=== PATIENT | female | born 1975 | race Caucasian/White ===

== ENCOUNTER 2022-08-24 09:18 | Outpatient (OUT) | payer OTHER, SELFPAY ==
--- NOTE | 2022-08-24 09:29 | US_ITS ---
Patient: BETZAIDA ARMENDARIZ Exam Date: 08/24/2022 : 1975 Gender:F Ordering : DR Amilcar Gagnon . Admission #: [id number] Family : Order #: [id number] CLICK HERE TO VIEW EXAM RADIOLOGY REPORT PROCEDURE: MM TOMOSYNTHESIS DIAGNOSTIC BI, 08/24/2022, 09:14 US BREAST LT LIMITED, 08/24/2022, 10:12 COMPARISON: MG MAMM LT DIAG FU, 03/10/2022. MG MAMM LT DIAG FU, 11/05/2021. MG MAMM SCREEN 3D SAVI CAD, 10/10/2021. INDICATIONS: Follow Up Abnormal Mammogram Calculator Name NCI Breast Cancer Risk Assessment Tool 5 Year Breast Cancer Risk 0.60% Lifetime Breast Cancer Risk 6.30% Personal Breast Cancer No Personal Ovarian Cancer No Treatments None Family Cancers Grandmother-paternal with breast cancer at age ~60; Sister with leukemia cancer at age 2. LOCATION: [facility] BREAST COMPOSITION: Heterogeneously dense,which may obscure small masses. FINDINGS: DIAGNOSTIC CATEGORY 2--BENIGN FINDING: RIGHT BREAST: No significant suspicious finding. No significant change has occurred. LEFT BREAST: Stable asymmetries on today's mammogram. Ultrasound evaluation demonstrates small benign appearing cysts and stable hypoechoic structure suspected to represent a benign lymph node. Annual screening mammography is recommended. RECOMMENDATIONS: ROUTINE MAMMOGRAM AND CLINICAL EVALUATION IN 12 MONTHS. PLEASE NOTE: A NORMAL MAMMOGRAM DOES NOT EXCLUDE THE POSSIBILITY OF BREAST CANCER. A CLINICALLY SUSPICIOUS PALPABLE LUMP SHOULD BE BIOPSIED. Dictated by: Marco Antonio Jamison M.D. on 08/24/2022 at 10:41 Approved by: Marco Antonio Jamison M.D. on 08/24/2022 at 11:19
--- NOTE | 2022-08-24 09:52 | MM_ITS ---
Patient: BETZAIDA ARMENDARIZ Exam Date: 08/24/2022 : 1975 Gender:F Ordering : DR Amilcar Gagnon . Admission #: [id number] Family : Order #: [id number] CLICK HERE TO VIEW EXAM RADIOLOGY REPORT PROCEDURE: MM TOMOSYNTHESIS DIAGNOSTIC BI, 08/24/2022, 09:14 US BREAST LT LIMITED, 08/24/2022, 10:12 COMPARISON: MG MAMM LT DIAG FU, 03/10/2022. MG MAMM LT DIAG FU, 11/05/2021. MG MAMM SCREEN 3D SAVI CAD, 10/10/2021. INDICATIONS: Follow Up Abnormal Mammogram Calculator Name NCI Breast Cancer Risk Assessment Tool 5 Year Breast Cancer Risk 0.60% Lifetime Breast Cancer Risk 6.30% Personal Breast Cancer No Personal Ovarian Cancer No Treatments None Family Cancers Grandmother-paternal with breast cancer at age ~60; Sister with leukemia cancer at age 2. LOCATION: [facility] BREAST COMPOSITION: Heterogeneously dense,which may obscure small masses. FINDINGS: DIAGNOSTIC CATEGORY 2--BENIGN FINDING: RIGHT BREAST: No significant suspicious finding. No significant change has occurred. LEFT BREAST: Stable asymmetries on today's mammogram. Ultrasound evaluation demonstrates small benign appearing cysts and stable hypoechoic structure suspected to represent a benign lymph node. Annual screening mammography is recommended. RECOMMENDATIONS: ROUTINE MAMMOGRAM AND CLINICAL EVALUATION IN 12 MONTHS. PLEASE NOTE: A NORMAL MAMMOGRAM DOES NOT EXCLUDE THE POSSIBILITY OF BREAST CANCER. A CLINICALLY SUSPICIOUS PALPABLE LUMP SHOULD BE BIOPSIED. Dictated by: Marco Antonio Jamison M.D. on 08/24/2022 at 10:41 Approved by: Marco Antonio Jamison M.D. on 08/24/2022 at 11:19
== END 2022-08-24 09:19 | disposition home or self-care (01) ==
LOC: MAMMO 09:18
PROVIDERS: Visit Provider Obstetrics & Gynecology
DX: R92.8 Other abnormal and inconclusive findings on diagnostic imaging of breast (principal); Z80.3 Family history of malignant neoplasm of breast; Z80.6 Family history of leukemia; N60.02 Solitary cyst of left breast
CPT/HCPCS: 76642; 77066; G0279

== ENCOUNTER 2022-12-21 21:27 | Outpatient (REF) | payer OTHER, SELFPAY ==
[2022-12-25 13:09] LABS: Age Gdln ACOG Testing Note (.); HPV Aptima Negative (Negative); IGP, Aptima HPV, rfx 16/18,45 Note (.)
== END 2022-12-21 21:28 | disposition home or self-care (01) ==
LOC: LAB 21:27
PROVIDERS: Visit Provider Obstetrics & Gynecology
DX: Z01.419 Encounter for gynecological examination (general) (routine) without abnormal findings (principal)
CPT/HCPCS: 87624; G0145

== ENCOUNTER 2023-08-11 09:20 | Outpatient (OUT) | payer OTHER, SELFPAY ==
--- OUTSIDE RECORDS SUMMARY | 2023-08-11 09:35 | XMS_ITS | CCD ---
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 iBWho0N6BLYgsQI9OOAscRuhAsAo mC36Czk+HDEhrPxwd0UcDjqvm9vk f1ojuQt0CqLnMRSbghKe pXmwLDK5f1JvUb24C63iIVczHJEa UQDoMWDoJBTtfBoppj0fqB0eMw6+ OKIluKO1cQK0wZ7cWvAl UiH7IOdaM784OnIqxKZiWuiny1mo w4fwwHw5VkRbOKNsbyYfqZfwJJU5 p0ZyWf64N1JjgTnur9Py Mut8wz85uGXhu9K8zSH7S9PrZKNo nvxzqKEakIzkKH0kMGEygqilWTGb fA7zTHHoO9y9MxQpNnE8 QArnZ4DsvnK2HZOadNIdSTStdVSN pW3zoaytw5fznivsBaHtSDKqZHq1 EGe9BHDtcOtlPyNuIAG0 ZdI8UEX8rFAcmQ8qhYujombhsD2s Oyc+SYz8x6eqmZHkOE7mpSP1JB27 SR63uNBvc5E2qBP0O5Ih VXTczkksfhixmDE5OYSuZARodQ53 Cj7suHeiRh3yREZxJGF2NPFtmUGq V1CeeW4vTwCbRSVwEGIq C8QduXXzNPiuI987WWqpEuC5BUPa kkXrQ2UsIGTuyMwsFeH4t9U5Zt4J GN74GL61RK48tDUnq3B7 sVN5Z1GlBEAwjdetorrmmJO5INNt JOYdbM19Tl5egRecQk6hWIQqSSG7 YAHlaDByY2WdiH1pHlDm KZZmLVEsM5XdeMCyBQwzX738OXxu VzO3ZLXqrxLvV8EdABOdhUzcAbF9 n5T7Nr4ZOc13VR96IE83 gVYuh7F2fEL0B3HtXYGolbbnpkpw nNB6OVGgEABbrJ15Xq4brRldWy8m MOEiIKX4QTIuoGQcT6Yz rE1qKwRsBHRoQQBoT1FksSNgQNkz Y650XRfuPnD6IDXyhrYgH9LhNMUz oDbxYiE6g9T7Fc6KZIjc kwx7O0CvYntzeXI+EK68LYFqLN52 sDCpeEKov2monPr1SiRpLUAmJOO2 qKnzTKdbz7WzXMGiF09b bGFw (more content not included)... [facility] XR Knee Complete 4+ Views Aneta monzon 08-04-2021 XR Knee Complete 4+ Views Right Exam Date/Time: 08/01/2021 12:43 EDT Reason for Exam: M25.561 pain in right knee Report IMPRESSION: NO ACUTE RADIOGRAPHIC FINDINGS IN THE RIGHT KNEE. EXAM: X-ray right kneeXR Knee Complete 4+ Views Right DATE: 08/01/2021 12:30 PM COMPARISON: None available. REASON FOR EXAM: Acute right anterior knee pain. M25.561 pain in right knee FINDINGS: Bones: No acute fracture or subluxation. Joints: Joints are symmetric and well-maintained. Articular surfaces are smooth. Effusion: None FINAL REPORT Dictated: 08/04/2021 3:03 pm Tigre Gomez MD Signed (Electronic Signature): 08/04/2021 3:03 pm Signed by: Tigre Gomez MD Transcribed by: JAKOB Technologist: NAOMY [facility] T3 Freeon 08-02-2021 Free T3 [Mass/Vol] 3.3 pg/mL Invalid Interpretation Code 2.0-4.4 [facility] Comment on above: Result Comment: Perf ormed at: [facility] [id number] [place], [place] [id number] PhD Rissa Cloud Performed By: #### 2 [id number], [id number] #### [facility] [address] [place] [address] Thyroid Perox.tpo Abon 08-02 TPO Ab Qn [IU]/mL Invalid Interpretation Code 0-34 [facility] Comment on above: Result Comment: Perf ormed at: [id number] [place], [place] [id number] PhD Rissa Cloud Performed By: #### 2 [id number], [id number] #### [facility] [address] [place] [address] Consent for Treatmenton 07-23 Consent for Treatment [id number]#[id number]:127 Normal [facility] Free T4on 08-01-2021 Free T4 [Mass/Vol] 0.73 ng/dL Normal 0.58-1.64 [facility] Comment on above: Performed By: #### 2 [id number], [id number], [id number] #### [facility] [address] [place] [address] Physician Orderon 08-01-2021 Physician Order [id number]#[id number]:127 Normal [facility] TSHon 08-01-2021 TSH Qn 2.64 m[IU]/L Normal 0.34-5.60 [facility] Comment on above: Performed By: #### 2 [id number], [id number], [id number], [id number] #### [facility] [address] [place] [address] SABRINA + BEATRICE PANELon 03-11-2020 SABRINA WITH REFLEX TO BEATRICE Negative Normal NEGATIVE [facility] Comment on above: Performed By: #### A NAP2 #### [facility] [address] [place] [address] ALPHA-FETOPROTEINon 03-09-19 21 ALPHA-FETOPROTEIN <4 Normal 0 - 9 [facility] Comment on above: Result Comment: AFP testing is performed by chemiluminescent immunoassay using the Expandly. Values obtained with different analyte methods cannot be used interchangeably. This test can be used as an adjunct in the diagnosis and monitoring of AFP-producing tumors, including non-seminomatous germ cell tumors and hepatocellular carcinomas. Performed By: #### A FP #### [facility] [address] [place] [address] SABRINA + BEATRICE PANELon 03-09-2020 ANTI-CENTROMERE <0.2 Normal [facility] Comment on above: Result Comment: REF VALUES < 1.0 = NEGATIVE >=1.0 = POSITIVE Performed By: #### A NAP2 #### [facility] [address] [place] [address] ANTI-CHROMATIN 0.2 AI Normal [facility] Comment on above: Result Comment: REF VALUES < 1.0 = NEGATIVE >=1.0 = POSITIVE Performed By: #### A NAP2 #### [facility] [address] [place] [address] ANTI-DNA [DS] <1.0 Normal [facility] Comment on above: Result Comment: REF VALUES NEGATIVE: <= 4 IU/ML EQUIVOCAL: 5- 9 IU/ML POSITIVE: >=10 IU/ML Performed By: #### A NAP2 #### [facility] [address] [place] [address] ANTI-STARR-1 <0.2 Normal [facility] Comment on above: Result Comment: REF VALUES < 1.0 = NEGATIVE >=1.0 = POSITIVE Performed By: #### A NAP2 #### [facility] [address] [place] [address] ANTI-RIBOSOMAL P <0.2 Normal [facility] Comment on above: Result Comment: REF VALUES < 1.0 = NEGATIVE >=1.0 = POSITIVE Performed By: #### A NAP2 #### [facility] [address] [place] [address] ANTI-PHYSICIAN LOCUMS URGENT CARE <0.2 Normal [facility] Comment on above: Result Comment: REF VALUES < 1.0 = NEGATIVE >=1.0 = POSITIVE Performed By: #### A NAP2 #### [facility] [address] [place] [address] ANTI-SCL-70 <0.2 Normal [facility] Comment on above: Result Comment: REF VALUES < 1.0 = NEGATIVE >=1.0 = POSITIVE Performed By: #### A NAP2 #### [facility] [address] [place] [address] ANTI-SM <0.2 Normal [facility] Comment on above: Result Comment: REF VALUES < 1.0 = NEGATIVE >=1.0 = POSITIVE Performed By: #### A NAP2 #### [facility] [address] [place] [address] ANTI-SM/PHYSICIAN LOCUMS URGENT CARE <0.2 Normal [facility] Comment on above: Result Comment: REF VALUES < 1.0 = NEGATIVE >=1.0 = POSITIVE Performed By: #### A NAP2 #### [facility] [address] [place] [address] ANTI-SSA <0.2 Normal [facility] Comment on above: Result Comment: REF VALUES < 1.0 = NEGATIVE >=1.0 = POSITIVE Performed By: #### A NAP2 #### [facility] [address] [place] [address] ANTI-SSB <0.2 Normal [facility] Comment on above: Result Comment: REF VALUES < 1.0 = NEGATIVE >=1.0 = POSITIVE Performed By: #### A NAP2 #### [facility] [address] [place] [address] HEPATITIS A AB-TOTALon 03-09 HEPATITIS A AB-TOTAL NONREACTIVE Normal NONREACTIVE [facility] Comment on above: Result Comment: Biot in interference may cause falsely elevated results. Patients taking a Biotin dose of up to 5 mg/day should refrain from taking Biotin for 24 hours before sample collection. Providers may contact their local laboratory for further information. Performed By: #### H AVTO #### [facility] [address] [place] [address] HEPATITIS B CORE AB-TOTALon 03-09-2020 HEP. B CORE AB-TOTAL NONREACTIVE Normal NONREACTIVE [facility] Comment on above: Result Comment: Resu lts from patients taking biotin supplements or receiving high-dose biotin therapy should be interpreted with caution due to possible interference with this test. Providers may contact their local laboratory for further information. Performed By: #### H BCRT #### [facility] [address] [place] [address] HEPATITIS B SURF ABon 2020 HEP B SURF AB <3.1 Normal <10 [facility] Comment on above: Result Comment: INTE RPRETIVE CRITERIA: <10 mIU/mL....NONREACTIVE >=10 mIU/mL...REACTIVE . Biotin interference may cause falsely decreased results. Patients taking a Biotin dose of up to 5 mg/day should refrain from taking Biotin for 24 hours before sample collection. Providers may contact their local laboratory for further information. Performed By: #### H BAB3 #### [facility] [address] [place] [address] Alpha Fetoprotein, Serumon 0 03-08-2020 AFP [Mass/Vol] ng/mL 0 - 9 [facility] Work Phone: Comment on above: SOURCE: AFP testing is performed by chemiluminescent immunoassay using the Expandly. Values obtained with different analyte methods cannot be used interchangeably. This test can be used as an adjunct in the diagnosis and monitoring of AFP-producing tumors, including non-seminomatous germ cell tumors and hepatocellular carcinomas. HEPATITIS B CORE AB-TOTALon 03-08-2020 Lab Specimen Source Normal [facility] Comment on above: Performed By: #### H BCRT #### [facility] [address] [place] [address] Performed By: #### A FP #### [facility] [address] [place] [address] Performed By: #### H BAB3 #### [facility] [address] [place] [address] Performed By: #### H AVTO #### [facility] [address] [place] [address] Hepatitis A Antibody, Totalo n 03-08-2020 HAV Ab IA Ql (S) NONREACTIVE See Below [facility] [address] Work Phone: Comment on above: SOURCE: Reference Ra nge: NONREACTIVE Biotin interference may cause falsely elevated results. Patients taking a Biotin dose of up to 5 mg/day should refrain from taking Biotin for 24 hours before sample collection. Providers may contact their local laboratory for further information. Hepatitis B Core Antibody, T otalon 03-08-2020 Hepatitis B Core Antibody, Total NONREACTIVE See Below [facility] [address] Work Phone: Comment on above: SOURCE: Reference Ra nge: NONREACTIVE Results from patients taking biotin supplements or receiving high-dose biotin therapy should be interpreted with caution due to possible interference with this test. Providers may contact their local laboratory for further information. Hepatitis B Surface Antibody on 03-08-2020 HBV surface Ag IA Ql <3.1 <10 [facility] [address] Work Phone: Comment on above: SOURCE: INTERPRETIVE CRITERIA:<10 mIU/mL....NONREACTIVE >=10 mIU/mL...REACTIVE . Biotin interference may cause falsely decreased results. Patients taking a Biotin dose of up to 5 mg/day should refrain from taking Biotin for 24 hours before sample collection. Providers may contact their local laboratory for further information. Imm/Pathon 03-08-2020 DNA double strand Ab Qn (S) [IU]/mL [facility] [address] Work Phone: Comment on above: REF VALUESNEGATIVE: <= 4 IU/MLEQUIVOCAL: 5- 9 IU/MLPOSITIVE: >=10 IU/ML Otheron 03-08-2020 Centromere protein B Ab Qn (S) <0.2 [facility] [address] Work Phone: Comment on above: REF VALUES < 1.0 = N EGATIVE >=1.0 = POSITIVE Chromatin Ab Qn 0.2 {AI} [facility] Work Phone: Comment on above: REF VALUES < 1.0 = N EGATIVE >=1.0 = POSITIVE Starr-1 extractable nuclear Ab IA Ql (S) <0.2 [facility] [address] Work Phone: Comment on above: REF VALUES < 1.0 = N EGATIVE >=1.0 = POSITIVE Nuclear Ab Hep2 substrate Ql (S) Negative NEGATIVE [facility] [address] Work Phone: Ribonucleoprotein extractable nuclear Ab IA Qn (S) <0.2 [facility] [address] Work Phone: Comment on above: REF VALUES < 1.0 = N EGATIVE >=1.0 = POSITIVE Ribosomal P Ab Qn (S) <0.2 [facility] [address] Work Phone: Comment on above: REF VALUES < 1.0 = N EGATIVE >=1.0 = POSITIVE SCL-70 extractable nuclear Ab IA Ql (S) <0.2 [facility] [address] Work Phone: Comment on above: REF VALUES < 1.0 = N EGATIVE >=1.0 = POSITIVE Sjogrens syndrome-A extractable nuclear Ab IA Qn (S) <0.2 [facility] [address] Work Phone: Comment on above: REF VALUES < 1.0 = N EGATIVE >=1.0 = POSITIVE Sjogrens syndrome-B extractable nuclear Ab IA Qn (S) <0.2 [facility] [address] Work Phone: Comment on above: REF VALUES < 1.0 = N EGATIVE >=1.0 = POSITIVE Jones extractable nuclear Ab IA Qn (S) <0.2 [facility] Work Phone: Comment on above: REF VALUES < 1.0 = N EGATIVE >=1.0 = POSITIVE Jones extractable nuclear Ab+Ribonucleoprotei n extractable nuclear Ab IA Ql (S) <0.2 [employer] [address] Work Phone: Comment on above: REF VALUES < 1.0 = N EGATIVE >=1.0 = POSITIVE Initial Visit (Gastroenterol ogy)on 03-05-2020 Initial Visit (Gastroenterology) Diagnoses/Problems Assessed Fatty infiltration of liver (571.8) (K76.0) Orders Elevated liver enzymes, Fatty infiltration of liver Alpha Fetoprotein, Serum; Status:Active; Requested for:05Mar2020; Perform:Lab Services - Lab To Draw (Blood Test); Due:03Jun2020;Ordered; For:Elevated liver enzymes, Fatty infiltration of liver; Ordered By:Reinaldo Banks; Hepatology Follow-Up Outpatient TEST RESULTS Status: Hold For - Scheduling Requested for: 05Mar2020 Ordered;For: Elevated liver enzymes, Fatty infiltration of liver; Ordered By: Reinaldo Banks Performed: Due: 03Jun2020 Anti Nuclear Antibody Panel (with automatic BEATRICE Panel); Status:Active; Requested for:05Mar2020; Perform:Lab Services - Lab To Draw (Blood Test); Due:03Jun2020;Ordered; For:Elevated liver enzymes, Fatty infiltration of liver; Ordered By:Reinaldo Banks; Hepatitis A Antibody, Total; Status:Active; Requested for:05Mar2020; Perform:Lab Services - Lab To Draw (Blood Test); Due:03Jun2020;Ordered; For:Elevated liver enzymes, Fatty infiltration of liver; Ordered By:Reinaldo Banks; Hepatitis B Core Antibody, Total; Status:Active; Requested for:05Mar2020; Perform:Lab Services - Lab To Draw (Blood Test); Due:03Jun2020;Ordered; For:Elevated liver enzymes, Fatty infiltration of liver; Ordered By:Reinaldo Banks; Hepatitis B Surface Antibody; Status:Active; Requested for:05Mar2020; Perform:Lab Services - Lab To Draw (Blood Test); Due:03Jun2020;Ordered; For:Elevated liver enzymes, Fatty infiltration of liver; Ordered By:Reinaldo Banks; IO Liver Ultrasound; Status:Hold For - Scheduling; Requested for:05Mar2020; Perform:In Office; Order Comments:FIBROSCAN; Due:03Jun2020;Ordered; For:Elevated liver enzymes, Fatty infiltration of liver; Ordered By:Reinaldo Banks; Radiologist to Determine Optimal Study : Y What are the patient's signs and symptoms? : Fatty liver Patient Discussion/Summary diet and exercise are recommended have fibroscan done to monitor for the amount of fat and scarring in the liver have liver testing blood work done return to the office in 6 weeks Avoid foods which contain complex sugars like wheat, rice, potatoes and corn Avoid eating foods that are rich in sugar in excess such as hgih sugar fruits (pineapple, alison...) and desserts, cakes and pies Eat more good foods that are rich in good fat such as cold water fish (salmon, swordfish...) as well as avocados and peanut butter in moderation Snack on nuts that are high in protein and good oils such as walnuts, almonds. Eat a mediteranean diet which is rich in grilled lean meats, high protein beans and legumes and olive oil Exercise for 30 minutes or more at least 3 times a week focus on exercises that build muscle mass like working with weights and lifting. Try swimming or water aerobics if you have access to a pool Aim to lose 7-10% of your total body weight over 6-12 months Provider Impressions This patient most likely has Non Alcoholic Fatty Liver. We discussed natural history and the distinction between PALMER and NAFLD as well as long-term implications of a diagnosis of PALMER and the increased risk of cardiovascular events associated with fatty liver We encouraged diet and exercise We will complete a work up for causes of chronic liver disease we will order FIBROSCAN to assess for steatosis and fibrosis we will see this patient in 6 weeks 45 minutes spent discussing condition, explaining results of tests and formulating plan of care Chief Complaint An interactive audio and video telecommunication system which permits real time communications between the patient (at the originating site) and provider (at the distant site) was utilized to provide this telehealth service. Verbal consent was requested and obtained from BETZAIDA ARMENDARIZ on this date, 03/05/2020 08:20 AM , for a telehealth visit. New patient here for evaluation of elevated liver enzymes Adult Risk ScreeningAdult Risk Screening_UH: There are no spiritual/cultural practices/values/needs that are important to know Initial Fall Risk Screening: BETZAIDA has not fallen in the last 6 months. History of Present Illness She has a history of ALT elevation in the setting of obesity. there is no complaint of cognitive impairment or fluid overload Upper Gastrointestinal: no abdominal pain, no eructation, no difficulty swallowing, no early satiety, no heartburn, no jaundiced, no nausea, no pain while swallowing, no regurgitation, no vomiting. Lower Gastrointestinal: no abdominal swelling, no bloating, no constipation, no diarrhea, no fecal incontinence, no bowel urgency, no steatorrhea. Liver Disease no ankle swelling, no cognitive impairment, no confusion, no icterus. Symptom History: Modifying Factors: Associated Symptoms: Skin: there are no skin symptoms. Eyes: there are no eye symptoms. Ears: there are no ear symptoms. Nose: there are no nasal symptoms. Mouth/Throat/Teeth: there are no oral symptoms. Neck: there are no neck symptoms. Cardiovascular: there are no cardiovascular symptoms. Respiratory: there are no respiratory symptoms. Review of Systems Constitutional: no fever and no chills. ENT: no lymphadenopathy and no nosebleeds. Cardiovascular: the heart rate was not slow and the heart rate was not fast. Respiratory: no cough and no wheezing. Genitourinary: no dysuria and no incontinence. Musculoskeletal: no arthralgias. Integumentary: no itching and no skin wound. Neurological: no headache and no confusion. Constitutional: no fever, no chills, not feeling tired and no recent weight loss. Eyes: no yellow sclera/jaundice. ENT: no lymphadenopathy. Cardiovascular: no shortness of breath and no chest pain. Respiratory: no cough. Gastrointestinal: as noted in HPI. Musculoskeletal: no joint swelling. Integumentary: no rashes, no skin lesions and was no jaundiced. Neurological: no headache. Psychiatric: anxiety and depression. Hematologic/Lymphatic: no tendency for easy bleeding and no tendency for easy bruising. All other systems have been reviewed and are negative for complaint. Active Problems Problems Anxiety (300.00) (F41.9) ASCUS with positive high risk HPV cervical (795.01,795.05) (R87.610,R87.810) BENJA I (cervical intraepithelial neoplasia I) (622.11) (N87.0) BENJA II (cervical intraepithelial neoplasia II) (622.12) (N87.1) Depression, major, single episode, mild (296.21) (F32.0) Elevated liver enzymes (790.5) (R74.8) Encounter for preventive health examination (V70.0) (Z00.00) Fatigue (780.79) (R53.83) Irregular menses (626.4) (N92.6) Migraines (346.90) (G43.909) Obesity (BMI 30-39.9) (278.00) (E66.9) Other screening mammogram (V76.12) (Z12.31) Restless leg syndrome (333.94) (G25.81) Screening mammogram, encounter for (V76.12) (Z12.31) Skin lesion (709.9) (L98.9) Stress (V62.89) (F43.9) Uterine fibroid (218.9) (D25.9) Varicose veins (454.9) (I83.90) Past Medical History Problems Fatty infiltration of liver (571.8) (K76.0) History of abnormal Pap smear (V13.29) (Z87.898) Surgical History Problems History of Cervical Loop Electrosurgical Excision (LEEP) History of Section History of Colposcopy Cervix With Biopsy(S) History of Dilation And Curettage History of Hysterectomy has ovaries Family History Mother Family history of Biliary sclerosis Father Family history of Diabetes mellitus due to underlying condition with microalbuminuria, with long-term current use of insulin Family history of malignant neoplasm of prostate (V16.42) (Z80.42) Sister Family history of leukemia (V16.6) (Z80.6) Social History Problems Caffeine use (V49.89) (Z78.9) Former smoker (V15.82) (Z87.891) Has 2 children No illicit drug use Social alcohol use (Z78.9) Allergies Medication Penicillins Recorded By: Veronica Crockett; 06/01/2017 9:38:23 AM Surgical TAPE Recorded By: Veronica Crockett; 06/01/2017 9:38:23 AM Current Meds Medication NameInstruction buPROPion HCl ER (XL) 150 MG Oral Tablet Extended Release 24 HourTAKE 1 TABLET BY MOUTH DAILY Esomeprazole Magnesium 20 MG Oral Capsule Delayed Release Multivitamins TABS rOPINIRole HCl - 0.25 MG Oral TabletTAKE 1 TABLET Bedtime Vitamin D3 75 MCG (3000 UT) Oral Tablet Results/Data Ultrasound [id number] 02:13PMGiovanna Brooks [Feb 14, 2020 10:53AM Giovanna Brooks] Reason: Unspecified for Ultrasound Liver Test NameResultFlagReference Ultrasound Liver(Report) Interpreted by: DESTINEE WEST 02/18/20 07:50 Patient Name: BETZAIDA ARMENDARIZ STUDY: US LIVER; 02/17/2020 2:13 pm INDICATION: elevated liver function tests. COMPARISON: None. ACCESSION NUMBER(S): [id number] ORDERING CLINICIAN: GIOVANNA BROOKS TECHNIQUE: Multiple images of the right upper quadrant were obtained. FINDINGS: LIVER: The liver is enlarged and diffusely echogenic in appearance, consistant with diffuse fatty infiltration. The liver measures 20.1 cm in length. There is a small probable area of focal fatty sparing adjacent to the gallbladder. No other focal lesions are identified. GALLBLADDER: The gallbladder is nondistended demonstrates no evidence of gallstones, wall thickening or surrounding fluid. Sonographic Sow's sign is negative. BILIARY TREE: 4 PANCREAS: The visualized pancreas is unremarkable in appearance. RIGHT KIDNEY: The right kidney is normal in size, measuring 10.5 cm in craniocaudal dimension. The renal cortical echogenicity and thickness are within normal limits. No hydronephrosis or renal calculi are seen. IMPRESSION: Enlarged liver with diffuse fatty infiltration. Probable small area of focal fatty sparing adjacent to the gallbladder. Otherwise, grossly unremarkable right upper quadrant ultrasound. Electronically signed by: DESTINEE WEST 02/18/20 07:50 Iron + TIBC, [id number] 12:39PMRevolGiovanna javier Test NameResultFlagReference Iron, Serum83 ug/dL35 - 150 Total Iron Binding Ljhxkizb620 ug/dL240 - 445 % Unhrdodtqg01 %L25 - 45 Transferrin, [id number] 12:39PMRevolinsGiovanna longoria Test NameResultFlagReference Transferrin, Kdnfu249 mg/dL200 - 360 Ceruloplasmin, Bhgvb34Spg2000 12:39PMRemountain point medical centerGiovanna javier Test NameResultFlagReference Ceruloplasmin, Serum38 mg/dL20 - 60 HIV 1/2 ANTIGEN/ANTIBODY SCREEN WITH REFLEX TO [id number] 12:39PMRevolinskyGiovanna Test NameResultFlagReference HIV 1/2 AG/AB SCREENNONREACTIVESee Below SOURCE: Reference Range: NONREACTIVE HIV Ag/Ab screen is performed using the Siemens LinqiallEverConnect HIV Ag/Ab Combo assay which detects the presence of HIV p24 antigen as well as antibodies to HIV-1 (Group M and O) and HIV-2. Hepatitis B Surface [id number] 12:39PMReatlantic rehabilitation instituteGiovanna longoria Test NameResultFlagReference Hep.B Surface AgNONREACTIVESee Below SOURCE: Reference Range: NONREACTIVE Biotin interference may cause falsely decreased results. Patients taking a Biotin dose of up to 5 mg/day should refrain from taking Biotin for 24 hours before sample collection. Providers may contact their local laboratory for further information. Hepatitis C Antibody [id number] 12:39PMRevolandalusia healthkyGiovanna Test NameResultFlagReference Hepatitis C-AntibodyNONREACTIVESee Below SOURCE: Reference Range: NONREACTIVE Results from patients taking biotin supplements or receiving high-dose biotin therapy should be interpreted with caution due to possible interference with this test. Providers may contact their local laboratory for further information. Hepatitis B Core IgM Zzlbsddr29Thq8039 12:39PMRevolinsky, Giovanna Test NameResultFlagReference Hepatitis B Core Ab, IgMNONREACTIVESee Below SOURCE: Reference Range: NONREACTIVE Results from patients taking biotin supplements or receiving high-dose biotin therapy should be interpreted with caution due to possible interference with this test. Providers may contact their local laboratory for further information. EBV Akfid49Slz3619 12:39PMReGiovanna allred Test NameResultFlagReference Baljit-Greenberg Virus Capsid Antigen IgGPOSITIVEANEGATIVE Baljit-Greenberg Virus Ab to Early AntigenNEGATIVENEGATIVE Baljit-Greenberg Virus Nuclear Antigen IgGPOSITIVEANEGATIVE VCA IgM AntibodyNEGATIVENEGATIVE EBV InterpretationSEE BELOW . EBV INTERPRETATION CHART . VCA-IGG VCA-IGM NA-IGG EA-IGG . ---- PRIMARY ACUTE +/- +/- - +/- LATE ACUTE + +/- +/- +/- RECOVERING + - - + PREVIOUS INFECTION + - +/- - Antimitochondrial [id number] 12:39PMReGiovanna allred Test NameResultFlagReference Mitochondrial Antibody ScreeningNEGATIVENEGATIVE Smooth Muscle Antibody Qsoiha95Nua2856 12:39PMReGiovanna allred Test NameResultKareennce Smooth Muscle AntibodyPOSITIVENEGATIVE Antismooth Muscle Titer1:20 Vqsdg-4-Ggfoonzmixm Phenotype, Gvcoo21Kwt8478 12:39PMReGiovanna allred Test NameResultReference Txtee-9-Wtogjgmsiuu Airjtfdtb432 mg/uM52-386 To convert to umol/L, multiply mg/dL by 0.185 Otusz-7-Noyhypieohy Phenotype AzdwoZ2S4 The patient appears to have a normal phenotype. All M alleles (including subtypes M1, M2, and M3) produce normal serum concentrations of tjwtd-1-qqxhdklu inhibitor and are not associated with clinical disease. Caution in interpretation is advised if the patient has been transfused within the previous 21 days. Performed By: saambaa [address] [place] [id number] Senior Underwriter: Nakia Washburn MD Complete Blood Xppqa87Mkw0541 03:43PMReGiovanna allred Test NameResultFlagReference White Blood Cell Count7.8 x10E9/L4.4 - 11.3 Red Blood Cell Count4.87 x10E12/LSee Below Reference Range: 4.00 - 5.20 Edtmtyfokp25.7 g/dLSee Below Reference Range: 12.0 - 16.0 HCT45.5 %See Below Reference Range: 36.0 - 46.0 MCV93 fL80 - 100 MCHC32.3 g/dLSee Below Reference Range: 32.0 - 36.0 Platelet Tatxr574 x10E9/L150 - 450 RDW-CV12.1 %See Below Reference Range: 11.5 - 14.5 Comprehensive Metabolic Tyhrl68Hbd5916 03:43PMGiovanna Brooks Test NameResultFlagReference Glucose, Serum90 mg/dL74 - 99 Sodium, Tbebk190 mmol/L136 - 145 POTASSIUM4.0 mmol/L3.5 - 5.3 Chloride, Vivef492 mmol/L98 - 107 Bicarbonate, Serum25 mmol/L21 - 32 Anion Gap, Serum17 mmol/L10 - 20 Blood Urea Nitrogen, Serum8 mg/dL6 - 23 CREATININE0.75 mg/dLSee Below Reference Range: 0.50 - 1.05 Calcium, Serum9.6 mg/dL8.6 - 10.3 Albumin, Serum4.5 g/dL3.4 - 5.0 ALKALINE AMQRSLIDSEF54 U/L33 - 110 Protein, Total Serum7.9 g/dL6.4 - 8.2 Bilirubin, Serum Total0.6 mg/dL0.0 - 1.2 ALT (SGPT), Serum87 U/LH7 - 45 Patients treated with Sulfasalazine may generate falsely decreased results for ALT. GFR Non >60 mL/min/1.73m2>60 GFR >60 mL/min/1.73m2>60 CALCULATIONS OF ESTIMATED GFR ARE PERFORMED USING THE MDRD STUDY EQUATION FOR THE IDMS-TRACEABLE CREATININE METHODS. CLIN CHEM 2007;53:766-72 AST74 U/LH9 - 39 Signatures Electronically signed by : Reinaldo Banks MD; Mar 05 2020 11:11AM EST (Author) Normal [facility] ALPHA-1 ANTITRYPSIN PHENOTYP [place] 02-18-2020 A-1 ANTITRYP.PHENOTYPE M1M2 Normal [facility] Comment on above: Result Comment: The patient appears to have a normal phenotype. All M alleles (including subtypes M1, M2, and M3) produce normal serum concentrations of oymgv-8-rbqoosia inhibitor and are not associated with clinical disease. Caution in interpretation is advised if the patient has been transfused within the previous 21 days. Performed By: [facility] [address] [place] [address] Senior Underwriter: Nakia Washburn MD Performed By: #### H BCRM #### [facility] [address] [place] [address] QZYMR-0-JRXXNYFEISM 140 mg/dL Normal 90-200 [facility] Comment on above: Result Comment: To c onvert to umol/L, multiply mg/dL by 0.185 Performed By: #### H BCRM #### [facility] [address] [place] [address] Otheron 02-17-2020 US Liver Interpreted by: DESTINEE WEST02/18/20 07:50MRN: [id number] Name: BETZAIDA ARMENDARIZ STUDY:US LIVER; 02/17/2020 2:13 pm INDICATION:elevated liver function tests. COMPARISON:None. ORDERING CLINICIAN:GIOVANNA BROOKS TECHNIQUE:Multiple images of the right upper quadrant were obtained. FINDINGS:LIVER:The liver is enlarged and diffusely echogenic in appearance,consistant with diffuse fatty infiltration. The liver measures 20.1cm in length. There is a small probable area of focal fatty sparingadjacent to the gallbladder. No other focal lesions are identified. GALLBLADDER:The gallbladder is nondistended demonstrates no evidence ofgallstones, wall thickening or surrounding fluid. SonographicMurphy's sign is negative. BILIARY TREE:4 PANCREAS:The visualized pancreas is unremarkable in appearance. RIGHT KIDNEY:The right kidney is normal in size, measuring 10.5 cm in craniocaudaldimension. The renal cortical echogenicity and thickness are withinnormal limits. No hydronephrosis or renal calculi are seen. IMPRESSION:Enlarged liver with diffuse fatty infiltration. Probable small areaof focal fatty sparing adjacent to the gallbladder. Otherwise, grossly unremarkable right upper quadrant ultrasound.Electronically signed by: DESTINEE WEST 02/18/20 07:50 Normal [facility] Work Phone: US LIVERon 02-17-2020 US LIVER Patient Name: BETZAIDA ARMENDARIZ STUDY: US LIVER; 02/17/2020 2:13 pm INDICATION: elevated liver function tests. COMPARISON: None. ACCESSION NUMBER(S): [id number] ORDERING CLINICIAN: GIOVANNA BROOKS TECHNIQUE: Multiple images of the right upper quadrant were obtained. FINDINGS: LIVER: The liver is enlarged and diffusely echogenic in appearance, consistant with diffuse fatty infiltration. The liver measures 20.1 cm in length. There is a small probable area of focal fatty sparing adjacent to the gallbladder. No other focal lesions are identified. GALLBLADDER: The gallbladder is nondistended demonstrates no evidence of gallstones, wall thickening or surrounding fluid. Sonographic Sow's sign is negative. BILIARY TREE: 4 PANCREAS: The visualized pancreas is unremarkable in appearance. RIGHT KIDNEY: The right kidney is normal in size, measuring 10.5 cm in craniocaudal dimension. The renal cortical echogenicity and thickness are within normal limits. No hydronephrosis or renal calculi are seen. IMPRESSION: Enlarged liver with diffuse fatty infiltration. Probable small area of focal fatty sparing adjacent to the gallbladder. Otherwise, grossly unremarkable right upper quadrant ultrasound. Electronically signed by: DESTINEE WEST MD Normal [facility] ANTIMITOCHONDRIAL ABon 02-14 ANTIMITOCHONDRIAL AB Negative Normal NEGATIVE [facility] Comment on above: Performed By: #### M ITAB #### [facility] [address] [place] [address] ANTISMOOTH MUSCLE ABon 02-14 ANTISMOOTH MUSCLE AB Positive Normal NEGATIVE [facility] Comment on above: Performed By: #### A SMAB #### [facility] [address] [place] [address] ANTISMOOTH MUSCLE TITER 1:20 Normal [facility] Comment on above: Performed By: #### A SMAB #### [facility] [address] [place] [address] CERULOPLASMINon 02-14-2020 CERULOPLASMIN 38 mg/dL Normal 20 - 60 [facility] Comment on above: Performed By: #### C ERUL #### [facility] [address] [place] [address] Ceruloplasmin, Serumon 02-13 Ceruloplasmin [Mass/Vol] 38 mg/dL 20 - 60 -[facility] Work Phone: EBV PANELon 02-14-2020 VCA IGM ANTIBODY Negative Normal NEGATIVE [facility] Comment on above: Performed By: #### E BVP1 #### [facility] [address] [place] [address] EBV EA-D IGG ANTIBODY Negative Normal NEGATIVE [facility] Comment on above: Performed By: #### E BVP1 #### [facility] [address] [place], [place] EBV INTERPRETATION SEE BELOW Normal [facility] Comment on above: Result Comment: . EB V INTERPRETATION CHART . VCA-IGG VCA-IGM NA-IGG EA-IGG . PRIMARY ACUTE +/- +/- - +/- LATE ACUTE + +/- +/- +/- RECOVERING + - - + PREVIOUS INFECTION + - +/- - Performed By: #### E BVP1 #### [facility] [address] [place] [address] EBV NA-1 IGG ANTIBODY Positive Abnormal NEGATIVE [facility] Comment on above: Performed By: #### E BVP1 #### [facility] [address] [place] [address] VCA IGG ANTIBODY Positive Abnormal NEGATIVE [facility] Comment on above: Performed By: #### E BVP1 #### [facility] [address] [place] [address] HEPATITIS B CORE AB;IGMon HEPATITIS B CORE AB,IGM NONREACTIVE Normal NONREACTIVE [facility] Comment on above: Result Comment: Resu lts from patients taking biotin supplements or receiving high-dose biotin therapy should be interpreted with caution due to possible interference with this test. Providers may contact their local laboratory for further information. Performed By: #### H [employer] [facility] [employer] [facility] #### [facility] [address] [place], [place] Lab Specimen Source Normal [facility] Comment on above: Performed By: #### H BCRM #### [facility] [address] [place], [place] Performed By: #### H CVAB #### [facility] [address] [place], [place] Performed By: #### H IV #### [facility] [address] [place] [address] HEPATITIS B SURFACE AGon HEP.B SURFACE AG NONREACTIVE Normal NONREACTIVE [facility] Comment on above: Result Comment: Biot in interference may cause falsely decreased results. Patients taking a Biotin dose of up to 5 mg/day should refrain from taking Biotin for 24 hours before sample collection. Providers may contact their local laboratory for further information. Performed By: #### H BCRM #### [facility] [address] [place] [address] HEPATITIS C ABon 02-14-2020 HEPATITIS C AB NONREACTIVE Normal NONREACTIVE [facility] Comment on above: Result Comment: Resu lts from patients taking biotin supplements or receiving high-dose biotin therapy should be interpreted with caution due to possible interference with this test. Providers may contact their local laboratory for further information. Performed By: #### H CVAB #### [facility] [address] [place], [place] HIV 1/2 ANTIGEN/ANTIBODY SCR EEN WITH REFLEX TO CONFIRMATIONon 02-14-2020 HIV 1/2 AG/AB SCREEN NONREACTIVE Normal NONREACTIVE [facility] Comment on above: Result Comment: HIV Ag/Ab screen is performed using the Siemens AtellEverConnect HIV Ag/Ab Combo assay which detects the presence of HIV p24 antigen as well as antibodies to HIV-1 (Group M and O) and HIV-2. Performed By: #### H IV #### [facility] [address] [place], [place] HIV 1+2 Ab+HIV1 p24 Ag IA Ql NONREACTIVE See Below -[facility] Work Phone: Comment on above: SOURCE: Reference Ra nge: NONREACTIVE HIV Ag/Ab screen is performed using the Siemens LinqiallEverConnect HIV Ag/Ab Combo assay which detects the presence of HIV p24 antigen as well as antibodies to HIV-1 (Group M and O) and HIV-2. Hepatitis B Surface Antigeno n 02-14-2020 Hepatitis B Surface Antigen NONREACTIVE See Below [facility] Work Phone: Comment on above: SOURCE: Reference Ra nge: NONREACTIVE Biotin interference may cause falsely decreased results. Patients taking a Biotin dose of up to 5 mg/day should refrain from taking Biotin for 24 hours before sample collection. Providers may contact their local laboratory for further information. SOURCE: Reference Ra nge: NONREACTIVE Results from patients taking biotin supplements or receiving high-dose biotin therapy should be interpreted with caution due to possible interference with this test. Providers may contact their local laboratory for further information. IRON + TIBCon 02-14-2020 % SATURATION 22 % Low 25 - 45 [facility] Comment on above: Performed By: #### I RONT #### [address] [address] Iron [Mass/Vol] 83 ug/dL Normal 35 - 150 [facility] Comment on above: Performed By: #### I RONT #### [address] [address] TIBC 374 ug/dL Normal 240 - 445 [facility] Comment on above: Performed By: #### I RONT #### [address] [address] Imm/Pathon 02-14-2020 EBV early IgM IA Qn (S) Negative NEGATIVE [facility] Work Phone: Metabolic Panelon 02-14-2020 Iron [Mass/Vol] 83 ug/dL 35 - 150 [facility] [address] Work Phone: Otheron 02-14-2020 Alpha 1 antitrypsin [Mass/Vol] 140 mg/dL 90-200 [facility] Work Phone: Comment on above: To convert to umol/L , multiply mg/dL by 0.185 Alpha 1 antitrypsin phenotyping [Interp] M1M2 [facility] Work Phone: Comment on above: The patient appears to have a normal phenotype. All M alleles (including subtypes M1, M2, and M3) produce normal serum concentrations of vaqov-1-yqzxpiey inhibitor and are not associated with clinical disease. Caution in interpretation is advised if the patient has been transfused within the previous 21 days.Performed By: [address] [place] [id number] Director: Nakia Washburn MD EBV capsid IgG IA Qn (S) Positive Abnormal NEGATIVE [facility] Work Phone: EBV capsid IgM IA Qn (S) Negative NEGATIVE [facility] Work Phone: EBV nuclear IgG IA Qn (S) Positive Abnormal NEGATIVE [facility] Work Phone: Iron binding capacity [Mass/Vol] 374 ug/dL 240 - 445 [facility] Work Phone: SEE BELOW [facility] Work Phone: Comment on above: . EBV INTERPRETATION CHART. VCA-IGG VCA-IGM NA-IGG EA-IGG. PRIMARY ACUTE +/- +/- - +/-LATE ACUTE + +/- +/- +/-RECOVERING + - - +PREVIOUS INFECTION + - +/- - Negative NEGATIVE [facility] Work Phone: Positive NEGATIVE [facility] Work Phone: 1:20 [facility] Work Phone: 22 % below low threshold 25 - 45 [facility] Work Phone: TRANSFERRINon 02-14-2020 Transferrin [Mass/Vol] 283 mg/dL Normal 200 - 360 [facility] Comment on above: Performed By: #### T DOMINIQUE #### [facility] [address] [place] [address] Transferrin, Serumon 020 Transferrin [Mass/Vol] 283 mg/dL 200 - 360 -[facility] Work Phone: CBCon 02-13-2020 Erythrocyte distribution width (RBC) [Ratio] 12.1 % Normal 11.5 - 14.5 [facility] Comment on above: Performed By: #### C BC #### [address] [id number] Hematocrit (Bld) [Volume fraction] 45.5 % Normal 36.0 - 46.0 [facility] Comment on above: Performed By: #### C BC #### [address] [id number] Hemoglobin (Bld) [Mass/Vol] 14.7 g/dL Normal 12.0 - 16.0 [facility] Comment on above: Performed By: #### C BC #### [address] [id number] MCHC (RBC) [Mass/Vol] 32.3 g/dL Normal 32.0 - 36.0 [facility] Comment on above: Performed By: #### C BC #### [address] [id number] MCV (RBC) [Entitic vol] 93 fL Normal 80 - 100 [facility] Comment on above: Performed By: #### C BC #### [address] [id number] Platelets (Bld) [#/Vol] 421 10*3/uL Normal 150 - 450 [facility] Comment on above: Performed By: #### C BC #### [address] [id number] RBC (Bld) [#/Vol] 4.87 x10E12/L Normal 4.00 - 5.20 [facility] Comment on above: Performed By: #### C BC #### [address] [id number] WBC (Bld) [#/Vol] 7.8 10*3/uL Normal 4.4 - 11.3 [facility] Comment on above: Performed By: #### C BC #### [address] [id number] COMPREHENSIVE PANELon 2019 Albumin [Mass/Vol] 4.5 g/dL Normal 3.4 - 5.0 [facility] Comment on above: Performed By: #### C MP #### [address] [id number] ALP [Catalytic activity/Vol] 91 U/L Normal 33 - 110 [facility] Comment on above: Performed By: #### C MP #### [address] [id number] ALT [Catalytic activity/Vol] 87 U/L High 7 - 45 [facility] Comment on above: Result Comment: Yamini ents treated with Sulfasalazine may generate falsely decreased results for ALT. Performed By: #### C MP #### [address] [id number] Anion gap [Moles/Vol] 17 mmol/L Normal 10 - 20 [facility] Comment on above: Performed By: #### C MP #### [address] [id number] AST [Catalytic activity/Vol] 74 U/L High 9 - 39 [facility] Comment on above: Performed By: #### C MP #### [address] [id number] Bilirubin [Mass/Vol] 0.6 mg/dL Normal 0.0 - 1.2 [facility] Comment on above: Performed By: #### C MP #### [address] [id number] Calcium [Mass/Vol] 9.6 mg/dL Normal 8.6 - 10.3 [facility] Comment on above: Performed By: #### C MP #### [address] [id number] Chloride [Moles/Vol] 102 mmol/L Normal 98 - 107 [facility] Comment on above: Performed By: #### C MP #### [address] [id number] Creatinine [Mass/Vol] 0.75 mg/dL Normal 0.50 - 1.05 [facility] Comment on above: Performed By: #### C MP #### [address] [id number] GFR- AM. >60 Normal >60 [facility] Comment on above: Result Comment: CALC ULATIONS OF ESTIMATED GFR ARE PERFORMED USING THE MDRD STUDY EQUATION FOR THE IDMS-TRACEABLE CREATININE METHODS. CLIN CHEM 2007;53:766-72 Performed By: #### C MP #### [address] [id number] GFR-NON AM. >60 Normal >60 [facility] Comment on above: Performed By: #### C MP #### [address] [id number] Glucose [Mass/Vol] 90 mg/dL Normal 74 - 99 [facility] Comment on above: Performed By: #### C MP #### [address] [id number] HCO3 (Bld) [Moles/Vol] 25 mmol/L Normal 21 - 32 [facility] Comment on above: Performed By: #### C MP #### [address] [id number] Potassium [Moles/Vol] 4.0 mmol/L Normal 3.5 - 5.3 [facility] Comment on above: Performed By: #### C MP #### [address] [id number] Protein [Mass/Vol] 7.9 g/dL Normal 6.4 - 8.2 [facility] Comment on above: Performed By: #### C MP #### [address] [id number] Sodium [Moles/Vol] 140 mmol/L Normal 136 - 145 [facility] Comment on above: Performed By: #### C MP #### [address] [id number] Urea nitrogen [Mass/Vol] 8 mg/dL Normal 6 - 23 [facility] Comment on above: Performed By: #### C MP #### [address] [id number] 19-49 Yearson 02-13-2020 19-49 Years Diagnoses/Problems Health Maintenance/Risks Encounter for preventive health examination (V70.0) (Z00.00) Assessed Screening mammogram, encounter for (V76.12) (Z12.31) Restless leg syndrome (333.94) (G25.81) Depression, major, single episode, mild (296.21) (F32.0) Fatigue (780.79) (R53.83) Orders Depression, major, single episode, mild Start: buPROPion HCl ER (XL) 150 MG Oral Tablet Extended Release 24 Hour; TAKE 1 TABLET BY MOUTH DAILY Rx By: Giovanna Brooks; Dispense: 30 Days ; #:30 Tablet; Refill: 1;For: Depression, major, single episode, mild; DALIA = N; Verified Transmission to [id number]; Last Updated By: SystemSapheon; 02/13/2020 3:19:17 PM Fatigue Complete Blood Count; Status:Active; Requested for:[id number]; Perform:Lab Services - Lab To Draw (Blood Test); Due:13May2020;Ordered; For:Fatigue; Ordered By:Giovanna Brooks; Comprehensive Metabolic Panel; Status:Active; Requested for:[id number]; Perform:Lab Services - Lab To Draw (Blood Test); Due:13May2020;Ordered; For:Fatigue; Ordered By:Giovanna Brooks; TSH - Thyroid Stimulating Hormone, Serum; Status:Active; Requested for:[id number]; Perform:Lab Services - Lab To Draw (Blood Test); Due:13May2020;Ordered; For:Fatigue; Ordered By:Giovanna Brooks; Vitamin B12, Serum; Status:Active; Requested for:[id number]; Perform:Lab Services - Lab To Draw (Blood Test); Due:13May2020;Ordered; For:Fatigue; Ordered By:Giovanna Brooks; Health Maintenance Lipid Panel; Status:Active; Requested for:[id number]; Perform:Lab Services - Lab To Draw (Blood Test); Due:13May2020;Ordered; For:Health Maintenance; Ordered By:Giovanna Brooks; Restless leg syndrome Start: rOPINIRole HCl - 0.25 MG Oral Tablet; TAKE 1 TABLET Bedtime Rx By: Giovanna Brooks; Dispense: 30 Days ; #:30 Tablet; Refill: 2;For: Restless leg syndrome; DALIA = N; Verified Transmission to [facility]; Last Updated By: TapZen; 02/13/2020 3:16:55 PM Screening mammogram, encounter for Mamm - Screening Mammogram w/ Tomosynthesis; Status:Hold For - Scheduling; Requested for:13Feb2020; Perform:[facility]; Due:13May2020;Ordered; For:Screening mammogram, encounter for; Ordered By:Giovanna Brooks; Radiologist to Determine Optimal Study : Y What are the patient's signs and symptoms ? : Annual Screening Mammogram Patient Discussion/Summary Make an appointment in 1 month Chief Complaint Chief Complaints Well Adult Visit Patient here to estab a new PCP. A co worker's is a patient of ours. History of Present IllnessConcerns raised today include: Patient will discuss. The patient's health since the last visit is described as good. There are no interval changes in the patient's PMH, PSH, and current medications. There are no interval changes in the patient's social and family history. She has regular dental visits. She denies vision problems. She denies hearing loss. Lifestyle: She consumes a diverse and healthy diet. She has weight concerns. She does not exercise regularly. She does not use tobacco. She consumes alcohol. She reports occasional alcohol use. Reproductive health: the patient is postmenopausal. she reports normal menses. she uses no contraception. Cervical cancer screening:. patient has no history of an abnormal pap smear. Metabolic screening: lipid profile performed within the past five years. going to therapist about life changes. kids out of house, mom sad sometimes, not enjoying things, don't care any more, anhedonia, wants to sleep all the time, no suicidal thoughts, tired Review of Systems Constitutional: feeling tired, but no chills, no fever and no night sweats. Eyes: no blurred vision and no eyesight problems. ENT: no hearing loss, no nasal congestion, no nasal discharge, no hoarseness and no sore throat. Cardiovascular: no chest pain, no intermittent leg claudication, no lower extremity edema, no palpitations and no syncope. Respiratory: no cough, no shortness of breath during exertion, no shortness of breath at rest and no wheezing. Gastrointestinal: no abdominal pain, no blood in stools, no constipation, no diarrhea, no melena, no nausea, no rectal pain and no vomiting. Genitourinary: no dysuria, no change in urinary frequency, no urinary hesitancy, no feelings of urinary urgency and no vaginal discharge. Musculoskeletal: no arthralgias, no back pain and no myalgias. Integumentary: no new skin lesions and no rashes. Neurological: no difficulty walking, no headache, no limb weakness, no numbness and no tingling. Psychiatric: no anxiety, no depression, no anhedonia and no substance use disorders. Endocrine: recent weight gain, but no recent weight loss. Hematologic/Lymphatic: no tendency for easy bruising and no swollen glands. All other systems have been reviewed and are negative for complaint. Active Problems Problems Anxiety (300.00) (F41.9) ASCUS with positive high risk HPV cervical (795.01,795.05) (R87.610,R87.810) BENJA I (cervical intraepithelial neoplasia I) (622.11) (N87.0) BENJA II (cervical intraepithelial neoplasia II) (622.12) (N87.1) Encounter for preventive health examination (V70.0) (Z00.00) Irregular menses (626.4) (N92.6) Migraines (346.90) (G43.909) Obesity (BMI 30-39.9) (278.00) (E66.9) Other screening mammogram (V76.12) (Z12.31) Skin lesion (709.9) (L98.9) Stress (V62.89) (F43.9) Uterine fibroid (218.9) (D25.9) Varicose veins (454.9) (I83.90) Past Medical History Problems History of abnormal Pap smear (V13.29) (Z87.898) Surgical History Problems History of Cervical Loop Electrosurgical Excision (LEEP) History of Section History of Colposcopy Cervix With Biopsy(S) History of Dilation And Curettage History of Hysterectomy Family History Mother Family history of Biliary sclerosis Father Family history of Diabetes mellitus due to underlying condition with microalbuminuria, with long-term current use of insulin Family history of malignant neoplasm of prostate (V16.42) (Z80.42) Sister Family history of leukemia (V16.6) (Z80.6) Social History Problems Caffeine use (V49.89) (Z78.9) Former smoker (V15.82) (Z87.891) Social alcohol use (Z78.9) Allergies Medication Penicillins Recorded By: Veronica Crockett; 06/01/2017 9:38:23 AM Surgical TAPE Recorded By: Veronica Crockett; 06/01/2017 9:38:23 AM Current Meds Medication NameInstruction Esomeprazole Magnesium 20 MG Oral Capsule Delayed Release Multivitamins TABS Vitals Vital Signs Recorded: [id number] 02:50PM Tcojrnlmrcr16.7 F, Temporal Heart Rate76 Pulse QualityIrregular Zghxsrmesvk25 Respiration QualityNormal Uugxzqsw346, LLE, Sitting Lirdoqaoz51, LLE, Sitting Blood Pressure Cuff SizeLarge Height5 ft 6 in Lfinyk186 lb 6 oz BMI Fewxjpcfzz40.25 BSA Calculated2.08 Tobacco Useb) No Fall Screeninga) No falls within the last year Physical Exam Constitutional: Alert and in no acute distress. Well developed, well nourished. Eyes: Normal external exam. Pupils were equal in size, round, reactive to light (PERRL) with normal accommodation and extraocular movements intact (EOMI). Ears, Nose, Mouth, and Throat: Otoscopic examination: Normal. Neck: No neck mass was observed. Supple. Thyroid not enlarged and there were no palpable thyroid nodules. Cardiovascular: Heart rate and rhythm were normal, normal S1 and S2, no gallops, no murmurs and no pericardial rub. Pedal pulses: Normal. No peripheral edema. Pulmonary: No respiratory distress. Clear bilateral breath sounds. Chest: Breasts: Normal appearance, no nipple discharge. Palpation of breasts and axillae: No palpable mass and no axillary lymphadenopathy. Abdomen: Soft nontender; no abdominal mass palpated. No organomegaly. Musculoskeletal: No joint swelling seen, normal movements of all extremities. Range of motion: Normal. Muscle strength/tone: Normal. Skin: Normal skin color and pigmentation, normal skin turgor, and no rash. Psychiatric: Judgment and insight: Intact. Mood and affect: Normal. Lymphatic: No cervical lymphadenopathy. Constitutional - Well developed, well nourished, well hydrated and no acute distress. Vital signs reviewed. Head and Face - Normocephalic, atraumatic. Eyes - No redness, edema or visible abnormality of conjunctiva or lids. Neck - Full range of motion. No significant adenopathy. Pulmonary - normal respiratory effort. Lungs are clear without rales, rhonchi, or wheezing. Cardiovascular - Regular rate and rhythm. No significant murmur. Skin - No significant rash or lesions. Psychiatric - Mood and affect: Normal. 'Scores and Scales' Signatures Electronically signed by : Giovanna Brooks MD; Feb 13 2020 3:39PM EST (Author) Normal [facility] [employer] Hematologyon 02-13-2020 Hematocrit (Bld) [Volume fraction] 45.5 % See Below [employer] Work Phone: Comment on above: Reference Range: 36. 0 - 46.0 Hemoglobin (Bld) [Mass/Vol] 14.7 g/dL See Below [facility] Work Phone: Comment on above: Reference Range: 12. 0 - 16.0 MCV (RBC) [Entitic vol] 93 fL 80 - 100 -[facility] Work Phone: Platelets (Bld) [#/Vol] 421 {x10E9/L} 150 - 450 [employer] Work Phone: RBC (Bld) [#/Vol] 4.87 {x10E12/L} See Below MP -[facility] Work Phone: Comment on above: Reference Range: 4.0 0 - 5.20 WBC (Bld) [#/Vol] 7.8 {x10E9/L} 4.4 - 11.3 MP-[facility] Work Phone: LIPID PANEL (CORONARY RISK 2 )on 02-13-2020 Cholesterol [Mass/Vol] 231 mg/dL High 0 - 199 [facility] Comment on above: Result Comment: . AGE DESIRABLE BORDERLINE HIGH HIGH 0-19 Y 0 - 169 170 - 199 >/= 200 20-24 Y 0 - 189 190 - 224 >/= 225 >24 Y 0 - 199 200 - 239 >/= 240 All ranges are based on fasting samples. Specific therapeutic targets will vary based on patient-specific cardiac risk. . Pediatric guidelines reference:Pediatrics 2011, 128(S5). Adult guidelines reference: NCEP ATPIII Guidelines, RAMSEY 2001, 258:2486-97 . Venipuncture immediately after or during the administration of Metamizole may lead to falsely low results. Testing should be performed immediately prior to Metamizole dosing. Performed By: #### L IPID #### [address] [id number] Cholesterol in HDL [Mass/Vol] 41.0 mg/dL Normal [facility] Comment on above: Result Comment: . AGE VERY LOW LOW NORMAL HIGH 0-19 Y < 35 < 40 40-45 ---- 20-24 Y ---- < 40 >45 ---- >24 Y ---- < 40 40-60 >60 . Performed By: #### L IPID #### [address] [id number] Cholesterol in LDL [Mass/Vol] 155 mg/dL High 0 - 99 [facility] Comment on above: Result Comment: . NEAR BORD AGE DESIRABLE OPTIMAL HIGH HIGH VERY HIGH 0-19 Y 0 - 109 --- 110-129 >/= 130 ---- 20-24 Y 0 - 119 --- 120-159 >/= 160 ---- >24 Y 0 - 99 100-129 130-159 160-189 >/=190 . Performed By: #### L IPID #### [address] [id number] Cholesterol in VLDL [Mass/Vol] 35 mg/dL Normal 0 - 40 [facility] Comment on above: Performed By: #### L IPID #### [address] [id number] Cholesterol.total/C holesterol in HDL [Mass ratio] 5.6 {ratio} Abnormal [facility] Comment on above: Result Comment: REF VALUES DESIRABLE < 3.4 HIGH RISK > 5.0 Performed By: #### L IPID #### [address] [id number] Triglyceride [Mass/Vol] 175 mg/dL High 0 - 149 [facility] Comment on above: Result Comment: . AGE DESIRABLE BORDERLINE HIGH HIGH VERY HIGH 0 D-90 D 19 - 174 ---- ---- ---- 91 D- 9 Y 0 - 74 75 - 99 >/= 100 ---- 10-19 Y 0 - 89 90 - 129 >/= 130 ---- 20-24 Y 0 - 114 115 - 149 >/= 150 ---- >24 Y 0 - 149 150 - 199 200- 499 >/= 500 . Venipuncture immediately after or during the administration of Metamizole may lead to falsely low results. Testing should be performed immediately prior to Metamizole dosing. Performed By: #### L IPID #### [address] [id number] Lipid Panelon 02-13-2020 Cholesterol [Mass/Vol] 231 mg/dL above high threshold 0 - 199 -[facility] Work Phone: Comment on above: . AGE DESIRABLE BORD АЛЕКСАНДР HIGH HIGH 0-19 Y 0 - 169 170 - 199 >/= 200 20-24 Y 0 - 189 190 - 224 >/= 225 >24 Y 0 - 199 200 - 239 >/= 240 All ranges are based on fasting samples. Specific therapeutic targets will vary based on patient-specific cardiac risk.. Pediatric guidelines reference:Pediatrics 2011, 128(S5). Adult guidelines reference: NCEP ATPIII Guidelines, RAMSEY 2001, 258:2486-97. Venipuncture immediately after or during the administration of Metamizole may lead to falsely low results. Testing should be performed immediately prior to Metamizole dosing. Cholesterol in HDL [Mass/Vol] 41.0 mg/dL [employer] 201 Work Phone: Comment on above: . AGE VERY LOW LOW N ORMAL HIGH 0-19 Y < 35 < 40 40-45 ---- 20- 24 Y ---- < 40 >45 ---- >24 Y ---- < 40 40-60 >60. Cholesterol in LDL [Mass/Vol] 155 mg/dL above high threshold 0 - 99 [employer] 201 Work Phone: Comment on above: . NEAR BORD AGE JUSTIN RABLE OPTIMAL HIGH HIGH VERY HIGH 0-19 Y 0 - 109 --- 110-129 >/= 130 ---- 20-24 Y 0 - 119 --- 120-159 >/= 160 ---- >24 Y 0 - 99 100-129 130-159 160-189 >/=190. Cholesterol.total/C holesterol in HDL [Mass ratio] 5.6 {ratio} Abnormal [employer] 201 Work Phone: Comment on above: REF VALUESDESIRABLE < 3.4HIGH RISK > 5.0 Triglyceride [Mass/Vol] 175 mg/dL above high threshold 0 - 149 [employer] 201 Work Phone: Comment on above: . AGE DESIRABLE BORD АЛЕКСАНДР HIGH HIGH VERY HIGH 0 D-90 D 19 - 174 ---- ---- ----91 D- 9 Y 0 - 74 75 - 99 >/= 100 ---- 10-19 Y 0 - 89 90 - 129 >/= 130 ---- 20-24 Y 0 - 114 115 - 149 >/= 150 ---- >24 Y 0 - 149 150 - 199 200- 499 >/= 500. Venipuncture immediately after or during the administration of Metamizole may lead to falsely low results. Testing should be performed immediately prior to Metamizole dosing. Lipid Panel 35 mg/dL 0 - 40 [facility] [address] Work Phone: Metabolic Panelon 02-13-2020 ALP [Catalytic activity/Vol] 91 U/L 33 - 110 [facility] Work Phone: Anion gap [Moles/Vol] 17 mmol/L 10 - 20 [facility] Work Phone: Bilirubin [Mass/Vol] 0.6 mg/dL 0.0 - 1.2 [facility] Work Phone: Calcium [Mass/Vol] 9.6 mg/dL 8.6 - 10.3 [facility] Work Phone: Chloride [Moles/Vol] 102 mmol/L 98 - 107 [facility] Work Phone: CO2 [Moles/Vol] 25 mmol/L 21 - 32 [facility] Work Phone: Creatinine [Mass/Vol] 0.75 mg/dL See Below [facility] Work Phone: Comment on above: Reference Range: 0.5 0 - 1.05 Glucose [Mass/Vol] 90 mg/dL 74 - 99 [facility] [address] Work Phone: Potassium [Moles/Vol] 4.0 mmol/L 3.5 - 5.3 [facility] Work Phone: Protein [Mass/Vol] 7.9 g/dL 6.4 - 8.2 [facility] Work Phone: Sodium [Moles/Vol] 140 mmol/L 136 - 145 [facility] Work Phone: Urea nitrogen [Mass/Vol] 8 mg/dL 6 - 23 [facility] [address] Work Phone: Otheron 02-13-2020 Albumin BCP dye [Mass/Vol] 4.5 g/dL 3.4 - 5.0 [facility] [address] Work Phone: ALT With P-5'-P [Catalytic activity/Vol] 87 U/L above high threshold 7 - 45 [facility] [address] Work Phone: Comment on above: Patients treated wit h Sulfasalazine may generate falsely decreased results for ALT. AST With P-5'-P [Catalytic activity/Vol] 74 U/L above high threshold 9 - 39 [facility] Work Phone: Erythrocyte distribution width (RBC) [Ratio] 12.1 % See Below [facility] [address] Work Phone: Comment on above: Reference Range: 11. 5 - 14.5 MCHC (RBC) [Mass/Vol] 32.3 g/dL See Below [facility] [address] Work Phone: Comment on above: Reference Range: 32. 0 - 36.0 >60 >60 [facility] [address] Work Phone: Comment on above: CALCULATIONS OF GERDA MATED GFR ARE PERFORMED USING THE MDRD STUDY EQUATION FOR THE IDMS-TRACEABLE CREATININE METHODS. CLIN CHEM 2007;53:766-72 TSHon 02-13-2020 TSH Qn 2.89 m[IU]/L Normal 0.44 - 3.98 [facility] Comment on above: Result Comment: TSH testing is performed using different testing methodology at [facility] than at other [facility] hospitals. Direct result comparisons should only be made within the same method. Performed By: #### T [facility] #### [address] [id number] TSH - Thyroid Stimulating Ho rmone, Serumon 02-13-2020 TSH Qn 2.89 {mIU/L} See Below -[facility] Work Phone: Comment on above: Reference Range: 0.4 4 - 3.98 TSH testing is performed using different testing methodology at [facility] than at other [facility]. Direct result comparisons should only be made within the same method. Vitamin B12, Serumon 020 Cobalamin (Vitamin B12) [Mass/Vol] 413 pg/mL Normal 211 - 911 [facility] Work Phone: Comment on above: Performed By: #### V TB12 #### [address], [place] [id number] Culture, Urine Bacterialon 0 07-26-2017 Culture, Urine Bacterial BILL#: [id number] : 77 AGE: SEX:FDOUGLASSOURCE: URINE COLLECTED: 07/26/17 08:50ANTIBIOTICS AT MICHELLE.: RECEIVED : 07/27/17 18:22SITE: UnspecifiedR E S U L T SURINE CULTURE,BACTERIAL FINAL 07/28/17 11:10NO GROWTH Normal [facility] Comment on above: Performed By: #### C XBUR ####[facility] [address] [place] [address] Basic Metabolic Panelon 06-22 Anion gap 15 mmol/L Normal 10-20 [facility] Comment on above: Performed By: #### 1 [id number] ####[facility] [address] [place] [address] Bicarbonate (HCO3) 21 mmol/L Normal 21-32 [facility] Comment on above: Performed By: #### 1 [id number] ####[facility] [address] [place] [address] BUN/Creatinine Ratio 16 mg/mg Normal 5-25 [facility] Comment on above: Performed By: #### 1 [id number] ####[facility] [address] [place] [address] Calcium 9.5 mg/dL Normal 8.6-10.3 [facility] Comment on above: Performed By: #### 1 [id number] ####[facility] [address] [place] [address] Chloride 106 mmol/L Normal 98-107 [facility] Comment on above: Performed By: #### 1 [id number] ####[facility] [address] [place] [address] Creatinine 0.77 mg/dL Normal 0.50-1.05 [facility] Comment on above: Performed By: #### 1 [id number] ####[facility] [address] [place] [address] eGFR (MDRD) mL/min/{1.73_m2} Normal [facility] Comment on above: Result Comment: Inte rpretation for Chronic Kidney Disease:Stages 1&2 >60 Healthy or potential kidney damage.Mild decrease of GFR.Stage 3 30-59 Moderate decrease of GFR.Stage 4 15-29 Severe decrease of GFR.Stage 5 <15 Kidney failure or on dialysis. Performed By: #### 1 [id number] ####[facility] [address] [place] [address] Glucose mass conc 101 mg/dL High 70-100 [facility] Comment on above: Performed By: #### 1 [id number] ####[facility] [address] [place] [address] Potassium molar conc 4.3 mmol/L Normal 3.5-5.1 [facility] Comment on above: Performed By: #### 1 [id number] ####[facility] [address] [place] [address] Sodium 138 mmol/L Normal 136-145 [facility] Comment on above: Performed By: #### 1 [id number] ####[facility] [address] [place] [address] Urea nitrogen 12 mg/dL Normal 6-23 [facility] Comment on above: Performed By: #### 1 [id number] ####[facility] [address] [place] [address] CBCon 07-09-2017 Erythrocyte distribution width Auto Ratio (RBC) 12.3 % Normal 12.0-15.4 [facility] Comment on above: Performed By: #### 2 [id number] ####[facility] [address] [place] [address] Erythrocytes (RBC) 4.63 10*6/uL Normal 3.85-5.10 [facility] Comment on above: Performed By: #### 2 [id number] ####[facility] [address] [place] [address] Hematocrit (HCT) 41.9 % Normal 36.5-46.6 [facility] Comment on above: Performed By: #### 2 [id number] ####[facility] [address] [place] [address] Hemoglobin mass conc (Bld) 14.1 g/dL Normal 11.8-15.3 [facility] Comment on above: Performed By: #### 2 [id number] ####[facility] [address] [place] [address] MCH 30.5 pg Normal 27.5-33.0 [facility] Comment on above: Performed By: #### 2 034124 ####[facility] [address] [place] [address] MCHC mass conc (RBC) 33.7 g/dL Normal 30.1-35.0 [facility] Comment on above: Performed By: #### 2 [id number] ####[facility] [address] [place] [address] MCV 90.5 fL Normal 85.4-100.0 [facility] Comment on above: Performed By: #### 2 [id number] ####[facility] [address] [place] [address] NRBC Absolute 0.00 10*3/uL Normal [facility] Comment on above: Performed By: #### 2 [id number] ####[facility] [address] [place] [address] NRBC Automated 0.0 /100{WBCs} Normal [facility] Comment on above: Performed By: #### 2 [id number] ####[facility] [address] [place] [address] Platelet mean volume (PMV) 10.0 fL Normal 9.9-12.1 [facility] Comment on above: Performed By: #### 2 [id number] ####[facility] [address] [place] [address] Platelets 287 10*3/uL Normal 155-404 [facility] Comment on above: Performed By: #### 2 [id number] ####[address] [place] [address] RDW SD 40.3 fL Normal 39.3-48.6 [facility] Comment on above: Performed By: #### 2 [id number] ####[facility] [address] [place] [address] WBC (Leukocytes) 6.7 10*3/uL Normal 4.4-9.9 [facility] Comment on above: Performed By: #### 2 [id number] ####[address] [place] [address] Pathology ([facility])on 07-09-2017 Pathology ([facility]) FINAL SURGICAL PATHO LOGY [id number] FINAL DIAGNOSISUTERUS, CERVIX AND BILATERAL FALLOPIAN TUBES-UTERUS, 113 GRAMS.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.ADENOMYOSIS, SUPERFICIAL AND DEEP, EXTENSIVE.EARLY SECRETORY ENDOMETRIUM.MYOMETRIAL HYPERTROPHY.CHRONIC CERVICITIS WITH SQUAMOUS METAPLASIA.BILATERAL FALLOPIAN TUBES WITH FOCAL PARATUBAL CYST.Comment: No previous Pap smear or biopsy results available at [facility] for correlation purposes.CLINICAL HISTORY:CERVICAL DYSPLASIA, AUBOPERATION:TOTAL LAPAROSCOPIC HYSTERECTOMY, BILATERAL SALPINGECTOMY, CYSTOSCOPYSPECIMEN(S):(A) UTERUS, WITH CERVIX AND BILATERAL FALLOPIAN TUBESPerformed at [facility], [address] [place] [id number] DESCRIPTION: Received in [facility] fixative, labeled Mariela Armendariz and designated uteruswith cervix and bilateral fallopian tubes. The specimen consists of a uteruswith attached cervix and bilateral fallopian tubes. The uterus with cervixweighs 113 g and measures 9.5 cm in length by 6.0 cm in width by 3.9 cm in APdimension. The serosal surface of the uterus is germain-pink and smooth. Theattached cervix measures 3.0 cm in length by 3.4 cm in diameter. Theexocervical mucosa is germain and smooth. A small amount of clotted blood isprotruding from the cervical os. The exocervical margin is inked black andthe cervix is from the uterus. The cervix is opened to reveal apatent endocervical canal. Grossly no endocervical lesion is identified. Themucosa in the transformation zone area shows some focal germain-brown areas,maximally 0.2 cm. The uterus is opened to reveal a triangular endometrialcavity measuring 3.5 x 3.6 cm. The endometrial surface is beige and smoothwith some areas of reddish congestion. Sectioning through the endomyometriumdemonstrates some areas of possible endometrial thickening in the posteriorendometrium (maximal 0.5 cm). The myometrium is germain-pink and uniform. A 0.2cm possibly hemorrhagic nodule is present within the anterior myometrium atthe endometrial junction. The right fallopian tube measures 4.5 cm in lengthby 0.5 cm in diameter. The serosal surface is brownish pink and smooth. Afimbriated end is present. Cross sectioning demonstrates a pinpoint lumen.The left fallopian tube measures 5.0 cm in length by 0 point centimeters indiameter. The serosal surface is brownish pink and smooth. A 1.0 cm clearfluid-filled paratubal cyst is present. A fimbriated and is noted. Crosssectioning through the fallopian tube demonstrates a pinpoint lumen. Sectionsrepresentative A1 through A12 cervix, submitted entirely, in order from 1:00to 12:00, A13 through A14 anterior endomyometrium, A15 through A16 posteriorendomyometrium, A17 right fallopian tube, A18 left fallopian tube.CAESigned Out by:CHRISTI VIGILeported: 07/12/2017 Normal [facility] Comment on above: Performed By: #### S UR ####[facility] [address] [place] [address] Test (Serum)on Test, Serum Negative Normal [facility] Comment on above: Performed By: #### 3 [id number] ####[facility] [address] [place] [address] Type and Screenon 07-09-2017 Antibody Screen Negative Normal [facility] Comment on above: Performed By: #### T S3 ####[facility] [address] [place] [address] Group and Rh Positive Normal [facility] Comment on above: Result Comment: @ 09:38 by RSIM:No previous history found to confirm this result.If transfusion of RBC's or FFP is requested, a secondsample must be collected at a separate phlebotomyto confirm the ABORH. Performed By: #### T S3 ####[facility] [address] [place] [address] Mammo Screening Bilat CAD To kelly 06-08-2017 Mammo Screening Bilat CAD Jimbo [facility] Patient: BETZAIDA ARMENDARIZ [address] MR#: [id number] [place], [place] [address] : [address] Marco Antonio Paniagua MD Dept: Diagnostic Imaging Loc: [facility]PC DI REPORT Service Dt:06/07/17 Report#: [id number] Adm Dt: 06/07/17 Dis Dt: Comments: STUDY: MG Mammo Screening Bilat CAD Jimbo; 06/07/2017 5:45 pm ACCESSION NUMBER(S): [id number] ORDERING CLINICIAN: Marco Antonio Paniagua INDICATION: Screening. 42-year-old female with a baseline screening study. Family history of breast cancer in paternal grandmother in her 70s. COMPARISON: None. FINDINGS: 2D and tomosynthesis images were reviewed at 1 mm slice thickness. The breast tissue is heterogeneously dense, which may obscure small masses. There is no dominant mass, focal asymmetry, evidence of architectural distortion, or suspicious microcalcifications to suggest malignancy. This study was interpreted with CAD. IMPRESSION: No mammographic evidence of malignancy. Recommend routine screening follow up. BI-RADS CATEGORY: Category: 1 - Negative. Recommendation: 1 Year Screening. Dictated by: Jayda Dallas Electronically Signed by: Jayda Dallas 06/08/2017 12:26 PM Normal [facility] Pelvis Complete Transvaginal on 06-08-2017 Pelvis Complete Transvaginal [facility] Patient: BETZAIDA ARMENDARIZ [address] MR#: [id number] [place], [place] [address] : 1975 [address] : Marco Antonio Paniagua MD Dept: Diagnostic Imaging Loc: [facility]PC DI REPORT Service Dt:06/07/17 Report#: [id number] Adm Dt: 06/07/17 Dis Dt: Comments: STUDY: US Pelvis Complete Transvaginal; 06/07/2017 5:30 pm INDICATION: IRREGULAR MENSES. COMPARISON: None. ACCESSION NUMBER(S): [id number] ORDERING CLINICIAN: Marco Antonio Paniagua TECHNIQUE: Multiple multiplanar static lion scale, color and spectral waveform sonographic images of the pelvis were obtained. Transabdominal and endovaginal ultrasound was performed. FINDINGS: UTERUS: Anteverted and mildly enlarged. The uterus measures 10.7 x 4 x 7 cm. There is a 4 x 3 x 3.5 cm fibroid in the anterior aspect of the uterine body. ENDOMETRIUM: Unremarkable and measures 3 mm in thickness. RIGHT ADNEXA: Right ovary is not sonographically visible. LEFT ADNEXA: Left ovary is not sonographically visible. CUL DE SAC: No free fluid. No adnexal masses. IMPRESSION: 1. Approximately 4 cm uterine fibroid. 2. Normal endometrial thickness. 3. Ovaries are not sonographically visible but no adnexal masses are seen. Dictated by: Steve Church Electronically Signed by: Steve Church 06/08/2017 8:19 AM Normal [facility] Complete Blood Count w/diff $$on 06-01-2017 Basophils Auto #/vol (Bld) 0.0 10 /uL Low 0.04-0.9 [facility] Comment on above: Performed By: #### C BC, FT4, TSH, FSH, LH, PROL ####[facility] [place] [address] Basophils/100 WBC Auto (Bld) 1 % Normal 0-1 [facility] Comment on above: Performed By: #### C BC, FT4, TSH, FSH, LH, PROL ####[facility] [place] [address] Eosinophils 0.0 10 3/uL Low 0.03-0.6 [facility] Comment on above: Performed By: #### C BC, FT4, TSH, FSH, LH, PROL ####[address] [address] Eosinophils/100 leukocytes 0 % Normal 0-3 [facility] Comment on above: Performed By: #### C BC, FT4, TSH, FSH, LH, PROL ####[address] [address] Erythrocyte distribution width Auto Ratio (RBC) 12.6 % Normal 11.5-14.5 [facility] Comment on above: Performed By: #### C BC, FT4, TSH, FSH, LH, PROL ####[address] [address] Erythrocytes (RBC) 4.64 10 6/uL Normal 4.2-5.4 [facility] Comment on above: Performed By: #### C BC, FT4, TSH, FSH, LH, PROL ####[address] [address] Hematocrit (HCT) 43.5 % Normal 35-47 [facility] Comment on above: Performed By: #### C BC, FT4, TSH, FSH, LH, PROL ####[address] [address] Hemoglobin mass conc (Bld) 13.7 g/dL Normal 12.0-16.0 [facility] Comment on above: Performed By: #### C BC, FT4, TSH, FSH, LH, PROL ####[address] [address] Immature Gran# (Auto) 0.0 10 3/uL Normal [facility] Comment on above: Performed By: #### C BC, FT4, TSH, FSH, LH, PROL ####[address] [address] Immature granulocytes #/vol (Bld) 0.4 % Normal 0.0-0.9 [facility] Comment on above: Performed By: #### C BC, FT4, TSH, FSH, LH, PROL ####[address] [address] Lymphocytes 2.0 10 3/uL Normal 1-3.5 [facility] Comment on above: Performed By: #### C BC, FT4, TSH, FSH, LH, PROL ####[address] [address] Lymphocytes/100 leukocytes 30 % Normal 24-44 [facility] Comment on above: Performed By: #### C BC, FT4, TSH, FSH, LH, PROL ####[address] [address] MCH 29.5 pg Normal 27-34 [facility] Comment on above: Performed By: #### C BC, FT4, TSH, FSH, LH, PROL ####[address] [address] MCH 31.5 g/dL Low 33-37 [facility] Comment on above: Performed By: #### C BC, FT4, TSH, FSH, LH, PROL ####[address] [address] MCV 93.8 fL Normal 80-100 [facility] Comment on above: Performed By: #### C BC, FT4, TSH, FSH, LH, PROL ####[address] [address] Monocytes 0.3 10 3/uL Normal 0.04-0.9 [facility] Comment on above: Performed By: #### C BC, FT4, TSH, FSH, LH, PROL ####[facility] [place] [address] Monocytes/100 leukocytes 4 % Normal 1-8 [facility] Comment on above: Performed By: #### C BC, FT4, TSH, FSH, LH, PROL ####[facility] [place] [address] Neutrophils 4.3 10 3/uL Normal 1.8-7.0 [facility] Comment on above: Performed By: #### C BC, FT4, TSH, FSH, LH, PROL ####[address] [address] Neutrophils/100 leukocytes 65 % Normal 42-76 [facility] Comment on above: Performed By: #### C BC, FT4, TSH, FSH, LH, PROL ####[address] [address] Nucleated erythrocytes 0.0 % Normal 0.0-0.0 [facility] Comment on above: Performed By: #### C BC, FT4, TSH, FSH, LH, PROL ####[address] [address] Platelet mean volume (PMV) 9.7 fL Normal 7.4-10.4 [facility] Comment on above: Performed By: #### C BC, FT4, TSH, FSH, LH, PROL ####[address] [address] Platelets 340 10 3/uL Normal 150-400 [facility] Comment on above: Performed By: #### C BC, FT4, TSH, FSH, LH, PROL ####[address] [address] WBC (Leukocytes) 6.7 10 3/uL Normal 4.0-11.0 [facility] Comment on above: Performed By: #### C BC, FT4, TSH, FSH, LH, PROL ####[address] [address] Follicle Stimulating Hormone on 06-01-2017 Follicle Stimulating Hormone 4.2 IU/L Normal [facility] Comment on above: Result Comment: REF VALUESFOLLICULAR 8-08MVK-MIXHQ 12-25LUTEAL PHASE 2-12MENOPAUSE 30-150PREPUBERTY 50% ADULTADULT MALE 2-10INFANTS 0-1Performing Site: [facility] - [address] [place] [address] Performed By: #### C BC, FT4, TSH, FSH, LH, PROL ####[address] [id number] Free T4on 06-01-2017 Thyroxine (T4) free 1.0 ng/dL Normal 0.8-1.5 [facility] Comment on above: Performed By: #### C BC, FT4, TSH, FSH, LH, PROL ####[address] [address] Luteinizing Hormoneon 2017 Luteinizing Hormone 2.7 IU/L Normal [facility] Comment on above: Result Comment: REF VALUESFOLLICULARPHASE 1.5-10.0MID-CYCLE 13.0-72.0LUTEAL PHASE 0.5-13.0MENOPAUSE 15.0-65.0PREPUBERTY 0- 3.0CHILDREN 0- 6.0ADULT MALE 1.0- 9.0Performing Site: [facility] - [address] [place] [address] Performed By: #### C BC, FT4, TSH, FSH, LH, PROL ####[address] [address] Prolactinon 06-01-2017 Prolactin 5.1 ug/L Low 6.0-20.0 [facility] Comment on above: Result Comment: Perf orming Site: [facility] - [address] [place] [id number] Performed By: #### C BC, FT4, TSH, FSH, LH, PROL ####[address] [address] Thyroid Stimulating Hormoneo n 06-01-2017 Thyroid stimulating hormone (TSH) 2.36 m[IU]/L Normal 0.358-3.74 [facility] Comment on above: Performed By: #### C BC, FT4, TSH, FSH, LH, PROL ####[facility] [place] [address] Vital Signs Date Time Vital Sign Value Performing Clinician Facility 08-19-2021 14:30-0400 Body height 167.64 cm [employer] Other [facility] Other 08-19-2021 14:30-0400 Body mass index (BMI) [Ratio] 35.51 kg/m2 [employer] Other [facility] Other 08-19-2021 14:30-0400 Body temperature 98.4 [degF] Dalia Unidym Other [facility] Other 08-19-2021 14:30-0400 Body weight 99.79 kg [employer] Other [facility] Other 08-19-2021 14:30-0400 Diastolic blood pressure 90 mm[Hg] Dalia Unidym Other [facility] Other 08-19-2021 14:30-0400 Respiratory rate 20 /min [employer] Other [facility] Other 08-19-2021 14:30-0400 SaO2% (BldA) [Mass fraction] 98 % [employer] Other [facility] Other 08-19-2021 14:30-0400 Systolic blood pressure 128 mm[Hg] Dalia Unidym Other [facility] Other 08-01-2021 12:00-0400 Body height 167.64 cm Daliasonia Zamoraerwood Other [facility] Other 08-01-2021 12:00-0400 Body mass index (BMI) [Ratio] 35.99 kg/m2 Dalia Easterwood Other [facility] Other 08-01-2021 12:00-0400 Body temperature 97.6 [degF] Dalia Easterwood Other [facility] Other 08-01-2021 12:00-0400 Body weight 101.15 kg Dalia Noaherwood Other [facility] Other 08-01-2021 12:00-0400 Diastolic blood pressure 82 mm[Hg] Dalia Easterwood Other [facility] Other 08-01-2021 12:00-0400 Respiratory rate 20 /min Dalia Easterwood Other [facility] Other 08-01-2021 12:00-0400 SaO2% (BldA) [Mass fraction] 98 % Dalia Easterwood Other [facility] Other 08-01-2021 12:00-0400 Systolic blood pressure 124 mm[Hg] Dalia Easterwood Other [facility] Other 03-08-2020 17:33-0500 BMI (Body Mass Index) 34.94 kg/m2 Giovanna Brooks [facility] Work Phone: 03-08-2020 17:33-0500 Body Temperature 97.3 [degF] Giovanna SHIPLEYWSPC-[facility] 201 Work Phone: Comment on above: Method: Temporal 03-08-2020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
[2023-08-11 09:56] LABS: Basophils Percent Auto 0.6 % (0.2-2.0); Hematocrit 38.3 % (36.0-48.0); Hemoglobin 12.5 g/dL (12.0-16.0); Immature Granulocytes Abs Auto 0.01 10^3/uL (0.00-0.03); Immature Granulocytes Pct Auto 0.1 % (0.0-0.5); Lymphocytes Absolute Auto 1.9 10^3/uL (1.2-3.8); Mean Corpuscular HGB Conc 32.6 g/dL (29.9-35.2); Mean Corpuscular Hemoglobin 29.8 pg (26.7-34.0); Mean Corpuscular Volume 91.4 fL (81.0-99.0); Mean Platelet Volume 9.3 fL (9.5-13.5); Monocytes Absolute Auto 0.4 10^3/uL (0.3-0.8); Monocytes Percent Auto 5.9 % (1.7-12.0); Neutrophils Absolute Auto 4.4 10^3/uL (1.4-6.5); Neutrophils Percent Auto 65.4 % (43.0-75.0); Platelet Count 295 10^3/uL (150-450); Red Blood Count 4.19 10^6/uL (4.20-5.40); Red Cell Distribution Width 12.7 % (11.0-15.0); White Blood Count 6.8 10^3/uL (4.0-11.0)
[2023-08-11 10:57] LABS: Alanine Aminotransferase 22 U/L (14-59); Albumin Globulin Ratio 0.8; Albumin Level 3.2 g/dL (3.4-5.0); Alkaline Phosphatase 84 U/L (46-116); Anion Gap 12.2; Aspartate Amino Transferase 10 U/L (15-37); BUN Creatinine Ratio 17.4; Bilirubin Total 0.5 mg/dL (0.2-1.0); Calcium 8.9 mg/dL (8.5-10.1); Chloride 106 mmol/L (98-107); Cholesterol 198 mg/dL (<=200); Estimated GFR (African America >60 (>=60); Estimated GFR (Non-African Ame >60 (>=60); Globulin 3.8 g/dL; Glucose 102 mg/dL (74-106); HDL Cholesterol 50 mg/dL (40-60); Potassium 4.2 mmol/L (3.5-5.1); Sodium 140 mmol/L (136-145); Thyroid Stimulating Hormone 1.676 uIU/mL (0.358-3.740); Triglycerides 168 mg/dL (<=150); VLDL CHOLESTEROL 33.6 mg/dL
[2023-08-11 11:24] LABS: Estimated Average Glucose 105 mg/dL; Glycohemoglobin A1C 5.3 % (4.5-6.2)
== END 2023-08-11 09:21 | disposition home or self-care (01) ==
LOC: LAB 09:22
PROVIDERS: Visit Provider Obstetrics & Gynecology
DX: Z00.00 Encounter for general adult medical examination without abnormal findings (principal); R63.5 Abnormal weight gain
CPT/HCPCS: 36415; 80053; 80061; 83036; 84443; 85025

== ENCOUNTER 2023-12-09 10:31 | Outpatient (OUT) | payer OTHER, SELFPAY ==
--- OUTSIDE RECORDS SUMMARY | 2023-12-09 10:36 | XMS_ITS | CCD ---
Author Organization [facility] Care Team Providers Care Coding Team Lead Name Role Phone GALUN, MARCO ANTONIO Unavailable Unavailable GALUN, MARCO ANTONIO [...] Primary Care Provider COURTNEY Jj Attending Provider [phone] TAPAN ., DR ANN Consulting Unavailable TAPAN ., DR ANN Admitting Unavailable TAPAN ., DR ANN Attending Unavailable Marco Antonio Jamison Consulting Unavailable TAPAN ., DR ANN Attending Unavailable TAPAN ., DR ANN Admitting Unavailable TAPAN ., DR ANN Consulting Unavailable TAPAN ., DR ANN Admitting Unavailable TAPAN ., DR ANN Attending Unavailable Marco Antonio Jamison Consulting Unavailable CHRISTINE, DR CHARLIE Ferguson Consulting Unavailable TAPAN ., DR ANN Admitting Unavailable TAPAN ., DR ANN Attending Unavailable TAPAN ., DR ANN Consulting Unavailable TAPAN ., DR ANN Consulting Unavailable TAPAN ., DR ANN Admitting Unavailable TAPAN ., DR ANN Attending Unavailable [place], DALIA Admitting Unavailable [place], DALIA Attending Unavailable FELIX MAINOR Attending Unavailable FELIX MAINOR Attending Unavailable FELIX MAINOR Attending Unavailable FELIX, MAINOR Attending Unavailable JAZMIN RODAS Attending Unavailable JAZMIN RODAS Referring Unavailable MAINOR [place] Attending Unavailable MARISSA PHELAN Attending Unavailable Allergies Allergy Classification Reported Allergen(s) Allergy Type Date of Onset Reaction(s) Facility (2 sources) Penicillins; Translations: [PENICILLINS] Drug allergy (disorder) 07-25-2016 [facility] Repository (2 sources) Penicillins; Translations: [Penicillins] Allergy to drug (finding) [employer] [facility] Work Phone: (2 sources) Surgical adhesive tape Allergy to drug (finding) [employer] [facility] Work Phone: (3 sources) Penicillin V Drug Allergy [facility] [employer] Other Medications Current Medications Medication Drug Class(es) [...] [Pain in right knee] Onset: 08-01-2021 Resolved: 06-28-2022 Episodic Other nutritional; endocrine; and metabolic disorders [...] : DR MARISSA PHELAN . Admission #: [id number] Family : Order #: [id number] CLICK HERE TO VIEW EXAM RADIOLOGY REPORT [...] Treatments None Family Cancers None LOCATION: [facility] BREAST COMPOSITION: Heterogeneously dense,which may obscure [...] MD on 03/10/2022 at 15:12 Normal [facility] US BREAST LEFT LIMITEDon US BREAST LEFT LIMITED Patient: BETZAIDA ARMENDARIZ Exam Date: 03/10/2022 : 1975 Gender:F Ordering : DR MARISSA PHELAN . Admission #: [id number] Family : Order #: [id number] CLICK HERE TO VIEW EXAM RADIOLOGY REPORT [...] Treatments None Family Cancers None LOCATION: [facility] BREAST COMPOSITION: Heterogeneously dense,which may obscure [...] MD on 03/10/2022 at 15:12 Normal [facility] MG MAMM LT DIAG FUon 022 MG MAMM LT DIAG FU Patient: RAMIRO ARMENDARIZ Exam Date: 11/05/2021 : 1975 Gender:F Ordering : DR MARISSA PHELAN . Admission #: [id number] Family : Order #: [id number] CLICK HERE TO VIEW EXAM RADIOLOGY REPORT [...] Treatments None Family Cancers None LOCATION: [facility] BREAST COMPOSITION: Heterogeneously dense,which may obscure [...] M.D. on 11/05/2021 at 08:46 Normal [facility] US BREAST LEFT LIMITEDon US BREAST LEFT LIMITED Patient: BETZAIDA ARMENDARIZ. Exam Date: 11/05/2021 : 1975 Gender:F Ordering : DR MARISSA PHELAN . Admission #: [id number] Family : Order #: [id number] CLICK HERE TO VIEW EXAM RADIOLOGY REPORT [...] Treatments None Family Cancers None LOCATION: [facility] BREAST COMPOSITION: Heterogeneously dense,which may obscure [...] M.D. on 11/05/2021 at 08:46 Normal [facility] MG MAMM SCREEN 3D SAVI CADon 10-10-2021 MG MAMM SCREEN 3D SAVI CAD Patient: BETZAIDA ARMENDARIZ Exam Date: 10/10/2021 : 1975 Gender:F Ordering : DR MARISSA PHELAN . Admission #: [id number] Family : Order #: [id number] CLICK HERE TO VIEW EXAM RADIOLOGY REPORT PROCEDURE: MAMMOGRAM SCREENING 3D BILATERAL CAD COMPARISON: None. INDICATIONS: Screening mammography Calculator Name NCI Breast Cancer Risk Assessment Tool 5 Year Breast Cancer Risk Not Reported. Lifetime Breast Cancer Risk Not Reported. Personal Breast Cancer No Personal Ovarian Cancer No Treatments None Family Cancers None LOCATION: [facility] BREAST COMPOSITION: Heterogeneously dense,which may obscure small [...] Jamison M.D. on 10/17/2021 at 12:34 Normal [facility] PAP ACOG PANEL 2: 30 to 65on 09-26-2021 . . Normal [facility] Comment on above: Result Comment: Perf ormed at: WB Performed By: #### 4 [id number] #### [facility] [address] [address] [address] Howie Yee Age Gdln ACOG Testing 30-65 Normal [facility] Comment on above: Performed By: #### 4 [id number] #### [facility] [address] [address] [address] Howie Yee DIAGNOSIS: Comment Normal [facility] Comment on above: Result Comment: NEGA TIVE FOR INTRAEPITHELIAL LESION OR MALIGNANCY. Performed at: WB Performed By: #### 4 [id number] #### [facility] [address] [address] [address] Howie Yee HPV Aptima Negative Normal Negative [facility] Comment on above: Result Comment: This nucleic acid amplification test detects fourteen high-risk HPV types (16,18,31,33,35,39,45,51,52,56,58,59,66,68) without differentiation. Performed at: =G Performed By: #### 4 [id number] #### [facility] [address] [place] [address] Dr. Howie Yee Methodology: Comment Normal [facility] Comment on above: Result Comment: This liquid based ThinPrep(R) pap test was screened with the use of an image guided system. Performed at: WB Performed By: #### 4 [id number] #### [facility] [address] [place] [address] Dr. Howie Yee Note: Comment Normal [facility] Comment on above: Result Comment: The Pap smear is a screening test designed to aid in the detection of premalignant and malignant conditions of the uterine cervix. It is not a diagnostic procedure and should not be used as the sole means of detecting cervical cancer. Both false-positive and false-negative reports do occur. . Performed at: WB Performed By: #### 4 [id number] #### [facility] [address] [place] [address] Dr. Howie Yee Performed by: Comment Normal [facility] Comment on above: Result Comment: Ada Cline Fudger (ASCP) Performed at: WB Performed By: #### 4 [id number] #### [facility] [address] [place] [address] Dr. Howie Yee Specimen adequacy: Comment Normal [facility] Comment on above: Result Comment: Sati sfactory for evaluation. No endocervical component is identified. Performed at: WB Performed By: #### 4 [id number] #### [facility] [address] [place] [address] Dr. Howie Yee Coding Summary.on 08-08-2021 Coding Summary. CD:[id number] Gh0bWw+P GhlYWQ+VL3JRGFxV68wfOYkiK7OS 2eZHE4JIHMCWZKGNL3COR1ydNQ1R XsjA6DxtoKy PzqanNYnYP82NTs2LBA9gXtqTVvv bI2wsXQvF7a0LsTbLI06gV81TLpx TFWzDzB3IrOlpihwsJNn H6bvJiTkkVVvUgq+PHRhYmxlIHdp EQQzUQtzJIPyLhNavQjuNZ6eYx7c ZGVyLWNvbGxhcHNlOiBj k4ktUJOwFSrmFW0txYyyP7LtnBX2 ZLAhi5e5Gl03nMN+LFAuGKV2vLhj CCuzt269PfWpm9caKXT4 sHGjLTpnDGG1E80pd9Q2FHDtKQTz AJF3cLD6lP4snTvcfwsiT5QzkTBj GhO7VVD7yQZeqJ2diTlm wkxpbL6wKsk+L96ECB3PLJHPPK7U Vfa7Z4YlYrsgwXO+AH76OAYmSW93 mSRfaWZzc6kgyFv6YpFm AHDgKRB0lZdpJNtqb5KdLGGnH19f vQTzk6Z2UQFkrKiaoGZnWxVxhVQ6 gA8yQEdzzjopo3xflbef Hwtrw7rjao51fS92W83vHXgwVNSi JEP2ZAStPHLzvNeapi3zrM7nJi0+ JRvve7jse6otuHs0AiVm TNEkmoLwzDqqHSY6x0UmZv53Z4Iz mWunw6XvWhx5lp64gAIkx2G7qZG9 ANivXBNhzR6wWIkjJvT9 BOEqFqHssV40jWRsHJstFz8rpFts eHcdKF3sNRQlyuuzXVFjdL3jQLGm iQJzhGooNQ7mGNTlvhsl v092ZoQdIQJ4GYDdpFUeV7EzyA0f BnKiVMUsNNPzQ0PtuLNrHHqyQ095 LVkqJsF3FYZqevHgT9Ck SIYzbPgwQfT5e6J2Mo1Jf2Iqtffp WFR6XVyaQIV0KrM3CrOeScI7A0Uq Vcm6YNKdtOvqNM5gR7Vi SDLgdbpopzkwhAG1RJTpTDVocK40 vCHbPZahGi0vo7D5j722PXSnMFDb wX37Ke6dpGfhPEWqyCXZ rU2wvkanl6lpfryuGaJhNPMzWRy8 KTl6JFFkvInlYmSeRKC7EfZ3KEU5 qGNvsH7hoTjbmtkfjC8g Oyc+G23vrB1cTFW0CSZ3knjeFMZq snYwGA55HK24F2OdJoaepIMyzZD+ UXNwszGwgGfcKV3sNrEh x1ufg5ErIDyvD5VxYTTmXAogBrr0 UZOqOKO2eRH0rN3hGLDyWBjca8E7 nTU2B1VinkVtno9gg0ve ETFtLAvyD56gtBPhq7D2OWAvvYT1 OOKpiGerCxEbaU48Xcj+PGNvbGdy g5TaEuumj5ina0nevZk5 XqHaZXYmrwKoiWmkHHK4u9DfZg30 T39aDLqsCIYcKKVgCEBqUDSrvRlu uf0oxD9zVb1+PGNvbCB3 gVE3zT0uZGKeUfL2LWomI019HiCo hJMiSvvbx1ury7nstXe1ChPyWLSe imRleUihKNY6h2MeWi58 B89aJZroAWQdYYUtLMIgUFRkgFfk rm6yxV1sVt1+NT0bl5wstf89xL39 dHI+VFPzTUT7gYelRLup FWAnfL3mWSubRoK3FDZwWkGejP50 qPFoJVrpJm3gaRfxlXeiIS2gLBSm avycs353GrPea9erWUFy yAVnWVrpCVW6D92cx9V3QSBpESGw CGO8yQS7xP2akVblsfofhLLnhPoe zdNzhWoaOHkqNJejT114 IHRvcDsnPlBhdGllbnQgTmFtZTo8 L4OwVng1LCFxxOwuRB5nuPRcWZkh Jh2aqFxzuTeuET7sZALo kygqg499PgGsj2wrQLDkqHWgHCai DNE2W16sz7O8MVIhIQSnMBR7tHG8 mQ1hsZotdebiaLSqgFyb aeIraBqeVPkoXGviZ600PPMytDek HvZhxbKrJGQgmXH2LZ23HF80eVTl a2N3wML5X4QuUQYaeocx mgkwuWR9PHYsWULebW06Za7vlZhl Bw2wTHScPYW9BHUvzSHvH3VsxP6m MrKxLDOvLXJtI8MahGFg SIssU960HAnyMqE6ESZyvkIeJ8Bv QCOtdOqgLtV8k1O4Dk8PR6P1UC18 FO86eTHjk0I0bBG4C5Qo XXLctzgnpgxikZE8YTBzDDIzbM91 Hw2gzPfvJa4aSEQgNZW3YFSrqBMf B8FtuF7cCuEzOBMjGDIm L9FhuEFzLHrjR518OZdoWkC0DBYk opQaU3RyLSIatDxoLrA4b2I4Ou9R GKy5RB11FJ93mHLci0I5 jNH6E6IpULKsgjltylaaqDH7UAIi KCEknT27Wx0eqRcvEg8xODJfCZE0 OKBqcCPwJ8GeoB9yNzGq GFNlOXSlP6IffVVyFAmeO706LNen KnN6XSKidyMuB8EhSWRinPvpSyY3 j1E7Wz1GBCZlNY62AQT5 uMQ8IJ89GU49F8DcSzixqRFfhLG+ PHRhYmxlIHdpZHRoPScxMDAlJyBz tXdpZI5dGh6wVRUuIANf yQtdaFUkCgRpx9oiCNZoMDtsOS8d eXesV7PioFN8AJYev4t9Yn36O21l A1CjdQL+ZIVamFY4zKF0 mF0cPmGmSkR5IDxyU624WjHdlZBo Qjkzy7mvc9mdyPu2HeU1LMLufoHz mGjiOSC5a3VlZp65E85f IPcbRHYkVREzNCWvTXGyuVjomy6y oH9xIb9+OFIuwGX3rAI1eA1xTnSv KpE7GPhuH639SyOavSZl Zmpri1osx8hsoRm2ZqJlOQZaxwLe aPirRRA0t5DxZo93I0DizVnhy4Mx Cul2cr60gMZuq2Q9jDP1 G0KrULHhyzalsPEtpMgmOB6hVVCx ttgeDFYxlC7tZPDiT6r2QzPaRwP2 LShhC7ZsnwC9RGAjbYUp FZzcLMZ0N51ko9A1AMUvYIAbWAZ1 cCH1wC2pyLfqcfjynTBtcAiwjmCt mJsbEAmpFOnhA926UWBk oIuhTGQshN3sXPAulJGawMsdHB8y MUZppnhkIfXAG5EKSWhmMKUPISOW RJUBCL01LK46fOFgm7Q8 wAE5I4MqFCCosanuiwqttAO2RLVr QNOlaD65uMQtNUzwIm5pu5H2b162 ZWHkZFRgkM15Yq9utIya WOEleYWTuM3sjabne6vuoqgdYpCk EURnGVu8PCg6WLUgaEstQlOdMAZ1 XqA3LVO1oWRtoJ2yoFts fkiiyT1xVzj+WDMjYswdCWi2Ddzf dGQ+VAAiKWB5wXiqQSrrKSGvqX5o HYKbQ9w5NjMgBzE8UEvn Y0XpWXQdtjlrEm47wJ6xYjYoPnK2 IAoqP2MvlwM9NBZatAGhKWlcMOR7 R97mu8H1KJJfIGItASK2 zHH4iG7rsQlkanoehFYtiMeeqkUj rRmzTFscDMqyX639HSFlmPktPrW6 NEuiFQLuWA84YX30wKOd j0Q7nIG9C2MiBXWlyhykyubarWI5 IKZtPUFepS41uHHlGIspTu0oe1F5 d612HWZfQQUhrG86Ua9a yCtzWAVbzWYXeY2pzinfc3wdzqls JfDlRKJlQBi9NBw8QAQtuGlpYoLy LIU0SmY2FBF8dUDbrN4c iNoxfjnjbK9gPbg+FmReOYrdDV61 MY25oDWtc4T2kLS6A4YuSYZzpulw bdmapJC0SURrUQIqwJ44 gEQeHXgmRq7he8G5v154JHImPXBf rM99Di6jiUksBFTbjUVPsP9ygwdv v2xzflurVjHxFPWjRJx4 AMh2AXDiwWjoUkGuFVY8JfZ9YYE2 kXPzdU6arNxbiwhldL2rLst+T3V0 jWA8uMNkmDeulGV+PC90 fn12O0CeGfqxHjp6JHLwNRQ2rHX2 eL4eLNVlRBkpj9U5hTH7M5KoyuOk ut7zt1gdZLRvYQtiK35v rQUuw9H0LGJyhCD3NBXutGkdKuZe hN43Trb+AXZcrAexa6FsExgup8xr u7dusAj2ZpOnNGHqwfIx kSthPME8d5JiMe83R94hPLhsNRTl KEFiFJZvCOQkcDqnhu9fbK5dEz5+ YBPbvPX5dOP1kJ2jZaHp WlA2CIlsQ625LuKhoUQzMmqhe6ay a1iqrEz8YkHaOTTpvzAmyEjeNRN7 z2IrTy52E9ZzpTkvj3Gp Voa4pj39sKMmw0Q2lQV5Z0UyOELc tnjrlJImtCbvXK2nSPMdxmaoBOLr mY8sXOSzW2s3JhCpKnJ7 MFkgS1EmqsC9DSUfrHIqBOTxzTNZ fV5prtdpo1ytdqboHeLxCNSaLKv3 CGl1ZWElkQlrSjVfTJG4 AbW2EWM7hWDfdO4qaEdqantymM9i Oyc+HKe6f3xqzTNcGG0iyDK3CK98 IY90mNCvx2Q2kYO5O1Ln QIRwoxlkmdgfyZM7UCCfLXKbgM26 Lc3lsXkoWx4eICZaILX0AXKxbKAh C1LslY5hAlKdPXQcJECc L3NtgIUwIXzuF182EPudWuU5VJDg osMvY7FxEFBrbFadLzI8d5O3Am9Q JA96KO19LY90dJDcq0S1 uFK1O5TtTDHxghzuwbcyzPT5VQIh RTNamD03Vp9kjHgqIx1sDYQlZEM7 TRGyzCLnQ6QdoA6dLjQr HQExFJOpC4FqrSNaRVczP697DWdl MdS9YKBlwyCmF3QkNLGebNsjXjN7 b3I3Uo8THd26NS99RM81 xFYah3K1fTI1G4YoGVHpmsllknka kUT3BQLhPYFwbJ57Qm9ixUseHl1w GFJeZHO5FGRzdRPbF7Al hM8yEfOcNHWqDRLlX4CrhKXdBRdv G982DGgwPbT3AZOxybShM2NzHLOr rSvbKgK7q9P2Hu9EOCgb elu8K6EkQseixRY+LK10FEWkJG23 iYWvkRTgi2ikpYz0PuEcDZRyMWZ3 lBhaRGszn5AgRCNyD46f bGFw (more content not included)... Normal [facility] XR Knee Complete 4+ Views Aneta monzon [...] MD Transcribed by: JAKOB Technologist: NAOMY Normal [facility] T3 Freeon 08-02-2021 Free T3 [Mass/Vol] 3.3 pg/mL Invalid Interpretation Code 2.0-4.4 [facility] Comment on above: Result Comment: Perf ormed at: [employer] [id number] [place], [place] [id number] PhD Rissa Cloud Performed By: #### 2 [id number], [id number], [id number] #### [facility] [address] [place] [address] Thyroid Perox.tpo Abon 08-02 TPO Ab Qn [IU]/mL Invalid Interpretation Code 0-34 [facility] Comment on above: Result Comment: Perf ormed at: [id number] [place], [place] [id number] PhD Rissa Cloud Performed By: #### 2 [id number], [id number], [id number] #### [facility] [address] [place] [address] Consent for Treatmenton 07-23 Consent for Treatment [id number]#[id number]:127 Normal [facility] Free T4on 08-01-2021 Free T4 [Mass/Vol] 0.73 ng/dL Normal 0.58-1.64 [facility] Comment on above: Performed By: #### 2 [id number], [id number], [id number], [id number] #### [facility] [address] [place] [address] Physician Orderon 08-01-2021 Physician Order [id number]#1.00CD:127 Normal [facility] TSHon 08-01-2021 TSH Qn 2.64 m[IU]/L Normal 0.34-5.60 [facility] Comment on above: Performed By: #### 2 [id number], [id number], [id number], [id number] #### [facility] [address] [place] [address] SABRINA + BEATRICE PANELon 03-11-2020 SABRINA WITH REFLEX TO BEATRICE Negative Normal NEGATIVE [facility] Comment on above: Performed By: #### A NAP2 #### [facility] [address] [facility] [place] [address] ALPHA-FETOPROTEINon 03-09-19 21 ALPHA-FETOPROTEIN <4 Normal 0 - 9 [facility] Comment on above: Result Comment: AFP testing is performed by chemiluminescent immunoassay using the Health Benefits Direct. Values obtained with different analyte methods cannot be used interchangeably. This test can be used as an adjunct in the diagnosis and monitoring of AFP-producing tumors, including non-seminomatous germ cell tumors and hepatocellular carcinomas. Performed By: #### A FP #### [facility] [address] [place] [address] SABRINA + BEATRICE PANELon 03-09-2020 ANTI-CENTROMERE <0.2 Normal [facility] Comment on above: Result Comment: REF VALUES < 1.0 = NEGATIVE >=1.0 = POSITIVE Performed By: #### A NAP2 #### [facility] [address] [place] [address] ANTI-CHROMATIN 0.2 AI Normal [facility] Comment on above: Result Comment: REF VALUES < 1.0 = NEGATIVE >=1.0 = POSITIVE Performed By: #### A NAP2 #### [facility] [address] [place] [address] ANTI-DNA [DS] <1.0 Normal [facility] Comment on above: Result Comment: REF VALUES NEGATIVE: <= 4 IU/ML EQUIVOCAL: 5- 9 IU/ML POSITIVE: >=10 IU/ML Performed By: #### A NAP2 #### [facility] [address] [place] [address] ANTI-STARR-1 <0.2 Normal [facility] Comment on above: Result Comment: REF VALUES < 1.0 = NEGATIVE >=1.0 = POSITIVE Performed By: #### A NAP2 #### [facility] [address] [place] [address] ANTI-RIBOSOMAL P <0.2 Normal [facility] Comment on above: Result Comment: REF VALUES < 1.0 = NEGATIVE >=1.0 = POSITIVE Performed By: #### A NAP2 #### [facility] [address] [place] [address] ANTI-MARSHMALLOW MACHINE OPERATOR <0.2 Normal [facility] Comment on above: Result Comment: REF VALUES < 1.0 = NEGATIVE >=1.0 = POSITIVE Performed By: #### A NAP2 #### [facility] [address] [place] [address] ANTI-SCL-70 <0.2 Normal [facility] Comment on above: Result Comment: REF VALUES < 1.0 = NEGATIVE >=1.0 = POSITIVE Performed By: #### A NAP2 #### [facility] [address] [place] [address] ANTI-SM <0.2 Normal [facility] Comment on above: Result Comment: REF VALUES < 1.0 = NEGATIVE >=1.0 = POSITIVE Performed By: #### A NAP2 #### [facility] [address] [place] [address] ANTI-SM/MARSHMALLOW MACHINE OPERATOR <0.2 Normal [facility] Comment on above: Result Comment: REF VALUES < 1.0 = NEGATIVE >=1.0 = POSITIVE Performed By: #### A NAP2 #### [facility] [address] [place] [address] ANTI-SSA <0.2 Normal [facility] Comment on above: Result Comment: REF VALUES < 1.0 = NEGATIVE >=1.0 = POSITIVE Performed By: #### A NAP2 #### [facility] [address] [place] [address] ANTI-SSB <0.2 Normal [facility] Comment on above: Result Comment: REF VALUES < 1.0 = NEGATIVE >=1.0 = POSITIVE Performed By: #### A NAP2 #### [facility] [address] [place] [address] HEPATITIS A AB-TOTALon 03-09 HEPATITIS A AB-TOTAL NONREACTIVE Normal NONREACTIVE [facility] Comment on above: Result Comment: Biot in interference may cause falsely elevated results. Patients taking a Biotin dose of up to 5 mg/day should refrain from taking Biotin for 24 hours before sample collection. Providers may contact their local laboratory for further information. Performed By: #### H AVTO #### [facility] [address] [place] [address] HEPATITIS B CORE AB-TOTALon 03-09-2020 HEP. B CORE AB-TOTAL NONREACTIVE Normal NONREACTIVE [facility] Comment on above: Result Comment: Resu lts from patients taking biotin supplements or receiving high-dose biotin therapy should be interpreted with caution due to possible interference with this test. Providers may contact their local laboratory for further information. Performed By: #### H BCRT #### [facility] [address] [place] [address] HEPATITIS B SURF ABon 2020 HEP B SURF AB <3.1 Normal <10 [facility] Comment on above: Result Comment: INTE RPRETIVE CRITERIA: <10 mIU/mL....NONREACTIVE >=10 mIU/mL...REACTIVE . Biotin interference may cause falsely decreased results. Patients taking a Biotin dose of up to 5 mg/day should refrain from taking Biotin for 24 hours before sample collection. Providers may contact their local laboratory for further information. Performed By: #### H BAB3 #### [facility] [address] [place] [address] Alpha Fetoprotein, Serumon 0 03-08-2020 AFP [Mass/Vol] ng/mL 0 - 9 [facility] Work Phone: Comment on above: SOURCE: AFP testing is performed by chemiluminescent immunoassay using the Health Benefits Direct. Values obtained with different analyte methods cannot be used interchangeably. This test can be used as an adjunct in the diagnosis and monitoring of AFP-producing tumors, including non-seminomatous germ cell tumors and hepatocellular carcinomas. HEPATITIS B CORE AB-TOTALon 03-08-2020 Lab Specimen Source Normal [facility] Comment on above: Performed By: #### H BCRT #### [facility] [address] [place] [address] Performed By: #### A FP #### [facility] [address] [place] [address] Performed By: #### H BAB3 #### [facility] [address] [place] [address] Performed By: #### H AVTO #### [facility] [address] [place] [address] Hepatitis A Antibody, Totalo n 03-08-2020 HAV [...] extractable nuclear Ab IA Qn (S) <0.2 [employer] [facility] Work Phone: Comment on above: REF VALUES < 1.0 = N EGATIVE >=1.0 = POSITIVE Sjogrens syndrome-B extractable nuclear Ab IA Qn (S) <0.2 [employer] [facility] Work Phone: Comment on above: REF VALUES < 1.0 = N EGATIVE >=1.0 = POSITIVE Jones extractable nuclear Ab IA Qn (S) <0.2 [employer] [facility] Work Phone: Comment on above: REF VALUES < 1.0 = N EGATIVE >=1.0 = POSITIVE Jones extractable nuclear Ab+Ribonucleoprotei n extractable nuclear Ab IA Ql (S) <0.2 [employer] 201 Work Phone: Comment on above: REF [...] between PALMER and NAFLD as well as 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 COMPARISON: None. ACCESSION NUMBER(S): [id number] ORDERING CLINICIAN: GIOVANNA BROOKS TECHNIQUE: Multiple images [...] DESTINEE WEST 02/18/20 07:50 Iron + TIBC, [id number] 12:39PMRelayton hospitalGiovanna javier Test NameResultFlagReference Iron, Serum83 ug/dL35 - 150 Total Iron Binding Diphdktd222 ug/dL240 - 445 % Pitmulygqi45 %L25 - 45 Transferrin, Ihfip27Knf4700 12:39PMRevolGiovanna javier Test NameResultFlagReference Transferrin, Lbwqi358 mg/dL200 - 360 Ceruloplasmin, [id number] 12:39PMRelayton hospitalGiovanna javier Test NameResultFlagReference Ceruloplasmin, Serum38 mg/dL20 - 60 HIV 1/2 ANTIGEN/ANTIBODY SCREEN WITH REFLEX TO [id number] 12:39PMRelayton hospitalGiovanna javier Test NameResultFlagReference HIV 1/2 AG/AB SCREENNONREACTIVESee Below SOURCE: Reference Range: NONREACTIVE HIV Ag/Ab screen is performed using the Siemens InProntollMowdo HIV Ag/Ab Combo assay which detects the presence of HIV p24 antigen as well as antibodies to HIV-1 (Group M and O) and HIV-2. Hepatitis B Surface Sadoyxx94Rjw6751 12:39PMRepenn medicine princ[facility] medical centerGiovanna longoria Test NameResultFlagReference Hep.B Surface AgNONREACTIVESee Below SOURCE: Reference Range: NONREACTIVE Biotin interference may cause falsely decreased results. Patients taking a Biotin dose of up to 5 mg/day should refrain from taking Biotin for 24 hours before sample collection. Providers may contact their local laboratory for further information. Hepatitis C Antibody [id number] 12:39PMRepenn medicine princ[facility] medical centerGiovanna longoria Test NameResultFlagReference Hepatitis C-AntibodyNONREACTIVESee Below SOURCE: Reference Range: NONREACTIVE Results from patients taking biotin supplements or receiving high-dose biotin therapy should be interpreted with caution due to possible interference with this test. Providers may contact their local laboratory for further information. Hepatitis B Core IgM Sakgodjx76Kle2211 12:39PMRevolinsky, Giovanna Test NameResultFlagReference Hepatitis B Core Ab, IgMNONREACTIVESee Below SOURCE: Reference Range: NONREACTIVE Results from patients taking biotin supplements or receiving high-dose biotin therapy should be interpreted with caution due to possible interference with this test. Providers may contact their local laboratory for further information. EBV [id number] 12:39PMReGiovanna allred Test NameResultFlagReference Baljit-Greenberg Virus Capsid Antigen IgGPOSITIVEANEGATIVE Baljit-Greenberg Virus Ab to Early AntigenNEGATIVENEGATIVE Baljit-Greenberg Virus Nuclear Antigen IgGPOSITIVEANEGATIVE VCA IgM AntibodyNEGATIVENEGATIVE EBV InterpretationSEE BELOW . EBV INTERPRETATION CHART . VCA-IGG VCA-IGM NA-IGG EA-IGG . ---- PRIMARY ACUTE +/- +/- - +/- LATE ACUTE + +/- +/- +/- RECOVERING + - - + PREVIOUS INFECTION + - +/- - Antimitochondrial [id number] 12:39PMReGiovanna allred Test NameResultReference Mitochondrial Antibody ScreeningNEGATIVENEGATIVE Smooth Muscle Antibody [id number] 12:39PMReGiovanna allred Test NameResultKareennce Smooth Muscle AntibodyPOSITIVENEGATIVE Antismooth Muscle Titer1:20 Flyri-6-Fnaqmelmpoh Phenotype, [id number] 12:39PMGiovanna Brooks Test NameResultReference Kamoi-9-Azqsvvfrabs Dvyjkifez777 mg/aA43-370 To convert to umol/L, multiply mg/dL by 0.185 [employer]-7-Lvdvdkwdvax Phenotype DezhxG4H8 The patient appears to have a normal phenotype. All M alleles (including subtypes M1, M2, and M3) produce normal serum concentrations of lviaj-3-bugpagua inhibitor and are not associated with clinical disease. Caution in interpretation is advised if the patient has been transfused within the previous 21 days. Performed By: [facility] [address] [place] [address] Drug Safety Specialist: Nakia Washburn MD Complete Blood Nudme16Mww8297 03:43PMReGiovanna allred Test NameResultFlagReference White Blood Cell Count7.8 x10E9/L4.4 - 11.3 Red Blood Cell Count4.87 x10E12/LSee Below Reference Range: 4.00 - 5.20 Zzutxmevaq72.7 g/dLSee Below Reference Range: 12.0 - 16.0 HCT45.5 %See Below Reference Range: 36.0 - 46.0 MCV93 fL80 - 100 MCHC32.3 g/dLSee Below Reference Range: 32.0 - 36.0 Platelet Vqwzm202 x10E9/L150 - 450 RDW-CV12.1 %See Below Reference Range: 11.5 - 14.5 Comprehensive Metabolic Zduro38Gkd6463 03:43PMGiovanna Brooks Test NameResultFlagReference Glucose, Serum90 mg/dL74 - 99 Sodium, Xefxe501 mmol/L136 - 145 POTASSIUM4.0 mmol/L3.5 - 5.3 Chloride, Nmicd804 mmol/L98 - 107 Bicarbonate, Serum25 mmol/L21 - 32 Anion Gap, Serum17 mmol/L10 - 20 Blood Urea Nitrogen, Serum8 mg/dL6 - 23 CREATININE0.75 mg/dLSee Below Reference Range: 0.50 - 1.05 Calcium, Serum9.6 mg/dL8.6 - 10.3 Albumin, Serum4.5 g/dL3.4 - 5.0 ALKALINE NNGVXCFZFLV03 U/L33 - 110 Protein, Total Serum7.9 g/dL6.4 [...] PHENOTYP [place] 02-18-2020 A-1 ANTITRYP.PHENOTYPE M1M2 Normal [facility] Comment on above: Result Comment: The patient appears to have a normal phenotype. All M alleles (including subtypes M1, M2, and M3) produce normal serum concentrations of hdwgz-4-hoiybwsp inhibitor and are not associated with clinical disease. Caution in interpretation is advised if the patient has been transfused within the previous 21 days. Performed By: [facility] [address] [place] [address] Drug Safety Specialist: Nakia Washburn MD Performed By: #### H BCRM #### [facility] [address] [place] [address] CSXHS-5-RTLXCMSPUBT 140 mg/dL Normal 90-200 [facility] Comment on above: Result Comment: To c onvert to umol/L, multiply mg/dL by 0.185 Performed By: #### H BCRM #### [facility] [address] [place] [address] Otheron 02-17-2020 US Liver Interpreted by: DESTINEE WEST02/18/20 07:50MRN: [id number] Name: BETZAIDA ARMENDARIZ STUDY:US LIVER; 02/17/2020 2:13 [...] signed by: DESTINEE WEST 02/18/20 07:50 Normal [facility]-[address] Work Phone: US LIVERon 02-17-2020 US LIVER Patient Name: BETZAIDA ARMENDARIZ STUDY: US LIVER; 02/17/2020 2:13 pm INDICATION: elevated liver function tests. COMPARISON: None. ACCESSION NUMBER(S): [id number] ORDERING CLINICIAN: GIOVANNA BROOKS TECHNIQUE: Multiple images [...] Electronically signed by: DESTINEE WEST MD Normal [facility] ANTIMITOCHONDRIAL ABon 02-14 ANTIMITOCHONDRIAL AB Negative Normal NEGATIVE [facility] Comment on above: Performed By: #### M ITAB #### [facility] [address] [place] [address] ANTISMOOTH MUSCLE ABon 02-14 ANTISMOOTH MUSCLE AB Positive Normal NEGATIVE [facility] Comment on above: Performed By: #### A SMAB #### [facility] [address] [place] [address] ANTISMOOTH MUSCLE TITER 1:20 Normal [facility] Comment on above: Performed By: #### A SMAB #### [facility] [address] [place] [address] CERULOPLASMINon 02-14-2020 CERULOPLASMIN 38 mg/dL Normal 20 - 60 [facility] Comment on above: Performed By: #### C ERUL #### [facility] [address] [place] [address] Ceruloplasmin, Serumon 02-13 Ceruloplasmin [Mass/Vol] 38 mg/dL 20 - 60 -[facility]-[address] Work Phone: EBV PANELon 02-14-2020 VCA IGM ANTIBODY Negative Normal NEGATIVE [facility] Comment on above: Performed By: #### E BVP1 #### [facility] [address] [place] [address] EBV EA-D IGG ANTIBODY Negative Normal NEGATIVE [facility] Comment on above: Performed By: #### E BVP1 #### [facility] [address] [place], [place] EBV INTERPRETATION SEE BELOW Normal [facility] Comment on above: Result Comment: . EB V INTERPRETATION CHART . VCA-IGG VCA-IGM NA-IGG EA-IGG . PRIMARY ACUTE +/- +/- - +/- LATE ACUTE + +/- +/- +/- RECOVERING + - - + PREVIOUS INFECTION + - +/- - Performed By: #### E BVP1 #### [facility] [address] [place] [address] EBV NA-1 IGG ANTIBODY Positive Abnormal NEGATIVE [facility] Comment on above: Performed By: #### E BVP1 #### [facility] [address] [place] [address] VCA IGG ANTIBODY Positive Abnormal NEGATIVE [facility] Comment on above: Performed By: #### E BVP1 #### [facility] [address] [place] [address] HEPATITIS B CORE AB;IGMon HEPATITIS B CORE AB,IGM NONREACTIVE Normal NONREACTIVE [facility] Comment on above: Result Comment: Resu lts from patients taking biotin supplements or receiving high-dose biotin therapy should be interpreted with caution due to possible interference with this test. Providers may contact their local laboratory for further information. Performed By: #### H BCR #### [facility] [address] [place], [place] Lab Specimen Source Normal [facility] Comment on above: Performed By: #### H BCRM #### [facility] [address] [place], [place] Performed By: #### H CVAB #### [facility] [address] [place], [place] Performed By: #### H IV #### [facility] [address] [place] [address] HEPATITIS B SURFACE AGon HEP.B SURFACE AG NONREACTIVE Normal NONREACTIVE [facility] Comment on above: Result Comment: Biot in interference may cause falsely decreased results. Patients taking a Biotin dose of up to 5 mg/day should refrain from taking Biotin for 24 hours before sample collection. Providers may contact their local laboratory for further information. Performed By: #### H BCRM #### [facility] [address] [place] [address] HEPATITIS C ABon 02-14-2020 HEPATITIS C AB NONREACTIVE Normal NONREACTIVE [facility] Comment on above: Result Comment: Resu lts from patients taking biotin supplements or receiving high-dose biotin therapy should be interpreted with caution due to possible interference with this test. Providers may contact their local laboratory for further information. Performed By: #### H CVAB #### [facility] [address] [place], [place] HIV 1/2 ANTIGEN/ANTIBODY SCR EEN WITH REFLEX TO CONFIRMATIONon 02-14-2020 HIV 1/2 AG/AB SCREEN NONREACTIVE Normal NONREACTIVE [facility] Comment on above: Result Comment: HIV Ag/Ab screen is performed using the Siemens AtellMowdo HIV Ag/Ab Combo assay which detects the presence of HIV p24 antigen as well as antibodies to HIV-1 (Group M and O) and HIV-2. Performed By: #### H IV #### [facility] [address] [place], [place] HIV 1+2 Ab+HIV1 p24 Ag IA Ql NONREACTIVE See Below [facility] Work Phone: Comment on above: SOURCE: Reference Ra nge: NONREACTIVE HIV Ag/Ab screen is performed using the Siemens InProntollMowdo HIV Ag/Ab Combo assay which detects the [...] SATURATION 22 % Low 25 - 45 [facility] Comment on above: Performed By: #### I RONT #### [address] [address] Iron [Mass/Vol] 83 ug/dL Normal 35 - 150 [facility] Comment on above: Performed By: #### I RONT #### [address] [address] TIBC 374 ug/dL Normal 240 - 445 [facility] Comment on above: Performed By: #### I RONT #### [address] [address] Imm/Pathon 02-14-2020 EBV early IgM IA Qn [...] and M3) produce normal serum concentrations of anjxv-8-tdrppnqt inhibitor and are not associated with clinical disease. Caution in interpretation is advised if the patient has been transfused within the previous 21 days.Performed By: [facility] [id number] Director: Nakia Washburn MD EBV capsid IgG [...] [Mass/Vol] 283 mg/dL Normal 200 - 360 [facility] Comment on above: Performed By: #### T DOMINIQUE #### [facility] [address] [place] [address] Transferrin, Serumon 020 Transferrin [Mass/Vol] 283 mg/dL 200 - 360 -[facility]-[address] Work Phone: CBCon 02-13-2020 Erythrocyte distribution width (RBC) [Ratio] 12.1 % Normal 11.5 - 14.5 [facility] Comment on above: Performed By: #### C BC #### [address] [id number] Hematocrit (Bld) [Volume fraction] 45.5 % Normal 36.0 - 46.0 [facility] Comment on above: Performed By: #### C BC #### [address] [id number] Hemoglobin (Bld) [Mass/Vol] 14.7 g/dL Normal 12.0 - 16.0 [facility] Comment on above: Performed By: #### C BC #### [address] [id number] MCHC (RBC) [Mass/Vol] 32.3 g/dL Normal 32.0 - 36.0 [facility] Comment on above: Performed By: #### C BC #### [address] [id number] MCV (RBC) [Entitic vol] 93 fL Normal 80 - 100 [facility] Comment on above: Performed By: #### C BC #### [address] [id number] Platelets (Bld) [#/Vol] 421 10*3/uL Normal 150 - 450 [facility] Comment on above: Performed By: #### C BC #### [address] [id number] RBC (Bld) [#/Vol] 4.87 x10E12/L Normal 4.00 - 5.20 [facility] Comment on above: Performed By: #### C BC #### [address] [id number] WBC (Bld) [#/Vol] 7.8 10*3/uL Normal 4.4 - 11.3 [facility] Comment on above: Performed By: #### C BC #### [address] [id number] COMPREHENSIVE PANELon 2019 Albumin [Mass/Vol] 4.5 g/dL Normal 3.4 - 5.0 [facility] Comment on above: Performed By: #### C MP #### [address] [id number] ALP [Catalytic activity/Vol] 91 U/L Normal 33 - 110 [facility] Comment on above: Performed By: #### C MP #### [address] [id number] ALT [Catalytic activity/Vol] 87 U/L High 7 - 45 [facility] Comment on above: Result Comment: Yamini ents treated with Sulfasalazine may generate falsely decreased results for ALT. Performed By: #### C MP #### [address] [id number] Anion gap [Moles/Vol] 17 mmol/L Normal 10 - 20 [facility] Comment on above: Performed By: #### C MP #### [address] [id number] AST [Catalytic activity/Vol] 74 U/L High 9 - 39 [facility] Comment on above: Performed By: #### C MP #### [address] [id number] Bilirubin [Mass/Vol] 0.6 mg/dL Normal 0.0 - 1.2 [facility] Comment on above: Performed By: #### C MP #### [address] [id number] Calcium [Mass/Vol] 9.6 mg/dL Normal 8.6 - 10.3 [facility] Comment on above: Performed By: #### C MP #### [address] [id number] Chloride [Moles/Vol] 102 mmol/L Normal 98 - 107 [facility] Comment on above: Performed By: #### C MP #### [address] [id number] Creatinine [Mass/Vol] 0.75 mg/dL Normal 0.50 - 1.05 [facility] Comment on above: Performed By: #### C MP #### [address] [id number] GFR- AM. >60 Normal >60 [facility] Comment on above: Result Comment: CALC ULATIONS OF ESTIMATED GFR ARE PERFORMED USING THE MDRD STUDY EQUATION FOR THE IDMS-TRACEABLE CREATININE METHODS. CLIN CHEM 2007;53:766-72 Performed By: #### C MP #### [address] [id number] GFR-NON AM. >60 Normal >60 [facility] Comment on above: Performed By: #### C MP #### [address] [id number] Glucose [Mass/Vol] 90 mg/dL Normal 74 - 99 [facility] Comment on above: Performed By: #### C MP #### [address] [id number] HCO3 (Bld) [Moles/Vol] 25 mmol/L Normal 21 - 32 [facility] Comment on above: Performed By: #### C MP #### [address] [id number] Potassium [Moles/Vol] 4.0 mmol/L Normal 3.5 - 5.3 [facility] Comment on above: Performed By: #### C MP #### [address] [id number] Protein [Mass/Vol] 7.9 g/dL Normal 6.4 - 8.2 [facility] Comment on above: Performed By: #### C MP #### [address] [id number] Sodium [Moles/Vol] 140 mmol/L Normal 136 - 145 [facility] Comment on above: Performed By: #### C MP #### [address] [id number] Urea nitrogen [Mass/Vol] 8 mg/dL Normal 6 - 23 [facility] Comment on above: Performed By: #### C MP #### [address] [id number] 19-49 Yearson 02-13-2020 19-49 Years Diagnoses/Problems Health [...] mild; DALIA = N; Verified Transmission to [facility]; Last Updated By: [employer]; 02/13/2020 3:19:17 PM Fatigue Complete Blood Count; Status:Active; Requested for:[id number]; Perform:Lab Services - Lab To Draw (Blood Test); Due:13May2020;Ordered; For:Fatigue; Ordered By:Giovanna Brooks; Comprehensive Metabolic Panel; Status:Active; Requested for:[id number]; Perform:Lab Services - Lab To Draw (Blood Test); Due:13May2020;Ordered; For:Fatigue; Ordered By:Giovanna Brooks; TSH - Thyroid Stimulating Hormone, Serum; Status:Active; Requested for:[id number]; Perform:Lab Services - Lab To Draw (Blood Test); Due:13May2020;Ordered; For:Fatigue; Ordered By:Giovanna Brooks; Vitamin B12, Serum; Status:Active; Requested for:98Aed9785; Perform:Lab Services - Lab To Draw (Blood Test); Due:13May2020;Ordered; For:Fatigue; Ordered By:Giovanna Brooks; Health Maintenance Lipid Panel; Status:Active; Requested for:87Caq3126; Perform:Lab Services - Lab To Draw (Blood Test); Due:13May2020;Ordered; For:Health Maintenance; Ordered By:Giovanna Brooks; Restless leg syndrome Start: rOPINIRole HCl - 0.25 MG Oral Tablet; TAKE 1 TABLET Bedtime Rx By: Giovanna Brooks; Dispense: 30 Days ; #:30 Tablet; Refill: 2;For: Restless leg syndrome; DALIA = N; Verified Transmission to [facility]; Last Updated By: [employer]; 02/13/2020 3:16:55 PM Screening mammogram, encounter for Mamm - Screening Mammogram w/ Tomosynthesis; Status:Hold For - Scheduling; Requested for:13Feb2020; Perform:[facility]; Due:13May2020;Ordered; For:Screening mammogram, [...] Release Multivitamins TABS Vitals Vital Signs Recorded: 60Oej9944 02:50PM Cwbsspgfurd75.7 F, Temporal Heart Rate76 Pulse QualityIrregular Vxjiveyndai07 Respiration QualityNormal Pblsfjms709, LLE, Sitting Nllusgjkg39, LLE, Sitting Blood Pressure Cuff SizeLarge Height5 ft 6 in Eulkrn104 lb 6 oz BMI Pyubvhzqxa35.25 BSA Calculated2.08 Tobacco Useb) No Fall Screeninga) [...] Feb 13 2020 3:39PM EST (Author) Normal [facility] [place] H[facility]ologyon 02-13-2020 Hematocrit (Bld) [Volume fraction] 45.5 % See Below [employer] Work Phone: Comment on above: Reference Range: 36. 0 - 46.0 Hemoglobin (Bld) [Mass/Vol] 14.7 g/dL See Below [employer] Work Phone: Comment on above: Reference Range: 12. 0 - 16.0 MCV (RBC) [Entitic vol] 93 fL 80 - 100 -[facility] Work Phone: Platelets (Bld) [#/Vol] 421 {x10E9/L} 150 - 450 [employer] Work Phone: RBC (Bld) [#/Vol] 4.87 {x10E12/L} See Below MP -[facility] Work Phone: Comment on above: Reference Range: 4.0 0 - 5.20 WBC (Bld) [#/Vol] 7.8 {x10E9/L} 4.4 - 11.3 MP-[facility]-[address] Work Phone: LIPID PANEL (CORONARY RISK 2 )on 02-13-2020 Cholesterol [Mass/Vol] 231 mg/dL High 0 - 199 [facility] Comment on above: Result Comment: [...] dosing. Performed By: #### L IPID #### [address] [id number] Cholesterol in HDL [Mass/Vol] 41.0 mg/dL Normal [facility] Comment on above: Result Comment: . AGE VERY LOW LOW NORMAL HIGH 0-19 Y < 35 < 40 40-45 ---- 20-24 Y ---- < 40 >45 ---- >24 Y ---- < 40 40-60 >60 . Performed By: #### L IPID #### [address] [id number] Cholesterol in LDL [Mass/Vol] 155 mg/dL High 0 - 99 [facility] Comment on above: Result Comment: . NEAR BORD AGE DESIRABLE OPTIMAL HIGH HIGH VERY HIGH 0-19 Y 0 - 109 --- 110-129 >/= 130 ---- 20-24 Y 0 - 119 --- 120-159 >/= 160 ---- >24 Y 0 - 99 100-129 130-159 160-189 >/=190 . Performed By: #### L IPID #### [address] [id number] Cholesterol in VLDL [Mass/Vol] 35 mg/dL Normal 0 - 40 [facility] Comment on above: Performed By: #### L IPID #### [address] [id number] Cholesterol.total/C holesterol in HDL [Mass ratio] 5.6 {ratio} Abnormal [facility] Comment on above: Result Comment: REF VALUES DESIRABLE < 3.4 HIGH RISK > 5.0 Performed By: #### L IPID #### [address] [id number] Triglyceride [Mass/Vol] 175 mg/dL High 0 - 149 [facility] Comment on above: Result Comment: [...] dosing. Performed By: #### L IPID #### [address] [id number] Lipid Panelon 02-13-2020 Cholesterol [Mass/Vol] 231 mg/dL above high threshold 0 - 199 -[facility]-[address] Work Phone: Comment on above: [...] dosing. Cholesterol in HDL [Mass/Vol] 41.0 mg/dL [employer] 201 Work Phone: Comment on above: . AGE VERY LOW LOW N ORMAL HIGH 0-19 Y < 35 < 40 40-45 ---- 20- 24 Y ---- < 40 >45 ---- >24 Y ---- < 40 40-60 >60. Cholesterol in LDL [Mass/Vol] 155 mg/dL above high threshold 0 - 99 [employer] [address] Work Phone: Comment on above: . NEAR BORD AGE JUSTIN RABLE OPTIMAL HIGH HIGH VERY HIGH 0-19 Y 0 - 109 --- 110-129 >/= 130 ---- 20-24 Y 0 - 119 --- 120-159 >/= 160 ---- >24 Y 0 - 99 100-129 130-159 160-189 >/=190. Cholesterol.total/C holesterol in HDL [Mass ratio] 5.6 {ratio} Abnormal [facility] 201 Work Phone: Comment on above: REF VALUESDESIRABLE < 3.4HIGH RISK > 5.0 Triglyceride [Mass/Vol] 175 mg/dL above high threshold 0 - 149 [employer] [address] Work Phone: Comment on above: . [...] 102 mmol/L 98 - 107 [facility] [address] Work Phone: CO2 [Moles/Vol] 25 mmol/L 21 [...] Qn 2.89 m[IU]/L Normal 0.44 - 3.98 [facility] Comment on above: Result Comment: TSH testing is performed using different testing methodology at [facility] than at other [facility]. Direct result comparisons should only be made within the same method. Performed By: #### T [facility] #### [address] [id number] TSH - Thyroid Stimulating Ho rmone, Serumon 02-13-2020 TSH Qn 2.89 {mIU/L} See Below [facility] Work Phone: Comment on above: Reference Range: 0.4 4 - 3.98 TSH testing is performed using different testing methodology at [facility] than at other [facility]. Direct result comparisons should only be made within the same method. Vitamin B12, Serumon 020 Cobalamin (Vitamin B12) [Mass/Vol] 413 pg/mL Normal 211 - 911 [facility] Work Phone: Comment on above: Performed By: #### V TB12 #### [address], [place] [id number] Culture, Urine Bacterialon 0 07-26-2017 Culture, Urine Bacterial BILL#: [id number] : 77 AGE: SEX:FDOUGLASSOURCE: URINE COLLECTED: 07/26/17 08:50ANTIBIOTICS AT MICHELLE.: RECEIVED : 07/27/17 18:22SITE: UnspecifiedR E S U L T SURINE CULTURE,BACTERIAL FINAL 07/28/17 11:10NO GROWTH Normal [facility] Comment on above: Performed By: #### C FLAVIO ####[facility] [address] [place] [address] Basic Metabolic Panelon 06-22 Anion gap 15 mmol/L Normal 10-20 [facility] Comment on above: Performed By: #### 1 [id number] ####[facility] [address] [place] [address] Bicarbonate (HCO3) 21 mmol/L Normal 21-32 [facility] Comment on above: Performed By: #### 1 [id number] ####[facility] [address] [facility] [place] [address] BUN/Creatinine Ratio 16 mg/mg Normal 5-25 [facility] Comment on above: Performed By: #### 1 [id number] ####[facility] [address] [place] [address] Calcium 9.5 mg/dL Normal 8.6-10.3 [facility] Comment on above: Performed By: #### 1 462477 ####[facility] [address] [place] [address] Chloride 106 mmol/L Normal 98-107 [facility] Comment on above: Performed By: #### 1 [id number] ####[facility] [address] [place] [address] Creatinine 0.77 mg/dL Normal 0.50-1.05 [facility] Comment on above: Performed By: #### 1 [id number] ####[facility] [address] [place] [address] eGFR (MDRD) mL/min/{1.73_m2} Normal [facility] Comment on above: Result Comment: Inte rpretation for Chronic Kidney Disease:Stages 1&2 >60 Healthy or potential kidney damage.Mild decrease of GFR.Stage 3 30-59 Moderate decrease of GFR.Stage 4 15-29 Severe decrease of GFR.Stage 5 <15 Kidney failure or on dialysis. Performed By: #### 1 [id number] ####[facility] [address] [place] [address] Glucose mass conc 101 mg/dL High 70-100 [facility] Comment on above: Performed By: #### 1 427487 ####[facility] [address] [place] [address] Potassium molar conc 4.3 mmol/L Normal 3.5-5.1 [facility] Comment on above: Performed By: #### 1 727195 ####[facility] [address] [place] [address] Sodium 138 mmol/L Normal 136-145 [facility] Comment on above: Performed By: #### 1 478446 ####[facility] [address] [place] [address] Urea nitrogen 12 mg/dL Normal 6-23 [facility] Comment on above: Performed By: #### 1 215862 ####[facility] [address] [place] [address] CBCon 07-09-2017 Erythrocyte distribution width Auto Ratio (RBC) 12.3 % Normal 12.0-15.4 [facility] Comment on above: Performed By: #### 2 [id number] ####[facility] [address] [place] [address] Erythrocytes (RBC) 4.63 10*6/uL Normal 3.85-5.10 [facility] Healthcare Comment on above: Performed By: #### 2 495834 ####[facility] [address] [place] [address] Hematocrit (HCT) 41.9 % Normal 36.5-46.6 [facility] Comment on above: Performed By: #### 2 490501 ####[facility] [address] [place] [address] Hemoglobin mass conc (Bld) 14.1 g/dL Normal 11.8-15.3 [facility] Comment on above: Performed By: #### 2 752050 ####[facility] [address] [place] [address] MCH 30.5 pg Normal 27.5-33.0 [facility] Healthcare Comment on above: Performed By: #### 2 053605 ####[facility] [address] [place] [address] MCHC mass conc (RBC) 33.7 g/dL Normal 30.1-35.0 [facility] Healthcare Comment on above: Performed By: #### 2 057379 ####[facility] [address] [place] [address] MCV 90.5 fL Normal 85.4-100.0 [facility] Healthcare Comment on above: Performed By: #### 2 058962 ####[facility] [address] [place] [address] NRBC Absolute 0.00 10*3/uL Normal [facility] Comment on above: Performed By: #### 2 135798 ####[facility] [address] [place] [address] NRBC Automated 0.0 /100{WBCs} Normal [facility] Comment on above: Performed By: #### 2 042133 ####[facility] [address] [place] [address] Platelet mean volume (PMV) 10.0 fL Normal 9.9-12.1 [facility] Healthcare Comment on above: Performed By: #### 2 476043 ####[facility] [address] [place] [address] Platelets 287 10*3/uL Normal 155-404 [facility] Healthcare Comment on above: Performed By: #### 2 911412 ####[address] [place] [address] RDW SD 40.3 fL Normal 39.3-48.6 [facility] Healthcare Comment on above: Performed By: #### 2 334584 ####[address] [place] [address] WBC (Leukocytes) 6.7 10*3/uL Normal 4.4-9.9 [facility] Comment on above: Performed By: #### 2 658154 ####[address] [place] [address] Pathology ([facility])on 07-09-2017 Pathology ([facility]) FINAL SURGICAL PATHO LOGY [id number] FINAL DIAGNOSISUTERUS, CERVIX AND BILATERAL FALLOPIAN TUBES-UTERUS, 113 GRAMS.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 [place] [facility] fixative, labeled Mariela Armendariz and designated uteruswith [...] fallopian tube.CAESigned Out by:CHRISTI VIGILeported: 07/12/2017 Normal [facility] Healthcare Comment on above: Performed By: #### S UR ####[facility] [id number] [place] [address] Test (Serum)on Test, Serum Negative Normal [facility] Healthcare Comment on above: Performed By: #### 3 [id number] ####[facility] [id number] [place] [address] Type and Screenon 07-09-2017 Antibody Screen Negative Normal [facility] Comment on above: Performed By: #### T S3 ####[facility] [id number] [place] [address] Group and Rh Positive Normal [facility] Healthcare Comment on above: Result Comment: @ 09:38 by RSIM:No previous history found to confirm this result.If transfusion of RBC's or FFP is requested, a secondsample must be collected at a separate phlebotomyto confirm the ABORH. Performed By: #### T S3 ####[facility] [id number] [place] [address] Mammo Screening Bilat CAD To kelly 06-08-2017 Mammo Screening Bilat CAD Jimbo [facility] Patient: BETZAIDA ARMENDARIZ [address] MR#: [id number] [place], [place] [address] : [address] Marco Antonio Paniagua MD Dept: Diagnostic Imaging Loc: OPC DI REPORT Service Dt:06/07/17 Report#: [id number] Adm Dt: 06/07/17 Dis Dt: Comments: STUDY: MG Mammo Screening Bilat CAD Jimbo; 06/07/2017 5:45 pm ACCESSION NUMBER(S): [id number] ORDERING CLINICIAN: Marco Antonio Paniagua INDICATION: Screening. [...] by: Jayda Dallas 06/08/2017 12:26 PM Normal [facility] Pelvis Complete Transvaginal on 06-08-2017 Pelvis Complete Transvaginal [facility] Patient: BETZAIDA ARMENDARIZ [address] MR#: [id number] [place], [place] [address] : 1975 Ord. : Marco Antonio Paniagua MD Dept: Diagnostic Imaging Loc: OPC DI REPORT Service Dt:06/07/17 Report#: [id number] Adm Dt: 06/07/17 Dis Dt: Comments: STUDY: US Pelvis Complete Transvaginal; 06/07/2017 5:30 pm INDICATION: IRREGULAR MENSES. COMPARISON: None. ACCESSION NUMBER(S): [id number] ORDERING CLINICIAN: Marco Antonio Paniagua TECHNIQUE: Multiple [...] by: Steve Church 06/08/2017 8:19 AM Normal [facility] Complete Blood Count w/diff $$on 06-01-2017 Basophils Auto #/vol (Bld) 0.0 10 /uL Low 0.04-0.9 [facility] Comment on above: Performed By: #### C BC, FT4, TSH, FSH, LH, PROL ####[facility] [place] [address] Basophils/100 WBC Auto (Bld) 1 % Normal 0-1 [facility] Comment on above: Performed By: #### C BC, FT4, TSH, FSH, LH, PROL ####[facility] [place] [address] Eosinophils 0.0 10 3/uL Low 0.03-0.6 [facility] Comment on above: Performed By: #### C BC, FT4, TSH, FSH, LH, PROL ####[address] [address] Eosinophils/100 leukocytes 0 % Normal 0-3 [facility] Comment on above: Performed By: #### C BC, FT4, TSH, FSH, LH, PROL ####[address] [address] Erythrocyte distribution width Auto Ratio (RBC) 12.6 % Normal 11.5-14.5 [facility] Comment on above: Performed By: #### C BC, FT4, TSH, FSH, LH, PROL ####[address] [address] Erythrocytes (RBC) 4.64 10 6/uL Normal 4.2-5.4 [facility] Comment on above: Performed By: #### C BC, FT4, TSH, FSH, LH, PROL ####[address] [address] Hematocrit (HCT) 43.5 % Normal 35-47 [facility] Comment on above: Performed By: #### C BC, FT4, TSH, FSH, LH, PROL ####[address] [address] Hemoglobin mass conc (Bld) 13.7 g/dL Normal 12.0-16.0 [facility] Comment on above: Performed By: #### C BC, FT4, TSH, FSH, LH, PROL ####[address] [address] Immature Gran# (Auto) 0.0 10 3/uL Normal [facility] Comment on above: Performed By: #### C BC, FT4, TSH, FSH, LH, PROL ####[address] [address] Immature granulocytes #/vol (Bld) 0.4 % Normal 0.0-0.9 [facility] Comment on above: Performed By: #### C BC, FT4, TSH, FSH, LH, PROL ####[address] [address] Lymphocytes 2.0 10 3/uL Normal 1-3.5 [facility] Comment on above: Performed By: #### C BC, FT4, TSH, FSH, LH, PROL ####[address] [address] Lymphocytes/100 leukocytes 30 % Normal 24-44 [facility] Comment on above: Performed By: #### C BC, FT4, TSH, FSH, LH, PROL ####[address] [address] MCH 29.5 pg Normal 27-34 [facility] Comment on above: Performed By: #### C BC, FT4, TSH, FSH, LH, PROL ####[address] [address] MCH 31.5 g/dL Low 33-37 [facility] Comment on above: Performed By: #### C BC, FT4, TSH, FSH, LH, PROL ####[address] [address] MCV 93.8 fL Normal 80-100 [facility] Comment on above: Performed By: #### C BC, FT4, TSH, FSH, LH, PROL ####[address] [address] Monocytes 0.3 10 3/uL Normal 0.04-0.9 [facility] Comment on above: Performed By: #### C BC, FT4, TSH, FSH, LH, PROL ####[address] [address] Monocytes/100 leukocytes 4 % Normal 1-8 [facility] Comment on above: Performed By: #### C BC, FT4, TSH, FSH, LH, PROL ####[address] [address] Neutrophils 4.3 10 3/uL Normal 1.8-7.0 [facility] Comment on above: Performed By: #### C BC, FT4, TSH, FSH, LH, PROL ####[address] [address] Neutrophils/100 leukocytes 65 % Normal 42-76 [facility] Comment on above: Performed By: #### C BC, FT4, TSH, FSH, LH, PROL ####[address] [address] Nucleated erythrocytes 0.0 % Normal 0.0-0.0 [facility] Comment on above: Performed By: #### C BC, FT4, TSH, FSH, LH, PROL ####[address] [address] Platelet mean volume (PMV) 9.7 fL Normal 7.4-10.4 [facility] Comment on above: Performed By: #### C BC, FT4, TSH, FSH, LH, PROL ####[address] [address] Platelets 340 10 3/uL Normal 150-400 [facility] Comment on above: Performed By: #### C BC, FT4, TSH, FSH, LH, PROL ####[address] [address] WBC (Leukocytes) 6.7 10 3/uL Normal 4.0-11.0 [facility] Comment on above: Performed By: #### C BC, FT4, TSH, FSH, LH, PROL ####[address] [address] Follicle Stimulating Hormone on 06-01-2017 Follicle Stimulating Hormone 4.2 IU/L Normal [facility] Comment on above: Result Comment: REF VALUESFOLLICULAR 8-67DDP-VAJIS 12-25LUTEAL PHASE 2-12MENOPAUSE 30-150PREPUBERTY 50% ADULTADULT MALE 2-10INFANTS 0-1Performing Site: [facility] - [id number] [place] [address] Performed By: #### C BC, FT4, TSH, FSH, LH, PROL ####[address] [id number] Free T4on 06-01-2017 Thyroxine (T4) free 1.0 ng/dL Normal 0.8-1.5 [facility] Comment on above: Performed By: #### C BC, FT4, TSH, FSH, LH, PROL ####[address] [address] Luteinizing Hormoneon 2017 Luteinizing Hormone 2.7 IU/L Normal [facility] Comment on above: Result Comment: REF VALUESFOLLICULARPHASE 1.5-10.0MID-CYCLE 13.0-72.0LUTEAL PHASE 0.5-13.0MENOPAUSE 15.0-65.0PREPUBERTY 0- 3.0CHILDREN 0- 6.0ADULT MALE 1.0- 9.0Performing Site: [facility] - [address] [place] [address] Performed By: #### C BC, FT4, TSH, FSH, LH, PROL ####[address] [id number] Prolactinon 06-01-2017 Prolactin 5.1 ug/L Low 6.0-20.0 [facility] Comment on above: Result Comment: Perf orming Site: [facility] - [address] [place] [id number] Performed By: #### C BC, FT4, TSH, FSH, LH, PROL ####[address] [address] Thyroid Stimulating Hormoneo n 06-01-2017 Thyroid stimulating hormone (TSH) 2.36 m[IU]/L Normal 0.358-3.74 [facility] Comment on above: Performed By: #### C BC, FT4, TSH, FSH, LH, PROL ####[facility] [place] [address] Vital Signs Date Time Vital Sign Value Performing Clinician Facility 08-19-2021 14:30-0400 Body height 167.64 cm [employer] Other [facility] Other 08-19-2021 14:30-0400 Body mass index (BMI) [Ratio] 35.51 kg/m2 Dalia Flasma Other [facility] Other 08-19-2021 14:30-0400 Body temperature 98.4 [degF] Dalia Flasma Other [facility] Other 08-19-2021 14:30-0400 Body weight 99.79 kg Dalia Flasma Other [facility] Other 08-19-2021 14:30-0400 Diastolic blood pressure 90 mm[Hg] Dalia Flasma Other [facility] Other 08-19-2021 14:30-0400 Respiratory rate 20 /min [employer] Other [facility] Other 08-19-2021 14:30-0400 SaO2% (BldA) [Mass fraction] 98 % Dalia Flasma Other [facility] Other 08-19-2021 14:30-0400 Systolic blood pressure 128 mm[Hg] Dalia Flasma Other [facility] Other 08-01-2021 12:00-0400 Body height 167.64 cm Daliasonia Zamoraerwood Other [facility] Other 08-01-2021 12:00-0400 Body mass index (BMI) [Ratio] 35.99 kg/m2 Dalia Easterwood Other [facility] Other 08-01-2021 12:00-0400 Body temperature 97.6 [degF] Dalia Noaherwood Other [facility] Other 08-01-2021 12:00-0400 Body weight 101.15 kg Dalia Noaherbelle Other [facility] Other 08-01-2021 12:00-0400 Diastolic blood pressure 82 mm[Hg] Dalia Easterwood Other [facility] Other 08-01-2021 12:00-0400 Respiratory rate 20 /min Dalia Noaherwood Other [facility] Other 08-01-2021 12:00-0400 SaO2% (BldA) [Mass fraction] 98 % Dalia Easterwood Other [facility] Other 08-01-2021 12:00-0400 Systolic blood pressure 124 mm[Hg] Dalia Easterwood Other [facility] Other 03-08-2020 17:33-0500 BMI (Body Mass Index) 34.94 kg/m2 Giovanna Brooks MP-[facility]-[place] 201 Work Phone: 03-08-2020 17:33-0500 Body Temperature 97.3 [degF] Giovanna SHIPLEYWSPC-[place] [facility] 201 Work Phone: Comment on above: Method: Temporal 03-08-2020 17:33-0500 Body weight 98.2 kg Giovanna Revolinsky KT-KILK-Wcncztxl 201 Work Phone: 03-08-2020 17:33-0500 BP Diastolic 78 mm[Hg] Giovanna Revolinsky MJ-FALG-Jauqmshy 201 Work Phone: Comment on above: Location: LUE; Position: Sitting 03-08-2020 17:33-0500 BP Systolic 126 mm[Hg] Giovanna Revolinsky XO-SAQO-Txbjaszf 201 Work Phone: Comment on above: Location: LUE; Position: Sitting 03-08-2020 17:33-0500 BSA (Body Surface Area) 2.07 m2 Giovanna Revolinsky YS-BXNF-Pztuhmsy 201 Work Phone: 03-08-2020 17:33-0500 Height 167.64 cm Giovanna Revolinsky MQ-OTAM-Onrgwdnj 201 Work Phone: 03-08-2020 17:33-0500 Pulse (Heart Rate) 74 /min Giovanna Revolinsky US-LPDA-Zqogo nuno 201 Work Phone: Comment on above: Quality: Normal 03-08-2020 17:33-0500 Respiratory Rate 16 /min Giovanna Revolinsky WL-OOHX-Mkzttnn e 201 Work Phone: Comment on above: Quality: Normal 02-13-2020 16:50-0500 BMI (Body Mass Index) 35.25 kg/m2 Giovanna Revolinsky YX-UQGZ-Hsmdkylv 201 Work Phone: 02-13-2020 16:50-0500 Body Temperature 97.7 [degF] Giovanna Revolinsky PH-OYIF-Hfmwzhg e 201 Work Phone: Comment on above: Method: Temporal 02-13-2020 16:50-0500 Body weight 99.05 kg Giovanna Revolinsky LD-TMZD-Fknbgezw 201 Work Phone: 02-13-2020 16:50-0500 BP Diastolic 74 mm[Hg] Giovanna Brooks SP-UULG-Mphkzqlx 201 Work Phone: Comment on above: Location: LLE; Position: Sitting 02-13-2020 16:50-0500 BP Systolic 130 mm[Hg] Giovanna Revdrewsky XH-MOUS-Eaapmopt 201 Work Phone: Comment on above: Location: LLE; Position: Sitting 02-13-2020 16:50-0500 BSA (Body Surface Area) 2.08 m2 Giovanna Contrerassksasha KJ-DSPM-Rzaofkml 201 Work Phone: 02-13-2020 16:50-0500 Height 167.64 cm Giovanna Revolinsky OQ-PLEY-Egkvwvyf 201 Work Phone: 02-13-2020 16:50-0500 Pulse (Heart Rate) 76 /min Giovanna Brooks RS-XCXL-Sbanz nuno 201 Work Phone: Comment on above: Quality: Irregular 02-13-2020 16:50-0500 Respiratory Rate 16 /min Giovanna Brooks JJ-KAEY-Vdiamwt e 201 Work Phone: Comment on above: Quality: Normal Encounters Encounter Date Encounter Type Care Provider Facility Start: 09-08-2023 End: 09-08-2023 ambulatory MAINOR FELIX Not Available Start: 08-10-2023 End: 08-10-2023 ambulatory MARISSA TAPAN Not Available Start: 07-22-2023 End: 07-22-2023 ambulatory JAZMIN ELIT Not Available Start: 05-10-2023 End: 05-10-2023 ambulatory [...] Facility:[facility] Start: 09-29-2021 End: 09-29-2021 ambulatory Dalia Jj Other [facility] Other Start: 09-29-2021 Telephone encounter Dalia Jj [facility] Start: 09-22-2021 End: 09-22-[address] MARISSA PHELAN . Facility:[facility] Start: 08-19-2021 End: 08-19-2021 ambulatory Dalia Jj Other [facility] Other Start: 08-19-2021 Office outpatient visit 25 minutes Dalia Jj [facility] Start: 08-14-2021 End: 08-14-2021 Discharged Recurring [employer] Dalia Jj Work Phone: [facility] [place] Start: 08-01-2021 End: 08-02-2021 [facility] [employer] [facility] Start: 08-01-2021 Office outpatient ne w 45 minutes Dalia Jj [facility] Start: 03-08-2020 Patient encounter procedure Giovanna Garaydrewjamie ZS-TSVR-Tmuuuola 201 Work Phone: Start: 03-05-2020 Patient encounter procedure Giovanna Garaydrewjamie KT-PGSH-Rnwyaqjq 201 Work Phone: Start: 02-13-2020 Patient encounter procedure Giovanna Garaydrewjamie WD-WMYD-Ziifqzbv 201 Work Phone: Start: 12-29-2018 Patient encounter procedure Giovanna Brooks CU-LVUV-Qaxwxsjc 201 Work Phone: Start: 04-25-2018 End: 04-25-2018 Patient encounter procedure UNKNOWN PROVIDER Facility:[facility] Start: 07-26-2017 Patient encounter LORETO Britton acility:[facility] [employer] Start: 07-09-2017 End: 07-09-2017 Patient encounter LORETO GONZALEZ Facility:[facility] Start: 07-07-2017 Patient encounter LORETO Britton acility:[facility] Start: 06-07-2017 Ambulatory MARCO ANTONIO PANIAGUA Facility:[facility] Start: 06-01-2017 Ambulatory MARCO ANTONIO GALUN Facility:[facility] Procedures Date Procedure Procedure Detail Performing Clinician Start: 2020 Follow-up visit Start: 03-08-2020 Follow-up visit Start: 03-05-2020 IO Liver Ultrasound Jo Ann Brooks Start: 02-14-2020 Kmcpt-9-Qquxranuerq Phenotype, Serum Giovanna Brooks Start: 02-14-2020 Antibody hiv-1 Giovanna sorenson Start: 02-14-2020 Antimitochondrial Ab Ma paul Brooks Start: 02-14-2020 Assay of [id number] Giovanna Brooks Start: 02-14-2020 Ceruloplasmin Giovanna mock [...] Giovanna Brooks Start: 02-14-2020 Ultrasound Liver Giovanna Zamora paoyaya Start: 02-13-2020 MG Breast screening Mar y Todd section Giovanna lockwood History of Cervical Loop Electrosurgical Excision (LEEP) Giovanna Brooks History of Colposcop y Cervix With Biopsy(S) Giovanna Brooks History of Dilation And Curettage Giovanna Brooks Hysterectomy Giovanna Revolinsky Immunizations Immunization Date Immunization Notes Care Provider Fa cility influenza, injectabl e, quadrivalent, contains preservative Giovanna Erinsasha CJ-HUBD-Ahmnfoah 201 Work Phone: Comment on above: declines 12/29/18 Payers Date Payer Category Payer Private Health Insurance [id number] 1975 Unknown [id number] 2.16. [id number] 1975 Unknown [id number] 2.16.84 0.1.201803.3.579.2.593 1975 Unknown [id number] 2.16.84 0.1.226661.3.579.2.593 1975 Unknown [id number] 2.16.84 0.1.714909.3.579.2.593 1975 Unknown [id number] 2.16.84 0.1.986624.3.579.2.593 1975 Unknown [id number] 2.16.84 0.1.725311.3.579.2.593 1975 Unknown [id number] 2.16.8 40.1.734435.3.579.2.727 1975 Unknown [id number] 2.16.84 0.1.385701.3.579.2.1259 1975 Unknown [id number] 2.16.84 0.1.605110.3.579.2.1259 1975 Unknown [id number] 2.16.84 0.1.076918.3.579.2.1259 1975 Unknown [id number] 2.16.84 0.1.587034.3.579.2.1259 1975 Unknown [id number] 2.16.84 0.1.776070.3.579.2.1259 1975 Unknown [id number] 2.16.84 0.1.051265.3.579.2.1259 1975 Unknown [id number] 2.16.84 0.1.623960.3.579.2.1259 1975 Unknown [id number] 2.16.840 .1.933351.3.579.2.1259 1975 Unknown [id number] 2.16.840 .1.336102.3.579.2.1259 1958 Unknown [id number] Self-pay Self Pay [id number] Social History Date Type Detail Facility Sex Assigned At Sex Assigned At [facility] Other Start: 1975 Sex Assigned At Female [facility] NEGATED: Highlighted row - - JR-ATIM-Ycqsphxl 201 Work Phone: Functional Status Date Assessment Result Facility NEGATED: Highlighted row Functional performance Functional status health issues are not documented Disease YY-TJDN-Qqmfjmhe 201 Work Phone: Mental Status Date Assessment Result Facility NEGATED: Highlighted row Cognitive function [Interpretation] Cognitive status health issues are not documented Disease QV-TYZW-Dbcgwdwn 201 Work Phone: Evaluation note 08-19-2021 Note [...] Thyroid labs negative. Will await work-up from [facility] in September. She is not concerned with [...] that were not corrected during review process. [facility] Other Evaluation note 08-01-2021 Note Date & Type Note Facility 08-01-2021 Evaluation note Encounter Date Diagnosis Assessment Notes Jul, Weight gain (ICD-10 - R63.5) Discussed concerns and causes related to weight gain. Could be mental health however could also be thyroid issue. We also discussed the possibility of hormonal changes from an [facility] standpoint. I did make recommendations for local [facility]'s and possible menopause testing. Deferring her to [facility] for this work-up. No formal referral is [...] that were not corrected during review process. [facility] Other Evaluation note Note Date & Type Note Facility Evaluation note No Information [facility] Other Evaluation note Note Date & Type Note Facility Evaluation note No assessment information [facility] Work Phone: History general Narrative - Reported Note Date & Type Note Facility History general Narrative - Reported Type Surgical History x 2 Surgical History Hysterectomy 2018 Hospitalization History See surgical hx [facility] Other History general Narrative - Reported Note Date & Type Note Facility History general Narrative - Reported Type Medical History weight gain Medical History chronic right knee pain Medical History depression/anxiety Surgical History x 2 Surgical History Hysterectomy 2018 Hospitalization History See surgical hx [facility] Other Summary Purpose Family History No Family [...] section and content) DATE CREATED AUTHOR 08/11/2017 [facility] DATE CREATED AUTHOR AUTHOR'S ORGANIZ ATION 09/10/2017 [facility] DATE CREATED AUTHOR AUTHOR'S ORGANIZ ATION 04/27/2018 [facility] DATE CREATED AUTHOR AUTHOR'S ORGANIZ ATION 02/20/2020 [facility] DATE CREATED AUTHOR AUTHOR'S ORGANIZ ATION 2020 [facility] DATE CREATED AUTHOR AUTHOR'S ORGANIZ ATION 03/23/2020 [facility] DATE CREATED AUTHOR AUTHOR'S ORGANIZ ATION 04/15/2022 [facility] DATE CREATED AUTHOR AUTHOR'S ORGANIZ ATION 05/24/2022 [facility] DATE CREATED AUTHOR AUTHOR'S ORGANIZ ATION 09/12/2023 [facility] Specialists EPIC REASON FOR VISIT (unrecogniz ed section and content) Establish Care, New patient, No previous PCP - Just moved to [place] from [place] in the last 2 years, Mental health - patient states she is fatigued all the time, does not feel like herself, does not enjoy the things she used to, Patient goes to [facility] in [place], Right knee pain x6 month - patient [...] BE BASED ON THE PRIMARY CLINICAL RECORDS. [employer] provides no warranty or guarantee of the accuracy or completeness of information in this document.
[2023-12-09 10:57] LABS: Basophils Percent Auto 0.6 % (0.2-2.0); Eosinophils Absolute Auto 0.2 10^3/uL (0.0-0.7); Eosinophils Percent Auto 2.2 % (0.9-7.0); Hematocrit 42.1 % (36.0-48.0); Hemoglobin 13.9 g/dL (12.0-16.0); Immature Granulocytes Abs Auto 0.01 10^3/uL (0.00-0.03); Immature Granulocytes Pct Auto 0.1 % (0.0-0.5); Lymphocytes Absolute Auto 2.5 10^3/uL (1.2-3.8); Lymphocytes Percent Auto 36.7 % (20.5-60.0); Mean Corpuscular Hemoglobin 29.9 pg (26.7-34.0); Mean Corpuscular Volume 90.5 fL (81.0-99.0); Mean Platelet Volume 8.9 fL (9.5-13.5); Monocytes Absolute Auto 0.4 10^3/uL (0.3-0.8); Monocytes Percent Auto 6.2 % (1.7-12.0); Neutrophils Absolute Auto 3.7 10^3/uL (1.4-6.5); Neutrophils Percent Auto 54.2 % (43.0-75.0); Platelet Count 339 10^3/uL (150-450); Red Blood Count 4.65 10^6/uL (4.20-5.40); Red Cell Distribution Width 12.3 % (11.0-15.0); White Blood Count 6.8 10^3/uL (4.0-11.0)
[2023-12-09 12:13] LABS: Alanine Aminotransferase 20 U/L (14-59); Albumin Level 3.9 g/dL (3.4-5.0); Alkaline Phosphatase 89 U/L (46-116); Anion Gap 15.4; Aspartate Amino Transferase 12 U/L (15-37); BUN Creatinine Ratio 14.1; Bilirubin Total 0.5 mg/dL (0.2-1.0); Calcium 9.7 mg/dL (8.5-10.1); Chloride 105 mmol/L (98-107); Estimated GFR (African America >60 (>=60 mL/min/1.73m^2); Estimated GFR (Non-African Ame >60 (>=60 mL/min/1.73m^2); Globulin 3.9 g/dL; Glucose 93 mg/dL (74-106); Potassium 4.4 mmol/L (3.5-5.1); Sodium 142 mmol/L (136-145); Total Protein 7.8 g/dL (6.4-8.2)
== END 2023-12-09 10:32 | disposition home or self-care (01) ==
LOC: LAB 10:32
PROVIDERS: Visit Provider Obstetrics & Gynecology
DX: Z79.899 Other long term (current) drug therapy (principal)
CPT/HCPCS: 36415; 80053; 85025

== ENCOUNTER 2023-12-09 19:25 | Outpatient (REF) | payer OTHER, SELFPAY ==
--- OUTSIDE RECORDS SUMMARY | 2023-12-09 19:29 | XMS_ITS | CCD ---
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 Manager Name Role Phone GALUN, MARCO ANTONIO Unavailable [...] Primary Care Provider COURTNEY Jj Attending Provider [phone] TAPAN ., DR ANN Consulting Unavailable TAPAN ., DR ANN Admitting Unavailable TAPAN ., DR ANN Attending Unavailable Marco Antonio Jamison Consulting Unavailable TAPAN ., DR ANN Attending Unavailable TAPAN ., DR ANN Admitting Unavailable TAPAN ., DR ANN Consulting Unavailable TAPAN ., DR ANN Admitting Unavailable TAPAN ., DR ANN Attending Unavailable Marco Antonio Jamison Consulting Unavailable [place], DR CHARLIE Ferguson Consulting Unavailable TAPAN ., [...] Penicillins; Translations: [PENICILLINS] Drug allergy (disorder) 07-25-2016 [facility] Repository (2 sources) Penicillins; Translations: [Penicillins] Allergy to drug (finding) [address] [address] Work Phone: (2 sources) Surgical adhesive tape Allergy to drug (finding) [address] Work Phone: (3 sources) Penicillin V Drug Allergy [facility] Other Medications Current Medications Medication Drug Class(es) [...] : DR MARISSA PHELAN . Admission #: [id number] Family : Order #: [id number] CLICK HERE TO VIEW EXAM RADIOLOGY REPORT [...] Treatments None Family Cancers None LOCATION: [facility] BREAST COMPOSITION: Heterogeneously dense,which may obscure [...] MD on 03/10/2022 at 15:12 Normal [facility] US BREAST LEFT LIMITEDon US BREAST LEFT LIMITED Patient: BETZAIDA ARMENDARIZ Exam Date: 03/10/2022 : 1975 Gender:F Ordering : DR MARISSA PHELAN . Admission #: [id number] Family : Order #: [id number] CLICK HERE TO VIEW EXAM RADIOLOGY REPORT [...] Treatments None Family Cancers None LOCATION: [facility] BREAST COMPOSITION: Heterogeneously dense,which may obscure [...] MD on 03/10/2022 at 15:12 Normal [facility] MG MAMM LT DIAG FUon 022 MG MAMM LT DIAG FU Patient: RAMIRO ARMENDARIZ Exam Date: 11/05/2021 : 1975 Gender:F Ordering : DR MARISSA PHELAN . Admission #: [id number] Family : Order #: [id number] CLICK HERE TO VIEW EXAM RADIOLOGY REPORT [...] Treatments None Family Cancers None LOCATION: [facility] BREAST COMPOSITION: Heterogeneously dense,which may obscure [...] M.D. on 11/05/2021 at 08:46 Normal [facility] US BREAST LEFT LIMITEDon US BREAST LEFT LIMITED Patient: BETZAIDA ARMENDARIZ. Exam Date: 11/05/2021 : 1975 Gender:F Ordering : DR MARISSA PHELAN . Admission #: [id number] Family : Order #: [id number] CLICK HERE TO VIEW EXAM RADIOLOGY REPORT [...] Treatments None Family Cancers None LOCATION: [facility] BREAST COMPOSITION: Heterogeneously dense,which may obscure [...] M.D. on 11/05/2021 at 08:46 Normal [facility] MG MAMM SCREEN 3D SAVI CADon 10-10-2021 MG MAMM SCREEN 3D SAVI CAD Patient: BETZAIDA ARMENDARIZ Exam Date: 10/10/2021 : 1975 Gender:F Ordering : DR MARISSA PHELAN . Admission #: [id number] Family : Order #: [id number] CLICK HERE TO VIEW EXAM RADIOLOGY REPORT PROCEDURE: MAMMOGRAM SCREENING 3D BILATERAL CAD COMPARISON: None. INDICATIONS: Screening mammography Calculator Name NCI Breast Cancer Risk Assessment Tool 5 Year Breast Cancer Risk Not Reported. Lifetime Breast Cancer Risk Not Reported. Personal Breast Cancer No Personal Ovarian Cancer No Treatments None Family Cancers None LOCATION: [facility] BREAST COMPOSITION: Heterogeneously dense,which may obscure small [...] Jamison M.D. on 10/17/2021 at 12:34 Normal [facility] PAP ACOG PANEL 2: 30 to 65on 09-26-2021 . . Normal [facility] Comment on above: Result Comment: Perf ormed at: WB Performed By: #### 4 [id number] #### [facility] [address] [address] [address] Howie Yee Age Gdln ACOG Testing 30-65 Normal [facility] Comment on above: Performed By: #### 4 [id number] #### [facility] [address] [address] [address] Howie Yee DIAGNOSIS: Comment Normal [facility] Comment on above: Result Comment: NEGA TIVE FOR INTRAEPITHELIAL LESION OR MALIGNANCY. Performed at: WB Performed By: #### 4 [id number] #### [facility] [address] [address] [address] Howie Yee HPV Aptima Negative Normal Negative [facility] Comment on above: Result Comment: This nucleic acid amplification test detects fourteen high-risk HPV types (16,18,31,33,35,39,45,51,52,56,58,59,66,68) without differentiation. Performed at: =G Performed By: #### 4 [id number] #### [facility] [address] [place] [address] Dr. Howie Yee Methodology: Comment Normal [facility] Comment on above: Result Comment: This liquid based ThinPrep(R) pap test was screened with the use of an image guided system. Performed at: WB Performed By: #### 4 [id number] #### [facility] [address] [place] [address] Dr. Howie Yee Note: Comment Normal [facility] Comment on above: Result Comment: The Pap smear is a screening test designed to aid in the detection of premalignant and malignant conditions of the uterine cervix. It is not a diagnostic procedure and should not be used as the sole means of detecting cervical cancer. Both false-positive and false-negative reports do occur. . Performed at: WB Performed By: #### 4 [id number] #### [facility] [address] [place] [address] Dr. Howie Yee Performed by: Comment Normal [facility] Comment on above: Result Comment: Ada Cline Shuttle Final Inspector (ASCP) Performed at: WB Performed By: #### 4 [id number] #### [facility] [address] [place] [address] Dr. Howie Yee Specimen adequacy: Comment Normal [facility] Comment on above: Result Comment: Sati sfactory for evaluation. No endocervical component is identified. Performed at: WB Performed By: #### 4 [id number] #### [facility] [address] [place] [address] Dr. Howie Yee Coding Summary.on 08-08-2021 Coding Summary. CD:[id number] Gh0bWw+P GhlYWQ+DH2PWHPbZ43tzHRsoJ1XB 0tRAP9POWRJYLEAGV9CFU2raHY7Y EmdC5PvzrLd YlbzgAVuHO72KWq3SOV4iAwwIMbn nQ3haEVfQ2s8OvVtJI17cU44UXtr IARqWiH1NcAefdelzCBy X2hsPoUfhVLjGek+PHRhYmxlIHdp BXDoWOtrMFDiHlWugFvpOW6rXj9w ZGVyLWNvbGxhcHNlOiBj s1lqAYWrMLsyMV9yjTscS7BwrOT8 EUAsm7f1Fn98sKH+SLTtKDE8yErg JFiia265MdZrg0ygKPT2 uXVyDCcgFER0Y95qv8M3CIHiVTXz MTH3rYP0pE5cvZjxanuvZ6PvrUFm TeD8QBM0mAOwfA4ghFkg ewjiwG1gMqb+P23APW7VHKRWAK2W Mjl5A2FtMqyogUL+GW35NANxIW51 pSDxlZLiu5brkRq1XsHw HCRpJAS4qRstDNkal6XeZEQqM65q wMMro5E9WENbwQhkkOKeFwTvlIC4 lX3hLKaoobdxx8kzenhd Qccrw3fxoo77xJ72W95iDYvxAXEq EPI0GOBwZMLkaFpwmz3qwA0pRj0+ FHdty5tmr8encMl9LpJi BYFcshLuiIeyIFC7i6AwTx00B1Qz sAzoy9BsYis4mf52wDUth9Y4cNX0 LOlwHPNmkW0bERenKkB9 AGWcHeOyxT33pUVnJVhfUj9pcRje hOzyMK3lZJMwbugmHIRdgL0jUJNw cYJuhAjzDD8iZHZjbtqh j442ZcLuWTZ5KKVtaRSrR4UsrG2c HsIkKBBuVHAkO7FosATmKUfzM813 YMemZyT8AXBimiLnX8Hz ZWQsqUviViP8d9O9Mp5Bh0Wioktv WRT0HWkmYUD7ZqS4IsGzSeU9X3Xw Cyy6YTDrxAuhDB2cD4Xi ZRXhhjrkrhefcAB9GAZcCFJfhK81 vQEwKFvlUp1jk5Q3u067NJOyIUPk fB22Rp1vpQfyIROvgRZS sY2bhvcrv2vnonrbIyObMZLyMAi8 XXy1BKCdfQakJwXgHYB2PvS1VEP4 qREehL7jnYfojlleyE1f Oyc+Q49sqL6kAMO6BDL8cissPLVb zhKzUT35NK24L6GnWcixqMRxfBI+ FSHmanPmuMhzUS5mIjUk a4gvj6XdPSveE8WyQYXnMTydGzd2 BQRcCRD7tLJ9nR0xYDUuRLisu9B2 uKE6F8KagkKlwn7at8ij IKInSHxyZ06gaUDpn6T3ASWyxZG6 LWHqyBwvLaCjxD88Wnk+PGNvbGdy y5OzCxwbm5cqe7xlrCw3 AkRwCBLtguXgxMzmPXQ0s0BuCu47 T11hDQiiLVXwQKBeOWXoHWFmyGci cu6haH2jYq3+PGNvbCB3 xNZ5tC7sPSWtBmJ9MYnlI542YiPi wMUlKytcg0cox7sbaQx7LtJpRVHl uqPhqXgsQXM5d6ThWm72 A95eLFbkFVEjDQKpQDCjNMVybQlh jc4duS5aNs7+PH9qd1llut72zG14 dHI+IPOkWIC3sGdeLNbw GAEaaL8mMFkkSxD5ZXMuYkAgqJ89 cHCuQKluMv1awReylLkcNY5tBXTl ulpsx586SwFnm0ydSPWy iPOgLJajTKD5S52zd7Y3ULGpQHOb EWF1fXH4qZ2nnOxvhniyaCZlqIcg hrLbvKukMCgtKCxyX616 IHRvcDsnPlBhdGllbnQgTmFtZTo8 K6SpBpo1USCygXswOQ1drXGzUEnu In0xnFtswHrpVU7zYNVu ogsvj426FpPal6bxGUMtjPYiREfm BDC3I92jw4W0VMMdYHYhCIO1iUO2 xC1haCkflrbvvZJgpXqc xwSyyLypYXjkCMwbZ821TXEidEcs XiSppeAmWAXaaBS2QZ79GE51tMRs h3W5eXV8S2SqOIVkxpgc fpqkdCL0VFJpZXQioS66Zk3ttAqo Qr6dAYGsIBL8QGXmfFQtB7MkgJ6s PdZdHILnODDbK0PnjECx EZcfE084KIloAvO2URKeszEaB6Tw JZSziDjtNsK3e9O2Yo1UV0L9HW52 SW15qRWxc2M9iCE1Q1Im XUXewpnppwtfgCV1IHVxCSVheJ10 Ks8rxJqtKq9xFBFxLFX7XXVbzSMr Z0YvoN6vPmEnOXOoAYNg Y0NlvJVpELnzS496BBanXfH3AYKu rlSbL6PlGKZokOsuPxZ4t3H0Du2D WHn9TS27ZA44tHPdk7U4 bFI8U7HuOUDxbbvkwqiwnJG5VQAb LNPjzR17Qt2xaImvHa7mBUJnKVL6 KXBraAUpA4PcuH5mIiKd VMSbWGOkF0OitHAjCQchQ904ZCaj PxS0LKUbagWtP2SdBIOjqXkyUkJ8 q4D8Fs7FNLHqMX15DVW6 fEN0GM13LQ55N0FsOebtsURrvUI+ PHRhYmxlIHdpZHRoPScxMDAlJyBz oYqwLW9vHo4aSJYeCZIj fMvlkJGtDiWcj0wmQENhMTohGD6h qAstZ1RmpHI6KWLwk4k0Kb63X30q M9GstFF+GQDiuWS3zTQ8 xA0uUlYuEuZ6MWndG997LmUdfAVz Jqswj8zgr6rsmYt7LcG8NUKtfbGa kUywYJG3e8TbPj16C93h WGcmHZEsGNUqKJNjGLCnbUdtbo2h fT6lOm8+OWBfeRS4wOV1aL0pOzJb IrE7YJlvW936KlDisKDm Hhwbs1gnz4hknEi2BhYvKPWqqtKl uBwcJZT1e3VoUj26P8JivYbkh9If Zok4pi37qHXdp2N0mLF8 T4TfGABwpyrswTLerBljEO4xZUNz khkvQPSgrR6wWICfW1b5YeQtEcT4 HXtbG7MesrM6OLPnfRMl FAxiHSG4R19nr2B2MPUxPMTeFFU7 bTR1nG9fiGwqobjmrJLasHyrscVh oRsvKWhsZTdxR454LTTf sLmpHAOvfS4oORYpaURdpHftFV0a MGIfzehjAhWAR8JNTJbzKQAVNEOV PUEGQX77NL40zYMle8A7 nNX7H4DwHGZcrrnlovannKS7TEJu PAEfjK78uPHpYPuzAb0zj9B7a750 QDNkYDDawR41Gh2ysCrq CYOapGTVfS5tnlqne9ydbedeNzBu JRYdVLo1NFx5VDJdnZchMuLxXEY9 UgB1ZXH0wZRcbW5zsFcu tailiA1xGgo+BWGyKojqRMb3Mwer dGQ+AWXkLSM6nTxtXKcgTHYvqX3w VKPjH8x1KlVgPnF2RCip K4LlYGLdkeqhLr26fL6zHdQmMdD5 IPscG9DwogA2MZJucLGmHYznVLN1 B74wc2V1AUDgYOPxBXK0 iEK7iY2ilAmqnqnsqEXdvBowduTa yYygDQzwQFkuW032PHCtbAzvViY9 IKnsHXZcUQ79QP96wWZj o3V5xPL2E7DcPBBgmqkmfkpurUL5 FZQqEKAteJ03jDYbTWkuVh1lb6E3 a714HLGtBSZaiO62Au2y fYnqCIUnzAIInK9xkyexx1pqruol JjSaSXEkYCx4VEf0ZNTfkLxhRnJs RED8NqT8COU5rIOmsC1u xXfliwmouZ5lMkp+GaZiBJhjFX23 FN00jSYzy0B7dBY8V9HxTDBcqyjj amzliMY4VXMiHOKdbJ16 sSLlFTbmTp4lw5K7e247KGGwUYWv vA87Xj4dhKbpQONshOAZsE4xoxzz i2ruozksJnKyPVQdBRo1 PIw6KCPdmOaaDoQkWDN9XyO8QZX1 dTJduO5nbFplahbnzJ9zTpm+T3V0 uZX1aJSvsIpviQD+PC90 rj39Q1CnKgbyLni0IGFyEAF0zJC2 mG6fSZXoQGuie7D8lTA9C9VunkGm oh4wt0qtPNNvHLkpF72b vNLxg9Y6DNNufOI6GNTyeIvcQcYx xM38Emt+HLYolUdys3NxNflbj8un o1yejUg2AqSnFHTovuEa oOprAPS9r8VqPp45Q18fSNnxAPNn AWZqEAEsSRFkcCdubk1cyH4tBc6+ COIbfCU1mGE9dU3eUmCj SwU9MLvfU076MxMfbIVqMjvxc9zc j9atxKe8TxObOGEslvVckQghUEU2 q3SbEx20B4NknVsyt9Bb Qia6lb48uEFcf7R4lUS5K0TaDBXx jvbmoWAkbDjeSB8cFSRlaxdwEJGc eV5xTBYjA1d2YxKjLzV2 KWfwA1LzfhC1LCPghEDhPCBigCFY cN1tkaaay6spcdpyQbUeYQRbIFm0 RHm4LYFqtEvqHtHgXXM2 XxN1EEF9fJTfgD0dlUuqsjtphO9s Oyc+WEi1p1rbvPKbAV3kxJC4BX79 CO70dVDbi8F9eTD1F4Ud ZTCcgibpohbtsVV4NSOwXYHiiT54 Cd0nrWnvHz9oPGFsVHT5YVYhcRBq P1XxlE4uRhJjRXKwECJo R4YjyFLqJXisU333AYzvCbS9WRSv soBwK4GnBTDduPuhViX4a8R8Xu0L MZ40LO10LW55kOGzt0J3 yZC8E2MxAATiqmjjccudyAA9FHSa EGGraD67Bk5bhBntQc9eDJNvTJA0 ETFgvUGwL8TkuD3sJcQo BTXtUTKiZ6UbyNKrPUpdR920PHqt XmY3CSCwiiEkL0NcJPJgbJapMvI2 i4J2Kt2ZUp16XW09LY58 hAQlr3K6wKI2Z3OjBPWkkmijqpjg dNI9FIPkBRPhwY54Bw5wwWlmPs8z XMWmTIE6CUNszSOpY5Py pJ2qEdYwOEKqJFZjU2SiuGQiFLcy T470YKkxSpA1TIGefqWbG0ChMIBx rWpxLhM8d8K8Cz1VGEjr geb4A4JzMgybaEL+ON22QMRhHM77 cJNesMBlo2tviHb7ZsXwBRAoKYD5 sZhySCdxf6WtOEMuB64e bGFw (more content not included)... Normal [facility] XR Knee Complete 4+ Views Aneta [...] MD Transcribed by: JAKOB Technologist: NAOMY Normal [facility] T3 Freeon 08-02-2021 Free T3 [Mass/Vol] 3.3 pg/mL Invalid Interpretation Code 2.0-4.4 [facility] Comment on above: Result Comment: Perf ormed at: [id number] [place], [place] [id number] PhD Rissa Cloud Performed By: #### 2 [id number], [id number] #### [facility] [address] [place] [address] Thyroid Perox.tpo Abon 08-02 TPO Ab Qn [IU]/mL Invalid Interpretation Code 0-34 [facility] Comment on above: Result Comment: Perf ormed at: [id number] [place], [place] [id number] PhD Rissa Cloud Performed By: #### 2 [id number], [id number] #### [facility] [address] [place] [address] Consent for Treatmenton 07-23 Consent for Treatment [id number]#[id number]:127 Normal [facility] Free T4on 08-01-2021 Free T4 [Mass/Vol] 0.73 ng/dL Normal 0.58-1.64 [facility] Comment on above: Performed By: #### 2 [id number], [id number], [id number], [id number] #### [facility] [address] [place] [address] Physician Orderon 08-01-2021 Physician Order [id number]#[id number]:127 Normal [facility] TSHon 08-01-2021 TSH Qn 2.64 m[IU]/L Normal 0.34-5.60 [facility] Comment on above: Performed By: #### 2 [id number], [id number], [id number], [id number] #### [facility] [address] [place] [address] SABRINA + BEATRICE PANELon 03-11-2020 SABRINA WITH REFLEX TO BEATRICE Negative Normal NEGATIVE [facility] Comment on above: Performed By: #### A NAP2 #### [facility] [address] [facility] [place] [place] [address] ALPHA-FETOPROTEINon 03-09-19 21 ALPHA-FETOPROTEIN <4 Normal 0 - 9 [facility] Comment on above: Result Comment: AFP testing is performed by chemiluminescent immunoassay using the VetCompare. Values obtained with different analyte methods cannot be used interchangeably. This test can be used as an adjunct in the diagnosis and monitoring of AFP-producing tumors, including non-seminomatous germ cell tumors and hepatocellular carcinomas. Performed By: #### A FP #### [facility] [address] [place] [address] SABRINA + BEATRICE PANELon 03-09-2020 ANTI-CENTROMERE <0.2 Normal [facility] Comment on above: Result Comment: REF VALUES < 1.0 = NEGATIVE >=1.0 = POSITIVE Performed By: #### A NAP2 #### [facility] [address] [place] [address] ANTI-CHROMATIN 0.2 AI Normal [facility] Comment on above: Result Comment: REF VALUES < 1.0 = NEGATIVE >=1.0 = POSITIVE Performed By: #### A NAP2 #### [facility] [place] [address] ANTI-DNA [DS] <1.0 Normal [facility] Comment on above: Result Comment: REF VALUES NEGATIVE: <= 4 IU/ML EQUIVOCAL: 5- 9 IU/ML POSITIVE: >=10 IU/ML Performed By: #### A NAP2 #### [facility] [address] [place] [address] ANTI-STARR-1 <0.2 Normal [facility] Comment on above: Result Comment: REF VALUES < 1.0 = NEGATIVE >=1.0 = POSITIVE Performed By: #### A NAP2 #### [facility] [address] [place] [address] ANTI-RIBOSOMAL P <0.2 Normal [facility] Comment on above: Result Comment: REF VALUES < 1.0 = NEGATIVE >=1.0 = POSITIVE Performed By: #### A NAP2 #### [facility] [place] [address] ANTI-LOAN REVIEW ANALYST <0.2 Normal [facility] Comment on above: Result Comment: REF VALUES < 1.0 = NEGATIVE >=1.0 = POSITIVE Performed By: #### A NAP2 #### [facility] [address] [place] [address] ANTI-SCL-70 <0.2 Normal [facility] Comment on above: Result Comment: REF VALUES < 1.0 = NEGATIVE >=1.0 = POSITIVE Performed By: #### A NAP2 #### [facility] [place] [address] ANTI-SM <0.2 Normal [facility] Comment on above: Result Comment: REF VALUES < 1.0 = NEGATIVE >=1.0 = POSITIVE Performed By: #### A NAP2 #### [facility] [address] [place] [address] ANTI-SM/LOAN REVIEW ANALYST <0.2 Normal [facility] Comment on above: Result Comment: REF VALUES < 1.0 = NEGATIVE >=1.0 = POSITIVE Performed By: #### A NAP2 #### [facility] [place] [address] ANTI-SSA <0.2 Normal [facility] Comment on above: Result Comment: REF VALUES < 1.0 = NEGATIVE >=1.0 = POSITIVE Performed By: #### A NAP2 #### [facility] [place] [address] ANTI-SSB <0.2 Normal [facility] Comment on above: Result Comment: REF VALUES < 1.0 = NEGATIVE >=1.0 = POSITIVE Performed By: #### A NAP2 #### [facility] [address] [place] [address] HEPATITIS A AB-TOTALon 03-09 HEPATITIS A AB-TOTAL NONREACTIVE Normal NONREACTIVE [facility] Comment on above: Result Comment: Biot in interference may cause falsely elevated results. Patients taking a Biotin dose of up to 5 mg/day should refrain from taking Biotin for 24 hours before sample collection. Providers may contact their local laboratory for further information. Performed By: #### H AVTO #### [facility] [address] [place] [address] HEPATITIS B CORE AB-TOTALon 03-09-2020 HEP. B CORE AB-TOTAL NONREACTIVE Normal NONREACTIVE [facility] Comment on above: Result Comment: Resu lts from patients taking biotin supplements or receiving high-dose biotin therapy should be interpreted with caution due to possible interference with this test. Providers may contact their local laboratory for further information. Performed By: #### H BCRT #### [facility] [address] [place] [address] HEPATITIS B SURF ABon 2020 HEP B SURF AB <3.1 Normal <10 [facility] Comment on above: Result Comment: INTE RPRETIVE CRITERIA: <10 mIU/mL....NONREACTIVE >=10 mIU/mL...REACTIVE . Biotin interference may cause falsely decreased results. Patients taking a Biotin dose of up to 5 mg/day should refrain from taking Biotin for 24 hours before sample collection. Providers may contact their local laboratory for further information. Performed By: #### H BAB3 #### [facility] [address] [place] [address] Alpha Fetoprotein, Serumon 0 03-08-2020 AFP [Mass/Vol] ng/mL 0 - 9 [facility] Work Phone: Comment on above: SOURCE: AFP testing is performed by chemiluminescent immunoassay using the VetCompare. Values obtained with different analyte methods cannot be used interchangeably. This test can be used as an adjunct in the diagnosis and monitoring of AFP-producing tumors, including non-seminomatous germ cell tumors and hepatocellular carcinomas. HEPATITIS B CORE AB-TOTALon 03-08-2020 Lab Specimen Source Normal [facility] Comment on above: Performed By: #### H BCRT #### [facility] [address] [place] [address] Performed By: #### A FP #### [facility] [address] [place] [address] Performed By: #### H BAB3 #### [facility] [address] [place] [address] Performed By: #### H AVTO #### [facility] [address] [place] [address] Hepatitis A Antibody, Totalo n 03-08-2020 HAV [...] extractable nuclear Ab IA Qn (S) <0.2 [employer] Work Phone: Comment on above: REF VALUES < 1.0 = N EGATIVE >=1.0 = POSITIVE Sjogrens syndrome-B extractable nuclear Ab IA Qn (S) <0.2 [facility] Work Phone: Comment on above: REF VALUES < 1.0 = N EGATIVE >=1.0 = POSITIVE Jones extractable nuclear Ab IA Qn (S) <0.2 [facility] Work Phone: Comment on above: REF VALUES < 1.0 = N EGATIVE >=1.0 = POSITIVE Jones extractable nuclear Ab+Ribonucleoprotei n extractable nuclear Ab IA Ql (S) <0.2 [employer] 201 Work Phone: Comment on above: REF [...] between PALMER and NAFLD as well as 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 COMPARISON: None. ACCESSION NUMBER(S): [id number] ORDERING CLINICIAN: GIOVANNA BROOKS TECHNIQUE: Multiple images [...] DESTINEE WEST 02/18/20 07:50 Iron + TIBC, [id number] 12:39PMReblue mountain hospitalGiovanna javier Test NameResultFlagReference Iron, Serum83 ug/dL35 - 150 Total Iron Binding Quxxiqoh708 ug/dL240 - 445 % Jmaabqqwde09 %L25 - 45 Transferrin, [id number] 12:39PMRevolGiovanna javier Test NameResultFlagReference Transferrin, Wqdbr354 mg/dL200 - 360 Ceruloplasmin, [id number] 12:39PMReblue mountain hospitalGiovanna javier Test NameResultFlagReference Ceruloplasmin, Serum38 mg/dL20 - 60 HIV 1/2 ANTIGEN/ANTIBODY SCREEN WITH REFLEX TO [id number] 12:39PMReblue mountain hospitalGiovanna javier Test NameResultFlagReference HIV 1/2 AG/AB SCREENNONREACTIVESee Below SOURCE: Reference Range: NONREACTIVE HIV Ag/Ab screen is performed using the [employer] HIV Ag/Ab Combo assay which detects the presence of HIV p24 antigen as well as antibodies to HIV-1 (Group M and O) and HIV-2. Hepatitis B Surface [id number] 12:39PMRehunterdon medical centerGiovanna longoria Test NameResultFlagReference Hep.B Surface AgNONREACTIVESee Below SOURCE: Reference Range: NONREACTIVE Biotin interference may cause falsely decreased results. Patients taking a Biotin dose of up to 5 mg/day should refrain from taking Biotin for 24 hours before sample collection. Providers may contact their local laboratory for further information. Hepatitis C Antibody [id number] 12:39PMRehunterdon medical centerGiovanna longoria Test NameResultFlagReference Hepatitis C-AntibodyNONREACTIVESee Below SOURCE: Reference Range: NONREACTIVE Results from patients taking biotin supplements or receiving high-dose biotin therapy should be interpreted with caution due to possible interference with this test. Providers may contact their local laboratory for further information. Hepatitis B Core IgM [id number] 12:39PMRevolinsky, Giovanna Test NameResultFlagReference Hepatitis B Core Ab, IgMNONREACTIVESee Below SOURCE: Reference Range: NONREACTIVE Results from patients taking biotin supplements or receiving high-dose biotin therapy should be interpreted with caution due to possible interference with this test. Providers may contact their local laboratory for further information. EBV [id number] 12:39PMReGiovanna allred Test NameResultFlagReference Baljit-Greenberg Virus Capsid Antigen IgGPOSITIVEANEGATIVE Baljit-Greenberg Virus Ab to Early AntigenNEGATIVENEGATIVE Baljit-Greenberg Virus Nuclear Antigen IgGPOSITIVEANEGATIVE VCA IgM AntibodyNEGATIVENEGATIVE EBV InterpretationSEE BELOW . EBV INTERPRETATION CHART . VCA-IGG VCA-IGM NA-IGG EA-IGG . ---- PRIMARY ACUTE +/- +/- - +/- LATE ACUTE + +/- +/- +/- RECOVERING + - - + PREVIOUS INFECTION + - +/- - Antimitochondrial [id number] 12:39PMReGiovanna allred Test NameResultReference Mitochondrial Antibody ScreeningNEGATIVENEGATIVE Smooth Muscle Antibody [id number] 12:39PMReGiovanna allred Test NameResultKareennce Smooth Muscle AntibodyPOSITIVENEGATIVE Antismooth Muscle Titer1:20 Qgqkz-9-Ofrjhabxtqo Phenotype, Iqoip22Avg4231 12:39PMGiovanna Brooks Test NameResultReference Tqfiv-9-Phzuojnbqeo Yhqjkfjwq565 mg/xU72-852 To convert to umol/L, multiply mg/dL by 0.185 Dtpye-0-Vjykichkjtx Phenotype OvwlgI8G5 The patient appears to have a normal phenotype. All M alleles (including subtypes M1, M2, and M3) produce normal serum concentrations of rxkab-6-irmhynlm inhibitor and are not associated with clinical disease. Caution in interpretation is advised if the patient has been transfused within the previous 21 days. Performed By: Pongo Resume [address] [place] [id number] Hotel Houseman: Nakia Washburn MD Complete Blood Iuzcu55Xhx3144 03:43PMReGiovanna allred Test NameResultFlagReference White Blood Cell Count7.8 x10E9/L4.4 - 11.3 Red Blood Cell Count4.87 x10E12/LSee Below Reference Range: 4.00 - 5.20 Itogvuwock47.7 g/dLSee Below Reference Range: 12.0 - 16.0 HCT45.5 %See Below Reference Range: 36.0 - 46.0 MCV93 fL80 - 100 MCHC32.3 g/dLSee Below Reference Range: 32.0 - 36.0 Platelet Opmye227 x10E9/L150 - 450 RDW-CV12.1 %See Below Reference Range: 11.5 - 14.5 Comprehensive Metabolic Zupil71Hfp0458 03:43PMGiovanna Brooks Test NameResultFlagReference Glucose, Serum90 mg/dL74 - 99 Sodium, Qbwyt690 mmol/L136 - 145 POTASSIUM4.0 mmol/L3.5 - 5.3 Chloride, Mqdpf414 mmol/L98 - 107 Bicarbonate, Serum25 mmol/L21 - 32 Anion Gap, Serum17 mmol/L10 - 20 Blood Urea Nitrogen, Serum8 mg/dL6 - 23 CREATININE0.75 mg/dLSee Below Reference Range: 0.50 - 1.05 Calcium, Serum9.6 mg/dL8.6 - 10.3 Albumin, Serum4.5 g/dL3.4 - 5.0 ALKALINE FPGWPEUBVQU70 U/L33 - 110 Protein, Total Serum7.9 g/dL6.4 [...] PHENOTYP [place] 02-18-2020 A-1 ANTITRYP.PHENOTYPE M1M2 Normal [facility] Comment on above: Result Comment: The patient appears to have a normal phenotype. All M alleles (including subtypes M1, M2, and M3) produce normal serum concentrations of vwsgz-4-csmcidzx inhibitor and are not associated with clinical disease. Caution in interpretation is advised if the patient has been transfused within the previous 21 days. Performed By: Pongo Resume [address] [place] [address] Hotel Houseman: Nakia Washburn MD Performed By: #### H BCRM #### [facility] [address] [place] [address] XZCOE-0-XONMAWEHLOX 140 mg/dL Normal 90-200 [facility] Comment on above: Result Comment: To c onvert to umol/L, multiply mg/dL by 0.185 Performed By: #### H BCRM #### [facility] [address] [place] [address] Otheron 02-17-2020 US Liver Interpreted by: DESTINEE WEST02/18/20 07:50MRN: [id number] Name: BETZAIDA ARMENDARIZ STUDY:US LIVER; 02/17/2020 2:13 [...] signed by: DESTINEE WEST 02/18/20 07:50 Normal [facility]-[address] Work Phone: US LIVERon 02-17-2020 US LIVER Patient Name: BETZAIDA ARMENDARIZ STUDY: US LIVER; 02/17/2020 2:13 pm INDICATION: elevated liver function tests. COMPARISON: None. ACCESSION NUMBER(S): [id number] ORDERING CLINICIAN: GIOVANNA BROOKS TECHNIQUE: Multiple images [...] Electronically signed by: DESTINEE WEST MD Normal [facility] ANTIMITOCHONDRIAL ABon 02-14 ANTIMITOCHONDRIAL AB Negative Normal NEGATIVE [facility] Comment on above: Performed By: #### M ITAB #### [facility] [address] [place] [address] ANTISMOOTH MUSCLE ABon 02-14 ANTISMOOTH MUSCLE AB Positive Normal NEGATIVE [facility] Comment on above: Performed By: #### A SMAB #### [facility] [address] [place] [address] ANTISMOOTH MUSCLE TITER 1:[address] [facility] Comment on above: Performed By: #### A SMAB #### [facility] [address] [place] [address] CERULOPLASMINon 02-14-2020 CERULOPLASMIN 38 mg/dL Normal 20 - [address] [facility] Comment on above: Performed By: #### C ERUL #### [facility] [address] [place] [address] Ceruloplasmin, Serumon 02-13 Ceruloplasmin [Mass/Vol] 38 mg/dL 20 - 60 -[facility]-[address] Work Phone: EBV PANELon 02-14-2020 VCA IGM ANTIBODY Negative Normal NEGATIVE [facility] Comment on above: Performed By: #### E BVP1 #### [facility] [address] [place] [address] EBV EA-D IGG ANTIBODY Negative Normal NEGATIVE [facility] Comment on above: Performed By: #### E BVP1 #### [facility] [address] [place], [place] EBV INTERPRETATION SEE BELOW Normal [facility] Comment on above: Result Comment: . EB V INTERPRETATION CHART . VCA-IGG VCA-IGM NA-IGG EA-IGG . PRIMARY ACUTE +/- +/- - +/- LATE ACUTE + +/- +/- +/- RECOVERING + - - + PREVIOUS INFECTION + - +/- - Performed By: #### E BVP1 #### [facility] [address] [place] [address] EBV NA-1 IGG ANTIBODY Positive Abnormal NEGATIVE [facility] Comment on above: Performed By: #### E BVP1 #### [facility] [address] [place] [address] VCA IGG ANTIBODY Positive Abnormal NEGATIVE [facility] Comment on above: Performed By: #### E BVP1 #### [facility] [address] [place] [address] HEPATITIS B CORE AB;IGMon HEPATITIS B CORE AB,IGM NONREACTIVE Normal NONREACTIVE [facility] Comment on above: Result Comment: Resu lts from patients taking biotin supplements or receiving high-dose biotin therapy should be interpreted with caution due to possible interference with this test. Providers may contact their local laboratory for further information. Performed By: #### H BCR #### [facility] [address] [place], [place] Lab Specimen Source Normal [facility] Comment on above: Performed By: #### H BCRM #### [facility] [address] [place], [place] Performed By: #### H CVAB #### [facility] [address] [place], [place] Performed By: #### H IV #### [facility] [address] [place] [address] HEPATITIS B SURFACE AGon HEP.B SURFACE AG NONREACTIVE Normal NONREACTIVE [facility] Comment on above: Result Comment: Biot in interference may cause falsely decreased results. Patients taking a Biotin dose of up to 5 mg/day should refrain from taking Biotin for 24 hours before sample collection. Providers may contact their local laboratory for further information. Performed By: #### H BCRM #### [facility] [address] [place] [address] HEPATITIS C ABon 02-14-2020 HEPATITIS C AB NONREACTIVE Normal NONREACTIVE [facility] Comment on above: Result Comment: Resu lts from patients taking biotin supplements or receiving high-dose biotin therapy should be interpreted with caution due to possible interference with this test. Providers may contact their local laboratory for further information. Performed By: #### H CVAB #### [facility] [address] [place], [place] HIV 1/2 ANTIGEN/ANTIBODY SCR EEN WITH REFLEX TO CONFIRMATIONon 02-14-2020 HIV 1/2 AG/AB SCREEN NONREACTIVE Normal NONREACTIVE [facility] Comment on above: Result Comment: HIV Ag/Ab screen is performed using the Siemens Atell[employer]edsy HIV Ag/Ab Combo assay which detects the presence of HIV p24 antigen as well as antibodies to HIV-1 (Group M and O) and HIV-2. Performed By: #### H IV #### [facility] [address] [place], [place] HIV 1+2 Ab+HIV1 p24 Ag IA Ql NONREACTIVE See Below [facility] Work Phone: Comment on above: SOURCE: Reference Ra nge: NONREACTIVE HIV Ag/Ab screen is performed using the Siemens Consultant [employer]eds[employer] HIV Ag/Ab Combo assay which detects the [...] SATURATION 22 % Low 25 - [address] [facility] Comment on above: Performed By: #### I RONT #### [address] [address] Iron [Mass/Vol] 83 ug/dL Normal 35 - [address] [facility] Comment on above: Performed By: #### I RONT #### [address] [address] TIBC 374 ug/dL Normal 240 - [address] [facility] Comment on above: Performed By: #### I RONT #### [address] [address] Imm/Pathon 02-14-2020 EBV early IgM IA Qn [...] and M3) produce normal serum concentrations of mrifr-0-hfzuufvt inhibitor and are not associated with clinical disease. Caution in interpretation is advised if the patient has been transfused within the previous 21 days.Performed By: Pongo Resume[address] [place] [id number] Director: Nakia Washburn MD EBV capsid IgG [...] [Mass/Vol] 283 mg/dL Normal 200 - [address] [facility] Comment on above: Performed By: #### T DOMINIQUE #### [facility] [address] [place] [address] Transferrin, Serumon 020 Transferrin [Mass/Vol] 283 mg/dL 200 - 360 -[facility]-[address] Work Phone: CBCon 02-13-2020 Erythrocyte distribution width (RBC) [Ratio] 12.1 % Normal 11.5 - 14.5 [facility] Comment on above: Performed By: #### C BC #### [address] [id number] Hematocrit (Bld) [Volume fraction] 45.5 % Normal 36.0 - 46.0 [facility] Comment on above: Performed By: #### C BC #### [address] [id number] Hemoglobin (Bld) [Mass/Vol] 14.7 g/dL Normal 12.0 - 16.0 [facility] Comment on above: Performed By: #### C BC #### [address] [id number] MCHC (RBC) [Mass/Vol] 32.3 g/dL Normal 32.0 - 36.0 [facility] Comment on above: Performed By: #### C BC #### [address] [id number] MCV (RBC) [Entitic vol] 93 fL Normal 80 - 100 [facility] Comment on above: Performed By: #### C BC #### [address] [id number] Platelets (Bld) [#/Vol] 421 10*3/uL Normal 150 - 450 [facility] Comment on above: Performed By: #### C BC #### [address] [id number] RBC (Bld) [#/Vol] 4.87 x10E12/L Normal 4.00 - 5.20 [facility] Comment on above: Performed By: #### C BC #### [address] [id number] WBC (Bld) [#/Vol] 7.8 10*3/uL Normal 4.4 - 11.3 [facility] Comment on above: Performed By: #### C BC #### [address] [id number] COMPREHENSIVE PANELon 2019 Albumin [Mass/Vol] 4.5 g/dL Normal 3.4 - 5.0 [facility] Comment on above: Performed By: #### C MP #### [address] [id number] ALP [Catalytic activity/Vol] 91 U/L Normal 33 - 110 [facility] Comment on above: Performed By: #### C MP #### [address] [id number] ALT [Catalytic activity/Vol] 87 U/L High 7 - 45 [facility] Comment on above: Result Comment: Yamini ents treated with Sulfasalazine may generate falsely decreased results for ALT. Performed By: #### C MP #### [address] [id number] Anion gap [Moles/Vol] 17 mmol/L Normal 10 - 20 [facility] Comment on above: Performed By: #### C MP #### [address] [id number] AST [Catalytic activity/Vol] 74 U/L High 9 - 39 [facility] Comment on above: Performed By: #### C MP #### [address] [id number] Bilirubin [Mass/Vol] 0.6 mg/dL Normal 0.0 - 1.2 [facility] Comment on above: Performed By: #### C MP #### [address] [id number] Calcium [Mass/Vol] 9.6 mg/dL Normal 8.6 - 10.3 [facility] Comment on above: Performed By: #### C MP #### [address] [id number] Chloride [Moles/Vol] 102 mmol/L Normal 98 - 107 [facility] Comment on above: Performed By: #### C MP #### [address] [id number] Creatinine [Mass/Vol] 0.75 mg/dL Normal 0.50 - 1.05 [facility] Comment on above: Performed By: #### C MP #### [address] [id number] GFR- AM. >60 Normal >60 [facility] Comment on above: Result Comment: CALC ULATIONS OF ESTIMATED GFR ARE PERFORMED USING THE MDRD STUDY EQUATION FOR THE IDMS-TRACEABLE CREATININE METHODS. CLIN CHEM 2007;53:766-72 Performed By: #### C MP #### [address] [id number] GFR-NON AM. >60 Normal >60 [facility] Comment on above: Performed By: #### C MP #### [address] [id number] Glucose [Mass/Vol] 90 mg/dL Normal 74 - 99 [facility] Comment on above: Performed By: #### C MP #### [address] [id number] HCO3 (Bld) [Moles/Vol] 25 mmol/L Normal 21 - 32 [facility] Comment on above: Performed By: #### C MP #### [address] [id number] Potassium [Moles/Vol] 4.0 mmol/L Normal 3.5 - 5.3 [facility] Comment on above: Performed By: #### C MP #### [address] [id number] Protein [Mass/Vol] 7.9 g/dL Normal 6.4 - 8.2 [facility] Comment on above: Performed By: #### C MP #### [address] [id number] Sodium [Moles/Vol] 140 mmol/L Normal 136 - 145 [facility] Comment on above: Performed By: #### C MP #### [address] [id number] Urea nitrogen [Mass/Vol] 8 mg/dL Normal 6 - 23 [facility] Comment on above: Performed By: #### C MP #### [address] [id number] [birth year]-50 Yearson 02-13-2020 [age] Years Diagnoses/Problems Health [...] mild; DALIA = N; [id number]; Last Updated By: SystemPayfirma; 02/13/2020 3:19:17 PM Fatigue Complete Blood Count; Status:Active; Requested for:[id number]; Perform:Lab Services - Lab To Draw (Blood Test); Due:13May2020;Ordered; For:Fatigue; Ordered By:Giovanna Brooks; Comprehensive Metabolic Panel; Status:Active; Requested for:61Twe6096; Perform:Lab Services - Lab To Draw (Blood Test); Due:13May2020;Ordered; For:Fatigue; Ordered By:Giovanna Brooks; TSH - Thyroid Stimulating Hormone, Serum; Status:Active; Requested for:45Qcv7911; Perform:Lab Services - Lab To Draw (Blood Test); Due:13May2020;Ordered; For:Fatigue; Ordered By:Giovanna Brooks; Vitamin B12, Serum; Status:Active; Requested for:98Lsj2437; Perform:Lab Services - Lab To Draw (Blood Test); Due:13May2020;Ordered; For:Fatigue; Ordered By:Giovanna Brooks; Health Maintenance Lipid Panel; Status:Active; Requested for:37Hvv6024; Perform:Lab Services - Lab To Draw (Blood Test); Due:13May2020;Ordered; For:Health Maintenance; Ordered By:Giovanna Brooks; Restless leg syndrome Start: rOPINIRole HCl - 0.25 MG Oral Tablet; TAKE 1 TABLET Bedtime Rx By: Giovanna Brooks; Dispense: 30 Days ; #:30 Tablet; Refill: 2;For: Restless leg syndrome; DALIA = N; Verified Transmission [facility]; Last Updated By: [employer]; 02/13/2020 3:16:55 PM Screening mammogram, encounter for Mamm - Screening Mammogram w/ Tomosynthesis; Status:Hold For - Scheduling; Requested for:13Feb2020; Perform:[facility]; Due:13May2020;Ordered; For:Screening mammogram, [...] positive high risk HPV cervical (795.01,795.05) (R87.610,R87.810) BEJNA I (cervical intraepithelial neoplasia I) (622.11) (N87.0) [...] Release Multivitamins TABS Vitals Vital Signs Recorded: 70Wka0837 02:50PM Mhociemjzgy21.7 F, Temporal Heart Rate76 Pulse QualityIrregular Lggfipffadp51 Respiration QualityNormal Xgiilzki298, LLE, Sitting Sntjkomop28, LLE, Sitting Blood Pressure Cuff SizeLarge Height5 ft 6 in Xjxgxx691 lb 6 oz BMI Ozzpqrnlyl89.25 BSA Calculated2.08 Tobacco Useb) No Fall Screeninga) [...] Feb 13 2020 3:39PM EST (Author) Normal [facility] 02-13-2020 Hematocrit (Bld) [Volume fraction] 45.5 % See Below [employer] Work Phone: Comment on above: Reference Range: 36. 0 - 46.0 Hemoglobin (Bld) [Mass/Vol] 14.7 g/dL See Below [employer] Work Phone: Comment on above: Reference Range: 12. 0 - 16.0 MCV (RBC) [Entitic vol] 93 fL 80 - 100 -[employer] Work Phone: Platelets (Bld) [#/Vol] 421 {x10E9/L} 150 - 450 [employer] Work Phone: RBC (Bld) [#/Vol] 4.87 {x10E12/L} See Below MP -[facility] Work Phone: Comment on above: Reference Range: 4.0 0 - 5.20 WBC (Bld) [#/Vol] 7.8 {x10E9/L} 4.4 - 11.3 MP-[facility] Work Phone: LIPID PANEL (CORONARY RISK 2 )on 02-13-2020 Cholesterol [Mass/Vol] 231 mg/dL High 0 - 199 [facility] Comment on above: Result Comment: . AGE [...] dosing. Performed By: #### L IPID #### [address] [id number] Cholesterol in HDL [Mass/Vol] 41.0 mg/dL Normal [facility] Comment on above: Result Comment: . AGE VERY LOW LOW NORMAL HIGH 0-19 Y < 35 < 40 40-45 ---- 20-24 Y ---- < 40 >45 ---- >24 Y ---- < 40 40-60 >60 . Performed By: #### L IPID #### [address] [id number] Cholesterol in LDL [Mass/Vol] 155 mg/dL High 0 - 99 [facility] Comment on above: Result Comment: . NEAR BORD AGE DESIRABLE OPTIMAL HIGH HIGH VERY HIGH 0-19 Y 0 - 109 --- 110-129 >/= 130 ---- 20-24 Y 0 - 119 --- 120-159 >/= 160 ---- >24 Y 0 - 99 100-129 130-159 160-189 >/=190 . Performed By: #### L IPID #### [address] [id number] Cholesterol in VLDL [Mass/Vol] 35 mg/dL Normal 0 - 40 [facility] Comment on above: Performed By: #### L IPID #### [address] [id number] Cholesterol.total/C holesterol in HDL [Mass ratio] 5.6 {ratio} Abnormal [facility] Comment on above: Result Comment: REF VALUES DESIRABLE < 3.4 HIGH RISK > 5.0 Performed By: #### L IPID #### [address] [id number] Triglyceride [Mass/Vol] 175 mg/dL High 0 - 149 [facility] Comment on above: Result Comment: . AGE [...] dosing. Performed By: #### L IPID #### [address] [id number] Lipid Panelon 02-13-2020 Cholesterol [Mass/Vol] 231 mg/dL above high threshold 0 - 199 -[facility]-[address] Work Phone: Comment on [...] dosing. Cholesterol in HDL [Mass/Vol] 41.0 mg/dL [employer] [address] Work Phone: Comment on above: . AGE VERY LOW LOW N ORMAL HIGH 0-19 Y < 35 < 40 40-45 ---- 20- 24 Y ---- < 40 >45 ---- >24 Y ---- < 40 40-60 >60. Cholesterol in LDL [Mass/Vol] 155 mg/dL above high threshold 0 - 99 [employer] [address] Work Phone: Comment on above: . NEAR BORD AGE JUSTIN RABLE OPTIMAL HIGH HIGH VERY HIGH 0-19 Y 0 - 109 --- 110-129 >/= 130 ---- 20-24 Y 0 - 119 --- 120-159 >/= 160 ---- >24 Y 0 - 99 100-129 130-159 160-189 >/=190. Cholesterol.total/C holesterol in HDL [Mass ratio] 5.6 {ratio} Abnormal [employer] [address] Work Phone: Comment on above: REF VALUESDESIRABLE < 3.4HIGH RISK > 5.0 Triglyceride [Mass/Vol] 175 mg/dL above high threshold 0 - 149 [employer] [address] Work Phone: Comment on above: . [...] nitrogen [Mass/Vol] 8 mg/dL 6 - 23 [facility] Work Phone: Otheron 02-13-2020 Albumin [...] Qn 2.89 m[IU]/L Normal 0.44 - 3.98 [facility] Comment on above: Result Comment: TSH testing is performed using different testing methodology at [facility] than at other [facility]. Direct result comparisons should only be made within the same method. Performed By: #### T [facility] #### [address] [id number] TSH - Thyroid Stimulating Ho rmone, Serumon 02-13-2020 TSH Qn 2.89 {mIU/L} See Below [facility] Work Phone: Comment on above: Reference Range: 0.4 4 - 3.98 TSH testing is performed using different testing methodology at [facility] than at other [facility]. Direct result comparisons should only be made within the same method. Vitamin B12, Serumon 020 Cobalamin (Vitamin B12) [Mass/Vol] 413 pg/mL Normal 211 - 911 [facility] Work Phone: Comment on above: Performed By: #### V TB12 #### [address], [place] [id number] Culture, Urine Bacterialon 0 07-26-2017 Culture, Urine Bacterial BILL#: [id number] : 77 AGE: SEX:FDOUGLASSOURCE: URINE COLLECTED: 07/26/17 08:50ANTIBIOTICS AT MICHELLE.: RECEIVED : 07/27/17 18:22SITE: UnspecifiedR E S U L T SURINE CULTURE,BACTERIAL FINAL 07/28/17 11:10NO GROWTH Normal [facility] Comment on above: Performed By: #### C FLAVIO ####[facility] [address] [place] [address] Basic Metabolic Panelon 06-22 Anion gap 15 mmol/L Normal 10-20 [facility] Comment on above: Performed By: #### 1 [id number] ####[facility] [address] [place] [address] Bicarbonate (HCO3) 21 mmol/L Normal 21-32 [facility] Comment on above: Performed By: #### 1 [id number] ####[facility] [address] [place] [address] BUN/Creatinine Ratio 16 mg/mg Normal 5-25 [facility] Comment on above: Performed By: #### 1 [id number] ####[facility] [address] [place] [address] Calcium 9.5 mg/dL Normal 8.6-10.3 [facility] Comment on above: Performed By: #### 1 [id number] ####[facility] [address] [place] [address] Chloride 106 mmol/L Normal 98-107 [facility] Comment on above: Performed By: #### 1 [id number] ####[facility] [address] [place] [address] Creatinine 0.77 mg/dL Normal 0.50-1.05 [facility] Comment on above: Performed By: #### 1 [id number] ####[facility] [address] [place] [address] eGFR (MDRD) mL/min/{1.73_m2} Normal [facility] Comment on above: Result Comment: Inte rpretation for Chronic Kidney Disease:Stages 1&2 >60 Healthy or potential kidney damage.Mild decrease of GFR.Stage 3 30-59 Moderate decrease of GFR.Stage 4 15-29 Severe decrease of GFR.Stage 5 <15 Kidney failure or on dialysis. Performed By: #### 1 [id number] ####[facility] [address] [place] [address] Glucose mass conc 101 mg/dL High 70-100 [facility] Comment on above: Performed By: #### 1 [id number] ####[facility] [address] [place] [address] Potassium molar conc 4.3 mmol/L Normal 3.5-5.1 [facility] Comment on above: Performed By: #### 1 [id number] ####[facility] [address] [place] [address] Sodium 138 mmol/L Normal 136-145 [facility] Comment on above: Performed By: #### 1 [id number] ####[facility] [address] [place] [address] Urea nitrogen 12 mg/dL Normal 6-23 [facility] Comment on above: Performed By: #### 1 [id number] ####[facility] [address] [place] [address] CBCon 07-09-2017 Erythrocyte distribution width Auto Ratio (RBC) 12.3 % Normal 12.0-15.4 [facility] Comment on above: Performed By: #### 2 [id number] ####[facility] [address] [place] [address] Erythrocytes (RBC) 4.63 10*6/uL Normal 3.85-5.10 [facility] Comment on above: Performed By: #### 2 [id number] ####[facility] [address] [place] [address] Hematocrit (HCT) 41.9 % Normal 36.5-46.6 [facility] Comment on above: Performed By: #### 2 [id number] ####[facility] [address] [place] [address] Hemoglobin mass conc (Bld) 14.1 g/dL Normal 11.8-15.3 [facility] Comment on above: Performed By: #### 2 [id number] ####[facility] [address] [place] [address] MCH 30.5 pg Normal 27.5-33.0 [facility] Comment on above: Performed By: #### 2 [id number] ####[facility] [address] [place] [address] MCHC mass conc (RBC) 33.7 g/dL Normal 30.1-35.0 [facility] Comment on above: Performed By: #### 2 [id number] ####[facility] [address] [place] [address] MCV 90.5 fL Normal 85.4-100.0 [facility] Comment on above: Performed By: #### 2 [id number] ####[facility] [address] [place] [address] NRBC Absolute 0.00 10*3/uL Normal [facility] Comment on above: Performed By: #### 2 [id number] ####[facility] [address] [place] [address] NRBC Automated 0.0 /100{WBCs} Normal [facility] Comment on above: Performed By: #### 2 [id number] ####[facility] [address] [place] [address] Platelet mean volume (PMV) 10.0 fL Normal 9.9-12.1 [facility] Comment on above: Performed By: #### 2 [id number] ####[facility] [address] [place] [address] Platelets 287 10*3/uL Normal 155-404 [facility] Comment on above: Performed By: #### 2 [id number] ####[address] [place] [address] RDW SD 40.3 fL Normal 39.3-48.6 [facility] Comment on above: Performed By: #### 2 [id number] ####[address] [place] [address] WBC (Leukocytes) 6.7 10*3/uL Normal 4.4-9.9 [facility] Comment on above: Performed By: #### 2 [id number] ####[address] [place] [address] Pathology ([facility])on 07-09-2017 Pathology ([facility]) FINAL SURGICAL PATHO LOGY [id number] FINAL DIAGNOSISUTERUS, CERVIX AND BILATERAL FALLOPIAN TUBES-UTERUS, 113 GRAMS.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.ADENOMYOSIS, SUPERFICIAL AND DEEP, EXTENSIVE.EARLY SECRETORY ENDOMETRIUM.MYOMETRIAL HYPERTROPHY.CHRONIC CERVICITIS WITH SQUAMOUS METAPLASIA.BILATERAL FALLOPIAN TUBES WITH FOCAL PARATUBAL CYST.Comment: No previous Pap smear or biopsy results available at [facility] for correlation purposes.CLINICAL HISTORY:CERVICAL DYSPLASIA, AUBOPERATION:TOTAL LAPAROSCOPIC HYSTERECTOMY, BILATERAL SALPINGECTOMY, CYSTOSCOPYSPECIMEN(S):(A) UTERUS, WITH CERVIX AND BILATERAL FALLOPIAN TUBESPerformed at [facility], [address] [place] [id number] DESCRIPTION: Received in [facility] fixative, labeled Mariela Armendariz and designated [...] fallopian tube.CAESigned Out by:CHRISTI VIGILeported: 07/12/2017 Normal [facility] Comment on above: Performed By: #### S UR ####[facility] [address] [place] [address] Test (Serum)on Test, Serum Negative Normal [facility] Comment on above: Performed By: #### 3 [id number] ####[facility] [address] [place] [address] Type and Screenon 07-09-2017 Antibody Screen Negative Normal [facility] Comment on above: Performed By: #### T S3 ####[facility] [address] [place] [address] Group and Rh Positive Normal [facility] Comment on above: Result Comment: @ 09:38 by RSIM:No previous history found to confirm this result.If transfusion of RBC's or FFP is requested, a secondsample must be collected at a separate phlebotomyto confirm the ABORH. Performed By: #### T S3 ####[facility] [address] [place] [address] Mammo Screening Bilat CAD To kelly 06-08-2017 Mammo Screening Bilat CAD Jimbo [facility] Patient: BETZAIDA ARMENDARIZ [address] MR#: [id number] [place], [place] [address] : [address] Marco Antonio Paniagua MD Dept: Diagnostic Imaging Loc: OPC DI REPORT Service Dt:06/07/17 Report#: [id number] Adm Dt: 06/07/17 Dis Dt: Comments: STUDY: MG Mammo Screening Bilat CAD Jimbo; 06/07/2017 5:45 pm ACCESSION NUMBER(S): [id number] ORDERING CLINICIAN: Marco Antonio Paniagua INDICATION: Screening. [...] by: Jayda Dallas 06/08/2017 12:26 PM Normal [facility] Pelvis Complete Transvaginal on 06-08-2017 Pelvis Complete Transvaginal [facility] Patient: BETZAIDA ARMENDARIZ [address] MR#: [id number] [place], [place] [address] : 1975 Ord. : Marco Antonio Paniagua MD Dept: Diagnostic Imaging Loc: OPC DI REPORT Service Dt:06/07/17 Report#: [id number] Adm Dt: 06/07/17 Dis Dt: Comments: STUDY: US Pelvis Complete Transvaginal; 06/07/2017 5:30 pm INDICATION: IRREGULAR MENSES. COMPARISON: None. ACCESSION NUMBER(S): [id number] ORDERING CLINICIAN: Marco Antonio Paniagua TECHNIQUE: Multiple [...] by: Steve Church 06/08/2017 8:19 AM Normal [facility] Complete Blood Count w/diff $$on 06-01-2017 Basophils Auto #/vol (Bld) 0.0 10 /uL Low 0.04-0.9 [facility] Comment on above: Performed By: #### C BC, FT4, TSH, FSH, LH, PROL ####[facility] [place] [address] Basophils/100 WBC Auto (Bld) 1 % Normal 0-1 [facility] Comment on above: Performed By: #### C BC, FT4, TSH, FSH, LH, PROL ####[facility] [place] [address] Eosinophils 0.0 10 3/uL Low 0.03-0.6 [facility] Comment on above: Performed By: #### C BC, FT4, TSH, FSH, LH, PROL ####[address] [address] Eosinophils/100 leukocytes 0 % Normal 0-3 [facility] Comment on above: Performed By: #### C BC, FT4, TSH, FSH, LH, PROL ####[address] [address] Erythrocyte distribution width Auto Ratio (RBC) 12.6 % Normal 11.5-14.5 [facility] Comment on above: Performed By: #### C BC, FT4, TSH, FSH, LH, PROL ####[address] [address] Erythrocytes (RBC) 4.64 10 6/uL Normal 4.2-5.4 [facility] Comment on above: Performed By: #### C BC, FT4, TSH, FSH, LH, PROL ####[address] [address] Hematocrit (HCT) 43.5 % Normal 35-47 [facility] Comment on above: Performed By: #### C BC, FT4, TSH, FSH, LH, PROL ####[address] [address] Hemoglobin mass conc (Bld) 13.7 g/dL Normal 12.0-16.0 [facility] Comment on above: Performed By: #### C BC, FT4, TSH, FSH, LH, PROL ####[address] [address] Immature Gran# (Auto) 0.0 10 3/uL Normal [facility] Comment on above: Performed By: #### C BC, FT4, TSH, FSH, LH, PROL ####[address] [address] Immature granulocytes #/vol (Bld) 0.4 % Normal 0.0-0.9 [facility] Comment on above: Performed By: #### C BC, FT4, TSH, FSH, LH, PROL ####[address] [address] Lymphocytes 2.0 10 3/uL Normal 1-3.5 [facility] Comment on above: Performed By: #### C BC, FT4, TSH, FSH, LH, PROL ####[address] [address] Lymphocytes/100 leukocytes 30 % Normal 24-44 [facility] Comment on above: Performed By: #### C BC, FT4, TSH, FSH, LH, PROL ####[address] [address] MCH 29.5 pg Normal 27-34 [facility] Comment on above: Performed By: #### C BC, FT4, TSH, FSH, LH, PROL ####[address] [address] MCH 31.5 g/dL Low 33-37 [facility] Comment on above: Performed By: #### C BC, FT4, TSH, FSH, LH, PROL ####[address] [address] MCV 93.8 fL Normal 80-100 [facility] Comment on above: Performed By: #### C BC, FT4, TSH, FSH, LH, PROL ####[address] [address] Monocytes 0.3 10 3/uL Normal 0.04-0.9 [facility] Comment on above: Performed By: #### C BC, FT4, TSH, FSH, LH, PROL ####[address] [address] Monocytes/100 leukocytes 4 % Normal 1-8 [facility] Comment on above: Performed By: #### C BC, FT4, TSH, FSH, LH, PROL ####[address] [address] Neutrophils 4.3 10 3/uL Normal 1.8-7.0 [facility] Comment on above: Performed By: #### C BC, FT4, TSH, FSH, LH, PROL ####[address] [address] Neutrophils/100 leukocytes 65 % Normal 42-76 [facility] Comment on above: Performed By: #### C BC, FT4, TSH, FSH, LH, PROL ####[address] [address] Nucleated erythrocytes 0.0 % Normal 0.0-0.0 [facility] Comment on above: Performed By: #### C BC, FT4, TSH, FSH, LH, PROL ####[address] [address] Platelet mean volume (PMV) 9.7 fL Normal 7.4-10.4 [facility] Comment on above: Performed By: #### C BC, FT4, TSH, FSH, LH, PROL ####[address] [address] Platelets 340 10 3/uL Normal 150-400 [facility] Comment on above: Performed By: #### C BC, FT4, TSH, FSH, LH, PROL ####[address] [address] WBC (Leukocytes) 6.7 10 3/uL Normal 4.0-11.0 [facility] Comment on above: Performed By: #### C BC, FT4, TSH, FSH, LH, PROL ####[address] [address] Follicle Stimulating Hormone on 06-01-2017 Follicle Stimulating Hormone 4.2 IU/L Normal [facility] Comment on above: Result Comment: REF VALUESFOLLICULAR 9-54DHQ-EACOJ 12-25LUTEAL PHASE 2-12MENOPAUSE 30-150PREPUBERTY 50% ADULTADULT MALE 2-10INFANTS 0-1Performing Site: [facility] - [address] [place] [address] Performed By: #### C BC, FT4, TSH, FSH, LH, PROL ####[address] [id number] Free T4on 06-01-2017 Thyroxine (T4) free 1.0 ng/dL Normal 0.8-1.5 [facility] Comment on above: Performed By: #### C BC, FT4, TSH, FSH, LH, PROL ####[address] [address] Luteinizing Hormoneon 2017 Luteinizing Hormone 2.7 IU/L Normal [facility] Comment on above: Result Comment: REF VALUESFOLLICULARPHASE 1.5-10.0MID-CYCLE 13.0-72.0LUTEAL PHASE 0.5-13.0MENOPAUSE 15.0-65.0PREPUBERTY 0- 3.0CHILDREN 0- 6.0ADULT MALE 1.0- 9.0Performing Site: [facility] - [address] [place] [address] Performed By: #### C BC, FT4, TSH, FSH, LH, PROL ####[address] 2558229 Prolactinon 06-01-2017 Prolactin 5.1 ug/L Low 6.0-20.0 [facility] Comment on above: Result Comment: Perf orming Site: [facility] - [address] [place] [id number] Performed By: #### C BC, FT4, TSH, FSH, LH, PROL ####[address] [address] Thyroid Stimulating Hormoneo n 06-01-2017 Thyroid stimulating hormone (TSH) 2.36 m[IU]/L Normal 0.358-3.74 [facility] Comment on above: Performed By: #### C BC, FT4, TSH, FSH, LH, PROL ####[facility] [place] [address] Vital Signs Date Time Vital Sign Value Performing Clinician Facility 08-19-2021 14:30-0400 Body height 167.64 cm [facility] Other [facility] 08-19-2021 14:30-0400 Body mass index (BMI) [Ratio] 35.51 kg/m2 Dalia [facility] Other [facility] 08-19-2021 14:30-0400 Body temperature 98.4 [degF] Dalia [facility] Other [facility] 08-19-2021 14:30-0400 Body weight 99.79 kg Dalia [facility] Other [facility] 08-19-2021 14:30-0400 Diastolic blood pressure 90 mm[Hg] Dalia [facility] Other [facility] 08-19-2021 14:30-0400 Respiratory rate 20 /min [facility] Other [facility] 08-19-2021 14:30-0400 SaO2% (BldA) [Mass fraction] 98 % Dalia [facility] Other [facility] 08-19-2021 14:30-0400 Systolic blood pressure 128 mm[Hg] Dalia [facility] Other [facility] 08-01-2021 12:00-0400 Body height 167.64 cm Daliasonia Zamoraerwood Other [facility] 08-01-2021 12:00-0400 Body mass index (BMI) [Ratio] 35.99 kg/m2 Dalia [place] Other [facility] 08-01-2021 12:00-0400 Body temperature 97.6 [degF] Dalia Noaherwood Other [facility] 08-01-2021 12:00-0400 Body weight 101.15 kg Dalia Noaherbelle Other [facility] 08-01-2021 12:00-0400 Diastolic blood pressure 82 mm[Hg] Dalia Easterwood Other [facility] 08-01-2021 12:00-0400 Respiratory rate 20 /min Dalia Noaherwood Other [facility] 08-01-2021 12:00-0400 SaO2% (BldA) [Mass fraction] 98 % Dalia [place]wood Other [facility] 08-01-2021 12:00-0400 Systolic blood pressure 124 mm[Hg] Dalia [facility]wood Other [facility] 03-08-2020 17:33-0500 BMI (Body Mass Index) 34.94 kg/m2 Giovanna Brooks MP-[facility]SP[facility]-[place] [address] Work Phone: 03-08-2020 17:33-0500 Body Temperature 97.3 [degF] Giovanna SHIPLEYWSPC-Westl[place] e 201 Work Phone: Comment on above: Method: Temporal 03-08-2020 17:33-0500 Body weight 98.2 kg Giovanna Revolinsky FK-AYOM-Gaoeoxwv 201 Work Phone: 03-08-2020 17:33-0500 BP Diastolic 78 mm[Hg] Giovanna Revolinsky WC-FDKK-Kittgpwg 201 Work Phone: Comment on above: Location: LUE; Position: Sitting 03-08-2020 17:33-0500 BP Systolic 126 mm[Hg] Giovanna Revolinsky OB-ENMV-Uceungke 201 Work Phone: Comment on above: Location: LUE; Position: Sitting 03-08-2020 17:33-0500 BSA (Body Surface Area) 2.07 m2 Giovanna Revolinsky YG-KWBE-Gojgredp 201 Work Phone: 03-08-2020 17:33-0500 Height 167.64 cm Giovanna Revolinsky XG-STAI-Xhntgvri 201 Work Phone: 03-08-2020 17:33-0500 Pulse (Heart Rate) 74 /min Giovanna Revolinsky VC-NVBR-Oosfm nuno 201 Work Phone: Comment on above: Quality: Normal 03-08-2020 17:33-0500 Respiratory Rate 16 /min Giovanna Revolinsky AG-KGJP-Bhnnuhp e 201 Work Phone: Comment on above: Quality: Normal 02-13-2020 16:50-0500 BMI (Body Mass Index) 35.25 kg/m2 Giovanna Revolinsky KP-OSNQ-Gxxoqems 201 Work Phone: 02-13-2020 16:50-0500 Body Temperature 97.7 [degF] Giovanna Revolinsky LZ-AUYJ-Lubvbur e 201 Work Phone: Comment on above: Method: Temporal 02-13-2020 16:50-0500 Body weight 99.05 kg Giovanna Revolinsky KM-XGBT-Iyqkjkpl 201 Work Phone: 02-13-2020 16:50-0500 BP Diastolic 74 mm[Hg] Giovanna Brooks MX-QOCW-Pjijpykv 201 Work Phone: Comment on above: Location: LLE; Position: Sitting 02-13-2020 16:50-0500 BP Systolic 130 mm[Hg] Giovanna Revdrewsky BR-FQZC-Rrkxivsh 201 Work Phone: Comment on above: Location: LLE; Position: Sitting 02-13-2020 16:50-0500 BSA (Body Surface Area) 2.08 m2 Giovanna Contrerassksasha JX-XLYS-Alcfytiv 201 Work Phone: 02-13-2020 16:50-0500 Height 167.64 cm Giovanna Revolinsky OS-IUBP-Ewjecmvd 201 Work Phone: 02-13-2020 16:50-0500 Pulse (Heart Rate) 76 /min Giovanna Brooks AU-AARV-Yudjx nuno 201 Work Phone: Comment on above: Quality: Irregular 02-13-2020 16:50-0500 Respiratory Rate 16 /min Giovanna Brooks WL-INWL-Hbthhrk e 201 Work Phone: Comment on above: [...] 09-29-2021 End: 09-29-2021 ambulatory Dalia Jj [facility] Start: 09-29-2021 Telephone encounter Dalia Jj [facility] Start: 09-22-2021 End: 09-22-[address] MARISSA PHELAN . 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 Dalia Jj Work Phone: [facility] [place] Start: 08-01-2021 End: 08-02-2021 [facility] Other Start: 08-01-2021 Office outpatient ne w 45 minutes Dalia Jj [facility] Start: 03-08-2020 Patient encounter procedure Giovanna Garaydrewjamie OM-KQEN-Ytegwqdx 201 Work Phone: Start: 03-05-2020 Patient encounter procedure Giovanna Garaydrewjamie KN-ZJIB-Omxroiic 201 Work Phone: Start: 02-13-2020 Patient encounter procedure Giovanna Garaydrewjamie CH-EOEE-Fxstjwuv 201 Work Phone: Start: 12-29-2018 Patient encounter procedure Giovanna Brooks IA-FZQX-Vaiawutg 201 Work Phone: Start: 04-25-2018 End: 04-25-2018 Patient encounter procedure UNKNOWN PROVIDER Facility:[facility] Start: 07-26-2017 Patient encounter LORETO Britton acility:[facility] [employer] Start: 07-09-2017 End: 07-09-2017 Patient encounter LORETO GONZALEZ Facility:[facility] Start: 07-07-2017 Patient encounter LORETO Britton acility:[facility] Start: 06-07-2017 Ambulatory MARCO ANTONIO PANIAGUA Facility:[facility] Start: 06-01-2017 Ambulatory MARCO ANTONIO GALUN Facility:[facility] Procedures Date Procedure Procedure Detail Performing Clinician Start: 2020 Follow-up visit Start: 03-08-2020 Follow-up visit Start: 03-05-2020 IO Liver Ultrasound Jo Ann Brooks Start: 02-14-2020 Ydoip-6-Jjghxfetrlp Phenotype, Serum Giovanna Brooks Start: 02-14-2020 Antibody hiv-1 Giovanna sorenson Start: 02-14-2020 Antimitochondrial Ab Ma paul Brooks Start: 02-14-2020 Assay of [id number] Giovanna Brooks Start: 02-14-2020 Ceruloplasmin Giovanna mock [...] injectabl e, quadrivalent, contains preservative Giovanna Erinsasha WO-SALO-Fwlcevwd 201 Work Phone: Comment on above: declines 12/29/18 Payers Date Payer Category Payer Private Health Insurance [id number] 1975 Unknown [id number] 2.16. [id number] 1975 Unknown [id number] 2.16.84 0.1.814652.3.579.2.593 1975 Unknown [id number] 2.16.84 0.1.154557.3.579.2.593 1975 Unknown [id number] 2.16.84 0.1.416599.3.579.2.593 1975 Unknown [id number] 2.16.84 0.1.356497.3.579.2.593 1975 Unknown [id number] 2.16.84 0.1.129561.3.579.2.593 1975 Unknown [id number] 2.16.8 40.1.150958.3.579.2.727 1975 Unknown [id number] 2.16.84 0.1.139697.3.579.2.1259 1975 Unknown [id number] 2.16.84 0.1.863247.3.579.2.1259 1975 Unknown [id number] 2.16.84 0.1.208406.3.579.2.1259 1975 Unknown [id number] 2.16.84 0.1.991871.3.579.2.1259 1975 Unknown [id number] 2.16.84 0.1.238960.3.579.2.1259 1975 Unknown [id number] 2.16.84 0.1.526544.3.579.2.1259 1975 Unknown [id number] 2.16.84 0.1.475452.3.579.2.1259 1975 Unknown [id number] 2.16.840 .1.088323.3.579.2.1259 1975 Unknown [id number] 2.16.840 .1.239938.3.579.2.1259 1959 Unknown [id number] Self-pay Self Pay [id number] Social History Date Type Detail Facility Sex Assigned At Sex Assigned At [facility] Start: 1975 Sex Assigned At Female [facility] NEGATED: Highlighted row - - HD-LBYA-Jkhnvmnm 201 Work Phone: Functional Status Date Assessment Result Facility NEGATED: Highlighted row Functional performance Functional status health issues are not documented Disease AN-KOQM-Odrbohqu 201 Work Phone: Mental Status Date Assessment Result Facility NEGATED: Highlighted row Cognitive function [Interpretation] Cognitive status health issues are not documented Disease FE-LULK-Kzitgoei 201 Work Phone: Evaluation note 08-19-2021 Note [...] Thyroid labs negative. Will await work-up from COMMERCIAL LOAN UNDERWRITER in September. She is not concerned with [...] that were not corrected during review process. [facility] Other Evaluation note 08-01-2021 Note Date & Type Note Facility 08-01-2021 Evaluation note Encounter Date Diagnosis Assessment Notes Jul, Weight gain (ICD-10 - R63.5) Discussed concerns and causes related to weight gain. Could be mental health however could also be thyroid issue. We also discussed the possibility of hormonal changes from an COMMERCIAL LOAN UNDERWRITER standpoint. I did make recommendations for local COMMERCIAL LOAN UNDERWRITER's and possible menopause testing. Deferring her to COMMERCIAL LOAN UNDERWRITER for this work-up. No formal referral is [...] that were not corrected during review process. [facility] Other Evaluation note Note Date & Type Note Facility Evaluation note No Information [facility] Other Evaluation note Note Date & Type Note Facility Evaluation note No assessment information [facility] Work Phone: History general Narrative - Reported Note Date & Type Note Facility History general Narrative - Reported Type Surgical History x 2 Surgical History Hysterectomy 2018 Hospitalization History See surgical hx [facility] Other History general Narrative - Reported Note Date & Type Note Facility History general Narrative - Reported Type Medical History weight gain Medical History chronic right knee pain Medical History depression/anxiety Surgical History x 2 Surgical History Hysterectomy 2018 Hospitalization History See surgical hx [facility] Summary Purpose Family History No Family [...] section and content) DATE CREATED AUTHOR 08/11/2017 [facility] DATE CREATED AUTHOR AUTHOR'S ORGANIZ ATION 09/10/2017 [facility] DATE CREATED AUTHOR AUTHOR'S ORGANIZ ATION 04/27/2018 [facility] DATE CREATED AUTHOR AUTHOR'S ORGANIZ ATION 02/20/[address] [facility] DATE CREATED AUTHOR AUTHOR'S ORGANIZ ATION 2020 [facility] [place] DATE CREATED AUTHOR AUTHOR'S ORGANIZ ATION 03/23/2020 [facility] DATE CREATED AUTHOR AUTHOR'S ORGANIZ ATION 04/15/2022 [facility] DATE CREATED AUTHOR AUTHOR'S ORGANIZ ATION 05/24/2022 [facility] DATE CREATED AUTHOR AUTHOR'S ORGANIZ ATION 09/12/2023 [facility] EPIC REASON FOR VISIT (unrecogniz ed section and content) Establish Care, New patient, No previous PCP - Just moved to [place] from [place] in the last 2 years, Mental health - patient states she is fatigued all the time, does not feel like herself, does not enjoy the things she used to, Patient goes to [facility] in [place], Right knee pain x6 month - patient [...] BE BASED ON THE PRIMARY CLINICAL RECORDS. [employer] provides no warranty or guarantee of the accuracy or completeness of information in this document.
[2023-12-16 13:08] LABS: Age Gdln ACOG Testing Note (.); HPV Aptima Negative (Negative); IGP, Aptima HPV, rfx 16/18,45 Note (.)
== END 2023-12-09 19:26 | disposition home or self-care (01) ==
LOC: LAB 19:25
PROVIDERS: Visit Provider Obstetrics & Gynecology
DX: Z01.419 Encounter for gynecological examination (general) (routine) without abnormal findings (principal); Z79.899 Other long term (current) drug therapy
CPT/HCPCS: 36415; 80053; 85025; 87624; 88175

== ENCOUNTER 2024-01-03 10:00 | Outpatient (OUT) | payer OTHER, SELFPAY ==
--- NOTE | 2024-01-03 | MM_ITS ---
Patient Name: BETZAIDA ARMENDARIZ MR#: [id number] : 1975 Exam Date: 01/03/2024 Ordering Doctor: DR Amilcar Gagnon . RADIOLOGY REPORT PROCEDURE: MM TOMOSYNTHESIS SCREENING BI COMPARISON: MG MAMM LT DIAG FU, 03/10/2022. MM TOMOSYNTHESIS DIAGNOSTIC BI, 08/24/2022. INDICATIONS: SCREENING Calculator Name NCI Breast Cancer Risk Assessment Tool 5 Year Breast Cancer Risk 0.60% Lifetime Breast Cancer Risk 6.20% Personal Breast Cancer No Personal Ovarian Cancer No Treatments None Family Cancers Grandmother-paternal with breast cancer at age ~60; Sister with leukemia cancer at age 2. LOCATION: [facility] BREAST COMPOSITION: The breasts are heterogeneously dense,which may obscure small masses. FINDINGS: DIAGNOSTIC CATEGORY 2--BENIGN FINDING. NO CHANGE FROM COMPARISON. Scattered benign-appearing calcifications are present. Scattered benign-appearing lymph nodes are present. RIGHT BREAST: No significant suspicious finding. LEFT BREAST: No significant suspicious finding. RECOMMENDATIONS: ROUTINE MAMMOGRAM AND CLINICAL EVALUATION IN 12 MONTHS. PLEASE NOTE: A NORMAL MAMMOGRAM DOES NOT EXCLUDE THE POSSIBILITY OF BREAST CANCER. A CLINICALLY SUSPICIOUS PALPABLE LUMP SHOULD BE BIOPSIED. Dictated by: Ridge Phillips MD on 01/03/2024 at 11:42 Approved by: Ridge Phillips MD on 01/03/2024 at 11:43
--- OUTSIDE RECORDS SUMMARY | 2024-01-03 10:19 | XMS_ITS | CCD ---
Author Organization [facility] [place] Care Team Providers Care Client Relationship Consultant Name Role Phone GALUN, ELZBIETA Unavailable Unavailable GALUN, ELZBIETA Unavailable Unavailable SHERLOCK, LORETO Unavailable Unavailable SHERLOCK, LORETO Unavailable Unavailable NO FAMILY DOCTOR, NO FAMILY DOCTOR Unavailable Unavailable SHERLOCK, LORETO Unavailable Unavailable NO FAMILY DOCTOR, NO FAMILY DOCTOR Unavailable Unavailable SHERLOCK, LORETO Unavailable Unavailable NO FAMILY DOCTOR, NO FAMILY DOCTOR Unavailable Unavailable PROVIDER, UNKNOWN Admitting Unavailable PROVIDER, UNKNOWN Attending Unavailable Giovanna Brooks Unavailable Unavailable Giovanna Brooks Unavailable Unavailable Charlie Pearson Unavailable Unavailable Easterwood, Paul Unavailable COURTNEY Jj Primary Care Provider COURTNEY Jj Attending Provider KALIN ., DR ANN Consulting Unavailable KALIN ., DR ANN Admitting Unavailable KALIN ., DR ANN Attending Unavailable Shaheen, Elzbieta Consulting Unavailable KALIN ., DR ANN Attending Unavailable KALIN ., DR ANN Admitting Unavailable KALIN ., DR ANN Consulting Unavailable KALIN ., DR ANN Admitting Unavailable KALIN ., DR ANN Attending Unavailable Shaheen, Elzbieta Consulting Unavailable SAVANNAH, DR CHARLIE Ferguson Consulting Unavailable KALIN ., DR ANN Admitting Unavailable KALIN ., DR ANN Attending Unavailable KLAIN ., DR ANN Consulting Unavailable KALIN ., DR ANN Consulting Unavailable KALIN ., DR ANN Admitting Unavailable KALIN ., DR ANN Attending Unavailable EASTERWOOD, PAUL Admitting Unavailable EASTERWOOD, PAUL Attending Unavailable Alexandra DEAN, [place] Primary Care Provider Cyndie Zacarias Unavailable CYNDIE WASHINGTON Attending Unavailable CYNDIE WASHINGTON Attending Unavailable CYNDIE WASHINGTON Attending Unavailable CYNDIE WASHINGTON Attending Unavailable JAZMIN RODAS Attending Unavailable JAZMIN RODAS Referring Unavailable CYNDIE WASHINGTON Attending Unavailable AMILCAR PHELAN Attending Unavailable AMILCAR PHELAN Attending Unavailable Allergies Allergy Classification Reported Allergen(s) Allergy Type Date of Onset Reaction(s) Facility (2 sources) Penicillins; Translations: [PENICILLINS] Drug allergy (disorder) 07-26-19 17 HIVES [facility] Repository (2 sources) Penicillins; Translations: [Penicillins] Allergy to drug (finding) [facility] Work Phone: (2 sources) Surgical adhesive tape Allergy to drug (finding) [facility] Work Phone: (3 sources) Penicillin V Drug Allergy [facility] Other (4 sources) Penicillins Drug Intolerance 05-09-19 05 Hives, Itching, Rash [facility] Work Phone: (4 sources) Wound Dressing Adhesive Drug Intolerance 12-26-19 05 [facility] Medications Current Medications Medication Drug Class(es) Dates [...] Start: 03-08-2020 take 1 tablet by alondra once daily Escitalopram Oxalate 5 MG Oral Tablet TAKE 1 TABLET DAILY. Quantity: 30 Refills: 1 Giovanna Brooks MD Start : 08-Mar-2020 Active estradiol 0.5 mg oral tablet (6 sources) Estrogen Start: 08-10-2023 End: 12-03-2024 take 1 tablet by mouth once daily estradiol (Estrace) 0.5 MG tablet Indications: Postmenopausal state Take 1 tablet (0.5 mg) by mouth Daily Take 1 tablet by mouth for 30 days 30 tablet 11 12/09/2023 12/03/2024 Active 24 hr metFORMIN hydrochloride 500 mg extended release oral tablet (4 sources) Biguanide Start: 12-21-2022 End: 12-16-2023 take 1 tablet by mouth every twenty-four hours at mealtime metFORMIN XR (Glucophage-XR) 500 MG 24 hr tablet Indications: Encounter for weight management Take 1 tablet (500 mg) by mouth in the evening. Take with meals. 30 tablet 11 12/21/2022 12/16/2023 Active Completed/Discontinued Medications Medication Drug Class(es) Dates [...] disorder] Onset: 08-19-2021 Resolved: 08-19-2021 Chronic Other aftercare (2 sources) Long-term current use of drug therapy; Translations: [Other fdc (current) drug therapy] 12-09-2023 Episodic Other female genital disorders (2 sources) [...] conditions (not mental disorders or infectious disease) (16 sources) Breast neoplasm screening status; Translations: [Other abnormal and inconclusive findings on diagnostic imaging of breast] Onset: 09-22-2021 Episodic Other skin disorders (2 sources) Skin lesion; Translations: [Skin lesion] Episodic Residual codes; unclassified (2 sources) Postmenopausal state; Translations: [Asymptomatic menopausal state] 12-09-2023 Episodic Varicose veins of lower extremity (2 [...] Test Name Value Interpretation Reference Range Facility ALL CBC WITH AUTO DIFFon BASOPHILS ABSOLUTE AUTO 0 [facility] Basophils/100 WBC (Bld) 0.6 % 0.2 - 2.0 % [facility] Eosinophils/100 WBC (Bld) 2.2 % 0.9 - 7.0 % [facility] Erythrocyte distribution width (RBC) [Ratio] 12.3 % 11.0 - 15.0 % [facility] Hematocrit (Bld) [Volume fraction] 42.1 % 36.0 - 48.0 % [facility] Hemoglobin (Bld) [Mass/Vol] 13.9 g/dL 12.0 - 16.0 g/dL [facility] IMMATURE GRANULOCYTES ABS AUTO 0.01 [facility] Immature granulocytes/100 WBC (Bld) 0.1 % 0.0 - 0.5 % [facility] Interpretation and review of laboratory results Abnormal [facility] LYMPHOCYTES ABSOLUTE AUTO 2.5 [facility] Lymphocytes/100 WBC (Bld) 36.7 % 20.5 - 60.0 % [facility] MCH (RBC) [Entitic mass] 29.9 pg 26.7 - 34.0 pg [facility] MCHC (RBC) [Mass/Vol] 33 g/dL 29.9 - 35.2 g/dL [facility] MCV (RBC) [Entitic vol] 90.5 fL 81.0 - 99.0 fL [facility] MONOCYTES ABSOLUTE AUTO 0.4 [facility] Monocytes/100 WBC (Bld) 6.2 % 1.7 - 12.0 % [facility] NEUTROPHILS ABSOLUTE AUTO 3.7 [facility] Neutrophils/100 WBC (Bld) 54.2 % 43.0 - 75.0 % [facility] Platelet mean volume (Bld) [Entitic vol] 8.9 fL Low 9.5 - 13.5 fL [facility] TBH EO # 0.2 [facility] TB PLT 339 [facility] RBC 4.65 [facility] WBC 6.8 [facility] XR WRIST 3+ VIEWS RIGHTon XR WRIST [...] DIAG FUon 023 MG MAMM LT DIAG Patient: RAMIRO ARMENDARIZ Exam Date: 03/10/2022 : 1975 Gender:F Ordering : DR AMILCAR PHELAN . Admission #: [id number] Family : Order #: [id number] CLICK HERE TO VIEW EXAM RADIOLOGY REPORT [...] Treatments None Family Cancers None LOCATION: [facility] BREAST COMPOSITION: Heterogeneously dense,which may obscure small [...] MD on 03/10/2022 at 15:12 Normal [facility] US BREAST LEFT LIMITEDon US BREAST LEFT LIMITED Patient: BETZAIDA ARMENDARIZ Exam Date: 03/10/2022 : 1975 Gender:F Ordering : DR AMILCAR PHELAN . Admission #: [id number] Family : Order #: [id number] CLICK HERE TO VIEW EXAM RADIOLOGY REPORT [...] Treatments None Family Cancers None LOCATION: [facility] BREAST COMPOSITION: Heterogeneously dense,which may obscure small [...] MD on 03/10/2022 at 15:12 Normal [facility] MG MAMM LT DIAG FUon 022 MG MAMM LT DIAG FU Patient: RAMIRO ARMENDARIZ Exam Date: 11/05/2021 : 1975 Gender:F Ordering : DR AMILCAR PHELAN . Admission #: [id number] Family : Order #: [id number] CLICK HERE TO VIEW EXAM RADIOLOGY REPORT [...] Treatments None Family Cancers None LOCATION: [facility] BREAST COMPOSITION: Heterogeneously dense,which may obscure small [...] PALPABLE LUMP SHOULD BE BIOPSIED. Dictated by: Elzbieta Jamison M.D. on 11/05/2021 at 08:40 Approved by: Elzbieta Jamison M.D. on 11/05/2021 at 08:46 Normal [facility] US BREAST LEFT LIMITEDon US BREAST LEFT LIMITED Patient: BETZAIDA ARMENDARIZ Exam Date: 11/05/2021 : 1975 Gender:F Ordering : DR AMILCAR PHELAN . Admission #: [id number] Family : Order #: [id number] CLICK HERE TO VIEW EXAM RADIOLOGY REPORT [...] Treatments None Family Cancers None LOCATION: [facility] BREAST COMPOSITION: Heterogeneously dense,which may obscure small [...] PALPABLE LUMP SHOULD BE BIOPSIED. Dictated by: Elzbieta Jamison M.D. on 11/05/2021 at 08:40 Approved by: Elzbieta Jamison M.D. on 11/05/2021 at 08:46 Normal [facility] MAMM SCREEN 3D SAVI CADon 10-10-2021 MG MAMM SCREEN 3D SAVI CAD Patient: BETZAIDA ARMENDARIZ Exam Date: 10/10/2021 : 1975 Gender:F Ordering : DR AMILCAR PHELAN . Admission #: [id number] Family : Order #: [id number] CLICK HERE TO VIEW EXAM RADIOLOGY REPORT PROCEDURE: MAMMOGRAM SCREENING 3D BILATERAL CAD COMPARISON: None. INDICATIONS: Screening mammography Calculator Name NCI Breast Cancer Risk Assessment Tool 5 Year Breast Cancer Risk Not Reported. Lifetime Breast Cancer Risk Not Reported. Personal Breast Cancer No Personal Ovarian Cancer No Treatments None Family Cancers None LOCATION: [facility] BREAST COMPOSITION: Heterogeneously dense,which may obscure small [...] PALPABLE LUMP SHOULD BE BIOPSIED. Dictated by: Elzbieta Jamison M.D. on 10/17/2021 at 12:12 Approved by: Elzbieta Jamison M.D. on 10/17/2021 at 12:34 Normal [facility] PAP ACOG PANEL 2: 30 to 65on 08-05-2022 . . Normal [facility] Comment on above: Result Comment: Perf ormed at: WB Performed By: #### 4 [id number] #### [facility] [address] [place] [address] Dr. Howie Yee Age Gdln ACOG Testing 30-65 [facility] Comment on above: Performed By: #### 4 [id number] #### [facility] [address] [place] [address] Dr. Howie Yee DIAGNOSIS: Comment [facility] Comment on above: Result Comment: NEGA TIVE FOR INTRAEPITHELIAL LESION OR MALIGNANCY. Performed at: WB Performed By: #### 4 [id number] #### [facility] [address] [place] [address] Dr. Howie Yee HPV Aptima Negative Normal Negative [facility] Comment on above: Result Comment: This nucleic acid amplification test detects fourteen high-risk HPV types (16,18,31,33,35,39,45,51,52,56,58,59,66,68) without differentiation. Performed at: =G Performed By: #### 4 [id number] #### [facility] [address] [place] [address] Dr. Howie Yee Methodology: Comment [facility] Comment on above: Result Comment: This liquid based ThinPrep(R) pap test was screened with the use of an image guided system. Performed at: WB Performed By: #### 4 [id number] #### [facility] [address] [place] [address] Dr. Howie Yee Note: Comment [facility] Comment on above: Result Comment: The Pap smear is a screening test designed to aid in the detection of premalignant and malignant conditions of the uterine cervix. It is not a diagnostic procedure and should not be used as the sole means of detecting cervical cancer. Both false-positive and false-negative reports do occur. . Performed at: WB Performed By: #### 4 [id number] #### [facility] [address] [place] [address] Dr. Howie Yee Performed by: Comment Normal [facility] Comment on above: Result Comment: Ada Cline Reproduction Technician (ASCP) Performed at: WB Performed By: #### 4 [id number] #### [facility] [address] [place] [address] Dr. Howie Yee Specimen adequacy: Comment Normal [facility] Comment on above: Result Comment: Sati sfactory for evaluation. No endocervical component is identified. Performed at: WB Performed By: #### 4 [id number] #### [facility] [address] [place] [address] Dr. Howie Yee Coding Summary.on 08-08-2021 Coding Summary. CD:[id number] Gh0bWw+P GhlYWQ+DU3XZCHfB99mcWZrnR2YH 3dLGJ7LUUOIRSIBQK2KBF5ckKY7E XpjJ1PugcYx HifgcCLlAP71APl3BYO5wBwtDBfv rM5cbBWjO8n0LgJcJP78tA24DCnx CKTqJvG8ChWzojlmnBGh Z9pbMwJksQDzYql+PHRhYmxlIHdp RWJwKFzxPKDlKbWtcVupHU0zKl4r ZGVyLWNvbGxhcHNlOiBj x8qjVYKgNFxhAZ9cxIhnH8FhmOX9 KFVlv6g7Pg17gAI+MAZjILQ8dVhz AXfsm834BcMln3xpGZC4 uNOhXWirGWO5X58ru4J0QOPfHNSx QZR7xRH0zK1reIhokwmvQ6QbeGYz YkH6WXT7rWAttB6tdEey iwxynJ8fZdz+Z67QHP6CJYDNVS0R Hee1G3YmWyhpqFG+ZE06ZTXjNV29 ySSgcVPmh2lomJg6EfDx YMCpXCQ3gJrbKAzhs7TkAVBnZ24p eRMzx5Y1JMCgoImgeGClCbJrgQU5 hB7tXNqqhuqyh0sefsxf Sheya9asqs81eT62R36oUAzaAWNq XUD1FUUkTLXpkPzyil5hwW9hCa2+ WIlzq5hin3nlhGq8DvXm OQGsyvPjaSaxPZQ7c9XhTw63X0Uf aXcts2CbRga8te17yFOhh3G8fJB3 NHhsRKEntO9fRSnqRwQ1 FUMfCpHgnW42wCNhMTlrAi9diPup rRffZW0uQQPtnszvSCAopH0lLJLn fNZhbSxxRM5mVNNlhzmm l058AoWcISH1MYPqqNBiK3HjcF4r RhIqTSFlQAWxK4HdmUYaJLsgP601 WRpmLmL3YNJtnaReI8Gn VONkeUslVwI0z4S3Xc2Dj0Grywzg LQG4ENfkFFN7WkH7TxNdRhG0T2Mz Qlq0UPScrSemRD3tM3Jm DFTdgzquopsmgZM9JNWpRWAyeN22 sRRxWAcmBf0lg3N0x249HUJmLIZb qX83Sr1oyRvvDNMgvDMP zA0kebgln2ikfmncQyMiTJEiWYj8 VAk6BTRkcWogYaNtODA5EgZ7CPB9 uDLugR7mnPaxmwxwcJ9v Oyc+B52ogV9fZJA6XUO6akfkNQOo uuHcUG33QL06U1ZdVsaoaDUddFI+ WHPmeqNtwQcrYZ9lMvIo a1mql7GtXNuuT9NzKAIlHYacCsd5 DHLbLIF5hIT7dG8hARGbGQusf6K4 dRA0W2ZkduYvzj9cl1ik KEJuECrtI51exLOjo7O0UASelJD4 ODGcvMwhBiKsnF97Nwx+PGNvbGdy o9AbFlggk2nqt4wldNa9 HyCqNLZgmoOhuIszAPP9n2GrJg65 W78iMZcePFQiIIHsBIVqXEAtyDro it7xiG8aTf9+PGNvbCB3 iAV6bI9eESIgAqT9MPonE946RzRr kSMkGjqeg3gxi5taoOu9XaDcXWYo xoHwyZrmAZX6q2QfKz54 S14jOLdyYHOpERNrCPYiRSLtrBhf vz1rgF1tCd6+FC0xi2ceur26kQ47 dHI+WVWyQLF0gRkyDJbz TDJhvD4uENygIcP5OZLsZeIohE17 dIKlGHteEb5adKgvhHkkEU9eEJIp cjnzk988KsQge4nkGFFu wDQkHGjnHWQ1I84lg4K4VTHyAHIp UNT7jTV9pY3huFiobisbnZKydYrm slAyaVanOXzdNQfcL228 IHRvcDsnPlBhdGllbnQgTmFtZTo8 W9GhDvs9REShuWnuFM7gjNAgRBxk Ir3sgPepmHzjNY0qZTDm qfvnz684IqHkr1tdWJAvdBMmFNeg OZR5K50dw9H6JCQrJGIvPIN3oQT3 wY9umTkwfqixvLHwdCnn mkXlaJzfEQksPSmbH174LRYlxJpg SiTkqrSwAPWsoNQ7VI24IZ99tIDm z6Y4qVV0J7ClADHzilxy ogbwmQC6WSHiCQYjzB45Cy8yyZzz St8zESAfXFK1MAYonRMaC6JzvS3r XmHbMXEbDLGpO9MteTWe TEjhJ552RYjzPwJ0TCSupoWnS6Lp JDPviHxyAbG4x2Q7Wu2LV0M1VX26 LP77eDDco2M9gBX8W1Cl DCNwpkdzshsvxHR5YTKrQMZzeP17 No5wjFkaMj4dYBTkGZA3NVWtvLYe X2BolV0eVcNhUENrZKLs K2YpxWVkWQceG430UKydUzT0ZCMo hyOcZ2XaVAFcbPfpEhP2r3D5Bm4O RFz4MQ47GB05bUHvi3B8 jZZ0C2TlEHSnvgwckncmdWC7LKWg LCBqwT78Zx9dhKzeTm5bEJYpNVI5 YYJjdPDpL4JcfV0pVrOv DQHwKYKqU0FlzGLcAXcyN881JOem HuH6QYHaofRdS9GkCRTtmKwrItS0 u1U0Ot3ZDGEmWD61YSG4 cBG6KN97EQ62I9AxQxpcsQAtfZV+ PHRhYmxlIHdpZHRoPScxMDAlJyBz rFxlTT4xOv9fTZMvUKDf xOyhhHLeVrAyy1qyANDhRFmmIE2e wWxhB2EjnJK4TLLrm6b8Lt50U24y V3NutSX+OXOxvOA4fVF8 mM1nDfSpZwN3PKqqZ800UkVukHHl Mgybb0sqt5byoPe7HqQ8OCVqkbPs zNevCFP7s2GbAp64R72n DCscYJIpHKPuWDVxZVVpaMqpzx5j xY4zPm7+JQKvrNP6jLS6iS0fIwCp OlR7GKjjN468AwSxrCOm Wcxzl8vvc3kpuHn4RhLlXSJvzuAp jObzVGI8w1SsIf30G0DbjNnqo1Db Mbv4sc05kIPmo7V3vAW1 W2HcWEBgtzxdePOiiFpmPW2fHDVk fhoxHDWgcD1jCMYiZ8t5RvRlFzM3 APfnI5JqhxU4JNCqjPAk GQmzQLM7K43mn4L6YGJiLSUlIYF9 lYN1zN5dyPekammfeFTefIxlgkTe pYybUJgrDZkgM354UXNp cJtsHOFktV8fSCOqtXDpvXydTQ3l VWBahlbwOrXEJ3DIDSzuHSBCMLEB JGNJKX93OE20xXTai6M8 uRT4D4FpXYYxdzkpbgcfhKU0YBCk OAArjZ74iQNhWIcpKb8jf0H6c514 ZNYoTENzmG33Su0jbDrt EDYhiEWBbM3luhpve0urlttmYsCh CGVjXRa3XVd1KOSotMmsHtPbMHI6 QhF3ZNL0mSWdoR3jfWsd nnscaM7pYhr+RBFqMmafUHb1Spwd dGQ+SKAdJKU7xFkuDIfkIVRcwA1t EPBnE9w7ThQuYbJ8PLew Z3TqUXWbcfujPg42tW8iLfGkAxT3 WBgqG3HwriY8VGAafBFvVDfrBNR6 M21qx5M6LHRySGPqJJM0 vZI5wP6ebFtenrrrkJMhcGhiycTg fAbaMClbTQnoR039ROUuzSokUoS9 AJgeCITqAD04JW46aGFl k2C5uQV0A3ZfPTPqiywkkuuzdXM4 YGZiLHNbcV63gNCmOUhmTz1fj8E3 j268ISFaAXZpsA92Kp5i zHxuNHLvtIJNsX3ioiupe4pdvfnu AvEeGNQzFGr5HKf1TDGncLqsEeDz DAZ0VwU6JVJ9yJVojI0y gQbsllxgwX3pXqf+YnRcRKuaAX59 RF29bXCyc7W2sXI6R1HpOHIaokaj aiyxqYV2KAJdGFMtpM56 iWLfDOelNd0xh3I6i019DHIlWBSj rZ41Lg5yxUsbSKUicMUTqF4mdmoz r1pcuzkrZpSaQMIuCPb2 OGb8KMDnvCgqDeYxAXU2CmE1JBE5 pQNsuM0fkZlylvnidH9gAku+T3V0 oNW1sYAqyLxbgIB+PC90 hi19H2ZvAcbkDsw6FYCkDMJ0zBS1 xH5rKICkCUtfa2S3sEB8J1BtxdZv uu9tu7qxXILhOVolG59d zQDpn6W6HWEjlEG9BQLjhWcjEuSc fX76Ygs+OFMtgVblf1GmBncgp8yo p2sqxVy0TfVpRAXdwfRc qYbcEQP3x0XlHl55V30pEPdjFHKp LZYqVBWnDJMgzLynbn7kgR5wBw4+ EEIwiYL4wDN2kB3fQwSj LpJ1ZMdqR515OiZhyVRaNznzo2da q2iotTg8DlYwKDWdpbEnbApxNGV5 y5XeCg43D0OvtMaes1Fm Qnv1ni00hGMvo6H3mYI8S0OzHSMh iybjtSQefFvtFF9vJPBwmmmhDOGc cI2bJYHnK7x0HnVcBcD6 YYfjH4PjbsI4CNVepHHwFAHltUNC bA3cdvvdp0twhdriGjFwAJVxDCa5 HCy3FWWioYyqVvTgLAE1 GzQ7PCS0mMFzzU7ykHnakpeweQ5a Oyc+FOt3e2nqzKBxOA5zxOI7RW46 HN08tZGna6S7zFT9Z1Jk GMVlgkajxsmvtZQ8CLWjVKYeeB11 Oc4qmObvUj4gGYEhWGI8XQXfgUQq I0MtzZ3tWyTiIZLyPKCd J5QsnMApQSenY944LAqcMmH4VXPq txRnQ2JqVKNukFiuVdJ5v6Q9Pa9W VU38OO82YC19gVVrp6P1 pBY2L0YbGMAudustochwlOT7HIGx VMTbbD58Bt9zpQbnDx6jFKWqFTQ7 BNDzuKWhY9RayI7oGhVp CXWoYMZiZ1UjnDQnHLgxG329HIgc WlQ8RBUveyAsW3BxLIGohJwmHrG3 e9L6Zk7UYi50TF63VG77 lOYui5I2gSM8B7LfMOWlwxykgetp lDV5DWFaMIYrcM05Ew1plUfzKs4u KPSyTZF1CHWwaHNrV2Qu eR9nFiVeWIUnOUTsV7OnoFXuFAop U829LTtiRbX8IJZjnmMaP8FeHZQu mRqhKlM2k1M2Az4DPMnr cwb7R5VqLjkuvCZ+AH45SCXaBR89 nIDlbTEun9kghGv7YkOrXHTmDXM5 xWuiAIspp2TqZMJlN76z bGFw (more content not included)... Normal [facility] XR Knee Complete 4+ Views [facility] 08-04-2021 XR Knee Complete 4+ Views Right [...] MD Transcribed by: JAKOB Technologist: NAOMY Normal [facility] T3 Freeon 08-02-2021 Free T3 [Mass/Vol] 3.3 pg/mL Invalid Interpretation Code 2.0-4.4 [facility] Comment on above: Result Comment: Perf ormed at: [facility] [id number] PhD Rissa Cloud Performed By: #### 2 [id number], [id number], [id number] #### [facility] [address] [place] [address] Thyroid Perox.tpo Abon 08-02 TPO Ab Qn [IU]/mL Invalid Interpretation Code 0-34 [facility] Comment on above: Result Comment: Perf ormed at: [facility] [address] [id number] PhD Rissa Cloud Performed By: #### 2 [id number], [id number] #### [facility] [address] [place] [address] Consent for Treatmenton 07-23 Consent for Treatment [id number]#1.00CD:127 Normal [facility] Free T4on 08-01-2021 Free T4 [Mass/Vol] 0.73 ng/dL Normal 0.58-1.64 [facility] Comment on above: Performed By: #### 2 [id number], [id number], [id number], [id number] #### [facility] [address] [place] [address] Physician Orderon 08-01-2021 Physician Order [id number]#[id number]:127 Normal [facility] TSHon 08-01-2021 TSH Qn 2.64 m[IU]/L Normal 0.34-5.60 [facility] Comment on above: Performed By: #### 2 [id number], [id number], [id number], [id number] #### [facility] [address] [place] [address] SABRINA + BEATRICE PANELon 03-11-2020 SABRINA WITH REFLEX TO BEATRICE Negative Normal NEGATIVE [facility] Comment on above: Performed By: #### A NAP2 #### [facility] [place] [address] ALPHA-FETOPROTEINon 03-09-19 21 ALPHA-FETOPROTEIN <4 Normal 0 - 9 [facility] Comment on above: Result Comment: AFP testing is performed by chemiluminescent immunoassay using the Asthmatracker. Values obtained with different analyte methods cannot be used interchangeably. This test can be used as an adjunct in the diagnosis and monitoring of AFP-producing tumors, including non-seminomatous germ cell tumors and hepatocellular carcinomas. Performed By: #### A FP #### [facility] [address] [place] [address] SABRINA + BEATRICE PANELon 03-09-2020 ANTI-CENTROMERE <0.2 Normal [facility] Comment on above: Result Comment: REF VALUES < 1.0 = NEGATIVE >=1.0 = POSITIVE Performed By: #### A NAP2 #### [facility] [address] [place] [address] ANTI-CHROMATIN 0.2 AI Normal [facility] Comment on above: Result Comment: REF VALUES < 1.0 = NEGATIVE >=1.0 = POSITIVE Performed By: #### A NAP2 #### [facility] [address] [place] [address] ANTI-DNA [DS] <1.0 Normal [facility] Comment on above: Result Comment: REF VALUES NEGATIVE: <= 4 IU/ML EQUIVOCAL: 5- 9 IU/ML POSITIVE: >=10 IU/ML Performed By: #### A NAP2 #### [facility] [address] [place] [address] ANTI-STARR-1 <0.2 Normal [facility] Comment on above: Result Comment: REF VALUES < 1.0 = NEGATIVE >=1.0 = POSITIVE Performed By: #### A NAP2 #### [facility] [address] [place] [address] ANTI-RIBOSOMAL P <0.2 Normal [facility] Comment on above: Result Comment: REF VALUES < 1.0 = NEGATIVE >=1.0 = POSITIVE Performed By: #### A NAP2 #### [facility] [address] [place] [address] ANTI-PRINCIPAL TECHNICAL WRITER <0.2 Normal [facility] Comment on above: Result Comment: REF VALUES < 1.0 = NEGATIVE >=1.0 = POSITIVE Performed By: #### A NAP2 #### [facility] [address] [place] [address] ANTI-SCL-70 <0.2 Normal [facility] Comment on above: Result Comment: REF VALUES < 1.0 = NEGATIVE >=1.0 = POSITIVE Performed By: #### A NAP2 #### [facility] [address] [place] [address] ANTI-SM <0.2 Normal [facility] Comment on above: Result Comment: REF VALUES < 1.0 = NEGATIVE >=1.0 = POSITIVE Performed By: #### A NAP2 #### [facility] [address] [place] [address] ANTI-SM/PRINCIPAL TECHNICAL WRITER <0.2 Normal [facility] Comment on above: Result Comment: REF VALUES < 1.0 = NEGATIVE >=1.0 = POSITIVE Performed By: #### A NAP2 #### [facility] [address] [place] [address] ANTI-SSA <0.2 Normal [facility] Comment on above: Result Comment: REF VALUES < 1.0 = NEGATIVE >=1.0 = POSITIVE Performed By: #### A NAP2 #### [facility] [address] [place] [address] ANTI-SSB <0.2 Normal [facility] Comment on above: Result Comment: REF VALUES < 1.0 = NEGATIVE >=1.0 = POSITIVE Performed By: #### A NAP2 #### [facility] [address] [place] [address] HEPATITIS A AB-TOTALon 03-09 HEPATITIS A AB-TOTAL NONREACTIVE Normal NONREACTIVE [facility] Comment on above: Result Comment: Biot in interference may cause falsely elevated results. Patients taking a Biotin dose of up to 5 mg/day should refrain from taking Biotin for 24 hours before sample collection. Providers may contact their local laboratory for further information. Performed By: #### H AVTO #### [facility] [address] [place] [address] HEPATITIS B CORE AB-TOTALon 03-09-2020 HEP. B CORE AB-TOTAL NONREACTIVE Normal NONREACTIVE [facility] Comment on above: Result Comment: Resu lts from patients taking biotin supplements or receiving high-dose biotin therapy should be interpreted with caution due to possible interference with this test. Providers may contact their local laboratory for further information. Performed By: #### H BCRT #### [facility] [address] [place], [place] HEPATITIS B SURF ABon 2020 HEP B SURF AB <3.1 Normal <10 [facility] Comment on above: Result Comment: INTE RPRETIVE CRITERIA: <10 mIU/mL....NONREACTIVE >=10 mIU/mL...REACTIVE . Biotin interference may cause falsely decreased results. Patients taking a Biotin dose of up to 5 mg/day should refrain from taking Biotin for 24 hours before sample collection. Providers may contact their local laboratory for further information. Performed By: #### H BAB3 #### [facility] [address] [place], [place] Alpha Fetoprotein, Serumon 0 03-08-2020 AFP [Mass/Vol] ng/mL 0 - 9 -[facility]- [address] Work Phone: Comment on above: SOURCE: AFP testing is performed by chemiluminescent immunoassay using the Asthmatracker. Values obtained with different analyte methods cannot be used interchangeably. This test can be used as an adjunct in the diagnosis and monitoring of AFP-producing tumors, including non-seminomatous germ cell tumors and hepatocellular carcinomas. HEPATITIS B CORE AB-TOTALon 03-08-2020 Lab Specimen Source Normal [facility] Comment on above: Performed By: #### H BCRT #### [facility] [address] [place], [place] Performed By: #### A FP #### [facility] [address] [place], [place] Performed By: #### H BAB3 #### [facility] [address] [place], [place] Performed By: #### H AVTO #### [facility] [address] [place], [place] Hepatitis A Antibody, Totalo n 03-08-2020 HAV Ab IA Ql (S) NONREACTIVE See Below -[facility] [facility] Work Phone: Comment on above: SOURCE: Reference Ra nge: NONREACTIVE Biotin interference may cause falsely elevated results. Patients taking a Biotin dose of up to 5 mg/day should refrain from taking Biotin for 24 hours before sample collection. Providers may contact their local laboratory for further information. Hepatitis B Core Antibody, T monaelon 03-08-2020 Hepatitis B Core Antibody, Total NONREACTIVE See Below [facility] Work Phone: Comment on above: SOURCE: Reference Ra nge: NONREACTIVE Results from patients taking biotin supplements or receiving high-dose biotin therapy should be interpreted with caution due to possible interference with this test. Providers may contact their local laboratory for further information. Hepatitis B Surface Antibody on 03-08-2020 HBV surface Ag IA Ql <3.1 <10 [facility] Work Phone: Comment on above: SOURCE: INTERPRETIVE CRITERIA:<10 mIU/mL....NONREACTIVE >=10 mIU/mL...REACTIVE . Biotin interference may cause falsely decreased results. Patients taking a Biotin dose of up to 5 mg/day should refrain from taking Biotin for 24 hours before sample collection. Providers may contact their local laboratory for further information. Imm/Pathon 03-08-2020 DNA double strand Ab Qn (S) [IU]/mL [facility] Work Phone: Comment on above: REF VALUESNEGATIVE: <= 4 IU/MLEQUIVOCAL: 5- 9 IU/MLPOSITIVE: >=10 IU/ML Otheron 03-08-2020 Centromere protein B Ab Qn (S) <0.2 [facility] Work Phone: Comment on above: REF VALUES < 1.0 = N EGATIVE >=1.0 = POSITIVE Chromatin Ab Qn 0.2 {AI} [facility] Pattern[facility] Work Phone: Comment on above: REF VALUES [...] extractable nuclear Ab IA Ql (S) <0.2 [facility] Work Phone: Comment on above: REF VALUES < 1.0 = N EGATIVE >=1.0 = POSITIVE Sjogrens syndrome-A extractable nuclear Ab IA Qn (S) <0.2 [facility] [address] Work Phone: Comment on above: REF VALUES < 1.0 = N EGATIVE >=1.0 = POSITIVE Sjogrens syndrome-B extractable nuclear Ab IA Qn (S) <0.2 [facility] Work Phone: Comment on above: [...] 03Jun2020 Anti Nuclear Antibody Panel (with automatic BEATIRCE Panel); Status:Active; Requested for:05Mar2020; Perform:Lab Services - [...] between PALMER and NAFLD as well as net finisher implications of a diagnosis of PALMER and [...] consent was requested and obtained from BETZAIDA MEJIASANJUANA on this date, 03/05/2020 08:20 AM , for a telehealth visit. New patient here for evaluation of elevated liver enzymes Adult Risk ScreeningAdult Risk Screening_: There are no spiritual/cultural practices/values/needs that are [...] MCG (3000 UT) Oral Tablet Results/Data Ultrasound [id number] 02:13PMGiovanna Brooks [Feb 14, 2020 10:53AM Todd Giovanna] Reason: Unspecified for Ultrasound Liver Test NameResultFlagReference Ultrasound Liver(Report) Interpreted by: DESTINEE GUERRASON 02/18/20 07:50 Patient Name: BETZAIDA ARMENDARIZ STUDY: US LIVER; 02/17/2020 2:13 pm INDICATION: elevated liver function tests. COMPARISON: None. ACCESSION NUMBER(S): [id number] ORDERING CLINICIAN: GIOVANNA BROOKS TECHNIQUE: Multiple images [...] DESTINEE WEST 02/18/20 07:50 Iron + TIBC, Fdngt28Gph4789 12:39PMDaysiGiovanna allred Test NameResultFlagReference Iron, Serum83 ug/dL35 - 150 Total Iron Binding Tduqikrj350 ug/dL240 - 445 % Hnzxhafllp54 %L25 - 45 Transferrin, Sweox69Qib5929 12:39PMReGiovanna allred Test NameResultFlagReference Transferrin, Vxbll561 mg/dL200 - 360 Ceruloplasmin, Mqide62Irt3955 12:39PMReGiovanna allred Test NameResultFlagReference Ceruloplasmin, Serum38 mg/dL20 - 60 HIV 1/2 ANTIGEN/ANTIBODY SCREEN WITH REFLEX TO UMQALSBVBBWM86Wfu7973 12:39PMDaysiGiovanna allred Test NameResultFlagReference HIV 1/2 AG/AB SCREENNONREACTIVESee Below SOURCE: Reference Range: NONREACTIVE HIV Ag/Ab screen is performed using the Siemens Saluspot HIV Ag/Ab Combo assay which detects the presence of HIV p24 antigen as well as antibodies to HIV-1 (Group M and O) and HIV-2. Hepatitis B Surface Nwbseeg54Mjf9039 12:39PMRehuntsman mental health instituteGiovanna javier Test NameResultFlagReference Hep.B Surface AgNONREACTIVESee Below SOURCE: Reference Range: NONREACTIVE Biotin interference may cause falsely decreased results. Patients taking a Biotin dose of up to 5 mg/day should refrain from taking Biotin for 24 hours before sample collection. Providers may contact their local laboratory for further information. Hepatitis C Antibody Anzi27Vhb6012 12:39PMRehuntsman mental health instituteGiovanna javier Test NameResultFlagReference Hepatitis C-AntibodyNONREACTIVESee Below SOURCE: Reference Range: NONREACTIVE Results from patients taking biotin supplements or receiving high-dose biotin therapy should be interpreted with caution due to possible interference with this test. Providers may contact their local laboratory for further information. Hepatitis B Core IgM Aurlzgeu30Zzx6571 12:39PMReGiovanna allred Test NameResultFlagReference Hepatitis B Core Ab, IgMNONREACTIVESee Below SOURCE: Reference Range: NONREACTIVE Results from patients taking biotin supplements or receiving high-dose biotin therapy should be interpreted with caution due to possible interference with this test. Providers may contact their local laboratory for further information. EBV Jmjqf76Okb4690 12:39PMGiovanna Brooks Test NameResultFlagReference Baljit-Greenberg Virus Capsid Antigen IgGPOSITIVEANEGATIVE Baljit-Greenberg Virus Ab to Early AntigenNEGATIVENEGATIVE Baljit-Greenberg Virus Nuclear Antigen IgGPOSITIVEANEGATIVE VCA IgM AntibodyNEGATIVENEGATIVE EBV InterpretationSEE BELOW . EBV INTERPRETATION CHART . VCA-IGG VCA-IGM NA-IGG EA-IGG . ---- PRIMARY ACUTE +/- +/- - +/- LATE ACUTE + +/- +/- +/- RECOVERING + - - + PREVIOUS INFECTION + - +/- - Antimitochondrial Su98Vro3556 12:39PMReGiovanna allred Test NameResultFlagReference Mitochondrial Antibody ScreeningNEGATIVENEGATIVE Smooth Muscle Antibody Kevxdm12Rov2016 12:39PMReGiovanna allred Test NameKarenultOraliae Smooth Muscle AntibodyPOSITIVENEGATIVE Antismooth Muscle Titer1:20 Copwr-8-Rsjdwusxzkg Phenotype, Yeznx29Ghh4760 12:39PMGiovanna Brooks Test NameHuince Fbtbe-2-Quvwzpkdjdv Reztpkvbb234 mg/rI44-102 To convert to umol/L, multiply mg/dL by 0.185 Wsazz-8-Uufikdulzcm Phenotype HtqpsC6G9 The patient appears to have a normal phenotype. All M alleles (including subtypes M1, M2, and M3) produce normal serum concentrations of xlycs-6-flfusygz inhibitor and are not associated with clinical disease. Caution in interpretation is advised if the patient has been transfused within the previous 21 days. Performed By: [facility] [address] [place] [id number] Frame Repairer: Nakia Washburn MD Complete Blood Uyywy88Jef0831 03:43PMReGiovanna allred Test NameResultFlagReference White Blood Cell Count7.8 x10E9/L4.4 - 11.3 Red Blood Cell Count4.87 x10E12/LSee Below Reference Range: 4.00 - 5.20 Daleulsckj09.7 g/dLSee Below Reference Range: 12.0 - 16.0 HCT45.5 %See Below Reference Range: 36.0 - 46.0 MCV93 fL80 - 100 MCHC32.3 g/dLSee Below Reference Range: 32.0 - 36.0 Platelet Daczg071 x10E9/L150 - 450 RDW-CV12.1 %See Below Reference Range: 11.5 - 14.5 Comprehensive Metabolic Eqlmx21Het8071 03:43PMReGiovanna allred Test NameResultFlagReference Glucose, Serum90 mg/dL74 - 99 Sodium, Wqodw888 mmol/L136 - 145 POTASSIUM4.0 mmol/L3.5 - 5.3 Chloride, Sxwel962 mmol/L98 - 107 Bicarbonate, Serum25 mmol/L21 - 32 Anion Gap, Serum17 mmol/L10 - 20 Blood Urea Nitrogen, Serum8 mg/dL6 - 23 CREATININE0.75 mg/dLSee Below Reference Range: 0.50 - 1.05 Calcium, Serum9.6 mg/dL8.6 - 10.3 Albumin, Serum4.5 g/dL3.4 - 5.0 ALKALINE GFIKZBJUHRI98 U/L33 - 110 Protein, Total Serum7.9 g/dL6.4 [...] Mar 05 2020 11:11AM EST (Author) [facility]-1 ANTITRYPSIN PHENOTYP [place] 02-18-2020 A-1 ANTITRYP.PHENOTYPE M1M2 Normal [facility] Comment on above: Result Comment: The patient appears to have a normal phenotype. All M alleles (including subtypes M1, M2, and M3) produce normal serum concentrations of losop-4-tqtivtgg inhibitor and are not associated with clinical disease. Caution in interpretation is advised if the patient has been transfused within the previous 21 days. Performed By: [facility] [address] [place] [id number] Frame Repairer: Nakia Washburn MD Performed By: #### H BCRM #### [facility] [address] [place] [address] DXYDK-3-MHJHMVGWFRV 140 mg/dL Normal 90-200 [facility] Comment on above: Result Comment: To c onvert to umol/L, multiply mg/dL by 0.185 Performed By: #### H BCRM #### [facility] [address] [place] [address] Otheron 02-17-2020 US Liver Interpreted by: DESTINEE WEST02/18/20 07:50MRN: [id number] Name: BETZAIDA ARMENDARIZ STUDY:US LIVER; 02/17/2020 2:13 [...] signed by: DESTINEE WEST 02/18/20 07:50 Normal -[facility] [address] Work Phone: LIVERon 02-17-2020 US LIVER Patient Name: BETZAIDA ARMENDARIZ STUDY: US LIVER; 02/17/2020 2:13 pm INDICATION: elevated liver function tests. COMPARISON: None. ACCESSION NUMBER(S): [id number] ORDERING CLINICIAN: GIOVANNA BROOKS TECHNIQUE: Multiple images [...] by: DESTINEE WEST MD Normal [facility] ANTIMITOCHONDRIAL ABon 02-14 ANTIMITOCHONDRIAL AB Negative Normal NEGATIVE [facility] Comment on above: Performed By: #### M ITAB #### [facility] [address] [place], [place] ANTISMOOTH MUSCLE ABon 02-14 ANTISMOOTH MUSCLE AB Positive Normal NEGATIVE [facility] Comment on above: Performed By: #### A SMAB #### [facility] [address] [place], [place] ANTISMOOTH MUSCLE TITER 1:20 Normal [facility] Comment on above: Performed By: #### A SMAB #### [facility] [address] [place] [address] CERULOPLASMINon 02-14-2020 CERULOPLASMIN 38 mg/dL Normal 20 - 60 [facility] Comment on above: Performed By: #### C ERUL #### [facility] [address] [place], [place] Ceruloplasmin, Serumon 02-13 Ceruloplasmin [Mass/Vol] 38 mg/dL 20 - 60 [facility] [address] Work Phone: EBV PANELon 02-14-2020 VCA IGM ANTIBODY Negative Normal NEGATIVE [facility] Comment on above: Performed By: #### E BVP1 #### [facility] [address] [place] [address] EBV EA-D IGG ANTIBODY Negative Normal NEGATIVE [facility] Comment on above: Performed By: #### E BVP1 #### [facility] [address] [place] [address] EBV INTERPRETATION SEE BELOW Normal [facility] Comment on above: Result Comment: . EB V INTERPRETATION CHART . VCA-IGG VCA-IGM NA-IGG EA-IGG . PRIMARY ACUTE +/- +/- - +/- LATE ACUTE + +/- +/- +/- RECOVERING + - - + PREVIOUS INFECTION + - +/- - Performed By: #### E BVP1 #### [facility] [address] [place] [address] EBV NA-1 IGG ANTIBODY Positive Abnormal NEGATIVE [facility] Comment on above: Performed By: #### E BVP1 #### [facility] [address] [place] [address] VCA IGG ANTIBODY Positive Abnormal NEGATIVE [facility] Comment on above: Performed By: #### E BVP1 #### [facility] [address] [place] [address] HEPATITIS B CORE AB;IGMon HEPATITIS B CORE AB,IGM NONREACTIVE Normal NONREACTIVE [facility] Comment on above: Result Comment: Resu lts from patients taking biotin supplements or receiving high-dose biotin therapy should be interpreted with caution due to possible interference with this test. Providers may contact their local laboratory for further information. Performed By: #### H BCRM #### [facility] [address] [place] [address] Lab Specimen Source Normal [facility] Comment on above: Performed By: #### H BCRM #### [facility] [address] [place] [address] Performed By: #### H CVAB #### [facility] [address] [place] [address] Performed By: #### H IV #### [facility] [address] [place] [id number] HEPATITIS B SURFACE AGon HEP.B SURFACE AG NONREACTIVE Normal NONREACTIVE [facility] Comment on above: Result Comment: Biot in interference may cause falsely decreased results. Patients taking a Biotin dose of up to 5 mg/day should refrain from taking Biotin for 24 hours before sample collection. Providers may contact their local laboratory for further information. Performed By: #### H BCRM #### [facility] [address] [place] [id number] HEPATITIS C ABon 02-14-2020 HEPATITIS C AB NONREACTIVE Normal NONREACTIVE [facility] Comment on above: Result Comment: Resu lts from patients taking biotin supplements or receiving high-dose biotin therapy should be interpreted with caution due to possible interference with this test. Providers may contact their local laboratory for further information. Performed By: #### H CVAB #### [facility] [address] [place] [address] HIV 1/2 ANTIGEN/ANTIBODY SCR EEN WITH REFLEX TO CONFIRMATIONon 02-14-2020 HIV 1/2 AG/AB SCREEN NONREACTIVE Normal NONREACTIVE [facility] Comment on above: Result Comment: HIV Ag/Ab screen is performed using the Siemens Saltside TechnologiesllWork4 HIV Ag/Ab Combo assay which detects the presence of HIV p24 antigen as well as antibodies to HIV-1 (Group M and O) and HIV-2. Performed By: #### H IV #### [facility] [address] [place], [place] HIV 1+2 Ab+HIV1 p24 Ag IA Ql NONREACTIVE See Below [employer] [address] Work Phone: Comment on above: SOURCE: Reference Ra nge: NONREACTIVE HIV Ag/Ab screen is performed using the roundCornerllWork4 HIV Ag/Ab Combo assay which detects the presence of HIV p24 antigen as well as antibodies to HIV-1 (Group M and O) and HIV-2. Hepatitis B Surface Antigeno n 02-14-2020 Hepatitis B Surface Antigen NONREACTIVE See Below [employer] [address] Work Phone: Comment on above: [...] % Low 25 - 45 [facility] Comment on above: Performed By: #### I RONT #### [facility] [address] [place] [address] Iron [Mass/Vol] 83 ug/dL Normal 35 - 150 [facility] Comment on above: Performed By: #### I FLORYT #### [facility] [address] [place] [address] TIBC 374 ug/dL Normal 240 - 445 [facility] Comment on above: Performed By: #### I FLORYT #### [facility] [address] [place] [address] Imm/Pathon 02-14-2020 EBV early IgM IA Qn [...] and M3) produce normal serum concentrations of eikce-6-kzdijkau inhibitor and are not associated with clinical disease. Caution in interpretation is advised if the patient has been transfused within the previous 21 days.Performed By: [facility] [place] [id number] Director: Nakia Washburn MD EBV capsid IgG [...] mg/dL Normal 200 - 360 [facility] Comment on above: Performed By: #### T DOMINIQUE #### [facility] [address] [place] [address] Transferrin, Serumon 020 Transferrin [Mass/Vol] 283 mg/dL 200 - 360 [facility] [address] Work Phone: CBCon 02-13-2020 Erythrocyte distribution width (RBC) [Ratio] 12.1 % Normal 11.5 - 14.5 [facility] Comment on above: Performed By: #### C BC #### [address] [id number] Hematocrit (Bld) [Volume fraction] 45.5 % Normal 36.0 - 46.0 [facility] Comment on above: Performed By: #### C BC #### [address] [id number] Hemoglobin (Bld) [Mass/Vol] 14.7 g/dL Normal 12.0 - 16.0 [facility] Comment on above: Performed By: #### C BC #### [address] [id number] MCHC (RBC) [Mass/Vol] 32.3 g/dL Normal 32.0 - 36.0 [facility] Comment on above: Performed By: #### C BC #### [address] [id number] MCV (RBC) [Entitic vol] 93 fL Normal 80 - 100 [facility] Comment on above: Performed By: #### C BC #### [address] [id number] Platelets (Bld) [#/Vol] 421 10*3/uL Normal 150 - 450 [facility] Comment on above: Performed By: #### C BC #### [address] [id number] RBC (Bld) [#/Vol] 4.87 x10E12/L Normal 4.00 - 5.20 [facility] Comment on above: Performed By: #### C BC #### [address] [id number] WBC (Bld) [#/Vol] 7.8 10*3/uL Normal 4.4 - 11.3 [facility] Comment on above: Performed By: #### C BC #### [address] [id number] COMPREHENSIVE PANELon 2019 Albumin [Mass/Vol] 4.5 g/dL Normal 3.4 - 5.0 [facility] Comment on above: Performed By: #### C MP #### [address] [id number] ALP [Catalytic activity/Vol] 91 U/L Normal 33 - 110 [facility] Comment on above: Performed By: #### C MP #### [address] [id number] ALT [Catalytic activity/Vol] 87 U/L High 7 - 45 [facility] Comment on above: Result Comment: Yamini ents treated with Sulfasalazine may generate falsely decreased results for ALT. Performed By: #### C MP #### [address] [id number] Anion gap [Moles/Vol] 17 mmol/L Normal 10 - 20 [facility] Comment on above: Performed By: #### C MP #### [address] [id number] AST [Catalytic activity/Vol] 74 U/L High 9 - 39 [facility] Comment on above: Performed By: #### C MP #### [address] [id number] Bilirubin [Mass/Vol] 0.6 mg/dL Normal 0.0 - 1.2 [facility] Comment on above: Performed By: #### C MP #### [address] [id number] Calcium [Mass/Vol] 9.6 mg/dL Normal 8.6 - 10.3 [facility] Comment on above: Performed By: #### C MP #### [address] [id number] Chloride [Moles/Vol] 102 mmol/L Normal 98 - 107 [facility] Comment on above: Performed By: #### C MP #### [address] [id number] Creatinine [Mass/Vol] 0.75 mg/dL Normal 0.50 - 1.05 [facility] Comment on above: Performed By: #### C MP #### [address] [id number] GFR- AM. >60 Normal >60 [facility] Comment on above: Result Comment: CALC ULATIONS OF ESTIMATED GFR ARE PERFORMED USING THE MDRD STUDY EQUATION FOR THE IDMS-TRACEABLE CREATININE METHODS. CLIN CHEM 2007;53:766-72 Performed By: #### C MP #### [address] [id number] GFR-NON AM. >60 Normal >60 [facility] Comment on above: Performed By: #### C MP #### [address] [id number] Glucose [Mass/Vol] 90 mg/dL Normal 74 - 99 [facility] Comment on above: Performed By: #### C MP #### [address] [id number] HCO3 (Bld) [Moles/Vol] 25 mmol/L Normal 21 - 32 [facility] Comment on above: Performed By: #### C MP #### [address] [id number] Potassium [Moles/Vol] 4.0 mmol/L Normal 3.5 - 5.3 [facility] Comment on above: Performed By: #### C MP #### [address] [id number] Protein [Mass/Vol] 7.9 g/dL Normal 6.4 - 8.2 [facility] Comment on above: Performed By: #### C MP #### [address] [id number] Sodium [Moles/Vol] 140 mmol/L Normal 136 - 145 [facility] Comment on above: Performed By: #### C MP #### [address] [id number] Urea nitrogen [Mass/Vol] 8 mg/dL Normal 6 - 23 [facility] Comment on above: Performed By: #### C MP #### [address] [id number] 19-50 Yearson 02-13-2020 [age] Years Diagnoses/Problems Health [...] mild; DALIA = N; Verified Transmission to [id number]; Last Updated By: [employer]; 02/13/2020 3:19:17 PM Fatigue Complete Blood Count; Status:Active; Requested for:[id number]; Perform:Lab Services - Lab To Draw (Blood Test); Due:13May2020;Ordered; For:Fatigue; Ordered By:Giovanna Brooks; Comprehensive Metabolic Panel; Status:Active; Requested for:[id number]; Perform:Lab Services - Lab To Draw (Blood Test); Due:13May2020;Ordered; For:Fatigue; Ordered By:Giovanna Brooks; TSH - Thyroid Stimulating Hormone, Serum; Status:Active; Requested for:[id number]; Perform:Lab Services - Lab To Draw (Blood Test); Due:13May2020;Ordered; For:Fatigue; Ordered By:Giovanna Brooks; Vitamin B12, Serum; Status:Active; Requested for:[id number]; Perform:Lab Services - Lab To Draw (Blood Test); Due:13May2020;Ordered; For:Fatigue; Ordered By:Giovanna Brooks; Health Maintenance Lipid Panel; Status:Active; Requested for:[id number]; Perform:Lab Services - Lab To Draw (Blood Test); Due:13May2020;Ordered; For:Health Maintenance; Ordered By:Giovanna Brooks; Restless leg syndrome Start: rOPINIRole HCl - 0.25 MG Oral Tablet; TAKE 1 TABLET Bedtime Rx By: Giovanna Brooks; Dispense: 30 Days ; #:30 Tablet; Refill: 2;For: Restless leg syndrome; DALIA = N; Verified Transmission to [facility] #38[facility]; Last Updated By: [employer]; 02/13/2020 3:16:55 PM Screening mammogram, encounter for Mamm - Screening Mammogram w/ Tomosynthesis; Status:Hold For - Scheduling; Requested for:[id number]; Perform:[facility] Imaging; Due:45Zfe2389;Ordered; For:Screening mammogram, encounter for; Ordered By:Giovanna Brooks; [...] Release Multivitamins TABS Vitals Vital Signs Recorded: 30Ftc1036 02:50PM Bwlebijwrpt55.7 F, Temporal Heart Rate76 Pulse QualityIrregular Yffhnitzizj40 Respiration QualityNormal Ubldfbuk865, LLE, Sitting Zavwbaqnq37, LLE, Sitting Blood Pressure Cuff SizeLarge Height5 ft 6 in Henwoz892 lb 6 oz BMI Hwabwneuwg94.25 BSA Calculated2.08 Tobacco Useb) No Fall Screeninga) [...] Feb 13 2020 3:39PM EST (Author) Normal [facility] H[facility]ology[facility] 02-13-2020 Hematocrit (Bld) [Volume fraction] 45.5 % See Below [facility] [address] Work Phone: Comment on above: Reference Range: 36. 0 - 46.0 Hemoglobin (Bld) [Mass/Vol] 14.7 g/dL See Below [facility] [address] Work Phone: Comment on above: Reference Range: 12. 0 - 16.0 MCV (RBC) [Entitic vol] 93 fL 80 - 100 [facility] [address] [address] Work Phone: Platelets (Bld) [#/Vol] 421 {x10E9/L} 150 - 450 [facility] [address] [address] Work Phone: RBC (Bld) [#/Vol] 4.87 {x10E12/L} See Below [facility] [address] Work Phone: Comment on above: Reference Range: 4.0 0 - 5.20 WBC (Bld) [#/Vol] 7.8 {x10E9/L} 4.4 - 11.3 [facility] [address] Work Phone: LIPID PANEL (CORONARY RISK 2 )on 02-13-2020 Cholesterol [Mass/Vol] 231 mg/dL High 0 - 199 [facility] Comment on above: Result Comment: . AGE [...] dosing. Performed By: #### L IPID #### [address] [id number] Cholesterol in HDL [Mass/Vol] 41.0 mg/dL Normal [facility] Comment on above: Result Comment: . AGE VERY LOW LOW NORMAL HIGH 0-19 Y < 35 < 40 40-45 ---- 20-24 Y ---- < 40 >45 ---- >24 Y ---- < 40 40-60 >60 . Performed By: #### L IPID #### [address] [id number] Cholesterol in LDL [Mass/Vol] 155 mg/dL High 0 - 99 [facility] Comment on above: Result Comment: . NEAR BORD AGE DESIRABLE OPTIMAL HIGH HIGH VERY HIGH 0-19 Y 0 - 109 --- 110-129 >/= 130 ---- 20-24 Y 0 - 119 --- 120-159 >/= 160 ---- >24 Y 0 - 99 100-129 130-159 160-189 >/=190 . Performed By: #### L IPID #### [address] [id number] Cholesterol in VLDL [Mass/Vol] 35 mg/dL Normal 0 - 40 [facility] Comment on above: Performed By: #### L IPID #### [address] [id number] Cholesterol.total/C holesterol in HDL [Mass ratio] 5.6 {ratio} Abnormal [facility] Comment on above: Result Comment: REF VALUES DESIRABLE < 3.4 HIGH RISK > 5.0 Performed By: #### L IPID #### [address] [id number] Triglyceride [Mass/Vol] 175 mg/dL High 0 - 149 [facility] Comment on above: Result Comment: . AGE [...] dosing. Performed By: #### L IPID #### [address] [id number] Lipid Panelon 02-13-2020 Cholesterol [Mass/Vol] 231 mg/dL above high threshold 0 - 199 [facility] [address] Work Phone: Comment on [...] dosing. Cholesterol in HDL [Mass/Vol] 41.0 mg/dL [facility] [address] Work Phone: Comment on above: . AGE VERY LOW LOW N ORMAL HIGH 0-19 Y < 35 < 40 40-45 ---- 20- 24 Y ---- < 40 >45 ---- >24 Y ---- < 40 40-60 >60. Cholesterol in LDL [Mass/Vol] 155 mg/dL above high threshold 0 - 99 [facility] 201 Work Phone: Comment on above: . NEAR BORD AGE JUSTIN RABLE OPTIMAL HIGH HIGH VERY HIGH 0-19 Y 0 - 109 --- 110-129 >/= 130 ---- 20-24 Y 0 - 119 --- 120-159 >/= 160 ---- >24 Y 0 - 99 100-129 130-159 160-189 >/=190. Cholesterol.total/C holesterol in HDL [Mass ratio] 5.6 {ratio} Abnormal [facility] Work Phone: Comment on above: REF VALUESDESIRABLE < 3.4HIGH RISK > 5.0 Triglyceride [Mass/Vol] 175 mg/dL above high threshold 0 - 149 [facility] 201 Work Phone: Comment on [...] 35 mg/dL 0 - 40 [facility] Work Phone: Metabolic Panelon 02-13-2020 ALP [Catalytic activity/Vol] 91 U/L 33 - 110 [facility] Work Phone: Anion gap [Moles/Vol] 17 mmol/L 10 - 20 [facility] 201 Work Phone: Bilirubin [Mass/Vol] 0.6 mg/dL 0.0 - 1.2 [facility] Work Phone: Calcium [Mass/Vol] 9.6 mg/dL 8.6 - 10.3 [facility] Work Phone: Chloride [Moles/Vol] 102 mmol/L 98 - 107 [facility] Work Phone: CO2 [Moles/Vol] 25 mmol/L 21 - 32 [facility] [place] 201 Work Phone: Creatinine [Mass/Vol] 0.75 mg/dL See Below [facility] 201 Work Phone: [...] Qn 2.89 m[IU]/L Normal 0.44 - 3.98 [facility] Comment on above: Result Comment: TSH testing is performed using different testing methodology at [facility] than at other [facility]. Direct result comparisons should only be made within the same method. Performed By: #### T SH2 #### [facility] [address] [place], [place] [id number] TSH - Thyroid Stimulating Ho rmone, Serumon 02-13-2020 TSH Qn 2.89 {mIU/L} See Below [facility] 201 Work Phone: Comment on above: Reference Range: 0.4 4 - 3.98 TSH testing is performed using different testing methodology at [facility] than at other [facility]. Direct result comparisons should only be made within the same method. Vitamin B12, Serumon 020 Cobalamin (Vitamin B12) [Mass/Vol] 413 pg/mL Normal 211 - 911 [facility] 201 Work Phone: Comment on above: Performed By: #### V TB12 #### [facility] [address] [place], [place] [id number] Culture, Urine Bacterialon 0 07-26-2017 Culture, Urine Bacterial BILL#: [id number] : 77 AGE: SEX:FDOUGLASSOURCE: URINE COLLECTED: 07/26/17 08:50ANTIBIOTICS AT MICHELLE.: RECEIVED : 07/27/17 18:22SITE: UnspecifiedR E S U L T SURINE CULTURE,BACTERIAL FINAL 07/28/17 11:10NO GROWTH Normal [facility] Comment on above: Performed By: #### C XBUR ####[facility] X[address] [place] [address] Basic Metabolic Panelon 05- Anion gap 15 mmol/L Normal 10-20 [facility] Healthcare Comment on above: Performed By: #### 1 [id number] ####[facility] [address] [facility] [place] [address] Bicarbonate (HCO3) 21 mmol/L Normal 21-32 [facility] Comment on above: Performed By: #### 1 [id number] ####[facility] Ybk[address] [facility] [address] BUN/Creatinine Ratio 16 mg/mg Normal 5-25 [facility] Comment on above: Performed By: #### 1 [id number] ####[facility] [address]xm[address] [facility] [address] Calcium 9.5 mg/dL Normal 8.6-10.3 [facility] Comment on above: Performed By: #### 1 [id number] ####[facility] [address] [place] [address] Chloride 106 mmol/L Normal 98-107 [facility] Comment on above: Performed By: #### 1 [id number] ####[facility] F[address] [place] [address] Creatinine 0.77 mg/dL Normal 0.50-1.05 [facility] Comment on above: Performed By: #### 1 [id number] ####[facility] [address] [place] [address] eGFR (MDRD) mL/min/{1.73_m2} Normal [facility] Comment on above: Result Comment: Inte rpretation for Chronic Kidney Disease:Stages 1&2 >60 Healthy or potential kidney damage.Mild decrease of GFR.Stage 3 30-59 Moderate decrease of GFR.Stage 4 15-29 Severe decrease of GFR.Stage 5 <15 Kidney failure or on dialysis. Performed By: #### 1 [id number] ####[facility] [address] [facility] [place] [address] Glucose mass conc 101 mg/dL High 70-100 [facility] Comment on above: Performed By: #### 1 [id number] ####[facility] [address] [place] [address] Potassium molar conc 4.3 mmol/L Normal 3.5-5.1 [facility] Healthcare Comment on above: Performed By: #### 1 [id number] ####[facility] [address] [place] [address] Sodium 138 mmol/L Normal 136-145 [facility] Comment on above: Performed By: #### 1 [id number] ####[facility] [address] [place] [address] Urea nitrogen 12 mg/dL Normal 6-23 [facility] Healthcare Comment on above: Performed By: #### 1 [id number] ####[facility] [address] [place] [address] CBCon 07-09-2017 Erythrocyte distribution width Auto Ratio (RBC) 12.3 % Normal 12.0-15.4 [facility] Comment on above: Performed By: #### 2 [id number] ####[facility] [address]ls[address] [place] [address] Erythrocytes (RBC) 4.63 10*6/uL Normal 3.85-5.10 [facility] Comment on above: Performed By: #### 2 [id number] ####[facility] [address] [place] [address] Hematocrit (HCT) 41.9 % Normal 36.5-46.6 [facility] Comment on above: Performed By: #### 2 [id number] ####[facility] [address] [place] [address] Hemoglobin mass conc (Bld) 14.1 g/dL Normal 11.8-15.3 [facility] Comment on above: Performed By: #### 2 [id number] ####[facility] [address] [place] [address] MCH 30.5 pg Normal 27.5-33.0 [facility] Healthcare Comment on above: Performed By: #### 2 [id number] ####[facility] [address] [place] [address] MCHC mass conc (RBC) 33.7 g/dL Normal 30.1-35.0 [facility] Comment on above: Performed By: #### 2 [id number] ####[facility] [address] [facility] [place] [address] MCV 90.5 fL Normal 85.4-100.0 [facility] Healthcare Comment on above: Performed By: #### 2 [id number] ####[facility] [address] [place] [address] NRBC Absolute 0.00 10*3/uL Normal [facility] Healthcare Comment on above: Performed By: #### 2 [id number] ####[facility] [address] [facility] [place] [address] NRBC Automated 0.0 /100{WBCs} Normal [facility] Healthcare Comment on above: Performed By: #### 2 [id number] ####[facility] Ykd[address] [facility] [address] Platelet mean volume (PMV) 10.0 fL Normal 9.9-12.1 [facility] Healthcare Comment on above: Performed By: #### 2 147031 ####[facility] [address] [facility] [place] [address] Platelets 287 10*3/uL Normal 155-404 [facility] Healthcare Comment on above: Performed By: #### 2 348075 ####[facility] Y[address] [facility] [place] [address] RDW SD 40.3 fL Normal 39.3-48.6 [facility] Healthcare Comment on above: Performed By: #### 2 [id number] ####[facility] Ubc[address] [facility] [place] [address] WBC (Leukocytes) 6.7 10*3/uL Normal 4.4-9.9 [facility] Healthcare Comment on above: Performed By: #### 2 [id number] ####[facility] Xbr[address] [facility] [place] [address] Pathology ([facility])on 07-09-2017 Pathology ([facility]) FINAL SURGICAL PATHO LOGY [id number] FINAL DIAGNOSISUTERUS, CERVIX AND BILATERAL FALLOPIAN TUBES-UTERUS, 113 GRAMS.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, [address] [place] [place] [address] [id number] DESCRIPTION: Received in prefer fixative, labeled Mariela Armendariz and designated uteruswith [...] fallopian tube.CAESigned Out by:CHRISTI VIGILeported: 07/12/2017 Normal [facility] Comment on above: Performed By: #### S UR ####[facility] [address] [place] [address] Test (Serum)on Test, Serum Negative Normal [facility] Comment on above: Performed By: #### 3 [id number] ####[facility] [address] [place] [address] Type and Screenon 07-09-2017 Antibody Screen Negative Normal [facility] Comment on above: Performed By: #### T S3 ####[facility] [address] [place] [address] Group and Rh Positive [facility] Comment on above: Result Comment: @ 09:38 by RSIM:No previous history found to confirm this result.If transfusion of RBC's or FFP is requested, a secondsample must be collected at a separate phlebotomyto confirm the ABORH. Performed By: #### T S3 ####[facility] [address] [place] [address] Mammo Screening Bilat CAD To kelly 06-08-2017 Mammo Screening Bilat CAD Jimbo [facility] Patient: BETZAIDA ARMENDARIZ [address] MR#: [id number] [place], [place] [address] : [address] Elzbieta Paniagua MD Dept: Diagnostic Imaging Loc: OPC DI REPORT Service Dt:06/07/17 Report#: [id number] Adm Dt: 06/07/17 Dis Dt: Comments: STUDY: MG Mammo Screening Bilat CAD Jimbo; 06/07/2017 5:45 pm ACCESSION NUMBER(S): [id number] ORDERING CLINICIAN: Elzbieta Paniagua INDICATION: Screening. 42-year-old female with a [...] by: Jayda Dallas 06/08/2017 12:26 PM Normal [facility] Pelvis Complete Transvaginal on 06-08-2017 Pelvis Complete Transvaginal [facility] Patient: BETZAIDA ARMENDARIZ [address] [facility] MR#: [id number] [place], [place] [address] : [address] Elzbieta Paniagua MD Dept: Diagnostic Imaging Loc: [facility]PC DI REPORT Service Dt:06/07/17 Report#: [id number] Adm Dt: 06/07/17 Dis Dt: Comments: STUDY: US Pelvis Complete Transvaginal; 06/07/2017 5:30 pm INDICATION: IRREGULAR MENSES. COMPARISON: None. ACCESSION NUMBER(S): [id number] ORDERING CLINICIAN: Elzbieta Paniagua TECHNIQUE: Multiple multiplanar static lion scale, [...] by: Steve Church 06/08/2017 8:19 AM Normal [facility] Complete Blood Count w/diff $$on 06-01-2017 Basophils Auto #/vol (Bld) 0.0 10 /uL Low 0.04-0.9 [facility] Comment on above: Performed By: #### C BC, FT4, TSH, FSH, LH, PROL ####[address] [address] Basophils/100 WBC Auto (Bld) 1 % Normal 0-1 [facility] Comment on above: Performed By: #### C BC, FT4, TSH, FSH, LH, PROL ####[address] [address] Eosinophils 0.0 10 3/uL Low 0.03-0.6 [facility] Comment on above: Performed By: #### C BC, FT4, TSH, FSH, LH, PROL ####[address] [address] Eosinophils/100 leukocytes 0 % Normal 0-3 [facility] Comment on above: Performed By: #### C BC, FT4, TSH, FSH, LH, PROL ####[address] [address] Erythrocyte distribution width Auto Ratio (RBC) 12.6 % Normal 11.5-14.5 [facility] Comment on above: Performed By: #### C BC, FT4, TSH, FSH, LH, PROL ####[address] [address] Erythrocytes (RBC) 4.64 10 6/uL Normal 4.2-5.4 [facility] Comment on above: Performed By: #### C BC, FT4, TSH, FSH, LH, PROL ####[address] [place] [address] Hematocrit (HCT) 43.5 % Normal 35-47 [facility] Comment on above: Performed By: #### C BC, FT4, TSH, FSH, LH, PROL ####[address] [address] Hemoglobin mass conc (Bld) 13.7 g/dL Normal 12.0-16.0 [facility] Comment on above: Performed By: #### C BC, FT4, TSH, FSH, LH, PROL ####[address] [address] Immature Gran# (Auto) 0.0 10 3/uL Normal [facility] Comment on above: Performed By: #### C BC, FT4, TSH, FSH, LH, PROL ####[address] [address] Immature granulocytes #/vol (Bld) 0.4 % Normal 0.0-0.9 [facility] Comment on above: Performed By: #### C BC, FT4, TSH, FSH, LH, PROL ####[address] [address] Lymphocytes 2.0 10 3/uL Normal 1-3.5 [facility] Comment on above: Performed By: #### C BC, FT4, TSH, FSH, LH, PROL ####[address] [address] Lymphocytes/100 leukocytes 30 % Normal 24-44 [facility] Comment on above: Performed By: #### C BC, FT4, TSH, FSH, LH, PROL ####[address] [address] MCH 29.5 pg Normal 27-34 [facility] Comment on above: Performed By: #### C BC, FT4, TSH, FSH, LH, PROL ####[address] [place] [address] MCH 31.5 g/dL Low 33-37 [facility] Comment on above: Performed By: #### C BC, FT4, TSH, FSH, LH, PROL ####[address] [address] MCV 93.8 fL Normal 80-100 [facility] Comment on above: Performed By: #### C BC, FT4, TSH, FSH, LH, PROL ####[address] [address] Monocytes 0.3 10 3/uL Normal 0.04-0.9 [facility] Comment on above: Performed By: #### C BC, FT4, TSH, FSH, LH, PROL ####[address] [address] Monocytes/100 leukocytes 4 % Normal 1-8 [facility] Comment on above: Performed By: #### C BC, FT4, TSH, FSH, LH, PROL ####[address] [address] Neutrophils 4.3 10 3/uL Normal 1.8-7.0 [facility] Comment on above: Performed By: #### C BC, FT4, TSH, FSH, LH, PROL ####[address] [address] Neutrophils/100 leukocytes 65 % Normal 42-76 [facility] Comment on above: Performed By: #### C BC, FT4, TSH, FSH, LH, PROL ####[address] [address] Nucleated erythrocytes 0.0 % Normal 0.0-0.0 [facility] Comment on above: Performed By: #### C BC, FT4, TSH, FSH, LH, PROL ####[address] [address] Platelet mean volume (PMV) 9.7 fL Normal 7.4-10.4 [facility] Comment on above: Performed By: #### C BC, FT4, TSH, FSH, LH, PROL ####[facility] [place] [address] Platelets 340 10 3/uL Normal 150-400 [facility] Comment on above: Performed By: #### C BC, FT4, TSH, FSH, LH, PROL ####[address] [address] WBC (Leukocytes) 6.7 10 3/uL Normal 4.0-11.0 [facility] Comment on above: Performed By: #### C BC, FT4, TSH, FSH, LH, PROL ####[address] [address] Follicle Stimulating Hormone on 06-01-2017 Follicle Stimulating Hormone 4.2 IU/L Normal [facility] Comment on above: Result Comment: REF VALUESFOLLICULAR 0-99AJP-THYVT 12-25LUTEAL PHASE 2-12MENOPAUSE 30-150PREPUBERTY 50% ADULTADULT MALE 2-10INFANTS 0-1Performing Site: [facility] [address] [id number] Performed By: #### C BC, FT4, TSH, FSH, LH, PROL ####[address] [address] Free T4on 06-01-2017 Thyroxine (T4) free 1.0 ng/dL Normal 0.8-1.5 [facility] Comment on above: Performed By: #### C BC, FT4, TSH, FSH, LH, PROL ####[facility] [place] [address] Luteinizing Hormoneon 2017 Luteinizing Hormone 2.7 IU/L Normal [facility] Comment on above: Result Comment: REF VALUESFOLLICULARPHASE 1.5-10.0MID-CYCLE 13.0-72.0LUTEAL PHASE 0.5-13.0MENOPAUSE 15.0-65.0PREPUBERTY 0- 3.0CHILDREN 0- 6.0ADULT MALE 1.0- 9.0Performing Site: [facility] - [address] [place] [address] Performed By: #### C BC, FT4, TSH, FSH, LH, PROL ####[facility] [place] [address] Prolactinon 06-01-2017 Prolactin 5.1 ug/L Low 6.0-20.0 [facility] Comment on above: Result Comment: Perf orming Site: [facility] - [address] [place] [address] Performed By: #### C BC, FT4, TSH, FSH, LH, PROL ####[address] [address] Thyroid Stimulating Hormoneo n 06-01-2017 Thyroid stimulating hormone (TSH) 2.36 m[IU]/L Normal 0.358-3.74 [facility] Comment on above: Performed By: #### C BC, FT4, TSH, FSH, LH, PROL ####[address] [address] Vital Signs Date Time Vital Sign Value Performing Clinician Facility 12-09-2023 09:38-0400 Body mass index (BMI) [Ratio] 32.73 kg/m2 Z[facility] Work Phone: [facility] 12-09-2023 09:38-0400 Body weight 91.99 kg [facility] Work Phone: [facility] 12-09-2023 09:38-0400 Diastolic blood pressure 80 mm[Hg] [facility] Work Phone: [facility] 12-09-2023 09:38-0400 Systolic blood pressure 120 mm[Hg] [facility] Work Phone: [facility] 08-19-2021 14:30-0400 Body height 167.64 cm Paul Easterwood Other [facility] Other 08-19-2021 14:30-0400 Body mass index (BMI) [Ratio] 35.51 kg/m2 Paul Easterwood Other [facility] Other 08-19-2021 14:30-0400 Body temperature 98.4 [degF] Paul Easterwood Other [facility] Other 08-19-2021 14:30-0400 Body weight 99.79 kg Paul Easterwood Other [facility] Other 08-19-2021 14:30-0400 Diastolic blood pressure 90 mm[Hg] Paul Easterwood Other [facility] Other 08-19-2021 14:30-0400 Respiratory rate 20 /min Paul Easterwood Other [facility] Other 08-19-2021 14:30-0400 SaO2% (BldA) [Mass fraction] 98 % Paul Easterwood Other [facility] Other 08-19-2021 14:30-0400 Systolic blood pressure 128 mm[Hg] Paul Easterwood Other [facility] Other 08-01-2021 12:00-0400 Body height 167.64 cm Paul Easterwood Other [facility] Other 08-01-2021 12:00-0400 Body mass index (BMI) [Ratio] 35.99 kg/m2 Paul Easterwood Other [facility] Other 08-01-2021 12:00-0400 Body temperature 97.6 [degF] Paul Easterwood Other [facility] Other 08-01-2021 12:00-0400 Body weight 101.15 kg Paul Zamoraerwood Other [facility] Other 08-01-2021 12:00-0400 Diastolic blood pressure 82 mm[Hg] Paul Noaherbelle Other [facility] Other 08-01-2021 12:00-0400 Respiratory rate 20 /min Paul Noaherbelle Other [facility] Other 08-01-2021 12:00-0400 SaO2% (BldA) [Mass fraction] 98 % Paul Jj Other [facility] Other 08-01-2021 12:00-0400 Systolic blood pressure 124 mm[Hg] Paul Easterwood Other [facility] Other 03-08-2020 17:33-0500 BMI (Body Mass Index) 34.94 kg/m2 Giovanna Brooks NI-TNSZ-Kcwiados 201 Work Phone: 03-08-2020 17:33-0500 Body Temperature 97.3 [degF] Giovanna Brooks LZ-XUMH-Mtlvxjv e 201 Work Phone: Comment on above: Method: Temporal 03-08-2020 17:33-0500 Body weight 98.2 kg Giovanna Brooks CT-ZWOI-Lengjbjv 201 Work Phone: 03-08-2020 17:33-0500 BP Diastolic 78 mm[Hg] Giovanna Revolinsky YA-VUAD-Ifmrxagd 201 Work Phone: Comment on above: Location: LUE; Position: Sitting 03-08-2020 17:33-0500 BP Systolic 126 mm[Hg] Giovanna Brooks MW-EHSF-Bieayonw 201 Work Phone: Comment on above: Location: LUE; Position: Sitting 03-08-2020 17:33-0500 BSA (Body Surface Area) 2.07 m2 Giovanna Contrerassksasha BO-NHZU-Jyvjtvce 201 Work Phone: 03-08-2020 17:33-0500 Height 167.64 cm Giovanna Revolinsky CN-CKHH-Lkdgsnnt 201 Work Phone: 03-08-2020 17:33-0500 Pulse (Heart Rate) 74 /min Giovanna Brooks XY-KWEK-Ccitg nuno 201 Work Phone: Comment on above: Quality: Normal 03-08-2020 17:33-0500 Respiratory Rate 16 /min Giovanna Contrerassky XB-DDMD-Fluopok e 201 Work Phone: Comment on above: Quality: Normal 02-13-2020 16:50-0500 BMI (Body Mass Index) 35.25 kg/m2 Giovanna Contrerassksasha IR-ZLPA-Wvgjxdwl 201 Work Phone: 02-13-2020 16:50-0500 Body Temperature 97.7 [degF] Giovanna Contrerassky VZ-ZHSU-Reilmyg e 201 Work Phone: Comment on above: Method: Temporal 02-13-2020 16:50-0500 Body weight 99.05 kg Giovanna Revolinsky EE-FUFL-Hszsvlpg 201 Work Phone: 02-13-2020 16:50-0500 BP Diastolic 74 mm[Hg] Giovanna Revdrewsky AN-WDMV-Lbrklpta 201 Work Phone: Comment on above: Location: LLE; Position: Sitting 02-13-2020 16:50-0500 BP Systolic 130 mm[Hg] Giovanna Brooks MP-[facility]C-[place] 201 Work Phone: Comment on above: Location: E; Position: Sitting 02-13-2020 16:50-0500 BSA (Body Surface Area) 2.08 m2 Giovanna Brooks MP-[facility]SP[facility]-[place] 201 Work Phone: 02-13-2020 16:50-0500 Height 167.64 cm Giovanna Brooks VT-ASSC-Svamnwdq 201 Work Phone: 02-13-2020 16:50-0500 Pulse (Heart Rate) 76 /min Giovanna Brooks NH-OOBD-Ilfwa nuno 201 Work Phone: Comment on above: Quality: Irregular 02-13-2020 16:50-0500 Respiratory Rate 16 /min Giovanna Brooks DO-GJOZ-Owqhemw e 201 Work Phone: Comment on above: Quality: Normal Encounters Encounter Date Encounter Type Care Provider Facility Start: 12-09-2023 End: 12-09-2023 Bamboo flowsheet Amilcar Kalin DO Work Phone: [facility] Start: 12-09-2023 End: 12-09-2023 Bamboo flowsheet Amilcar Kalin DO Work Phone: [facility] Start: 12-09-2023 End: 12-09-2023 Clinisync Result Encounter Amilcar Kalin DO Work Phone: [facility] External Department Unsolicited Start: 12-09-2023 End: 12-09-2023 ambulatory AMILCAR KALIN Not Available Start: 12-09-2023 End: 12-09-2023 Patient encounter procedure Amilcar Kalin DO Work Phone: [facility] Work Phone: Start: 12-09-2023 End: 12-09-2023 Periodic preventive med est patient 40-64yrs Amilcar Kalin DO Work Phone: [facility] Comment on above: Well woman exam with routine gynecological exam; Breast cancer screening by mammogram; Postmenopausal state; Encounter for long-term (current) use of medications Start: 09-08-2023 End: 09-08-2023 ambulatory CYNDIE FELIX Not Available Start: 08-10-2023 End: 08-10-2023 ambulatory AMILCAR PHELAN Not Available Start: 07-22-2023 End: 07-22-2023 ambulatory JAZMIN RODAS Not Available Start: 05-10-2023 End: 05-10-2023 ambulatory CYNDIE FELIX Not Available Start: 04-12-2023 End: 04-12-2023 ambulatory CYNDIE FELIX Not Available Start: 03-16-2023 End: 03-16-2023 ambulatory CYNDIE FELIX Not Available Start: 02-16-2023 End: 02-16-2023 ambulatory CYNDIE FELIX Not Available Start: 01-18-2023 End: 01-18-2023 ambulatory CYNDIE FELIX Not Available Start: 08-24-[address] AMILCAR PHELAN . Facili ty:[facility] Start: 03-10-2022 End: 03-11-[address] CHARLIE COX Facility:[facility] Start: 11-05-2021 End: 11-06-[address] AMILCAR PHELAN . Facility:[facility] Start: 10-10-2021 End: 10-11-[address] AMILCAR PHELAN . Facility:[facility] Start: 09-29-2021 End: 09-29-2021 ambulatory Paul Jj Other [facility] Other Start: 09-29-2021 Telephone encounter Paul Jj [facility] Start: 09-22-2021 End: 09-22-[address] AMILCAR PHELAN . 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 Work Phone: [facility] [place] Start: 08-01-2021 End: 08-02-2021 ambulatory [facility] [employer] Other Start: 08-01-2021 Office outpatient ne w 45 minutes [facility] [place] Start: 03-08-2020 Patient encounter procedure Giovanna Brooks PD-SCUY-Zpsckkfs 201 Work Phone: Start: 03-05-2020 Patient encounter procedure Giovanna Brooks PI-ZEBH-Zbzlhcnb 201 Work Phone: Start: 02-13-2020 Patient encounter procedure Giovanna Brooks ZP-XVBM-Ujotrmnb 201 Work Phone: Start: 12-29-2018 Patient encounter procedure Giovanna Brooks XO-EIHL-Julxcctk 201 Work Phone: Start: 04-25-2018 End: 04-25-2018 Patient encounter procedure UNKNOWN PROVIDER Facility:[facility] Start: 07-26-2017 Patient encounter LORETO Britton acility:[facility] Start: 07-09-2017 End: 07-09-2017 Patient encounter LORETO ANIBALLÁZARO Facility:[facility] St[facility] Start: 07-07-2017 Patient encounter LORETO Britton acility:[facility] Start: 06-07-2017 Ambulatory ELZBIETA PANIAGUA Facility:[facility] Start: 06-01-2017 Ambulatory ELZBIETA PANIAGUA Facility:[facility] Procedures Date Procedure Procedure Detail Performing Clinician Start: 12-09-2023 ALL CBC WITH AUTO DIFF Amilcar Kalin DO Work Phone: Start: 03-10-2022 Mammography Amilcar Fazi o DO Work Phone: Start: 2020 Follow-up visit Start: 03-08-2020 Follow-up visit Start: 03-05-2020 IO Liver Ultrasound Jo Ann baez Todd Start: 02-14-2020 Qtdar-7-Clarkrshigd Phenotype, Serum Giovanna Todd Start: 02-14-2020 Antibody hiv-1 Giovanna Rev sorenson Start: 02-14-2020 Antimitochondrial Ab Ma paul Brooks Start: 02-14-2020 Assay of [id number] Giovanna Brooks Start: 02-14-2020 Ceruloplasmin Giovanna mock [...] And Curettage Giovanna Brooks Hysterectomy Giovanna Brooks Plan of Treatment Date Care Activity Detail Author Start: 12-12-2024 End: 12-12-2024 Patient encounter procedure 12/12/2024 9:00 AM EDT Office Visit [facility] [address] [place] [phone] Cyndie Washington PA [address] [place] [address] [facility] Start: 12-09-2023 End: 02-07-2025 MG Breast - bilateral Screening Bilateral screening mammogram Imaging Routine Breast cancer screening by mammogram Expected: 12/09/2023 (Approximate), Expires: 02/07/2025 [facility] Work Phone: Comment on above: Expected: 12/09/2023 (Approximate), Expires: 02/07/2025 Start: 10-24-2023 Influenza vaccination Influenza Vacc ine (#1) [facility] Start: 03-10-2023 Screening for malign ant neoplasm of breast Mammogram [facility] Start: 1975 Screening for malign ant neoplasm of colon [facility] CBC panel - Blood by Automated count CBC Lab Routine Encounter for long-term (current) use of medications Ordered: 12/09/2023 [facility] Comment on above: Ordered: 12/09/2023 Comprehensive metabo lic 2000 panel - Serum or Plasma Comprehensive metabolic panel Lab Routine Encounter for long-term (current) use of medications Ordered: 12/09/2023 [facility] Comment on above: Ordered: 12/09/2023 THIN PREP TIS PAP AN D HR HPV DNA THIN PREP TIS PAP AND HR HPV DNA Pathology and Cytology Routine Well woman exam with routine gynecological exam Ordered: 12/09/2023 [facility] Comment on above: Ordered: 12/09/2023 Immunizations Immunization Date Immunization Notes Care Provider Brandi navarro influenza, injectabl e, quadrivalent, contains preservative Giovanna Brooks MD-VFHB-Vhiutwzk 201 Work Phone: Comment on above: declines 12/29/18 Payers Date Payer Category Payer Private Health Insurance [facility] [id number] 2023 Private Health Insurance [facility] [id number] 1975 Unknown [id number] 2.16.840.1.241713.3.579.2. 732 1976 Unknown [id number] 2.16.840.1.928038.3.579.2. 593 1976 Unknown [id number] 2.16.840.1.845393.3.579.2. 593 1976 Unknown [id number] 2.16.840.1.623143.3.579.2. 593 1976 Unknown [id number] 2.16.840.1.713120.3.579.2. 593 1976 Unknown [id number] 2.16.840.1.664117.3.579.2. 593 1976 Unknown [id number] 2.16.840.1.234488.3.579.2. 727 1976 Unknown [id number] 2.16.840.1.058785.3.579.2. 1259 1976 Unknown [id number] 2.16.840.1.552770.3.579.2. 1259 1976 Unknown [id number] 2.16.840.1.146736.3.579.2. 1259 1976 Unknown [id number] 2.16.840.1.574021.3.579.2. 1259 1976 Unknown [id number] 2.16.840.1.049027.3.579.2. 1259 1976 Unknown [id number] 2.16.840.1.079456.3.579.2. 1259 1976 Unknown [id number] 2.16.840.1.623534.3.579.2. 1259 1976 Unknown [id number] 2.16.840.1.152408.3.579.2. 1259 1976 Unknown [id number] 2.16.840.1.323823.3.579.2. 1259 1976 Unknown [id number] 2.16.840.1.415856.3.579.2. 1259 1959 Unknown [id number] Self-pay Self Pay [id number] Social History Date Type Detail Facility Sex Assigned At [employer] Other Start: 1975 Sex Assigned At Female [facility] Tobacco smoking status COIS Tobacco smoking consumption unknown [facility] Start: 12-14-2022 Gender identity Identifies as female gender (finding) [facility] Healthcare NEGATED: Highlighted row - - IH-PLYB-Mmcifnuy 201 Work Phone: Functional Status Date Assessment Result Facility NEGATED: Highlighted row Functional performance Functional status health issues are not documented Disease YD-EOQK-Ccayerzm 201 Work Phone: Mental Status Date Assessment Result Facility NEGATED: Highlighted row Cognitive function [Interpretation] Cognitive status health issues are not documented Disease [facility] 201 Work Phone: History of Present illness Narrative 12-09-2023 AUTUMN Garcia - 12/09/2023 9:20 AM EDT Note Date & Type Note Facility 12-09-2023 History of Presen t illness Narrative Reason for Appointment: Patient ID: Betzaida Armendariz is a 48 y.o. female who presents for Well Women Visit Patient presents today for Annual Exam. MEDICATIONS Current Outpatient Medications Medication Instructions estradiol (ESTRACE) 0.5 mg, Oral, Daily, Take 1 tablet by mouth for 30 days metFORMIN XR (GLUCOPHAGE-XR) 500 mg, Oral, Daily with evening meal ALLERGIES Allergies Allergen Reactions Wound Dressing Adhesive surgical tape gets blisters Penicillins Hives, Itching and Rash hives PROBLEMS Active Ambulatory Problems Diagnosis Date Noted No Active Ambulatory Problems Resolved Ambulatory Problems Diagnosis Date Noted No Resolved Ambulatory Problems Past Medical History: Diagnosis Date Abnormal mammogram Abnormal weight gain Fatigue Hair loss Obesity Post hysterectomy menopause HISTORY PAST MEDICAL HISTORY SOCIAL HISTORY Past Medical History: Diagnosis Date Abnormal mammogram Abnormal weight gain Fatigue Hair loss Obesity Post hysterectomy menopause Social History Tobacco Use Smoking status: Not on file Smokeless tobacco: Not on file Substance Use Topics Alcohol use: Not on file Drug use: Not on file FAMILY HISTORY Family History Problem Relation Name Age of Onset Cancer Paternal Grandmother Cancer Sibling SURGICAL HISTORY Past Surgical History: Procedure Laterality Date DILATION AND CURETTAGE HYSTERECTOMY REVIEW OF SYSTEMS Review of Systems: Review of Systems Constitutional: Negative. HENT: Negative. Eyes: Negative. Respiratory: Negative. Cardiovascular: Negative. Gastrointestinal: Negative. Genitourinary: Negative. Musculoskeletal: Negative. Skin: Negative. Neurological: Negative. All other systems reviewed and are negative. Hematological: Negative. Endocrine: Negative. Allergic/Immunologic: Negative. OBJECTIVE Objective: Physical Exam Constitutional: Appearance: Normal appearance. Genitourinary: Right Adnexa: not tender and no mass present. Left Adnexa: not tender and no mass present. No cervical discharge. Breasts: Breasts are soft. Right: Normal. Left: Normal. HENT: Head: Normocephalic. Nose: Nose normal. Mouth/Throat: Mouth: Mucous membranes are moist. Cardiovascular: Rate and Rhythm: Normal rate. Pulmonary: Effort: Pulmonary effort is normal. Abdominal: General: Bowel sounds are normal. Palpations: Abdomen is soft. Musculoskeletal: General: Normal range of motion. Cervical back: Normal range of motion. Neurological: General: No focal deficit present. Mental Status: She is alert. Skin: General: Skin is warm and dry. Psychiatric: Mood and Affect: Mood normal. Vitals and nursing note reviewed. Exam conducted with a inspector technician present. Vitals: Estimated body mass index is 32.73 kg/m as calculated from the following: Height as of 12/21/22: 5' 6 . Weight as of this encounter: 202 lb 12.8 oz. BP: 120/80 No LMP recorded. Patient has had a hysterectomy. ASSESSMENT & PLAN ICD-10-CM 1. Well woman exam with routine gynecological exam Z01.419 THIN PREP TIS PAP AND HR HPV DNA 2. Breast cancer screening by mammogram Z12.31 Bilateral screening mammogram Bilateral screening mammogram 3. Postmenopausal state Z78.0 estradiol (Estrace) 0.5 MG tablet 4. Encounter for long-term (current) use of medications Z79.899 CBC Comprehensive metabolic panel Annual Exam: Patient presents today for an annual exam. Patient states she is doing well and has no complaints. Pap was obtained without difficulty. Patient given order for mammogram. Wegovy refill and lab orders will be sent to hospital as well. Pt states tolerating medication well Orders Placed This Encounter Procedures Bilateral screening mammogram CBC Comprehensive metabolic panel Follow Up: Patient is to return in one year for annual unless needed otherwise. Documented by AUTUMN Garcia documented in this encounter [facility] Healthcare Evaluation note 08-19-2021 Note Date & Type [...] Thyroid labs negative. Will await work-up from [facility]IAL [facility]ER in September. She is not concerned with [...] that were not corrected during review process. [employer] Other Evaluation note 08-01-2021 Note Date & Type Note Facility 08-01-2021 Evaluation note Encounter Date Diagnosis Assessment Notes Jul, Weight gain (ICD-10 - R63.5) Discussed concerns and causes related to weight gain. Could be mental health however could also be thyroid issue. We also discussed the possibility of hormonal changes from an [facility] standpoint. I did make recommendations for local MEMORIAL ADVISER's and possible menopause testing. Deferring her to [facility] for this work-up. No formal referral is [...] that were not corrected during review process. [employer] Other Evaluation note Note Date & Type Note Facility Evaluation note No Information [facility] Other Evaluation note Note Date & Type Note Facility Evaluation note No assessment information ady maxwell [facility] Work Phone: Evaluation note Note Date & Type Note Facility Evaluation note Diagnosis Well woman exam with routine gynecological exam Routine gynecological examination Breast cancer screening by mammogram Postmenopausal state Asymptomatic postmenopausal status (age-related) (natural) Encounter for long-term (current) use of medications Encounter for long-term (current) use of other medications documented in this encounter [facility] History general Narrative - Reported Note Date & Type Note Facility History general Narrative - Reported Type Surgical History x 2 Surgical History Hysterectomy 2018 Hospitalization History See surgical hx [facility] Other History general Narrative - Reported Note Date & Type Note Facility History general Narrative - Reported Type Medical History weight gain Medical History chronic right knee pain Medical History depression/anxiety Surgical History x 2 Surgical History Hysterectomy 2018 Hospitalization History See surgical hx [facility] Other Summary Purpose Family History No Family [...] section and content) DATE CREATED AUTHOR 08/11/2017 [facility] DATE CREATED AUTHOR AUTHOR'S ORGANIZ ATION 09/10/2017 [facility] Healthcare DATE CREATED AUTHOR AUTHOR'S ORGANIZ ATION 04/27/2018 [facility] DATE CREATED AUTHOR AUTHOR'S ORGANIZ ATION 02/20/2020 [facility] DATE CREATED AUTHOR AUTHOR'S ORGANIZ ATION 2020 [facility] DATE CREATED AUTHOR AUTHOR'S ORGANIZ ATION 03/23/2020 [employer] DATE CREATED AUTHOR AUTHOR'S ORGANIZ ATION 04/15/2022 [facility] DATE CREATED AUTHOR AUTHOR'S ORGANIZ ATION 05/24/2022 Cali Cochise [facility] DATE CREATED AUTHOR AUTHOR'S ORGANIZ ATION 12/11/2023 [facility] EPIC REASON FOR VISIT (unrecogniz ed section and content) Reason Comments Well Women Visit Care Teams (unrecognized sec tion and content) Team Status: Inactive Member Role Status Dates Paul Jj APRN Primary Care Provider, Attend ing Provider Active Team Status: Active Member Role Status Dates Paul Jj APRN Primary Care Provider Active Client Relationship Consultant Relationship Specialty Start Date End Date Duglas Morris MD [address] [phone] PCP - General Family Medicine 01/18/23 Cyndie Washington PA [address] [place] [address] [place] [id number] PCP - Medical [employer] 10/24/23 02/21/99 Client Relationship Consultant Relationship Specialty Start Date End Date Duglas Morris MD [address] [phone] PCP - General Family Medicine 01/18/23 Cyndie Washington PA [address] [place], [place] [address] [place] [address] PCP - Medical [employer] 10/24/23 02/21/99 Client Relationship Consultant Relationship Specialty Start Date End Date Duglas Morris MD [address] [place] [address] PCP - General Family Medicine 01/18/23 Cyndie Washington PA [address] [place] [address] [place] [address] PCP - Medical [employer] 10/24/23 02/21/99 Goals (unrecognized section and content) Goals may [...] BE BASED ON THE PRIMARY CLINICAL RECORDS. [employer] provides no warranty or guarantee of the accuracy or completeness of information in this document.
== END 2024-01-03 10:01 | disposition home or self-care (01) ==
LOC: MAMMO 10:01
PROVIDERS: Visit Provider Obstetrics & Gynecology
DX: Z12.31 Encounter for screening mammogram for malignant neoplasm of breast (principal); Z80.3 Family history of malignant neoplasm of breast; Z80.6 Family history of leukemia
CPT/HCPCS: 77063; 77067

== ENCOUNTER 2025-01-01 19:37 | Outpatient (REF) | payer OTHER, SELFPAY ==
--- OUTSIDE RECORDS SUMMARY | 2025-01-01 13:00 | XMS_ITS | Encounter Summary ---
Author Organization [facility] Address [address] [place] [address] Care Team Providers Care Bellstand Attendant Name Role Phone Duglas Morris MD Primary Care Provider [phone] Reason for Visit * ReasonCommentsWell Women Visit Encounter Details DateTypeDepartmentCare Team (Latest Contact Info)Lljjhnhvyxr52/10/2025 1:00 PM ESTOffice Visit [facility]ED[facility] [address] [address] Cyndie Aguirre PA [address] [place] [address] Well woman exam with routine gynecological exam; Breast cancer screening by mammogram Social History Tobacco UseTypesPacks/DayYears UsedDateSmoking Tobacco: Never Assessed CommentsNoSex and Gender InformationValueDate RecordedSex Assigned at Wwdrch8212/14/2022 8:42 AM EDTLegal NtqDkapkh30/15/2023 11:46 PM EDTGender PhgaeoosYjjxno98/23/2023 8:42 AM EDTSexual OrientationNot on filedocumented as of this encounter Last Filed Vital Signs Vital SignReadingTime TakenCommentsBlood Wphryulo679/7201/01/2025 1:11 PM EST Pulse--Temperature--Respiratory Rate--Oxygen Saturation--Inhaled Oxygen Concentration--Axxbiv564 kg (231 lb)01/01/2025 1:11 PM ESTHeight--Body Mass [...] nursing note reviewed. Exam conducted with a oracle reports developer present. Vitals: Estimated body mass index is [...] Plan of Treatment DateTypeDepartmentCare Team (Latest Contact Info)Ucjzdnxiixz53/13/2025 8:50 AM ESTOffice Visit [facility] [address] [place] [address] [place] [phone] Cyndie Aguirre PA [address] [place] [address] [place] [address] 01/08/2026 9:00 AM ESTProcedure Visit [facility] [address] [place] [address] [place] [phone] Cyndie Aguirre PA [address] [place] [address] NameTypePriorityAssociated DiagnosesOrder ScheduleBilateral screening mammogram ImagingRoutine Breast [...] Date Duglas Morris MD PCP - GeneralFamily Qafdqhzs70/27/23documented as of this encounter
--- OUTSIDE RECORDS SUMMARY | 2025-01-01 19:47 | XMS_ITS | CCD ---
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 MinneapolisComment on above:Result Comment: REF VALUES < 1.0 = NEGATIVE >=1.0 = POSITIVEPerformed By: #### ANAP2 #### [facility] [address] [place], [place] [address]XLEP-LBO<0.2NRegency Hospital of MinneapolisComment on above:Result Comment: REF VALUES < 1.0 = NEGATIVE >=1.0 = POSITIVEPerformed By: #### ANAP2 #### [facility] [address] [place], [place] [address]SZJL-DXQ<0.2NRegency Hospital of MinneapolisComment on above:Result Comment: REF VALUES < 1.0 = NEGATIVE >=1.0 = POSITIVEPerformed By: #### ANAP2 #### [facility] [address] [place], [place] [address]XRHGFLVUS A AB-TOTALon 47-45-9908APGBFZGUB A AB-TOTAL NONREACTIVENormalNONREACTIVEMountainside HospitalComment on above:Result Comment: Biotin interference may cause falsely elevated results. Patients taking a Biotin dose of up to 5 mg/day should refrain from taking Biotin for 24 hours before sample collection. Providers may contact their local laboratory for further information.Performed By: #### HAVTO #### [facility] [address] [place], [place] [address]BMQKGUAUX B CORE AB-TOTALon 71-81-5012VPY. B CORE AB-TOTAL NONREACTIVENormalNONREACTIVEMountainside HospitalComment on above:Result Comment: Results from patients taking biotin supplements or receiving high-dose biotin therapy should be interpreted with caution due to possible interference with this test. Providers may contact their local laboratory for further information.Performed By: #### HBCRT #### [facility] [address] [place], [place] [address]DHWEAZFCL B SURF ABon 87-05-3631DQT B SURF AB<3.1Normal<10UH [facility] Regional Medical CenterComment on above:Result Comment: INTERPRETIVE CRITERIA: <10 mIU/mL....NONREACTIVE >=10 mIU/mL...REACTIVE . Biotin interference may cause falsely decreased results. Patients taking a Biotin dose of up to 5 mg/day should refrain from taking Biotin for 24 hours before sample collection. Providers may contact their local laboratory for further information.Performed By: #### HBAB3 #### [facility] [address] [place], [place] [address]Azhcc Fetoprotein, Serumon 08-95-7417LMO [Mass/Vol]ng/mL0 - 9 [facility] 201 Work Phone: Comment on above:SOURCE: AFP testing is performed by chemiluminescent immunoassay using the Siemens AdGent Digital. Valuesobtained with different analyte methods cannot be used interchangeably. This test can be used as anadjunct in the diagnosis and monitoring of AFP-producing tumors, including non-seminomatous germ cell tumors and hepatocellular carcinomas.HEPATITIS B CORE AB-TOTALon 14-41-0325Wvh Specimen SourceNoKeefe Memorial Hospital Comment on above:Performed By: #### HBCRT #### [facility] [address] [place], [place] [address]Hwsvscbhi By: #### AFP #### [facility] [address] [place], [place] [address]Pktxtewwj By: #### HBAB3 #### [facility] [address] [place], [place] [address]Fcoacvbtt By: #### HAVTO #### [facility] [address] [place], [place] [address]Vynjbsxiw A Antibody, Totalon 46-05-7536XOD Ab IA Ql (S) NONREACTIVESee [place] [address] Work Phone: Comment on above:SOURCE: Reference Range: NONREACTIVE Biotin interference may cause falsely elevated results. Patients taking a Biotin dose of up to 5 mg/day should refrain from taking Biotin for 24 hours before sample collection. Providers may contact their local laboratory for further information.Hepatitis B Core Antibody, Totalon 13-22-3980Fzzosnfjw B Core Antibody, TotalNONREACTIVESee [place] [address] Work Phone: Comment on above:SOURCE: Reference Range: NONREACTIVE Results from patients taking biotin supplements or receiving high-dose biotin therapy should be interpreted with caution due to possible interference with this test. Providers may contact their local laboratory for further information. Hepatitis B Surface Antibodyon 13-08-5795IZK surface Ag IA Ql<3.1<10 [place]VTTW-[place]qockkoVictor[place] [address] Work Phone: Comment on above:SOURCE: INTERPRETIVE CRITERIA:<10 mIU/mL....NONREACTIVE >=10 mIU/mL...REACTIVE . Biotin interference may cause falsely decreased results. Patients taking a Biotin dose of up to 5 mg/day should refrain from taking Biotin for 24 hours before sample collection. Providers may contact their local laboratory for further information.Imm/Pathon 62-44-2611ERY double strand Ab Qn (S)[IU]/aZUV-IGLS-YawotyfgKevin [place] [address] Work Phone: Comment on above:REF VALUESNEGATIVE: <= 4 IU/MLEQUIVOCAL: 5- 9 IU/MLPOSITIVE: >=10 IU/MLOtheron 13-26-7296Ubhlscfcbt protein B Ab Qn (S)<0.0GX-AORF-Xsowuyyb 201 Work Phone: Comment on above:REF VALUES < 1.0 = NEGATIVE >=1.0 = POSITIVEChromatin Ab Qn0.2 {AI}XT-ZNYV-Qeomicnt 201 Work Phone: Comment on above:REF VALUES < 1.0 = NEGATIVE >=1.0 = POSITIVEJo-1 extractable nuclear Ab IA Ql (S)<0.4RA-GWSI-Ovdzojkl 201 Work Phone: Comment on above:REF VALUES < 1.0 = NEGATIVE >=1.0 = POSITIVENuclear Ab Hep2 substrate Ql (S)UtdzxsvmWUBGBOJWDV-TKVM-Vgcfwwpc 201 Work Phone: Ribonucleoprotein extractable nuclear Ab IA Qn (S)<0.2 FL-XCKV-Azlcmolz 201 Work Phone: Comment on above:REF VALUES < 1.0 = NEGATIVE >=1.0 = POSITIVERibosomal P Ab Qn (S)<0.6IO-SGMQ-Waxqxciz 201 Work Phone: Comment on above:REF VALUES < 1.0 = NEGATIVE >=1.0 = POSITIVESCL-70 extractable nuclear Ab IA Ql (S)<0.2VG-VTAN-Tzdubbhj 201 Work Phone: Comment on above:REF VALUES < 1.0 = NEGATIVE >=1.0 = POSITIVESjogrens syndrome-A extractable nuclear Ab IA Qn (S)<0.4GA-CEPE-Mdjegdpj 201 Work Phone: Comment on above:REF VALUES < 1.0 = NEGATIVE >=1.0 = POSITIVESjogrens syndrome-B extractable nuclear Ab IA Qn (S)<0.2DK-UOCC-Ksopgwos 201 Work Phone: Comment on above:REF VALUES < 1.0 = NEGATIVE >=1.0 = POSITIVESmith extractable nuclear Ab IA Qn (S)<0.7WI-ZRQL-Tosspvss 201 Work Phone: Comment on above:REF VALUES < 1.0 = NEGATIVE >=1.0 = POSITIVESmith extractable nuclear Ab+Ribonucleoprotein extractable nuclear Ab IA Ql (S)<0.1AT-VKPT-Xbjzhovm 201 Work Phone: Comment on above:REF VALUES < 1.0 = NEGATIVE >=1.0 = POSITIVEInitial Visit (Gastroenterology)on 49-95-3366Hlilhjh Visit (Gastroenterology)Diagnoses/Problems Assessed Fatty infiltration of liver (571.8) (K76.0) Orders Elevated liver enzymes, Fatty infiltration of liver Alpha Fetoprotein, Serum; Status:Active; Requested for:05Mar2020; Perform:Lab Services - Lab To Draw (Blood Test); Due:03Jun2020;Ordered; For:Elevated liver enzymes,Fatty infiltration of liver; Ordered By:Reinaldo Banks; Hepatology Follow-Up Outpatient TEST RESULTS Status: Hold For - Scheduling Requested for: 05Mar2020 Ordered;For: Elevated liver enzymes, Fatty infiltration of liver; Ordered By: Reinaldo Banks Performed: Due: 03Jun2020 Anti Nuclear Antibody Panel (with automatic BEATRICE Panel); Status:Active; Requested for:05Mar2020; Perform:Lab Services - Lab To Draw (Blood Test); Due:03Jun2020;Ordered; For:Elevated liver enzymes,Fatty infiltration of liver; Ordered By:Reinaldo Banks; Hepatitis A Antibody, Total; Status:Active; Requested for:05Mar2020; Perform:Lab Services - Lab To Draw (Blood Test); Due:03Jun2020;Ordered; For:Elevated liver enzymes,Fatty infiltration of liver; Ordered By:Reinaldo Banks; Hepatitis B Core Antibody, Total; Status:Active; Requested for:05Mar2020; Perform:Lab Services - Lab To Draw (Blood Test); Due:03Jun2020;Ordered; For:Elevated liver enzymes,Fatty infiltration of liver; Ordered By:Reinaldo Banks; Hepatitis B Surface Antibody; Status:Active; Requested for:05Mar2020; Perform:Lab Services - Lab To Draw (Blood Test); Due:03Jun2020;Ordered; For:Elevated liver enzymes,Fatty infiltration of liver; Ordered By:Reinaldo Banks; IO [...] excess such as hgih sugar fruits (pineapple, alison...)and desserts, cakes and pies Eat more good [...] between PALMER and NAFLD as well as half-way implications of a diagnosis of PALMER and [...] (at the distant site) was utilized to providethis telehealth service. Verbal consent was requested and obtained from BETZAIDA MEJIACHERIDONNY on this date, 03/05/2020 08:20 AM , for a telehealth visit. New patient here for evaluation of elevated liver enzymes Adult Risk ScreeningAdult Risk Screening_UH: There are no spiritual/cultural practices/values/needsthat are important to know Initial Fall Risk [...] MCG (3000 UT) Oral Tablet Results/Data Ultrasound Aafte91Qgk4551 02:13PMGiovanna Brooks [Feb 14, 2020 10:53AM Giovanna Brooks] Reason: Unspecified for Ultrasound Liver Test NameResultFlagReference Ultrasound Liver(Report) Interpreted by: DESTINEE WEST 02/18/20 07:50 Patient Name: BETZAIDA ARMENDARIZ STUDY: US LIVER; 02/17/2020 2:13 pm INDICATION: elevated liver function tests. COMPARISON: None. ACCESSION NUMBER(S): [id number] ORDERING CLINICIAN: GIOVANNA BROOKS TECHNIQUE: Multiple images [...] The renal cortical echogenicity and thickness are wit hin normal limits. No hydronephrosis or renal calculi are seen. IMPRESSION: Enlarged liver with diffuse fatty infiltration. Probable small area of focal fatty sparing adjacent to the gallbladder. Otherwise, grossly unremarkable right upper quadrant ultrasound. Electronically signed by: DESTINEE WEST 02/18/20 07:50 Iron + TIBC, Swawi15Uit4302 12:39PMRevolGiovanna javier Test NameResultFlagReference Iron, Serum83 ug/dL35 - 150 Total Iron Binding Zcqeqcki753 ug/dL240 - 445 % Jlyzgkkfgj79 %L25 - 45 Transferrin, Xoecm96Wxj3987 12:39PMRevolGiovanan javier Test NameResultFlagReference Transferrin, Ifkay950 mg/dL200 - 360 Ceruloplasmin, Gvcvb93Hzp1728 12:39PMRevolGiovanna javier Test NameResultFlagReference Ceruloplasmin, Serum38 mg/dL20 - 60 HIV 1/2 ANTIGEN/ANTIBODY SCREEN WITH REFLEX TO UXFFAQZTZBWM34Tdp4886 12:39PMRececeGiovanna javier Test NameResultFlagReference HIV 1/2 AG/AB SCREENNONREACTIVESee Below SOURCE: Reference Range: NONREACTIVE HIV Ag/Ab screen is performed using the Siemens AtellRIB Software HIV Ag/Ab Combo assay which detects the presence of HIV p24 antigen as well as antibodies to HIV-1 (GroupM and O) and HIV-2. Hepatitis B Surface Xmrateq80Vss2716 12:39PMReGiovanna allred Test NameResultFlagReference Hep.B Surface AgNONREACTIVESee Below SOURCE: Reference Range: NONREACTIVE Biotin interference may cause falsely decreased results. Patients taking a Biotin dose of up to 5 mg/day should refrain from taking Biotin for 24 hours before sample collection. Providers may contact their local laboratory for further information. Hepatitis C Antibody Fhyv16Oto8020 12:39PMReGiovanna allred Test NameResultFlagReference Hepatitis C-AntibodyNONREACTIVESee Below SOURCE: Reference Range: NONREACTIVE Results from patients taking biotin supplements or receiving high-dose biotin therapy should be interpreted with caution due to possible interference with this test. Providers may contact their local laboratory for further information. Hepatitis B Core IgM Tcjfmnby86Zoi9827 12:39PMReGiovanna allred Test NameResultFlagReference Hepatitis B Core Ab, IgMNONREACTIVESee Below SOURCE: Reference Range: NONREACTIVE Results from patients taking biotin supplements or receiving high-dose biotin therapy should be interpreted with caution due to possible interference with this test. Providers may contact their local laboratory for further information. EBV Lhmol40Xjb7845 12:39PMReGiovanna allred Test NameResultFlagReference Baljit-Greenberg Virus Capsid Antigen IgGPOSITIVEANEGATIVE Baljit-Greenberg Virus Ab to Early AntigenNEGATIVENEGATIVE Baljit-Greenberg Virus Nuclear Antigen IgGPOSITIVEANEGATIVE VCA IgM AntibodyNEGATIVENEGATIVE EBV InterpretationSEE BELOW . EBV INTERPRETATION CHART . VCA-IGG VCA-IGM NA-IGG EA-IGG . PRIMARY ACUTE +/- +/- - +/- LATE ACUTE + +/- +/- +/- RECOVERING + - - + PREVIOUS INFECTION + - +/- - Antimitochondrial Lj76Rtr7663 12:39PMGiovanna Brooks Test NameResultFlagReference Mitochondrial Antibody ScreeningNEGATIVENEGATIVE Smooth Muscle Antibody Lmkzoa80Otq4398 12:39PMReGiovanna allred Test NameResultReference Smooth Muscle AntibodyPOSITIVENEGATIVE Antismooth Muscle Titer1:20 Imlfv-9-Dsemhmdadsy Phenotype, Ibpds23Bvd3049 12:39PMGiovanna Brooks Test NameResultReference Ttbfx-2-Lrafqqempoh Luujmwvrq734 mg/rG56-248 To convert to umol/L, multiply mg/dL by 0.185 Wcejp-3-Occpogkqnde Phenotype IoqloI5Z9 The patient appears to have a normal phenotype. All M alleles (including subtypes M1, M2, and M3) produce normal serum concentrations of fyxnf-9-pjdgvpjq inhibitor and are not associated with clinical disease. Caution in interpretation is advised if the patient has been transfused within the previous 21 days. Performed By: [employer] [address] [place] [address] Media Relations Manager: Nakia Washburn MD Complete Blood Cqhyt97Dtv0571 03:43PMReGiovanna allred Test NameResultFlagReference White Blood Cell Count7.8 x10E9/L4.4 - 11.3 Red Blood Cell Count4.87 x10E12/LSee Below Reference Range: 4.00 - 5.20 Ooeodyfmko27.7 g/dLSee Below Reference Range: 12.0 - 16.0 HCT45.5 %See Below Reference Range: 36.0 - 46.0 MCV93 fL80 - 100 MCHC32.3 g/dLSee Below Reference Range: 32.0 - 36.0 Platelet Grpyo060 x10E9/L150 - 450 RDW-CV12.1 %See Below Reference Range: 11.5 - 14.5 Comprehensive Metabolic Aqglo54Zwi0508 03:43PMReGiovanna allred Test NameResultFlagReference Glucose, Serum90 mg/dL74 - 99 Sodium, Yuxfh949 mmol/L136 - 145 POTASSIUM4.0 mmol/L3.5 - 5.3 Chloride, Uvmbm483 mmol/L98 - 107 Bicarbonate, Serum25 mmol/L21 - 32 Anion Gap, Serum17 mmol/L10 - 20 Blood Urea Nitrogen, Serum8 mg/dL6 - 23 CREATININE0.75 mg/dLSee Below Reference Range: 0.50 - 1.05 Calcium, Serum9.6 mg/dL8.6 - 10.3 Albumin, Serum4.5 g/dL3.4 - 5.0 ALKALINE EQUHXFZGWWS89 U/L33 - 110 Protein, Total Serum7.9 g/dL6.4 [...] MD; Mar 05 2020 11:11AM EST (Author) NormalJohn E. Fogarty Memorial HospitalALPHA-1 ANTITRYPSIN PHENOTYPEon 70-54-0424U-1 ANTITRYP.ILTBOUQSLU8S1MybbifFSSelect Medical TriHealth Rehabilitation HospitalComment on above:Result Comment: The patient appears to have a normal phenotype. All M alleles (including subtypes M1, M2, and M3) produce normal serum concentrations of wotcn-6-cjozivyq inhibitor and are not associated with clinical disease. Caution in interpretation is advised if the patient has been transfused within the previous 21 days. Performed By: [employer] [address] [place] [id number] Media Relations Manager: MARIXA Eliaserformed By: #### HBCRM #### [facility] [address] [place], [place] [address]AOQHO-7-BNWIHQEXOEY432 mg/iVVpprqn97-265LVLittle Company of Mary HospitalComment on above:Result Comment: To convert to umol/L, multiply mg/dL by 0.185Performed By: #### HBCRM #### [facility] [address] [place], [place] [address]Cghduih 60-85-9716OD LiverInterpreted by: DESTINEE WEST02/18/20 07:50MRN: [id number] Name: BETZAIDA ARMENDARIZ STUDY:USLIVER; 02/17/2020 2:13 pm INDICATION:elevated liver function tests. COMPARISON:None. ORDERING CLINICIAN:GIOVANNA BROOKS TECHNIQUE:Multiple images of the right upper quadrant were obtained. FINDINGS:LIVER:The liver is enlarged and diffusely echogenic in appearance,consistant with diffuse fatty infiltration. The liver measures 20.1cm in length. There is a small probablearea of focal fatty sparingadjacent to the gallbladder. No other focal lesions are identified. GALLBLADDER:The gallbladder is nondistended demonstrates no evidence ofgallstones, wall thickening or ailyn rounding fluid. SonographicMurphy's sign is negative. BILIARY TREE:4 PANCREAS:The visualized pancreas is unremarkable in appearance. RIGHT KIDNEY:The right kidney is normal in size, measuring 10.5 cmin craniocaudaldimension. The renal cortical echogenicity and thickness are withinnormal limits. No hydronephrosis or renal calculi are seen. IMPRESSION:Enlarged liver with diffuse fatty infiltration. Probable small areaof focal fatty sparing adjacent to the gallbladder. Otherwise, grossly unremarkable right upper quadrant ultrasound.Electronically signed by: DESTINEE WEST 02/18/20 07:50Normal CB-GCYI-Wozbpjuq 201 Work Phone: us LIVER [phone] LIVERMRN: [id number] Patient Name: BETZAIDA ARMENDARIZ STUDY: US LIVER; 02/17/2020 2:13 pm INDICATION: elevated liver function tests. COMPARISON: None. ACCESSION NUMBER(S): [id number] ORDERING CLINICIAN: GIOVANNA BROOKS TECHNIQUE: Multiple images [...] quadrant ultrasound. Electronically signed by: DESTINEE WEST MDRegency Hospital Toledo ANTIMITOCHONDRIAL ABon 24-74-6791HNLNCJVYUSOPNOTHZ ABNegativeNormalNEGATIVELittle Company of Mary HospitalComment on above:Performed By: #### MITAB #### [facility] [address] [place], [place] [address]SDNXKGQHDK MUSCLE ABon 91-19-1661KZMNFXOIHC MUSCLE ABPositive NormalNEGATIVELittle Company of Mary HospitalComment on above:Performed By: #### ASMAB #### [facility] [address] [place], [place] [address]QMMJVPSOXT MUSCLE TITER1:20[facility] Comment on above:Performed By: #### ASMAB #### [facility] [address] [place], [place] [address]BKFRMZLYKZNOFht 01-77-7427ESDQLWLEOVMXB04 mg/vGSnmzvn98 - 60 [facility] of Mary HospitalComment on above:Performed By: #### CERUL #### [facility] [address] [place], [place] [address]Xpvzkkohdsgkr, Serumon 60-12-6729Jwlesvsiyenqz [Mass/Vol]38 mg/dL20 - 38DM-AOHE-Wfaahyhb 201 Work Phone: ebv PANELon 99-55-7771ZDX IGM ANTIBODYNegativeNormal NEGATIVELittle Company of Mary HospitalComment on above:Performed By: #### EBVP1 #### [facility] [address] [place], [place] [address]DZA EA-D IGG ANTIBODYNegativeNormalNEGATIVELittle Company of Mary HospitalComment on above:Performed By: #### EBVP1 #### [facility] [address] [place], [place] [address]GNQ INTERPRETATIONSEE [facility] Comment on above:Result Comment: . EBV INTERPRETATION CHART . VCA-IGG VCA-IGM NA-IGG EA-IGG . PRIMARY ACUTE +/- +/- - +/- LATE ACUTE + +/- +/- +/- RECOVERING + - - + PREVIOUS INFECTION + - +/- -Performed By: #### EBVP1 #### [facility] [address] [place], [place] [address]RSM NA-1 IGG ANTIBODYPositiveAbnormalNEGATIVELittle Company of Mary HospitalComment on above:Performed By: #### EBVP1 #### [place] [address] [place], [place] [address]DXY IGG ANTIBODYPositiveAbnormalNEGATIVELittle Company of Mary HospitalComment on above:Performed By: #### EBVP1 #### [place] [address] [place], [place] [address]SCUMHWDJR B CORE AB;IGMon 03-78-4437YSATVYEPP B CORE AB,IGM NONREACTIVENormalNONREACTIVELittle Company of Mary HospitalComment on above:Result Comment: Results from patients taking biotin supplements or receiving high-dose biotin therapy should be interpreted with caution due to possible interference with this test. Providers may contact their local laboratory for further information.Performed By: #### HBCRM #### [facility] [address] [place] [id number] Specimen SourceNoSelect Medical TriHealth Rehabilitation HospitalComment on above:Performed By: #### HBCRM #### [facility] [address] [place] [id number] By: #### HCVAB #### [facility] [address] [place] [id number] By: #### HIV #### [facility] [address] [place], [place] [address]KEJOTETBX B SURFACE AGon 73-94-1547ZEX.B SURFACE AG NONREACTIVENormalNONREACTIVELittle Company of Mary HospitalComment on above:Result Comment: Biotin interference may cause falsely decreased results. Patients taking a Biotin dose of up to 5 mg/day should refrain from taking Biotin for 24 hours before sample collection. Providers may contact their local laboratory for further information.Performed By: #### HBCRM #### [facility] [address] [place], [place] [address]HVFVXYGNV C ABon 35-57-5165UJTOWLEEW C ABNONREACTIVENormal NONREACTIVELittle Company of Mary HospitalComment on above:Result Comment: Results from patients taking biotin supplements or receiving high-dose biotin therapy should be interpreted with caution due to possible interference with this test. Providers may contact their local laboratory for further information.Performed By: #### HCVAB #### [facility] [address] [place], [place] [address]GON 1/2 ANTIGEN/ANTIBODY SCREEN WITH REFLEX TO CONFIRMATIONon 16-52-1015OPN 1/2 AG/AB SCREENNONREACTIVENormalNONREACTIVELittle Company of Mary HospitalComment on above:Result Comment: HIV Ag/Ab screen is performed using the Siemens [employer]ellica HIV Ag/Ab Combo assay which detects the presence of HIV p24 antigen as well as antibodies to HIV-1 (Group M and O) and HIV-2.Performed By: #### HIV #### [facility] [address] [place], [place] [address]MHP 1+2 Ab+HIV1 p24 Ag IA QlNONREACTIVESee Below JX-XIFZ-Pinupprl 201 Work Phone: Comment on above:SOURCE: Reference Range: NONREACTIVE HIV Ag/Ab screen is performed using the Siemens Atellica HIV Ag/Ab Combo assay which detects the presence of HIV p24 antigen as well as antibodies to HIV-1 (GroupM and O) and HIV-2.Hepatitis B Surface Antigenon 19-19-0489Lxdfutnky B Surface AntigenNONREACTIVESee NzebcKD-ABEN-Vwwcnwix 201 Work Phone: Comment on above:SOURCE: Reference Range: NONREACTIVE Biotin interference may cause falsely decreased results. Patients taking a Biotin dose of up to 5 mg/day should refrain from taking Biotin for 24 hours before sample collection. Providers may contact their local laboratory for further information.SOURCE: Reference Range: NONREACTIVE Results from patients taking biotin supplements or receiving high-dose biotin therapy should be interpreted with caution due to possible interference with this test. Providers may contact their local laboratory for further information.IRON + TIBCon 02-14-2020% JGRFEXZPNF81 %Low25 - 45UH [facility] Foundation HospitalComment on above: Performed By: #### IRONT #### [facility] [address] [facility], [place] [address]Kwyg [Mass/Vol]83 ug/vPEtykdg20 - 150[facility] Comment on above:Performed By: #### IRONT #### [facility] [address] [place], [place] [address]NKEP240 ug/sNZktryy651 - 445[facility] Mary HospitalComment on above:Performed By: #### IRONT #### [facility] [address] [place], [place] [address]Wuf/Pathon 32-33-6900KDY early IgM IA Qn (S)NegativeNEGATIVE YI-MKBY-Dgrgwlyq 201 Work Phone: Metabolic Panelon 67-88-9877Mrcu [Mass/Vol]83 ug/dL35 - 539PH-YMWP-Ojyelwyd 201 Work Phone: Otheron 90-41-4397Hwhqs 1 antitrypsin [Mass/Vol]140 mg/hP62-416KW-NYWG-Ygzzwrmq 201 Work Phone: Comment on above:To convert to umol/L, multiply mg/dL by 0.185Alpha 1 antitrypsin phenotyping [Interp]S7R1JM-VYVD-Modapnqv 201 Work Phone: Comment on above:The patient appears to have a normal phenotype. All M alleles (including subtypes M1, M2, and M3) produce normal serum concentrations of nxocu-5-lfaorcub inhibitor and are not associated with clinical disease. Caution in interpretation is advised if the patient has been transfused within the previous 21 days.Performed By: [employer] [place] [address]Scttkeiblt Director: IVETTE EliasV capsid IgG IA Qn (S)ZuihucakBmsjqldvBRIHENJTEQ-QKQE-Kedphqvf 201 Work Phone: EBV capsid IgM IA Qn (S)NegativeNEGATIVE NU-UTRO-Syhdtpit 201 Work Phone: EBV nuclear IgG IA Qn (S)PositiveAbnormalNEGATIVE JP-ROCQ-Crsgpdxq 201 Work Phone: Iron binding capacity [Mass/Vol]374 ug/dL240 - 445 DT-UYZW-Vnlaqqtl 201 Work Phone: SEE RJYWLBD-IIMQ-Dygvosog 201 Work Phone: Comment on above:. EBV INTERPRETATION CHART. VCA-IGG VCA-IGM NA-IGG EA-IGG. PRIMARY ACUTE +/- +/- - +/-LATE ACUTE + +/- +/- +/-RECOVERING + - - +PREVIOUS INFECTION + - +/- - VxjzjplkADJERGOYPA-UQQZ-Cabwamin 201 Work Phone: [phone]-HPTE-Troy 201 Work Phone: [phone]:79SW-DCMC-Xyersoyq 201 Work Phone: [phone] %below low xjsergxax56 - 85IK-BRKL-Didhxutz 201 Work Phone: TRANSFERRINon 31-58-8336Oawjankfngh [Mass/Vol]283 mg/dHIdkhrd963 - 360Little Company of Mary HospitalComment on above:Performed By: #### TRANS #### [facility] [address] [place], [place] [address]Gwvbxyuekkm, Serumon 76-80-2457Zicskfeyaym [Mass/Vol]283 mg/dL200 - 830MZ-IKKR-Zlzbpqcv 201 Work Phone: CBCon 70-67-6747Rdxledyhwbi distribution width (RBC) [Ratio]12.1 %Ygxeji22.5 - 14.5[facility]ainside HospitalComment on above: Performed By: #### CBC #### [facility] [address] [place], [place] [address]Ucdvmdsdms (Bld) [Volume fraction]45.5 %Vmmdys02.0 - 46.0[facility]ainside HospitalComment on above:Performed By: #### CBC #### [address] [id number] (Bld) [Mass/Vol]14.7 g/aBQzyfir41.0 - 16.0[facility]ide HospitalComment on above:Performed By: #### CBC #### [address] [id number] (RBC) [Mass/Vol]32.3 g/uVWflsfb62.0 - 36.0[facility] HospitalComment on above:Performed By: #### CBC #### [address] [id number] (RBC) [Entitic vol]93 kEYchyga85 - 100[facility]ide HospitalComment on above:Performed By: #### CBC #### [address] [id number] (Bld) [#/Vol]421 10*3/tDPryggm794 - 450[facility]ide HospitalComment on above:Performed By: #### CBC #### [address] [id number] (Bld) [#/Vol]4.87 x10E12/LNormal4.00 - 5.20[facility]ide HospitalComment on above:Performed By: #### CBC #### [address] [id number] (Bld) [#/Vol]7.8 10*3/uLNormal4.4 - 11.3[facility]ide HospitalComment on above:Performed By: #### CBC #### [address] [id number] PANELon 70-83-6310Vdmqhaj [Mass/Vol]4.5 g/dL Normal3.4 - 5.0[facility]ainside HospitalComment on above:Performed By: #### CMP #### [address] [id number] [Catalytic activity/Vol]91 U/LKblsgh29 - 110Mount[facility]ide HospitalComment on above:Performed By: #### CMP #### [address] [id number] [Catalytic activity/Vol]87 U/LHigh7 - 45Mount[facility]ide HospitalComment on above:Result Comment: Patients treated with Sulfasalazine may generate falsely decreased results for ALT.Performed By: #### CMP #### [address] [id number] gap [Moles/Vol]17 mmol/PYxvjjt47 - 20[facility]ide HospitalComment on above:Performed By: #### CMP #### [address] [id number] [Catalytic activity/Vol]74 U/LHigh9 - 39[facility]ide HospitalComment on above:Performed By: #### CMP #### [address] [id number] [Mass/Vol]0.6 mg/dLNormal0.0 - 1.2[facility]ide HospitalComment on above:Performed By: #### CMP #### [address] [id number] [Mass/Vol]9.6 mg/dLNormal8.6 - 10.3[facility]ide HospitalComment on above:Performed By: #### CMP #### [address] [id number] [Moles/Vol]102 mmol/AAagpwu19 - 107Mount[facility]ide HospitalComment on above:Performed By: #### CMP #### [address] [id number] [Mass/Vol]0.75 mg/dLNormal0.50 - 1.05[facility]ide HospitalComment on above:Performed By: #### CMP #### [address] [id number]-LRZFRFM AM.>60Normal>60[facility] Comment on above:Result Comment: CALCULATIONS OF ESTIMATED GFR ARE PERFORMED USING THE MDRD STUDY EQUATION FOR THE IDMS-TRACEABLE CREATININE METHODS. CLIN CHEM 2007;53:766-72Performed By: #### CMP #### [address] [id number]-MWJ AM.>60Normal>60[facility] Comment on above:Performed By: #### CMP #### [address] [id number] [Mass/Vol]90 mg/pSEgppxt60 - 99[facility] CenterComment on above:Performed By: #### CMP #### [address] [id number] (Bld) [Moles/Vol]25 mmol/HDpqoow16 - 32[facility]ide HospitalComment on above:Performed By: #### CMP #### [address] [id number] [Moles/Vol]4.0 mmol/LNormal3.5 - 5.3[facility] CenterComment on above:Performed By: #### CMP #### [address] [id number] [Mass/Vol]7.9 g/dLNormal6.4 - 8.2[facility] CenterComment on above:Performed By: #### CMP #### [address] [id number] [Moles/Vol]140 mmol/ERibnru151 - 145[facility] CenterComment on above:Performed By: #### CMP #### [address] [id number] nitrogen [Mass/Vol]8 mg/dLNormal6 - 23[facility] CenterComment on above:Performed By: #### CMP #### [address] [place] [place] [address] 19-49 Yearson 80-06-7641ZE 19-49 YearsDiagnoses/Problems Health Maintenance/Risks Encounter for preventive health examination [...] mild; DALIA = N; Verified Transmission to [facility][id number]; Last Updated By: System[employer]; 02/13/2020 3:19:17 PM Fatigue Complete Blood Count; Status:Active; Requested for:03Oof8776; Perform:Lab Services - Lab To Draw (Blood Test); Due:13May2020;Ordered; For:Fatigue; Ordered By:Giovanna Brooks; Comprehensive Metabolic Panel; Status:Active; Requested for:09Unv9535; Perform:Lab Services - Lab To Draw (Blood Test); Due:13May2020;Ordered; For:Fatigue; Ordered By:Giovanna Brooks; TSH - Thyroid Stimulating Hormone, Serum; Status:Active; Requested for:43Shw2666; Perform:Lab Services - Lab To Draw (Blood Test); Due:13May2020;Ordered; For:Fatigue; Ordered By:Giovanna Brooks; Vitamin B12, Serum; Status:Active; Requested for:31Xem0637; Perform:Lab Services - Lab To Draw (Blood Test); Due:13May2020;Ordered; For:Fatigue; Ordered By:Giovanna Brooks; Health Maintenance Lipid Panel; Status:Active; Requested for:94Rxy2309; Perform:Lab Services - Lab To Draw (Blood Test); Due:13May2020;Ordered; For:Health Maintenance; Ordered By:Giovanna Brooks; Restless leg syndrome Start: rOPINIRole HCl - 0.25 MG Oral Tablet; TAKE 1 TABLET Bedtime Rx By: Giovanna Brooks; Dispense: 30 Days ; #:30 Tablet; Refill: 2;For: Restless leg syndrome; DALIA= N; Verified Transmission to [facility] #4208; Last Updated By: System, [employer]); 02/13/2020 3:16:55 PM Screening mammogram, encounter for Mamm - Screening Mammogram w/ Tomosynthesis; Status:Hold For - Scheduling; Requested for:37Ufk5592; Perform:[facility] Radiology Services Imaging; Due:13May2020;Ordered; For:Screening mammogram, encounter [...] today include: Patient will discuss. The patient's healthsince the last visit is described as good. There are no interval changes in the patient's PMH, PSH,and current medications. There are no interval changes [...] anhedonia, wants to sleep all the time, nosuicidal thoughts, tired Review of Systems Constitutional: feeling [...] Release Multivitamins TABS Vitals Vital Signs Recorded: 09Vtd5228 02:50PM Ggaumcngnvi52.7 F, Temporal Heart Rate76 Pulse QualityIrregular Ootlfufojwq18 Respiration QualityNormal Gygitylw613, LLE, Sitting Ahooisopy14, LLE, Sitting Blood Pressure Cuff SizeLarge Height5 ft 6 in Cvksyy667 lb 6 oz BMI Ifsbuowyal94.25 BSA Calculated2.08 Tobacco Useb) No Fall Screeninga) No falls within the last year Physical Exam Constitutional: Alert and in no acute distress. Well developed, well nourished. Eyes: Normal external exam. Pupils were equal in size, round, reactive to light (PERRL) with normalaccommodation and extraocular movements intact (EOMI). Ears, Nose, [...] MD; Feb 13 2020 3:39PM EST (Author) NormalUH TouchworksHematologyon 01-97-1058Dcsukljbtt (Bld) [Volume fraction]45.5 %See ZpkutFS-UQDE-Exzjnzab 201 Work Phone: Comment on above:Reference Range: 36.0 - 46.0 Hemoglobin (Bld) [Mass/Vol]14.7 g/dLSee IrdnpYM-ULRM-Mlxslfzg 201 Work Phone: Comment on above:Reference Range: 12.0 - 16.0MCV (RBC) [Entitic vol]93 fL80 - 521VX-BEEP-Oiwbrxry 201 Work Phone: Platelets (Bld) [#/Vol]421 {x10E9/L}150 - 450 VY-NAYN-Rtzvdwpu 201 Work Phone: RBC (Bld) [#/Vol]4.87 {x10E12/L}See Below BJ-VIQT-Ebugbzvi 201 Work Phone: Comment on above:Reference Range: 4.00 - 5.20WBC (Bld) [#/Vol]7.8 {x10E9/L}4.4 - 11.8NV-ZSOK-Nzbfsypc 201 Work Phone: LIPID PANEL (CORONARY RISK 2)on 61-49-1437Gfcxhlhpyok [Mass/Vol]231 mg/dLHigh0 - 199[facility]ide HospitalComment on above:Result Comment: . AGE DESIRABLE BORDERLINE HIGH HIGH [...] should be performed immediately prior to Metamizole dosing.Performed By: #### LIPID #### [address] [id number] in HDL [Mass/Vol]41.0 mg/dLNormSt. Elizabeth Hospital ([place])Comment on above:Result Comment: . AGE VERY LOW LOW NORMAL HIGH 0-19 Y < 35 < 40 40-45 ---- 20-24 Y ---- < 40 >45 ---- >24 Y ---- < 40 40-60 >60 .Performed By: #### LIPID #### [address] [id number] in LDL [Mass/Vol]155 mg/dLHigh0 - 99[facility] HospitalComment on above:Result Comment: . NEAR BORD AGE DESIRABLE OPTIMAL HIGH HIGH VERY HIGH 0-19 Y 0 - 109 --- 110-129 >/= 130 ---- 20-24 Y 0 - 119 --- 120-159 >/= 160 ---- >24 Y 0 - 99 100-129 130-159 160-189 >/=190 .Performed By: #### LIPID #### [address] [id number] in VLDL [Mass/Vol]35 mg/dLNormal0 - 40Mount[facility]ide HospitalComment on above:Performed By: #### LIPID #### [address] [id number].total/Cholesterol in HDL [Mass ratio]5.6 {ratio} AbnormalMountainside HospitalComment on above:Result Comment: REF VALUES DESIRABLE < 3.4 HIGH RISK > 5.0Performed By: #### LIPID #### [address] [id number] [Mass/Vol]175 mg/dLHigh0 - 149[facility]ide HospitalComment on above:Result Comment: . AGE DESIRABLE BORDERLINE HIGH HIGH [...] should be performed immediately prior to Metamizole dosing.Performed By: #### LIPID #### [address] [id number] Panelon 72-93-1857Cjjpsprrwlh [Mass/Vol]231 mg/dLabove high threshold0 - 591WM-EEUR-Kdqjqlgy 201 Work Phone: Comment on above:. AGE DESIRABLE BORDERLINE HIGH HIGH 0-19 Y [...] should be performed immediately prior to Metamizole dosing.Cholesterol in HDL [Mass/Vol]41.0 mg/vCCO-LBWE-Nzsqlrwd 201 Work Phone: Comment on above:. AGE VERY LOW LOW NORMAL HIGH 0-19 Y < 35 < 40 40-45 ---- 20-24 Y ---- < 40 >45 ---- >24 Y ---- < 40 40-60 >60. Cholesterol in LDL [Mass/Vol]155 mg/dLabove high threshold0 - 07OA-SHOZ-Btkxtzxq 201 Work Phone: Comment on above:. NEAR BORD AGE DESIRABLE OPTIMAL HIGH HIGH VERY HIGH 0-19 Y 0 - 109 --- 110-129 >/= 130 ---- 20-24 Y 0 - 119 --- 120-159 >/= 160 ---- >24 Y 0 - 99 100-129 130-159 160-189 >/=190. Cholesterol.total/Cholesterol in HDL [Mass ratio]5.6 {ratio}Abnormal DM-BGBN-Lhaqnfed 201 Work Phone: Comment on above:REF VALUESDESIRABLE < 3.4HIGH RISK > 5.0Triglyceride [Mass/Vol]175 mg/dLabove high threshold0 - 535UO-IMRI-Jvrocilb 201 Work Phone: Comment on above:. AGE DESIRABLE BORDERLINE HIGH HIGH VERY HIGH [...] should be performed immediately prior to Metamizole dosing.Lipid Panel35 mg/dL0 - 40 AI-KSRH-Vbozhvqg 201 Work Phone: Metabolic Panelon 01-52-0452NHE [Catalytic activity/Vol]91 U/L33 - 877NM-WYND-Swqcxwyi 201 Work Phone: Anion gap [Moles/Vol]17 mmol/L10 - 37ER-WJDL-Udusltvl 201 Work Phone: Bilirubin [Mass/Vol]0.6 mg/dL0.0 - 1.1JK-TTOG-Nytnmlgb 201 Work Phone: Calcium [Mass/Vol]9.6 mg/dL8.6 - 10.5AP-LLTT-Gpsohojq 201 Work Phone: Chloride [Moles/Vol]102 mmol/L98 - 133NI-UKLQ-Xaxexcys 201 Work Phone: CO2 [Moles/Vol]25 mmol/L21 - 54HP-WHYU-Vxzqoqdw 201 Work Phone: Creatinine [Mass/Vol]0.75 mg/dLSee Below DS-IDSD-Davhbjqx 201 Work Phone: Comment on above:Reference Range: 0.50 - 1.05Glucose [Mass/Vol]90 mg/dL74 - 64YA-RENQ-Eizedcun 201 Work Phone: Potassium [Moles/Vol]4.0 mmol/L3.5 - 5.3 LU-NKGZ-Wmxumwqb 201 Work Phone: Protein [Mass/Vol]7.9 g/dL6.4 - 8.5RJ-NAAR-Qgrghdox 201 Work Phone: Sodium [Moles/Vol]140 mmol/L136 - 014OU-AFUG-Klnjcjes 201 Work Phone: Urea nitrogen [Mass/Vol]8 mg/dL6 - 74LJ-QFXH-Eufxawhm 201 Work Phone: Otheron 24-96-1640Qbaedpq BCP dye [Mass/Vol]4.5 g/dL 3.4 - 5.2WP-KWLM-Xdbmxrbw 201 Work Phone: ALT With P-5'-P [Catalytic activity/Vol]87 U/Labove high threshold7 - 41AD-PHJW-Hjusbivp 201 Work Phone: Comment on above:Patients treated with Sulfasalazine may generate falsely decreased results for ALT.AST With P-5'-P [Catalytic activity/Vol]74 U/Labove high threshold9 - 06PO-GCJQ-Quxciuvw 201 Work Phone: Erythrocyte distribution width (RBC) [Ratio]12.1 %See ChdjpYH-IPXO-Sblkdujg 201 Work Phone: Comment on above:Reference Range: 11.5 - 14.5MCHC (RBC) [Mass/Vol]32.3 g/dLSee NmumaCS-IDUE-Rfwubjpx 201 Work Phone: Comment on above:Reference Range: 32.0 - 36.0>60>60 IU-QWYA-Rmofljnc 201 Work Phone: Comment on above:CALCULATIONS OF ESTIMATED GFR ARE PERFORMED USING THE MDRD STUDY EQUATION FOR THE IDMS-TRACEABLE CREATININE METHODS. CLIN CHEM 2007;53:766-72TSHon 52-38-4425OLG Qn2.89 m[IU]/LNormal0.44 - 3.98[facility] CenterComment on above:Result Comment: TSH testing is performed using different testing methodology at [facility] than at other system hospitals. Direct result comparisons should only be made within the same method.Performed By: #### TSH2 #### [address] [id number] - Thyroid Stimulating Hormone, Serumon 53-98-7391SNK Qn 2.89 {mIU/L}See YitraGX-GNTZ-Mskmmklj 201 Work Phone: Comment on above:Reference Range: 0.44 - 3.98 TSH testing is performed using different testing methodology at [facility] than at other system hospitals. Direct result comparisons should only be made within the same method.Vitamin B12, Serumon 75-17-8404Mhetjzrkw (Vitamin B12) [Mass/Vol]413 pg/uQRhbbci140 - 146LK-[facility]-Zfxpwars 201 Work Phone: Comment on above:Performed By: #### VTB12 #### [address], [place] [id number], Urine Bacterialon 04-46-8701Dhmvrab, Urine BacterialBILL#: [id number] : 77 AGE: SEX:FDOUGLASSOURCE: URINE COLLECTED: 07/26/17 08:50ANTIBIOTICS AT MICHELLE.: RECEIVED : 07/27/17 18:22SITE: UnspecifiedR E S U L T SURINE CULTURE,BACTERIAL FINAL 07/28/17 11:10NO GROWTHNormalEMH HealthcareComment on above:Performed By: #### CXBUR ####[facility] [address] [place] [address], [id number] Metabolic Panelon 61-20-0290Dftzg gap15 mmol/ANbmdbv66-03PMB HealthcareComment on above:Performed By: #### [id number] ####[facility] [address] [place] [address] 116[address]Jbxdjjhhclv (HCO3)21 mmol/ETxulmp24-72HXO HealthcareComment on above:Performed By: #### [id number] ####[address] [address]FMI/Creatinine Ratio16 mg/mgNormal5-25EMH HealthcareComment on above:Performed By: #### [id number] ####[facility] [address] [place] [address]Tzxxmce6.5 mg/dLNormal 8.6-10.3EMH HealthcareComment on above:Performed By: #### [id number] ####[facility] [address] [place], [place] [address]Wuxiqzwf568 mmol/ZQoztoo11-201GRV HealthcareComment on above:Performed By: #### [id number] ####[facility] [address] [place] [address] Creatinine0.77 mg/dLNormal0.50-1.05EMH HealthcareComment on above:Performed By: #### [id number] ####[facility] [address] [place], [place] [address]nXPN (MDRD)mL/min/{1.73_m2}NormalEMH HealthcareComment on above:Result Comment: Interpretation for Chronic Kidney Disease:Stages 1&2 >60 Healthy or potential kidney damage.Mild decrease of GFR.Stage 3 30-59 Moderate decrease of GFR.Stage 4 15-29 Severe decrease of GFR.Stage 5 <15 Kidney failure or on dialysis.Performed By: #### [id number] ####[facility] [address] [place], [place] [address]Qrjmyrf mass ghny292 mg/dLHigh 70-100EMH HealthcareComment on above:Performed By: #### [id number] ####[address] [address]Lqxbiaqrh molar conc4.3 mmol/LNormal3.5-5.1EMH HealthcareComment on above:Performed By: #### [id number] ####[address] [address]Bjokru077 mmol/GJzgfkb168-184UJC HealthcareComment on above:Performed By: #### [id number] ####[address] [address]Tbka gwvkdoct90 mg/dLNormal6-23EMH HealthcareComment on above: Performed By: #### [id number] ####[address] [address]BALqk 74-70-2256Hymyzgaspfe distribution width Auto Ratio (RBC)12.3 %Lomiyj36.0-15.4EMH HealthcareComment on above:Performed By: #### [id number] ####[address] [address]Lrvfevyrszym (RBC)4.63 10*6/uLNormal3.85-5.10[facility] Healthcare Comment on above:Performed By: #### [id number] ####[address] [address]Nqwrksrqvc (HCT)41.9 %Normal 36.5-46.6EMH HealthcareComment on above:Performed By: #### [id number] ####[address] [address] Hemoglobin mass conc (Bld)14.1 g/zXExankv11.8-15.3EMH HealthcareComment on above:Performed By: #### [id number] ####[address] [address]OEY21.5 shBnpywc98.5-33.0EMH HealthcareComment on above:Performed By: #### [id number] ####[address] [address]WFLA mass conc (RBC)33.7 g/dLNormal 30.1-35.0EMH HealthcareComment on above:Performed By: #### [id number] ####[address] [address] MCV90.5 yZSxzalb08.4-100.0EMH HealthcareComment on above:Performed By: #### [id number] ####[address] [address]YOWF Absolute0.00 10*3/uLNormalEMH HealthcareComment on above:Performed By: #### [id number] ####[address] [address]TUUM Automated0.0 /100{WBCs}NormalEMH HealthcareComment on above:Performed By: #### [id number] ####[address] [address]Lklzakat mean volume (PMV)10.0 fLNormal9.9-12.1 EMH HealthcareComment on above:Performed By: #### [id number] ####[address] [address]Dpgozaljo203 10*3/vAHjpezd127-440NEO HealthcareComment on above:Performed By: #### [id number] ####[facility] [address] [place] [address] RDW SD40.3 jMCocxjx11.3-48.6EMH HealthcareComment on above:Performed By: #### [id number] ####[facility] [address] [place], [place] [address]ELV (Leukocytes)6.7 10*3/uLNormal4.4-9.9EMH HealthcareComment on above: Performed By: #### [id number] ####[facility] [address] [place], [place] [address]Ldeyucnup ([facility])on 62-81-3087Ydovuirog ([facility])FINAL SURGICAL PATHOLOGY TIXNYOXV-78-2213 FINAL DIAGNOSISUTERUS, CERVIX AND BILATERAL FALLOPIAN TUBES-UTERUS, 113 GRAMS.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.ADENOMYOSIS, SUPERFICIAL AND DEEP, EXTENSIVE.EARLY SECRETORY ENDOMETRIUM.MYOMETRIAL HYPERTROPHY.CHRONIC CERVICITISWITH SQUAMOUS METAPLASIA.BILATERAL FALLOPIAN TUBES WITH FOCAL PARATUBAL CYST.Comment: No previous Pap smear or biopsy results available at [facility] for correlation purposes.CLINICAL HISTORY:CERVICAL DYSPLASIA, AUBOPERATION:TOTAL LAPAROSCOPIC HYSTERECTOMY, BILATERAL SALPINGECTOMY, CYSTOSCOPYSPECIMEN(S):(A) UTERUS, WITH CERVIX AND BILATERAL FALLOPIAN TUBESPerformed at [facility], [address] [place] [address]HHRFR DESCRIPTION: Received in [facility] fixative, labeled Mariela Armendariz and designated uteruswith cervix and bilateral fallopian tubes. The specimen consists of a uteruswith attached cervix and bilateral fallopian tubes. The uterus with cervixweighs 113 g and measures 9.5 cm in length by 6.0 cm in width by 3.9 cm in APdimension. The serosal surface of the uterus is germain-pinkand smooth. Theattached cervix measures 3.0 cm in [...] congestion. Sectioning through the endomyometriumdemonstrates some areas ofpossible endometrial thickening in the posteriorendometrium (maximal 0.5 [...] smooth. A 1.0 cm clearfluid-filled paratubal cyst ispresent. A fimbriated and is noted. Crosssectioning through the fallopian tube demonstrates a pinpoint lumen. Sectionsrepresentative A1 through A12 cervix, submitted entirely, in order from 1:00to 12:00, A13 through A14 anterior endomyometrium, A15 through A16 posteriorendomyometrium, A17 right fall opian tube, A18 left fallopian tube.CAESigned Out by:CHRISTI VIGILeported: 07/12/2017NoUNC Health Caldwell HealthcareComment on above:Performed By: #### AILYN ####[facility] [address] [place] [address] Test (Serum)on 46-52-1085Pmqimviil Test, SerumNegativeNoUNC Health Caldwell HealthcareComment on above:Performed By: #### [id number] ####[facility] [address] [place], [place] [address]Esjy and Screenon 99-09-2358Qwgpmbrn ScreenNegativeColumbus Regional Healthcare System HealthcareComment on above:Performed By: #### TS3 ####[facility] [address] [place], [place] [address]Zxyiq and RhPositiveNormEdgefield County HospitalComment on above: Result Comment: @07/09/17 09:38 by RSIM:No previous history found to confirm this result.If transfusion of RBC's or FFP is requested, a secondsample must be collected at a separate phlebotomyto confirm the ABORH.Performed By: #### TS3 ####[facility] [address] [place] [address] Mammo Screening Bilat CAD Tomoon 11-06-7104Ydkiw Screening Bilat CAD Jimbo [facility] Patient: BETZAIDA ARMENDARIZ [address] MR#: [id number] [place], [place] [address] : [address] Marco Antonio Paniagua MD Dept: Diagnostic Imaging Loc: OPC DI REPORT Service Dt:06/07/17 Report#: [id number] Adm Dt: 06/07/17 Dis Dt: Comments: STUDY: MG Mammo Screening Bilat CAD Jimbo; 06/07/2017 5:45 pm ACCESSION NUMBER(S): [id number] ORDERING CLINICIAN: Marco Antonio Paniagua INDICATION: Screening. 42-year-old female with a baseline screening study. Family history of breast cancer in paternal grandmother in her 70s. COMPARISON:None. FINDINGS: 2D and tomosynthesis images were reviewed [...] Electronically Signed by: Jayda Dallas 06/08/2017 12:26 PMNWVUMedicine Harrison Community HospitalPelvis Complete Transvaginalon 33-44-4165Zcemeo Complete TransvaginalUniLima Memorial Hospital Patient: BETZAIDA ARMENDARIZ [address] MR#: [id number] [place], [place] [address] : [address] Marco Antonio Paniagua MD Dept: Diagnostic Imaging Loc: OPC DI REPORT Service Dt:06/07/17 Report#: [id number] Adm Dt: 06/07/17 Dis Dt: Comments: STUDY: US Pelvis Complete Transvaginal; 06/07/2017 5:30 pm INDICATION: IRREGULARMENSES. COMPARISON: None. ACCESSION NUMBER(S): [id number] ORDERING CLINICIAN: Marco Antonio Paniagua TECHNIQUE: Multiple [...] adnexal masses. IMPRESSION: 1. Approximately 4 cm uterinefibroid. 2. Normal endometrial thickness. 3. Ovaries are not sonographically visible but no adnexal masses are seen. Dictated by: Steve Church Electronically Signed by: Steve Church 06/08/2017 8:19 AMNormalMercy Health Tiffin HospitalComplete Blood Count w/diff $$on 36-04-6240Nddrqvxxq Auto #/vol (Bld)0.0 10 /uLLow0.04-0.9Mer[facility] Health Tiffin HospitalComment on above:Performed By: #### CBC, FT4, TSH, FSH, LH, PROL ####[facility] [place] [address] Basophils/100 WBC Auto (Bld)1 %Normal0-1PCleveland Clinic Lutheran HospitalComment on above:Performed By: #### CBC, FT4, TSH, FSH, LH, PROL ####[address] [phone] 10 3/uLLow0.03-0.6[facility] General HospitalComment on above:Performed By: #### CBC, FT4, TSH, FSH, LH, PROL ####[address] [address] Eosinophils/100 leukocytes0 %Normal0-3PCleveland Clinic Lutheran HospitalComment on above:Performed By: #### CBC, FT4, TSH, FSH, LH, PROL ####[place] [id number] Erythrocyte distribution width Auto Ratio (RBC)12.6 %Sasgtx06.5-14.5PCleveland Clinic Lutheran HospitalComment on above:Performed By: #### CBC, FT4, TSH, FSH, LH, PROL ####[address] [address] Erythrocytes (RBC)4.64 10 6/uLNormal4.2-5.4[facility] Comment on above:Performed By: #### CBC, FT4, TSH, FSH, LH, PROL ####[address] [address] Hematocrit (HCT)43.5 %Feczuw91-50VxdjhMercy Health Tiffin HospitalComment on above: Performed By: #### CBC, FT4, TSH, FSH, LH, PROL ####[address] [address] Hemoglobin mass conc (Bld) 13.7 g/qEUetgbk64.0-16.0[facility] HospitalComment on above: Performed By: #### CBC, FT4, TSH, FSH, LH, PROL ####[address] [address] Immature Gran# (Auto)0.0 10 3/uLNormalMercy Health Tiffin HospitalComment on above:Performed By: #### CBC, FT4, TSH, FSH, LH, PROL ####[address] [address] Immature granulocytes #/vol (Bld)0.4 %Normal 0.0-0.9[facility] HospitalComment on above:Performed By: #### CBC, FT4, TSH, FSH, LH, PROL ####[address] [address] Fvkdvhppskf1.0 10 3/uLNormal1-3.5[facility] HospitalComment on above:Performed By: #### CBC, FT4, TSH, FSH, LH, PROL ####[address] [address] Lymphocytes/100 yuaiqliemn90 %Cgnhve77-16VfotbMercy Health Tiffin HospitalComment on above:Performed By: #### CBC, FT4, TSH, FSH, LH, PROL ####[address] [address] MJQ83.5 dwSglczd26-28BdfavMercy Health Tiffin HospitalComment on above:Performed By: #### CBC, FT4, TSH, FSH, LH, PROL ####[address] [address] JGL93.5 g/wGDwi20-27 [facility] on above:Performed By: #### CBC, FT4, TSH, FSH, LH, PROL ####[address] [address] EHN79.8 zLMrmtwk39-089SzzxzMercy Health Tiffin HospitalComment on above:Performed By: #### CBC, FT4, TSH, FSH, LH, PROL ####[address] [address] Bkluhhjlk1.3 10 3/uL Normal0.04-0.9Mer[facility] Tiffin HospitalComment on above:Performed By: #### CBC, FT4, TSH, FSH, LH, PROL ####[address] [address] Monocytes/100 leukocytes4 %Normal1-8Mer[facility] Tiffin HospitalComment on above:Performed By: #### CBC, FT4, TSH, FSH, LH, PROL ####[address] [address] Mokwwwwsavd1.3 10 3/uLNormal1.8-7.0Mer[facility] Tiffin HospitalComment on above:Performed By: #### CBC, FT4, TSH, FSH, LH, PROL ####[place] [id number] Neutrophils/100 mvzocvsaur09 %Oywhvi61-71VcuugMercy Health Tiffin HospitalComment on above:Performed By: #### CBC, FT4, TSH, FSH, LH, PROL ####[place] [id number] Nucleated erythrocytes0.0 %Normal0.0-0.0Mer[facility] Health Tiffin HospitalComment on above: Performed By: #### CBC, FT4, TSH, FSH, LH, PROL ####[place] [id number] Platelet mean volume (PMV) 9.7 fLNormal7.4-10.4Mer[facility] Health Tiffin HospitalComment on above:Performed By: #### CBC, FT4, TSH, FSH, LH, PROL ####[place] [address] Nfutmpjpu643 10 3/yGSulbif274-388UppbaMercy Health Tiffin HospitalComment on above:Performed By: #### CBC, FT4, TSH, FSH, LH, PROL ####[place] [address] WBC (Leukocytes)6.7 10 3/uLNormal4.0-11.0Mer[facility] Tiffin HospitalComment on above:Performed By: #### CBC, FT4, TSH, FSH, LH, PROL ####[place] [address] Follicle Stimulating Hormoneon 62-93-0868Vogkccji Stimulating Hormone4.2 IU/LNormalMercy Health Tiffin HospitalComment on above:Result Comment: REF VALUESFOLLICULAR 9-52ZKI-PXHOI 12-25LUTEAL PHASE 2-12MENOPAUSE 30-625WFBCDSGIJQ01% ADULTADULT MALE 2-10INFANTS 0-1Performing Site: [facility] - [address], [place] [address]Performed By: #### CBC, FT4, TSH, FSH, LH, PROL ####[place] [id number] Free T4on 44-39-7862Kjqdcgoma (T4) free1.0 ng/dLNormal 0.8-1.5PCleveland Clinic Lutheran HospitalComment on above:Performed By: #### CBC, FT4, TSH, FSH, LH, PROL ####[place] [id number] Luteinizing Hormoneon 09-74-7015Ipzpkxeffrg Hormone 2.7 IU/LNormalMercy Health Tiffin HospitalComment on above:Result Comment: REF VALUESFOLLICULARPHASE 1.5-10.0MID-CYCLE 13.0-72.0LUTEAL PHASE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
--- OUTSIDE RECORDS SUMMARY | 2025-01-01 19:49 | XMS_ITS | Encounter Summary ---
Author Organization [facility] Address [address] [place] [address] Care Team Providers Care Tar Processing Technician Name Role Phone Duglas Morris MD Primary Care Provider [phone] Encounter Details DateTypeDepartmentCare Team (Latest Contact Info)Cjdqcutkpsu48/10/2025amboo flowsheet [facility] [place] [address] [place] [place] [address] Cyndie Aguirre PA [address] [place] [address] [address] [place], [facility] Social History Tobacco UseTypesPacks/DayYears UsedDateSmoking Tobacco: Never Assessed CommentsNoSex and Gender InformationValueDate RecordedSex Assigned at Vhwslj9012/14/2022 8:42 AM EDTLegal RxkHlokvt78/15/2023 11:46 PM EDTGender DollmskhWotphf14/23/2023 8:42 AM EDTSexual OrientationNot on filedocumented as of this encounter Plan of Treatment DateTypeDepartmentCare Team (Latest Contact Info)Dhieqwyddpa21/13/2025 8:50 AM ESTOffice Visit [facility] [place] [address] [place] [address] Cyndie Aguirre PA [address] [place] [address] [address] [place], [place] [id number] 01/08/2026 9:00 AM ESTProcedure Visit [facility] [place] [address] [place] [address] Cyndie Aguirre PA [address] [place] [address] documented as of this encounter Visit Diagnoses Not on filedocumented in this encounter Care Teams Team MemberRelationshipSpecialtyStart DateEnd Date Duglas Morris MD PCP - GeneralFamily Rhxmcgfc55/27/23documented as of this encounter
--- OUTSIDE RECORDS SUMMARY | 2025-01-01 19:49 | XMS_ITS | Clinical Summary ---
Author Organization [facility] Address [address] [facility] [place] [address] Care Team Providers Care Terrazzo Mechanic Name Role Phone Unavailable Primary Care Provider Unavailabl e Source Comments The following information is NOT included in Care Everywhere downloads:Psychiatric notes, ECG results, Cardiac Rehab notes, Pulmonary Function notes, data from SmartForms (includes but not limited toPregnancy data,audiograms, eye exams, pre-surgical evaluation notes, well-child exam data).[facility] Allergies Active AllergyReactionsCriticalityNoted ItyaQtfxzcxcQdugejamfokZdoze18/04/2019 Medications No known medications Immunizations ImmunizationAdministration DatesNext DueTdap (FAG=759)07/25/2016 Social History Tobacco UseTypesPacks/DayYears UsedDateSmoking Tobacco: FormerSmokeless Tobacco: NeverCommentsUnknownSex and Gender InformationValueDate RecordedSex Assigned at BirthNot on fileLegal CtrQdwukn52/04/2012 9:57 AM ESTGender Identity Not on fileSexual OrientationNot on file Last Filed Vital Signs Vital SignReadingTime TakenCommentsBlood Kbtqzdcl507/8804/25/2018 6:27 PM EST Jxgox826404/25/2018 6:27 PM LLUDcgcmmwqfls32.4 ??C (97.6 ??F)04/25/2018 6:27 PM ESTRespiratory Rate--Oxygen Kmjdixhbef026%04/25/2018 6:27 PM ESTInhaled Oxygen Concentration--Weight--Height--Body Mass Index-- Plan of Treatment Health MaintenanceDue DateLast IqwnJlydnaluDbehyudkbxs60/29/1977HIV Test 1991Hepatitis C Mivawccq01/29/1995Hepatitis A (HAV) Vaccine (optional start 19+ years)1995Hepatitis B (HBV) Vaccine (1 of 3 - 19+ 3-dose series) 1995Pap Smear03/22/19978855Mxgvobnabal54/29/2017CRC Pyzchrqni65/29/2022 Rtodoppfthz56/29/2022ologuard (Stool DNA)2021FIT2021OVID-19 Vaccine (1 - 2024- season)2024Influenza Vaccine (#1)2024Shingles (RZV) Vaccine (1 of 2)2026Tetanus (Td or Tdap) Uemxynr08 Tdap RifwnyoZxqwdhiuc11/03/2017Pneumococcal Vaccine(s)Aged OutNo longer eligible based on patient's age to complete this topic Insurance * Guarantor: Jeannie Armendariz TypeRelation to PatientDate of BirthPhone Billing AddressDrug XthmSkzf82/29/1976 [address] [phone] MemberSubscriberPlan / Payer (Effective 2014-Present)Name:Paris Armendariz Relation to Subscriber:SelfName:Paris Armendariz Payer ID:Not on file Group ID:Not on file Type:PPO Address: [address] [place] [id number]
--- OUTSIDE RECORDS SUMMARY | 2025-01-01 19:49 | XMS_ITS | Encounter Summary ---
Author Organization [facility] Address [address] [place] [address] Care Team Providers Care Manufacture Specialist Name Role Phone Duglas Morris MD Primary Care Provider [phone] Encounter Details DateTypeDepartmentCare Team (Latest Contact Info)Jepkouykswk03/10/2025Travel Social History Tobacco UseTypesPacks/DayYears UsedDateSmoking Tobacco: Never Assessed CommentsNoSex and Gender InformationValueDate RecordedSex Assigned at Wqghfj5812/14/2022 8:42 AM EDTLegal XoxIghunr48/15/2023 11:46 PM EDTGender TqclwruiCdkmpn34/23/2023 8:42 AM EDTSexual OrientationNot on filedocumented as of this encounter Plan of Treatment DateTypeDepartmentCare Team (Latest Contact Info)Jnuyjdemawy55/13/2025 8:50 AM ESTOffice Visit [facility] [place] [address] [place] [address] [place] [address] Cyndie Aguirre PA [address] [place] [address] Dr [place], [facility]11 01/08/2026 9:00 AM ESTProcedure Visit [facility] [place] [address] [facility] [place] [address] Cyndie Aguirre PA [address] [facility] [address] [place], [facility]11 documented as of this encounter Visit Diagnoses Not on filedocumented in this encounter Care Teams Team MemberRelationshipSpecialtyStart DateEnd Date Duglas Morris MD PCP - GeneralFamily Ufctmpfw60/27/23documented as of this encounter
--- OUTSIDE RECORDS SUMMARY | 2025-01-01 19:49 | XMS_ITS | Clinical Summary ---
Author Organization [facility] Address [address] [place] [address] Care Team Providers Care Perlite Grinder Name Role Phone Duglas Morris MD Primary Care Provider [phone] Allergies Active AllergyReactionsCriticalityNoted DateCommentsPenicillinsHives,Itching, DptwOvg7405/08/2004 hives Wound Dressing Ruyzpouf27/03/2005 surgical tape gets blisters Medications MedicationSigDispense QuantityRefillsLast FilledStart DateEnd DateStatus estradiol (Estrace) 0.5 MG tablet Indications:Postmenopausal stateTake 1 tablet (0.5 mg) by mouth Daily Take 1 tablet by mouth for 30 days 30 tablet /20240224/5Active metFORMIN XR (Glucophage-XR) 500 MG 24 hr tablet Indications:Encounter for weight managementTake 1 tablet (500 mg) by mouth in the evening. Take with meals Do not crush, chew, or split. 30 tablet 110/20240224/5Active estradiol (Estrace) 0.5 MG tablet Indications:Postmenopausal stateTake 1 tablet (0.5 mg) by mouth Daily Take 1 tablet by mouth for 30 days 30 tablet 1110//Discontinued(Reorder) metFORMIN XR (Glucophage-XR) 500 MG 24 hr tablet Indications:Encounter for weight managementTAKE 1 TABLET BY MOUTH EVERY EVENING WITH MEALS 30 tablet 311/08//Discontinued(Reorder) Encounters DateTypeDepartmentCare PcpyZkwkkyoxmom77/10/2025 1:00 PM ESTOffice Visit [facility] [address] [place] [address] [place] [address] Cyndie Aguirre PA Well woman exam with routine gynecological exam; Breast cancer screening by rzavjaamy02/10/2025amboo flowsheet [facility] [place] [address] [facility] [place] [address] Cyndie Aguirre PA 01/01/20256874Llqmnl93/20/2025Telephone [facility] [place] [address] [place] [address] Zulema Soto MA from Last 3 Months Family History Medical HistoryRelationNameCommentsCancerPaternal GrandmotherCancerSibling RelationNameStatusCommentsPaternal GrandmotherSibling Social History Tobacco UseTypesPacks/DayYears UsedDateSmoking Tobacco: Never Assessed CommentsNoSex and Gender InformationValueDate RecordedSex Assigned at Gvqgxn0112/14/2022 8:42 AM EDTLegal MdkRaytbs82/15/2023 11:46 PM EDTGender DpxluwjfRmkudh08/23/2023 8:42 AM EDTSexual OrientationNot on file Last Filed Vital Signs Vital SignReadingTime TakenCommentsBlood Ovinnqsz248/7201/01/2025 1:11 PM EST Ulooz4227/30/2024 5:21 PM DOTWqqinztdede96.5 ??C (97.7 ??F)07/22/2023 5:21 PM EDTRespiratory Rate--Oxygen Ickotpbnbx95%07/22/2023 5:21 PM EDTInhaled Oxygen Concentration--Miuvwu343 kg (231 lb)01/01/2025 1:11 PM LTJCikoqu880.6 cm (5' 6 ) 12/21/2022 1:07 PM EDTBody Mass Index37.281 1:07 PM EDT Plan of Treatment DateTypeDepartmentCare Team (Latest Contact Info)Aztqnfhhckp71/13/2025 8:50 AM ESTOffice Visit [facility] [place] [address] [facility] [place] [address] Cyndie Aguirre, PA [address] [facility] [place] [address] 01/08/2026 9:00 AM ESTProcedure Visit [facility] [place] [address] [facility] [place] [address] Cyndie Aguirre PA [address] [facility] [place] [address] [place] [address] Care Teams Team MemberRelationshipSpecialtyStart DateEnd Date Duglas Morris MD PCP - GeneralFamily Jmiruvjo54/27/23
--- OUTSIDE RECORDS SUMMARY | 2025-01-01 19:49 | XMS_ITS | Clinical Summary ---
Author Organization [facility] Address [address] [place] [address] Phone Care Team Providers Care Sugar Sampler Name Role Phone Giovanna Brooks MD Primary Care Provider Unav ailable Social History Tobacco UseTypesPacks/DayYears UsedDateSmoking Tobacco: Never Assessed CommentsUnknownSex and Gender InformationValueDate RecordedSex Assigned at Not on fileLegal DymHtuaaj59/25/2022 1:03 PM ESTGender IdentityNot on fileSexual OrientationNot on file Last Filed Vital Signs Vital SignReadingTime TakenCommentsBlood Vqpkxknw244/78003/08/2020 3:33 PM EST Giumv823603/08/2020 3:33 PM HGFFbwagqaipcl13.3 ??C (97.3 ??F)03/08/2020 3:33 PM ESTRespiratory Sjpq655303/08/2020 3:33 PM ESTOxygen Saturation--Inhaled Oxygen Concentration--Weiinc63.2 kg (216 lb 8 oz)03/08/2020 3:33 PM JHCGtzpkg785.6 cm (5' 6 )03/08/2020 3:33 PM ESTBody Mass Index34.9403/08/2020 3:33 PM EST Plan of Treatment Not on file Care Teams Team MemberRelationshipSpecialtyStart DateEnd Date Giovanna Brooks MD PCP - Svnunuu36/22/20
--- OUTSIDE RECORDS SUMMARY | 2025-01-01 19:49 | XMS_ITS | Encounter Summary ---
Author Organization [facility] Address [address] [place] [address] Care Team Providers Care Job Placement Officer Name Role Phone Duglas Morris MD Primary Care Provider [phone] Cyndie Aguirre Unavailable Encounter Details DateTypeDepartmentCare Team (Latest Contact Info)Foztisdamom54/11/2024Clinisync Result Encounter [facility] External Department Unsolicited Amilcar Gagnon DO [address] [facility] [address] Shiela Pratt, [facility] Social History Tobacco UseTypesPacks/DayYears UsedDateSmoking Tobacco: Never Assessed CommentsNoSex and Gender InformationValueDate RecordedSex Assigned at Zdfyye0712/14/2022 8:42 AM EDTLegal ZkqIuclja26/15/2023 11:46 PM EDTGender LbdsdpcsLtaeyw94/23/2023 8:42 AM EDTSexual OrientationNot on filedocumented as of this encounter Plan of Treatment DateTypeDepartselect specialty hospital-pontiacCare Team (Latest Contact Info)Ogyugaqeoym36/13/2025 8:50 AM ESTOffice Visit [facility] [place] [facility] [address] [facility] [place] [address] Cyndie Aguirre PA [address] [place] [address] 01/08/2026 9:00 AM ESTProcedure Visit [facility] [place] [address] [facility] [place] [address] Cyndie Aguirre PA [address] [place] [address] documented as of this encounter Procedures Procedure NamePriorityDate/TimeAssociated DiagnosisCommentsMM TOMOSYNTHESIS SCREENING BI01/03/2024 11:44 AM EST documented in this encounter Results * MM TOMOSYNTHESIS SCREENING (01/03/2024 11:44 AM EST)Anatomical Region LateralityModalityOtherSpecimen (Source)Anatomical Location / Laterality Collection Method / VolumeCollection TimeReceived Time01/03/2024 11:44 AM EST Narrative 01/03/2024 11:44 AM EST [facility] ?[address] ? [place], [facility] ? Mammography Report ? Signed ? Patient: SHARONDADONNY,BETZAIDA L ?MR#: [id number] ?? : 1975 ?Acct:[id number] ?? Age/Sex: 48 / F ?ADM Date: 01/03/24 ?? Loc: MAMMO ? Attending Dr: Amilcar Gagnon D.O. ? Ordering Physician: Amilcar Gagnon D.O. ?Results: ? Date of Service: 01/03/24 ?Follow Up: ? Procedure(s): MM tomosynthesis screening BI ?? Accession Number(s): [id number] ? cc: Amilcar Gagnon D.O.; Physician,Non-Staff MRoselineD. ? Patient Name: ? BETZAIDA ARMENDARIZ ? MR#: [id number] ? : 1975 ? Exam Date: 01/03/2024 ?? Ordering Doctor: DR Amilcar Gagnon . ? RADIOLOGY REPORT ? PROCEDURE: ? MM TOMOSYNTHESIS SCREENING BI ? COMPARISON: ? MG MAMM LT DIAG FU, 03/10/2022. ??MM TOMOSYNTHESIS DIAGNOSTIC ?? BI, 08/24/2022. ? INDICATIONS: ? SCREENING ? Calculator Name ? NCI Breast Cancer Risk Assessment Tool ?? 5 Year Breast Cancer Risk ? 0.60% ?? Lifetime Breast Cancer Risk ? 6.20% ?? Personal Breast Cancer ?No ?? Personal Ovarian Cancer ? No ?? Treatments ? None ?? Family Cancers ? Grandmother-paternal with breast cancer at age ??60; ?? Sister with leukemia cancer at age 2. ? LOCATION: ? [facility] ? BREAST COMPOSITION: ? The breasts are heterogeneously dense,which may ?? obscure small masses. ? FINDINGS: ? DIAGNOSTIC CATEGORY 2--BENIGN FINDING. NO CHANGE FROM COMPARISON. ? Scattered benign-appearing calcifications are present. ??Scattered ?? benign-appearing lymph nodes are present. ? RIGHT BREAST: ??No significant suspicious finding. ? LEFT BREAST: ??No significant suspicious finding. ? RECOMMENDATIONS: ? ROUTINE MAMMOGRAM AND CLINICAL EVALUATION IN 12 MONTHS. ? PLEASE NOTE: ??A NORMAL MAMMOGRAM DOES NOT EXCLUDE THE POSSIBILITY OF BREAST ?? CANCER. ??A CLINICALLY SUSPICIOUS PALPABLE LUMP SHOULD BE BIOPSIED. ? Dictated by: Ridge Phillips MD on 01/03/2024 at 11:42 ? Approved by: Ridge Phillips MD on 01/03/2024 at 11:43 ? Dictated By: ?Ridge Phillips V Frank. ? Signed By: ?01/03/24 1144 ? DD/ 1144 ? TD/TT: ? Frozen Yogurt Maker: Procedure Note Radiology, Radiologist, MD - 01/03/2024 [place] [address] Mammography Report Signed Patient: BETZAIDA ARMENDARIZ LMR#: [id number] : 1975Acct:[id number] Age/Sex: 48 / FADM Date: 01/03/24 Loc: MAMMO Attending Dr: Amilcar Gagnon D.O. Ordering Physician: Amilcar Gagnon D.O.Results: Date of Service: 01/03/24Follow Up: Procedure(s): MM tomosynthesis screening BI Accession Number(s): [id number] cc: Amilcar Gagnon D.O.; Physician,Non-Staff Bairon Patient Name: BETZAIDA ARMENDARIZ MR#: [id number] : 1975 Exam Date: 01/03/2024 Ordering Doctor: DR Amilcar Gagnon . RADIOLOGY REPORT PROCEDURE: MM TOMOSYNTHESIS SCREENING BI COMPARISON: MG MAMM LT DIAG FU, 03/10/2022. MM TOMOSYNTHESISDIAGNOSTIC BI, 08/24/2022. INDICATIONS: SCREENING Calculator Name NCI Breast Cancer Risk Assessment Tool 5 Year Breast Cancer Risk 0.60% Lifetime Breast Cancer Risk 6.20% Personal Breast Cancer No Personal Ovarian Cancer No Treatments None Family Cancers Grandmother-paternal with breast cancer at age 60; Sister with leukemia cancer at age 2. LOCATION: [facility] BREAST COMPOSITION: The breasts are heterogeneously dense,which may obscure small masses. FINDINGS: DIAGNOSTIC CATEGORY 2--BENIGN FINDING. NO CHANGE FROM COMPARISON. Scattered benign-appearing calcifications are present. Scattered benign-appearing lymph nodes are present. RIGHT BREAST: No significant suspicious finding. LEFT BREAST: No significant suspicious finding. RECOMMENDATIONS: ROUTINE MAMMOGRAM AND CLINICAL EVALUATION IN 12 MONTHS. PLEASE NOTE: A NORMAL MAMMOGRAM DOES NOT EXCLUDE THE POSSIBILITY OFBREAST CANCER. A CLINICALLY SUSPICIOUS PALPABLE LUMP SHOULD BE BIOPSIED. Dictated by: Ridge Phillips MD on 01/03/2024 at 11:42 Approved by: Ridge Phillips MD on 01/03/2024 at 11:43 Dictated By: Ridge Phillips M.D. Signed By:01/03/24 1144 DD/ 1144 TD/TT: Frozen Yogurt Maker: Authorizing ProviderResult TypeResult StatusCorey Kalin DOCLINISYNC IMAGINGFinal Result documented in this encounter Visit Diagnoses Not on filedocumented in this encounter Care Teams Team MemberRelationshipSpecialtyStart DateEnd Date Duglas Morris MD PCP - GeneralFamily Ffizsmko35/27/23 Cyndie Aguirre PA [address] [place] [address] [address] [id number] PCP - Medical [place] [facility]10/24/2411documented as of this encounter
--- OUTSIDE RECORDS SUMMARY | 2025-01-01 19:49 | XMS_ITS | Clinical Summary ---
Author Organization [facility] Address [address] [place] [address] Care Team Providers Care Relay Shop Tester Name Role Phone Unavailable Primary Care Provider Unavailabl e Allergies Active AllergyReactionsCriticalityNoted UfuaWkflwkxgAqltiuqoahq24/17/2005 hives tape [Other]12/25/2004 surgical tape gets blisters Medications * This document contains information received from the source organization and may not represent a complete record from that organization. MedicationSigDispense QuantityRefillsLast FilledStart DateEnd DateStatus Desogestrel-Ethinyl Estradiol (ORTHO-CEPT, 28,) 0.15-30 mg-mcg ORAL per tablet Take 1 tablet by mouth once daily.ctive azithromycin (ZITHROMAX Z-BAL) 250 mg ORAL tablet Take by mouth. Two (2) tablets the first day and then one (1) tablet daily for 4 days. 1 Package ctive acetaminophen-codeine (TYLENOL-CODEINE #3) 300-30 mg ORAL per tablet Take 1 tablet by mouth every 4 hours as needed for Pain. 30 tablet ctive Active Problems ProblemNoted DateDiagnosed DateSpider pbwzieb6304/23/2009GRANULOMA ANNULARE 09/01/2005Panic disorder without ogbnvkbscez68/07/2006Generalized anxiety kcjbwabm03/07/2006Myalgia and myositis, zjfikmbvsgp10/07/2006TELANGIECTASIA 01/29/20054804NLHTKDWDSFQDJZ95/08/2005NUMMULAR YANBMHPDOD80/08/2005 Immunizations ImmunizationAdministration DatesNext DueTD Adult05/08/2004diphtheria tetanus pertussis (DTP) moenasd7203/23/1981,09/14/1977,1976,1976,1976 measles mumps rubella (MMR) vaccine (M-M-R II, PRIORIX)05/19/1977 Family History Medical HistoryRelationCommentsDiabetesFathertype 2HypertensionFatherThyroid Maternal AuntDiabetesMaternal Grandfathertype 2Ischemic Heart DiseaseMaternal Grandfathercad, s/p cabgArthritisMaternal Grandmothertype unknownEmphysema Maternal GrandmothersmokerHypertensionMaternal Grandmotherprimary biliary sclerosisMotherliver failure; genetic disorderrheumatoid arthritisMother sjrogen'sMotherIschemic Heart DiseasePaternal GrandfatherMI age ?40's; Breast CancerPaternal GrandmotherleukemiaSister 2RelationStatusCommentsFather AliveMaternal AuntMaternal GrandfatherAliveMaternal GrandmotherAliveMotherAlive Paternal GrandfatherDeceasedMI age ?40'sPaternal GrandmotherDeceasedbreast cancerSister 1AliveSister 2 Social History Tobacco UseTypesPacks/DayYears UsedDateSmoking Tobacco: WxcaiuYcufnmpnxs355 Comments:started smoking age 17, 1 ppd Alcohol UseStandard Drinks/WeekCommentsYes0 (1 standard drink = 0.6 oz pure alcohol)less than 7 drinks/wCommentsNoSex and Gender InformationValue Date RecordedSex Assigned at BirthNot on fileLegal UqcXuedxy68/02/2012 7:18 AM ESTGender IdentityNot on fileSexual OrientationNot on fileOccupationIndustryJob Start DateJob End Datebar attendantNot on fileNot on fileNot on fileclericalNot on fileNot on fileNot on file Last Filed Vital Signs Vital SignReadingTime TakenCommentsBlood Haywfldl370/7404 5:45 PM EDT Kgknj58440/09/2012 5:45 PM SKVPrqkcfdnbsu26.6 ??C (97.9 ??F)06/01/2011 5:45 PM EDTRespiratory Rate--Oxygen Saturation--Inhaled Oxygen Concentration--Ewfmdk53.1 kg (159 lb)06/01/2011 5:45 PM JZEJvrblz569.6 cm (5' 6 )12/25/2008 3:02 PM EST Body Mass Index25.6612/25/2008 3:02 PM EST Plan of Treatment Health MaintenanceDue DateLast DoneCommentsAnxiety Poyvomyyh22/29/1995Depression Gthzstxvc34/29/1995HIV Szffykeib21/29/1995Hepatitis C Aovjqnqcr38/29/1995 Hepatitis B Vaccine (1 of 3 - 19+ 3-dose series)1995DTaP,Tdap,Td Vaccine (6 - Tdap), 03/23/1981, 09/14/1977, Additional history existsCervical Cancer Osmhdxsje18Mammogram Cfwrmtlql98/29/[address] Cuczfuoaikwz23/29/2022Cologuard (FIT-DNA)0658Sycfoudlinc38/29/2022 Colorectal Cancer Pvpatgace59/29/2022Diabetes Endbdcxqj96, 05/08/2004Fecal Occult Blood2021Lipid Tnwxaturz64, 05/08/20041234Poznysgkkfvhw73/29/2022Covid-19 Vaccine (2024- season)2024 Influenza Vaccine (#1)2024 Procedures Procedure NamePriorityDate/TimeAssociated DiagnosisCommentsBASIC METABOLIC PANEL Rbxrzdj3103/05/2005 11:02 AM EST Chest Pain Nos Anxiety State Nos Tobacco Use Disorder LIPID PANEL, RFIVOSBDwuwmsv06/12/2006 11:02 AM EST Chest Pain Nos Anxiety State Nos Tobacco Use Disorder from Last 3 Months or Most Recently Relevant to Health Maintenance Results * (ABNORMAL) LIPID PANEL BASIC (03/05/2005 11:02 AM EST)ComponentValueRef Range Test MethodAnalysis TimePerformed AtPathologist UwzeejeryYpwtbkzeogik0372 - 149 mg/dLCLEFIRELANDS REGIONAL MEDICAL [facility]ENTER LABCholesterol, Vkikc914006 - 199 mg/dLCLEFIRELANDS REGIONAL MEDICAL CENTER LABHDL Cvsmmjvahjq89(A)>55 mg/dLCLEFIRELANDS REGIONAL MEDICAL CENTER LABVLDL Ncyldxfjkwp757 - 40 mg/dLCLEVELAND CLINIC LABLDL Cholesterol, Jxzlracbgx46895 - 129 mg/dL [facility] LABFasting Nkgb57zvhRHIWSFKAT CLINIC LABTC:HDL Ratio3.621.00 - 5.00[facility] LABLDL:HDL Ratio2.240.50 - 3.55[facility] Specimen (Source)Anatomical Location / LateralityCollection Method / Volume Collection TimeReceived TimeBlood specimen (specimen)BLOOD SPECIMEN / Unknown 03/05/2005 11:02 AM EST Narrative Authorizing ProviderResult TypeResult StatusBrenda Geddis ComrieLABORATORYFinal ResultPerforming OrganizationAddressCity/State/ZIP CodePhone Number [facility] [address] [place] [address] * (ABNORMAL) BASIC METABOLIC PNL (03/05/2005 11:02 AM EST)ComponentValueRef RangeTest MethodAnalysis TimePerformed AtPathologist PexczzdrtUtjqpdp0917 - 100 mg/dLCLEVELAND CLINIC L[facility] SWAJNW53 - 25 mg/dLCLEVELAND CLINIC [facility] LABCreatinine0.6 (A)0.7 - 1.4 mg/dLCLEVELAND CLINIC [facility] FEHEgyukn728443 - 148 mmol/LC[facility] LABPotassium4.33.5 - 5.0 mmol/LC[facility] GKAYwwpmwzq60683 - 110 mmol/LC[facility] XSAFN88326 - 32 mmol/[facility] LABAnion Orz053 - 15 mmol/LCLEVELAND [facility] LABCalcium9.88.5 - 10.5 mg/dLCLEVELAND CLINIC [facility] Specimen (Source)Anatomical Location / LateralityCollection Method / Volume Collection TimeReceived TimeBlood specimen (specimen)BLOOD SPECIMEN / Unknown 03/05/2005 11:02 AM EST Narrative Authorizing ProviderResult TypeResult StatusBrenda Geddis ComrieLABORATORYFinal ResultPerforming OrganizationAddressCity/State/ZIP CodePhone Number [facility] [address] [place] [address] from Last 3 Months or Most Recently Relevant to Health Maintenance Insurance * Guarantor: Paris Bonilla TypeRelation to PatientDate of BirthPhone Billing AddressPersonal/ZlfptzRpeo02/29/1976 NA (Home) [address] [place] [id number] * Guarantor: Paris Bonilla TypeRelation to PatientDate of BirthPhone Billing AddressSelf QhyEkjo75 1975 (Home) [address] [address]
== END 2025-01-01 19:38 | disposition home or self-care (01) ==
LOC: LAB 19:37
PROVIDERS: Visit Provider Physician Assistant
DX: Z01.419 Encounter for gynecological examination (general) (routine) without abnormal findings (principal)
CPT/HCPCS: 87624; 88175

== ENCOUNTER 2025-01-04 09:43 | Outpatient (OUT) | payer OTHER, SELFPAY ==
--- OUTSIDE RECORDS SUMMARY | 2025-01-01 13:00 | XMS_ITS | Encounter Summary ---
Author Organization [facility] Address [address] [place] [address] Care Team Providers Care Rehabilitator Name Role Phone Duglas Morris MD Primary Care Provider [phone] Reason for Visit * ReasonCommentsWell Women Visit Encounter Details DateTypeDepartmentCare Team (Latest Contact Info)Ctjjwivqjir69/10/2025 1:00 PM ESTOffice Visit [facility] [address] [place] [address] Cynide Aguirre PA [address] [place] [address] Well woman exam with routine gynecological exam; Breast cancer screening by mammogram Social History Tobacco UseTypesPacks/DayYears UsedDateSmoking Tobacco: Never Assessed CommentsNoSex and Gender InformationValueDate RecordedSex Assigned at Drtzyf0112/14/2022 8:42 AM EDTLegal JbhSrgozj70/15/2023 11:46 PM EDTGender EaiqdjzqXfubfw55/23/2023 8:42 AM EDTSexual OrientationNot on filedocumented as of this encounter Last Filed Vital Signs Vital SignReadingTime TakenCommentsBlood Rpwrnnur453/7201/01/2025 1:11 PM EST Pulse--Temperature--Respiratory Rate--Oxygen Saturation--Inhaled Oxygen Concentration--Xdjopy219 kg (231 lb)01/01/2025 1:11 PM ESTHeight--Body Mass Index37.281 1:07 PM EDTdocumented in this encounter Progress Notes * AUTUMN Garcia - 01/01/2025 1:00 PM EST Reason for Appointment: Patient ID: Paris Bonilla is a 49 y.o. female who presents for Well Women Visit Patient presents today for Annual Exam. MEDICATIONS Current Outpatient Medications Medication Instructions estradiol (ESTRACE) 0.5 mg, Oral, Daily, Take 1 tablet by mouth for 30 days metFORMIN XR (GLUCOPHAGE-XR) 500 mg, Oral, Daily with evening meal, Do not crush, chew, or split. ALLERGIES Allergies Allergen Reactions Wound Dressing Adhesive [...] nursing note reviewed. Exam conducted with a faculty member present. Vitals: Estimated body mass index is 37.28 kg/m?? as calculated from the following: Height as of 12/21/22: 5' 6 . Weight as of this encounter: 231 lb. BP: 120/72 No LMP recorded. Patient has had a hysterectomy. Assessment/Plan ICD-10-CM 1. Well woman exam with routine gynecological exam Z01.419 THIN PREP TIS PAP AND HR HPV DNA 2. Breast cancer screening by mammogram Z12.31 Bilateral screening mammogram Bilateral screening mammogram Annual: Patient presents today for an annual exam. Patient states she is doing well and has no complaints. Pap was obtained without difficulty and patient given mammogram order to have scheduled/obtained. Pt is currently on Estradiol 0.5 MG tablet. And it was discussed patient may like to go up to 1 MG to help w/menopausal issues. Cyndie Aguirre advised pt if she wanted to go home and think about going up on her Estradiol to do so. And if she decides to go up on the medication to call our office and Cyndie Aguirre can send it. PVU. Orders Placed This Encounter Procedures Bilateral screening mammogram Follow Up: Patient is to return in one year for annual unless needed otherwise. Documented by Roseann French MA on behalf of: AUTUMN Garcia documented in this encounter Plan of Treatment DateTypeDepartmentCare Team (Latest Contact Info)Gvkwjmhwola54/11/2025 8:30 AM ESTOffice Visit [facility] [address] [place] [address] [place] [phone] Cyndie Aguirre PA [address] [place] [address] [place] [address] 01/08/2026 9:00 AM ESTProcedure Visit [facility] [address] [place] [address] [place] [phone] Cyndie Aguirre PA [address] [place] [address] NameTypePriorityAssociated DiagnosesOrder ScheduleBilateral screening mammogram ImagingRoutine Breast cancer screening by mammogram Expected: 01/01/2025 (Approximate), Expires: 03/03/2026THIN PREP TIS PAP AND HR HPV DNAPathology and CytologyRoutine Well woman exam with routine gynecological exam Ordered: 01/01/2025documented as of this encounter Visit Diagnoses Diagnosis Well woman exam with routine gynecological exam Routine gynecological examination Breast cancer screening by mammogram documented in this encounter Care Teams Team MemberRelationshipSpecialtyStart DateEnd Date Duglas Morris MD PCP - GeneralFamily Eqookxbk13/27/23documented as of this encounter
--- OUTSIDE RECORDS SUMMARY | 2025-01-04 08:50 | XMS_ITS | Encounter Summary ---
Author Organization [facility] Address [address] [place] [address] Care Team Providers Care Nutrition Worker Name Role Phone Duglas Morris MD Primary Care Provider Reason for Visit * ReasonCommentsWeight Management Encounter Details DateTypeDepartmentCare Team (Latest Contact Info)Fmzyakioftc34/13/2025 8:50 AM ESTOffice Visit [facility] [address] [place] [address] Cyndie Aguirre PA [address] [place] [address] Encounter for weight management; Constipation, unspecified constipation type Social History Tobacco UseTypesPacks/DayYears UsedDateSmoking Tobacco: Never Assessed CommentsNoSex and Gender InformationValueDate RecordedSex Assigned at Uskfwv9012/14/2022 8:42 AM EDTLegal JzaKzwfto01/15/2023 11:46 PM EDTGender BceuqywcQxutoy90/23/2023 8:42 AM EDTSexual OrientationNot on filedocumented as of this encounter Last Filed Vital Signs Vital SignReadingTime TakenCommentsBlood Upoallao243/7201/04/2025 9:27 AM EST Pulse--Temperature--Respiratory Rate--Oxygen Saturation--Inhaled Oxygen Concentration--Imzshg644 kg (233 lb 12.8 oz)01/04/2025 9:27 AM ESTHeight--Body Mass Index37.7412/21/2022 1:07 PM EDTdocumented in this encounter Progress Notes * AUTUMN Garcia - 01/04/2025 8:50 AM EST Reason for Appointment: Patient ID: Paris Bonilla is a 49 y.o. female who presents for Weight Management Patient presents today for Weight Management Consult. MEDICATIONS Current Outpatient Medications Medication Instructions estradiol [...] Objective: Physical Exam Constitutional: Appearance: Normal appearance. She is normal weight. HENT: Head: Normocephalic. Cardiovascular: Rate and Rhythm: Normal rate. Pulses: Normal pulses. Pulmonary: Effort: Pulmonary effort is normal. Breath sounds: Normal breath sounds. Abdominal: Palpations: Abdomen is soft. Musculoskeletal: General: Normal range of motion. Neurological: General: No focal deficit present. Mental Status: She is alert and oriented to person, place, and time. Psychiatric: Mood and Affect: Mood normal. Behavior: Behavior normal. Thought Content: Thought content normal. Judgment: Judgment normal. Vitals and nursing note reviewed. Vitals: Estimated body mass index is 37.28 kg/m?? as calculated from the following: Height as of 12/21/22: 5' 6 . Weight as of 01/01/25: 231 lb. BP: No LMP recorded. Patient has had a hysterectomy. ASSESSMENT & PLAN ICD-10-CM 1. Encounter for weight management Z76.89 Assessment/Plan Patient presents today for initial Adipex prescription. The importance of keeping a food journal, proper nutrition/diet, and exercise regimen while taking Adipex has been discussed. Patient verbalized understanding and signed consents to initiate (Adipex) medication therapy. Patient was given a printed prescription signed by provider to take to their local pharmacy. Follow Up: Patient is to return to the office in 1 month for further evaluation to assess patient progress. Weight and blood pressure will need to be captured in order for patient to receive 2nd prescription. Documented by Terri Villa CST on behalf of: AUTUMN Garcia documented in this encounter Plan of Treatment DateTypeDepartmentCare Team (Latest Contact Info)Oryineuhqcd21/11/2025 8:30 AM ESTOffice Visit [facility] [place] [facility] [address] [place] [phone] Cyndie Aguirre PA [address] [place] [address] 01/08/2026 9:00 AM ESTProcedure Visit [facility] [place] [facility] [address] [place] [address] Cyndie Aguirre PA [address] [place] [address] documented as of this encounter Visit Diagnoses Diagnosis Encounter for weight management Constipation, unspecified constipation type documented in this encounter Care Teams Team MemberRelationshipSpecialtyStart DateEnd Date Duglas Morris MD PCP - GeneralFamily Twblwamo90/27/23documented as of this encounter
--- OUTSIDE RECORDS SUMMARY | 2025-01-04 09:45 | XMS_ITS | Encounter Summary ---
Author Organization [facility] Address [address] [place] [address] Care Team Providers Care Finisher Hand Name Role Phone Duglas Morris MD Primary Care Provider [phone] Cyndie Aguirre Unavailable Encounter Details DateTypeDepartmentCare Team (Latest Contact Info)Subhbxmshme30/11/2024Clinisync Result Encounter [facility] External Department Unsolicited Amilcar Gagnon DO [address] [place], [facility] Social History Tobacco UseTypesPacks/DayYears UsedDateSmoking Tobacco: Never Assessed CommentsNoSex and Gender InformationValueDate RecordedSex Assigned at Pliqsz1212/14/2022 8:42 AM EDTLegal LauFxpndd79/15/2023 11:46 PM EDTGender TjlzywimDxwkbb56/23/2023 8:42 AM EDTSexual OrientationNot on filedocumented as of this encounter Plan of Treatment DateTypeDepartpromedica coldwater regional hospitalCare Team (Latest Contact Info)Sqrvslfsiki18/11/2025 8:30 AM ESTOffice Visit [facility] [place] [facility] [address] [place] [address] Cyndie Aguirre PA [address] [place] [address] 01/08/2026 9:00 AM ESTProcedure Visit [facility] [place] [facility] [address] [place] [address] Cyndie Aguirre PA [address] [place] [address] documented as of this encounter Procedures Procedure NamePriorityDate/TimeAssociated DiagnosisCommentsMM TOMOSYNTHESIS SCREENING BI01/03/2024 11:44 AM EST documented in this encounter Results * MM TOMOSYNTHESIS SCREENING (01/03/2024 11:44 AM EST)Anatomical Region LateralityModalityOtherSpecimen (Source)Anatomical Location / Laterality Collection Method / VolumeCollection TimeReceived Time01/03/2024 11:44 AM EST Narrative 01/03/2024 11:44 AM EST [facility] ?[address] ? [place], [facility] ? Mammography Report ? Signed ? Patient: SHARONDADONNY,BETZAIDA L ?MR#: [id number] ?? : 1975 ?Acct:[id number] ?? Age/Sex: 48 / F ?ADM Date: 01/03/24 ?? Loc: MAMMO ? Attending Dr: Amilcar Gagnon D.O. ? Ordering Physician: Amilcar Gagnon D.O. ?Results: ? Date of Service: 01/03/24 ?Follow Up: ? Procedure(s): MM tomosynthesis screening BI ?? Accession Number(s): [id number] ? cc: Amilcar Gagnon D.O.; Physician,Non-Staff MRoselineD. ? Patient Name: ? BETZAIDA ARMENDARIZ ? MR#: [id number] ? : 1975 ? Exam Date: 01/03/2024 [...] at age 3. ? LOCATION: ? [facility] ? BREAST COMPOSITION: ? The breasts [...] 1144 ? DD/ 1144 ? TD/TT: ? Machine Bander And Cellophaner Helper: Procedure Note Radiology, Radiologist, MD - 01/03/2024 [place] [address] Mammography Report Signed Patient: BETZAIDA ARMENDARIZ LMR#: [id number] : 1975Acct:[id number] Age/Sex: 48 / FADM Date: 01/03/24 Loc: MAMMO Attending Dr: Amilcar Gagnon D.O. 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 LOCATION: [facility] BREAST COMPOSITION: The breasts are heterogeneously [...] M.D. Signed By:01/03/24 1144 DD/ 1144 TD/TT: Machine Bander And Cellophaner Helper: Authorizing ProviderResult TypeResult StatusCorey Kalin DOCLINISYNC IMAGINGFinal Result documented in this encounter Visit Diagnoses Not on filedocumented in this encounter Care Teams Team MemberRelationshipSpecialtyStart DateEnd Date Duglas Morris MD PCP - GeneralFamily Cbsufpic46/27/23 Cyndie Aguirre PA [address] [place] [address] Dr [place] [place] [id number] PCP - Medical Lorena [employer]10/24/2411documented as of this encounter
--- OUTSIDE RECORDS SUMMARY | 2025-01-04 09:45 | XMS_ITS | Clinical Summary ---
Author Organization [facility] Address [address] [place] [address] Care Team Providers Care Robotic Machine Operator Name Role Phone Duglas Morris MD Primary Care Provider [phone] Allergies Active AllergyReactionsCriticalityNoted DateCommentsPenicillinsHives,Itching, CbwcKdb3505/08/2004 hives Wound Dressing Ogfzorqm32/03/2005 surgical tape gets blisters Medications MedicationSigDispense QuantityRefillsLast FilledStart DateEnd DateStatus estradiol (Estrace) 0.5 MG tablet Indications:Postmenopausal stateTake 1 tablet (0.5 mg) by mouth Daily Take 1 tablet by mouth for 30 days 30 tablet 5Active metFORMIN XR (Glucophage-XR) 500 MG 24 hr tablet Indications:Encounter for weight managementTake 1 tablet (500 mg) by mouth in the evening. Take with meals Do not crush, chew, or split. 30 tablet 5Active phentermine (Adipex-P) 37.5 MG tablet Indications:Encounter for weight managementTake 1 tablet (37.5 mg) by mouth in the morning. Take before meals. 30 tablet 5Active docusate sodium (Colace) 100 MG capsule Indications:Constipation, unspecified constipation typeTake 1 capsule (100 mg) by mouth 2 (two) times a day as needed for constipation 30 capsule /6Active estradiol (Estrace) 0.5 MG tablet Indications:Postmenopausal stateTake 1 tablet (0.5 mg) by mouth Daily Take 1 tablet by mouth for 30 days 30 tablet 111Discontinued(Reorder) metFORMIN XR (Glucophage-XR) 500 MG 24 hr tablet Indications:Encounter for weight managementTAKE 1 TABLET BY MOUTH EVERY EVENING WITH MEALS 30 tablet Discontinued(Reorder) Encounters DateTypeDepartmentCare ZwzvNuaxzzozzbv48/13/2025 8:50 AM ESTOffice Visit [facility] [place] [facility] [address] [place] [address] Cyndie Aguirre PA Encounter for weight management; Constipation, unspecified constipation type01/04/2025amboo flowsheet [facility] [place] [facility] [address] [place] [address] Cyndie Aguirre PA 01/02/20257981Mmdogp77/10/2025 1:00 PM ESTOffice Visit [facility] [address] [place] [address] Cyndie Aguirre PA Well woman exam with routine gynecological exam; Breast cancer screening by zfuerbrop58/10/2025ambsofie flowsheet [facility] [place] [facility] [address] [place] [address] Cyndie Aguirre PA 01/01/20257165Emwsvw79/20/2025Telephone [facility] [place] [facility] [address] [place] [address] Zulema Soto MA from Last 3 Months Family History Medical HistoryRelationNameCommentsCancerPaternal GrandmotherCancerSibling RelationNameStatusCommentsPaternal GrandmotherSibling Social History Tobacco UseTypesPacks/DayYears UsedDateSmoking Tobacco: Never Assessed CommentsNoSex and Gender InformationValueDate RecordedSex Assigned at Bssoti3712/14/2022 8:42 AM EDTLegal OmzJkiknz16/15/2023 11:46 PM EDTGender PdalcdetJddopt99/23/2023 8:42 AM EDTSexual OrientationNot on file Last Filed Vital Signs Vital SignReadingTime TakenCommentsBlood Euopaeot763/7211 9:27 AM EST Iyozp4471/30/2024 5:21 PM BDKHaihthoyvrb36.5 ??C (97.7 ??F)07/22/2023 5:21 PM EDTRespiratory Rate--Oxygen Lzlyquopad46%07/22/2023 5:21 PM EDTInhaled Oxygen Concentration--Dgditq068 kg (233 lb 12.8 oz)01/04/2025 9:27 AM KKUZesuch467.6 cm (5' 6 )12/21/2022 1:07 PM EDTBody Mass Index37.7412/21/2022 1:07 PM EDT Plan of Treatment DateTypeDepartmentCare Team (Latest Contact Info)Gxpclnxjqdn13/11/2025 8:30 AM ESTOffice Visit [facility] MOSQU[facility] [address] [place] [address] [place] [address] Cyndie Aguirre PA [address] [facility] [address] [facility] [address] [place], [facility] 01/08/2026 9:00 AM ESTProcedure Visit [facility] [address] [place] [address] [place] [address] Cyndie Aguirre PA [address] [facility] [place] [address] [place] [address] Care Teams Team MemberRelationshipSpecialtyStart DateEnd Date Duglas Morris MD [facility] - [facility] Awlfxuuj95/27/23
--- OUTSIDE RECORDS SUMMARY | 2025-01-04 09:45 | XMS_ITS | Clinical Summary ---
Author Organization [facility] Address [address] [place] [address] Care Team Providers Care Nutrition Intern Name Role Phone Unavailable Primary Care Provider Unavailabl e Allergies Active AllergyReactionsCriticalityNoted KnrpZagytarzSlnkqbdnlid47/17/2005 hives tape [Other]12/25/2004 surgical tape gets blisters [...] tablet ctive Active Problems ProblemNoted DateDiagnosed DateSpider msxdlbq2704/23/2009GRANULOMA ANNULARE 09/01/2005Panic disorder without mvjurtiofby86/07/2006Generalized anxiety ikczakmc29/07/2006Myalgia and myositis, pcjutylszqc14/07/2006TELANGIECTASIA 01/29/20053588QYPOOLERYIZVBY54/08/2005NUMMULAR OSVXJCSBXC81/08/2005 Immunizations ImmunizationAdministration DatesNext DueTD Adult05/08/2004diphtheria tetanus pertussis (DTP) ntwypev4103/23/1981,09/14/1977,1976,1976,1976 measles mumps rubella (MMR) vaccine (M-M-R II, PRIORIX)05/19/1977 Family History Medical HistoryRelationCommentsDiabetesFathertype 2HypertensionFatherThyroid Maternal AuntDiabetesMaternal Grandfathertype 2Ischemic Heart DiseaseMaternal Grandfathercad, s/p cabgArthritisMaternal Grandmothertype unknownEmphysema Maternal GrandmothersmokerHypertensionMaternal Grandmotherprimary biliary sclerosisMotherliver failure; genetic disorderrheumatoid arthritisMother sjrogen'sMotherIschemic Heart DiseasePaternal GrandfatherMI age ?40's; Breast CancerPaternal GrandmotherleukemiaSister 2RelationStatusCommentsFather AliveMaternal AuntMaternal GrandfatherAliveMaternal GrandmotherAliveMotherAlive Paternal GrandfatherDeceasedMI age ?40'sPaternal GrandmotherDeceasedbreast cancerSister 1AliveSister 2 Social History Tobacco UseTypesPacks/DayYears UsedDateSmoking Tobacco: BuqpglYyctkndcus961 Comments:started smoking age 17, 1 ppd Alcohol UseStandard Drinks/WeekCommentsYes0 (1 standard drink = 0.6 oz pure alcohol)less than 7 drinks/wCommentsNoSex and Gender InformationValue Date RecordedSex Assigned at BirthNot on fileLegal MkoSekynr99/02/2012 7:18 AM ESTGender IdentityNot on fileSexual OrientationNot on fileOccupationIndustryJob Start DateJob End Datebar attendantNot on fileNot on fileNot on fileclericalNot on fileNot on fileNot on file Last Filed Vital Signs Vital SignReadingTime TakenCommentsBlood Grkjwmez352/7404 5:45 PM EDT Vgmto00810/09/2012 5:45 PM WSDDysldsvnlvz97.6 ??C (97.9 ??F)06/01/2011 5:45 PM EDTRespiratory Rate--Oxygen Saturation--Inhaled Oxygen Concentration--Rucqcz02.1 kg (159 lb)06/01/2011 5:45 PM WKNMjobdh496.6 cm (5' 6 )12/25/2008 3:02 PM EST Body Mass Index25.6612/25/2008 3:02 PM EST Plan of Treatment Health MaintenanceDue DateLast DoneCommentsAnxiety Xitynkmpw42/29/1995Depression Rvltpuwbn79/29/1995HIV Pidvtwtob36/29/1995Hepatitis C Cgosppois00/29/1995 Hepatitis B Vaccine (1 of 3 - 19+ 3-dose series)1995DTaP,Tdap,Td Vaccine (6 - Tdap), 03/23/1981, 09/14/1977, Additional history existsCervical Cancer Ngcqxxlls62Mammogram Hqonobzmd63/29/[address] Yrqzldkccjdm98/29/2022Cologuard (FIT-DNA)0682Peealojztwg19/29/2022 Colorectal Cancer Nztuilelk87/29/2022Diabetes Leccmrtmt38, 05/08/2004Fecal Occult Blood2021Lipid Rzqzakwiw99, 05/08/20049724Nrbmpqezbgdoo16/29/2022Covid-19 Vaccine (2024- season)2024 Influenza Vaccine (#1)2024 Procedures Procedure NamePriorityDate/TimeAssociated DiagnosisCommentsBASIC METABOLIC PANEL Ngrnhan8103/05/2005 11:02 AM EST Chest Pain Nos Anxiety State Nos Tobacco Use Disorder LIPID PANEL, ZAQMRHNBglnqbo03/12/2006 11:02 AM EST Chest Pain Nos Anxiety State Nos Tobacco Use Disorder from Last 3 Months or Most Recently Relevant to Health Maintenance Results * (ABNORMAL) LIPID PANEL BASIC (03/05/2005 11:02 AM EST)ComponentValueRef Range Test MethodAnalysis TimePerformed AtPathologist SlomagoqqGnfkkenxcobl9634 - 149 mg/dLCLESELECT MEDICAL [facility] LABCholesterol, Pwqqo147342 - 199 mg/dLCLESELECT MEDICAL SPECIALTY [facility] LABHDL Rxoxhravnwt58(A)>55 mg/dLCLESELECT MEDICAL SPECIALTY [facility] LABVLDL Wwxjeojmpcq412 - 40 mg/dLCLEVELAND CLINIC LABLDL Cholesterol, Ebormqleqx04108 - 129 mg/dL [facility] LABFasting Ajga01pfmAFXLIEJSE CLINIC LABTC:HDL Ratio3.621.00 - 5.00[facility] LABLDL:HDL Ratio2.240.50 - 3.55[facility] Specimen (Source)Anatomical Location / LateralityCollection Method / Volume Collection TimeReceived TimeBlood specimen (specimen)BLOOD SPECIMEN / Unknown 03/05/2005 11:02 AM EST Narrative Authorizing ProviderResult TypeResult StatusBrenda Geddis ComrieLABORATORYFinal ResultPerforming OrganizationAddressCity/State/ZIP CodePhone Number [facility] [address] [place] [address] * (ABNORMAL) BASIC METABOLIC PNL (03/05/2005 11:02 AM EST)ComponentValueRef RangeTest MethodAnalysis TimePerformed AtPathologist OxsmjbbfzAksaqxs8959 - 100 mg/dLHOLM[facility] EIQWHP52 - 25 mg/dLHOLMES [facility] LABCreatinine0.6 (A)0.7 - 1.4 mg/dLHOLMES [facility] JBFNrfnsp171863 - 148 mmol/LCLEVELAND CLINIC LABPotassium4.33.5 - 5.0 mmol/[facility] ARFKewgthyp94952 - 110 mmol/[facility] WWGHA08764 - 32 mmol/[facility] LABAnion Ibg370 - 15 mmol/[address] [facility] LABCalcium9.88.5 - 10.5 mg/dLHOLMES [facility] Specimen (Source)Anatomical Location / LateralityCollection Method / Volume Collection TimeReceived TimeBlood specimen (specimen)BLOOD SPECIMEN / Unknown 03/05/2005 11:02 AM EST Narrative Authorizing ProviderResult TypeResult StatusBrenda Geddis ComrieLABORATORYFinal ResultPerforming OrganizationAddressCity/State/ZIP CodePhone Number [facility] [address] [place] [address] from Last 3 Months or Most Recently Relevant to Health Maintenance Insurance * Guarantor: Paris Bonilla TypeRelation to PatientDate of BirthPhone Billing AddressPersonal/LmglmbVshv03/29/1976 NA (Home) [address] [place] [id number] * Guarantor: Paris Bonilla TypeRelation to PatientDate of BirthPhone Billing AddressSelf [id number] 1975 (Home) [address] [address]
--- OUTSIDE RECORDS SUMMARY | 2025-01-04 09:45 | XMS_ITS | Clinical Summary ---
Author Organization [facility] Address [address] [place] [address] Phone Care Team Providers Care Risk Control Field Representative Name Role Phone Giovanna Brooks MD Primary Care Provider Unav ailable Social History Tobacco UseTypesPacks/DayYears UsedDateSmoking Tobacco: Never Assessed CommentsUnknownSex and Gender InformationValueDate RecordedSex Assigned at Not on fileLegal ZucTzfazx23/25/2022 1:03 PM ESTGender IdentityNot on fileSexual OrientationNot on file Last Filed Vital Signs Vital SignReadingTime TakenCommentsBlood Rzspepvv011/78003/08/2020 3:33 PM EST Muyqz388403/08/2020 3:33 PM MFMTipsvhgifxp40.3 ??C (97.3 ??F)03/08/2020 3:33 PM ESTRespiratory Tcbg001003/08/2020 3:33 PM ESTOxygen Saturation--Inhaled Oxygen Concentration--Iifcwq20.2 kg (216 lb 8 oz)03/08/2020 3:33 PM DGZVwawjq882.6 cm (5' 6 )03/08/2020 3:33 PM ESTBody Mass Index34.9403/08/2020 3:33 PM EST Plan of Treatment Not on file Care Teams Team MemberRelationshipSpecialtyStart DateEnd Date Giovanna Brooks MD PCP - Uooucow77/22/20
--- OUTSIDE RECORDS SUMMARY | 2025-01-04 09:45 | XMS_ITS | Encounter Summary ---
Author Organization [facility] Address [address] [place] [address] Care Team Providers Care Tube Depatcher Name Role Phone Duglas Morris MD Primary Care Provider [phone] Encounter Details DateTypeDepartmentCare Team (Latest Contact Info)Woavcvgzkuz81/13/2025amboo flowsheet [facility] [address] [facility] [address] [place] [address] Cyndie Aguirre PA [address] [place] [address] Dr [place], [facility]11 Social History Tobacco UseTypesPacks/DayYears UsedDateSmoking Tobacco: Never Assessed CommentsNoSex and Gender InformationValueDate RecordedSex Assigned at Ggvuhp4012/14/2022 8:42 AM EDTLegal BidVjfcij61/15/2023 11:46 PM EDTGender MlbkznhxBduvzk99/23/2023 8:42 AM EDTSexual OrientationNot on filedocumented as of this encounter Plan of Treatment DateTypeDepartmentCare Team (Latest Contact Info)Ndvnrxfhdbg70/11/2025 8:30 AM ESTOffice Visit [facility] [address] [facility] [place] [address] Cyndie Aguirre PA [address] [place] [address] Dr [place], [place] [id number] 01/08/2026 9:00 AM ESTProcedure Visit [facility] [address] [facility] [place] [address] Cyndie Aguirre PA [address] [facility] [place] [address] documented as of this encounter Visit Diagnoses Not on filedocumented in this encounter Care Teams Team MemberRelationshipSpecialtyStart DateEnd Date Duglas Morris MD PCP - GeneralFamily Tqmagzkg39/27/23documented as of this encounter
--- OUTSIDE RECORDS SUMMARY | 2025-01-04 09:45 | XMS_ITS | Encounter Summary ---
Author Organization [facility] Address [address] [place] [address] Care Team Providers Care Stitch Marker Name Role Phone Duglas Morris MD Primary Care Provider [phone] Encounter Details DateTypeDepartmentCare Team (Latest Contact Info)Ppbjgseionv40/10/2025Travel Social History Tobacco UseTypesPacks/DayYears UsedDateSmoking Tobacco: Never Assessed CommentsNoSex and Gender InformationValueDate RecordedSex Assigned at Rwcncc1812/14/2022 8:42 AM EDTLegal RygKxrxzb86/15/2023 11:46 PM EDTGender FjzqukxzFylrbe30/23/2023 8:42 AM EDTSexual OrientationNot on filedocumented as of this encounter Plan of Treatment DateTypeDepartmentCare Team (Latest Contact Info)Mnkwmmmhjna45/11/2025 8:30 AM ESTOffice Visit [facility] [address] [place] [address] [place] [address] Cyndie Aguirre PA [address] [place] [address] Dr [place]re, [facility]11 01/08/2026 9:00 AM ESTProcedure Visit [facility] [address] [place] [address] [place] [address] Cyndie Aguirre PA [address] [facility] [address] [place], [facility]11 documented as of this encounter Visit Diagnoses Not on filedocumented in this encounter Care Teams Team MemberRelationshipSpecialtyStart DateEnd Date Duglas Morris MD PCP - GeneralFamily Idynkitz13/27/23documented as of this encounter
--- OUTSIDE RECORDS SUMMARY | 2025-01-04 09:45 | XMS_ITS | Clinical Summary ---
Author Organization [facility] Address [address] [facility] [place] [address] Care Team Providers Care Architectural Sales Consultant Name Role Phone Unavailable Primary Care Provider Unavailabl e Source Comments The following information is NOT included in Care Everywhere downloads:Psychiatric notes, ECG results, Cardiac Rehab notes, Pulmonary Function notes, data from SmartForms (includes but not limited toPregnancy data,audiograms, eye exams, pre-surgical evaluation notes, well-child exam data).[facility] Allergies Active AllergyReactionsCriticalityNoted EefvSywizigfZwoyygqdxsgEgjkl27/04/2019 Medications No known medications Immunizations ImmunizationAdministration DatesNext DueTdap (ORT=284)07/25/2016 Social History Tobacco UseTypesPacks/DayYears UsedDateSmoking Tobacco: FormerSmokeless Tobacco: NeverCommentsUnknownSex and Gender InformationValueDate RecordedSex Assigned at BirthNot on fileLegal VpvEfnleh90/04/2012 9:57 AM ESTGender Identity Not on fileSexual OrientationNot on file Last Filed Vital Signs Vital SignReadingTime TakenCommentsBlood Jxnvoldr023/8804/25/2018 6:27 PM EST Pnlgy110004/25/2018 6:27 PM OPBLksbknaoljk50.4 ??C (97.6 ??F)04/25/2018 6:27 PM ESTRespiratory Rate--Oxygen Lrnjetzvuc154%04/25/2018 6:27 PM ESTInhaled Oxygen Concentration--Weight--Height--Body Mass Index-- Plan of Treatment Health MaintenanceDue DateLast PwryIiyvskqzBgqhymzbxov77/29/1977HIV Test 1991Hepatitis C Zlnbqcpa49/29/1995Hepatitis A (HAV) Vaccine (optional start 19+ years)1995Hepatitis B (HBV) Vaccine (1 of 3 - 19+ 3-dose series) 1995Pap Smear03/22/19973703Mxbezodzhkj68/29/2017CRC Nbrqqctjq27/29/2022 Zzotcnzupsm88/29/2022ologuard (Stool DNA)2021FIT2021OVID-19 Vaccine (1 - 2024- season)2024Influenza Vaccine (#1)2024Shingles (RZV) Vaccine (1 of 2)2026Tetanus (Td or Tdap) Gzhdxyt32 Tdap KlekoggHlypjxfsj48/03/2017Pneumococcal Vaccine(s)Aged OutNo longer eligible based on patient's age to complete this topic Insurance * Guarantor: Jeannie Armendariz TypeRelation to PatientDate of BirthPhone Billing AddressDrug SkkpAwhv60/29/1976 [address] [id number] MemberSubscriberPlan / Payer (Effective 2014-Present)Name:Paris Armendariz Relation to Subscriber:SelfName:Paris Armendariz Payer ID:Not on file Group ID:Not on file Type:PPO Address: [address] [place] [id number]
--- OUTSIDE RECORDS SUMMARY | 2025-01-04 09:45 | XMS_ITS | Encounter Summary ---
Author Organization [facility] Address [address] [place] [address] Care Team Providers Care Driller'S Offsider Name Role Phone Duglas Morris MD Primary Care Provider [phone] Encounter Details DateTypeDepartmentCare Team (Latest Contact Info)Uuywcemfuub68/10/2025amboo flowsheet [facility] [address] [facility] [place] [address] Cyndie Aguirre PA [address] [place] [address] Dr [place], [facility] Social History Tobacco UseTypesPacks/DayYears UsedDateSmoking Tobacco: Never Assessed CommentsNoSex and Gender InformationValueDate RecordedSex Assigned at Sndona4112/14/2022 8:42 AM EDTLegal QymWhwhzu30/15/2023 11:46 PM EDTGender EodtkdvbXqatoo32/23/2023 8:42 AM EDTSexual OrientationNot on filedocumented as of this encounter Plan of Treatment DateTypeDepartmentCare Team (Latest Contact Info)Aomridojohj74/11/2025 8:30 AM ESTOffice Visit [facility] [address] [facility] [place] [address] Cynide Aguirre PA [address] [place] [address] Dr [place], [place] [id number] 01/08/2026 9:00 AM ESTProcedure Visit [facility] [address] [facility] [place] [address] Cyndie Aguirre PA [address] [facility] [place] [address] documented as of this encounter Visit Diagnoses Not on filedocumented in this encounter Care Teams Team MemberRelationshipSpecialtyStart DateEnd Date Duglas Morris MD PCP - GeneralFamily Jjvfaour21/27/23documented as of this encounter
--- OUTSIDE RECORDS SUMMARY | 2025-01-04 09:45 | XMS_ITS | Encounter Summary ---
Author Organization [facility] Address [address] [place] [address] Care Team Providers Care Wet Char Conveyor Tender Name Role Phone Duglas Morris MD Primary Care Provider [phone] Encounter Details DateTypeDepartmentCare Team (Latest Contact Info)Trqlapjfkkl83/11/2025Travel Social History Tobacco UseTypesPacks/DayYears UsedDateSmoking Tobacco: Never Assessed CommentsNoSex and Gender InformationValueDate RecordedSex Assigned at Jeqzjn6812/14/2022 8:42 AM EDTLegal LhpXosqwu38/15/2023 11:46 PM EDTGender NrbmugfpCmdwup14/23/2023 8:42 AM EDTSexual OrientationNot on filedocumented as of this encounter Plan of Treatment DateTypeDepartmentCare Team (Latest Contact Info)Eclkybfayni06/11/2025 8:30 AM ESTOffice Visit [facility] [address] [place] [address] [place] [address] Cyndie Aguirre PA [address] [place] [address] Dr [place], [facility]11 01/08/2026 9:00 AM ESTProcedure Visit [facility] [address] [place] [address] [place] [address] Cyndie Aguirre PA [address] [facility] [address] [place], [facility]11 documented as of this encounter Visit Diagnoses Not on filedocumented in this encounter Care Teams Team MemberRelationshipSpecialtyStart DateEnd Date Duglas Morris MD PCP - GeneralFamily Tudpedny53/27/23documented as of this encounter
--- NOTE | 2025-01-04 09:57 | MM_ITS ---
Patient Name: BETZAIDA ARMENDARIZ MR#: [id number] : 1975 Exam Date: 01/04/2025 Ordering Doctor: DR MARISSA PHELAN . RADIOLOGY REPORT PROCEDURE: MM TOMOSYNTHESIS SCREENING BI COMPARISON: MM TOMOSYNTHESIS SCREENING BI, 01/03/2024. MM TOMOSYNTHESIS DIAGNOSTIC BI, 08/24/2022. MG MAMM SCREEN 3D SAVI CAD, 10/10/2021. INDICATIONS: screening Calculator Name NCI Breast Cancer Risk Assessment Tool 5 Year Breast Cancer Risk 0.60% Lifetime Breast Cancer Risk 6.10% Personal Breast Cancer No Personal Ovarian Cancer No Treatments None Family Cancers Grandmother-paternal with breast cancer at age ~60; Sister with leukemia cancer at age 2. LOCATION: [facility] BREAST COMPOSITION: The breasts are heterogeneously dense, which may obscure small masses. FINDINGS: RIGHT BREAST: No significant suspicious finding. LEFT BREAST: No significant suspicious finding. DIAGNOSTIC CATEGORY 1--NEGATIVE. RECOMMENDATIONS: ROUTINE MAMMOGRAM AND CLINICAL EVALUATION IN 12 MONTHS. Dictated by: Lito Aguilar DO on 01/04/2025 at 14:00 Approved by: Lito Aguilar DO on 01/04/2025 at 14:19
== END 2025-01-04 09:44 | disposition home or self-care (01) ==
LOC: MAMMO 09:43
PROVIDERS: Visit Provider Obstetrics & Gynecology
DX: Z12.31 Encounter for screening mammogram for malignant neoplasm of breast (principal); Z80.3 Family history of malignant neoplasm of breast; Z80.6 Family history of leukemia
CPT/HCPCS: 77063; 77067